=== PATIENT | male | born 1940 | race Caucasian/White ===

== ENCOUNTER 2018-09-22 14:00 | Inpatient (IN) ==
[2018-09-22] MEDS ORDERED: SODIUM CHLORIDE 0.9% 1000ML 1,000 ML IV ONE (14:54)
[2018-09-22] MEDS ORDERED: CEFEPIME 2,000 MG/12.5 ML VIAL IV STA (14:54)
--- NOTE | 2018-09-22 15:11 | XRay Report ---
XR chest 1V portable HISTORY: 78 years-old Male weakness acute weakness COMPARISON: Chest radiograph 09/15/2018 TECHNIQUE: Portable AP view of the chest FINDINGS: Cardiomediastinal and hilar silhouettes are unchanged. Calcification of the thoracic aortic arch. Unc hanged right pleural effusion with progressed right lung base opacities. Left lung is generally clear . No pneumothorax. Regions focus overlies the left heart border, unchanged. Indeterminate radiodense foci of the abdominal right upper quadrant. Degenerative changes of the shoulders and spine. IMPRESSION: Unchanged right pleural effusion with slightly progressed right basilar opacities suggest paige of atelectasis or pneumonitis. The above report was generated using voice recognition software. It may contain grammatical, syntax o r spelling errors. Electronically signed by: Rayo Abdi M.D. 09/22/2018 3:09 PM
[2018-09-22 15:23] LABS: Albumin Level 2.7 gm/dl (3.4-5.0); BUN Creatinine Ratio 24.5 (10-20); Calcium 9.1 mg/dl (8.5-10.1); Creatinine Clr Calc Pharmacy 26.5 ml/min; Est GFR (Non-African American) 48.3; Magnesium 2.4 mg/dl (1.8-2.4); Potassium 3.4 mmol/L (3.5-5.1)
[2018-09-22 15:32] LABS: Albumin Globulin Ratio 0.6 (0.9-2); Bilirubin,Total 1.8 mg/dl (0.2-1); Globulin 4.6 gm/dl (2.5-4.0); Total Protein 7.3 gm/dl (6.4-8.2)
[2018-09-22 15:35] LABS: Hematocrit (blood only) 31.8 % (42-52); Hemoglobin 10.4 g/dL (14.0-18.0); Mean Corpuscular Hgb Conc 32.7 g/dL (32-36); Mean Corpuscular Volume 92.4 fL (80-100); Platelet Count 52 K/uL (130-400); RDW Coefficient of Variation 16.8 % (11.5-14.5); RDW Standard Deviation 55.3 fL (36.4-46.3); Red Blood Count 3.44 M/uL (4.7-6.1)
[2018-09-22 15:36] LABS: INR 1.3 (0.9-1.1); Partial Thromboplastin Ratio 1.1; Partial Thromboplastin Time 29.9 Seconds (21.0-31.0); Prothrombin Time 13.3 Seconds (9.0-12.0)
[2018-09-22 15:44] LABS: Troponin I 0.128 ng/ml (0-0.045)
[2018-09-22 15:52] LABS: Dohle Bodies 1+; Giant Platelets 1+; Platelet Estimate Decreased (Normal); Toxic Granulation 1+
[2018-09-22 15:53] LABS: ALC (manual) 0.23 K/uL (1.2-3.4); Lymphocytes # (manual) 0.23 K/uL (1.2-3.4); Lymphocytes % (manual) 37.9 %; Metamyelocytes % (manual) 0.7 %; Monocytes # (manual) 0.03 K/uL (0.11-0.59); Myelocytes % (manual) 0.7 %; Neutrophils % (manual) 55.7 %
[2018-09-22 16:00] LABS: T4 Free Thyroxine 2.42 ng/dl (0.8-1.6)
[2018-09-22] MEDS ORDERED: MoRPHine SULFATE 2 MG/ML CARP IV PRN (16:07)
--- NOTE | 2018-09-22 16:37 | Emergency Department Note ---
Entered by Nerissa Barajas acting as a scribe for Felix Beltran MD History of Present Illness General Chief complaint: Referred by Doctor Stated complaint: NEEDS A PEG TUBE, CANCER PATIENT Time Seen by Provider: 09/22/18 14:49 Source: patient and old records reviewed Limitations: other (being unable to speak) History of Present Illness Provider complaint: PEG tube placement Onset (ago): hour(s) (today) Location: abdomen Maximum Pain Intensity: 10 Quality: + other (PEG tube placement ) Associated symptoms: + shortness of breath; no fever/chills The patient is a 78 year old male who presents to the Emergency Department with complaints of needing a PEG tube placement today. The patient states that he has throat cancer and states that he was last able to get fluid/food in himself 1 week ago. He states that he is currently getting radiation. He reports that he is unsure when he last had chemotherapy. He reports that he does not think he has a fever but does report that he is unable to catch his breath. Limited HPI secondary to a hoarse/weak voice as well as dyspnea. Review of EMR shows that the patient was discharged from the hospital 1 month ago. 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 Home Medications Home Medications Medication Instructions Recorded Confirmed Type clopidogrel 75 mg PO DAILY 07/08/18 09/22/18 History methotrexate sodium 6 tab PO UD 07/08/18 09/22/18 History gabapentin 100 mg capsule 200 mg PO TID 08/31/18 09/22/18 History nystatin 5 ml PO QID 09/22/18 09/22/18 History oxycodone 5 mg PO Q8 PRN 09/22/18 09/22/18 History scopolamine base [Transderm-Scop] 1 mg TOPICAL UD 09/22/18 09/22/18 History Allergies Allergy/AdvReac Type Severity Reaction Status Date / Time nitroglycerin Allergy Severe "my heart Verified 09/22/18 15:30 stopped" Past Med/Surg History Medical History Deviated nasal septum (Chronic) History of skin cancer (Chronic) EXCISION OF NOSE/FACE REGION, NO CONCERNS/ISSUES SINCE. Hyperlipidemia (Chronic) Primary squamous cell carcinoma of throat (Chronic) Rheumatoid arthritis (Chronic) BPH (benign prostatic hyperplasia) Surgical History H/O aorto-femoral bypass (Chronic) History of appendectomy (Resolved) History of heart surgery (Resolved) PLACEMENT OF AORTIC STENT 20 YEARS AGO. [facility]. History of herniorrhaphy (Resolved) Left inguinal History of laryngoscopy 07/06/18 History of throat surgery Direct laryngoscopy and esophagoscopy with biopsy of larynx 07/17/18: Fiberoptic #4, ETT 7.0 with Grade 2 view Family History Mother , 70yo CHF (congestive heart failure) Throat cancer Father , 53yo Bowel obstruction Brother No problems noted. Brother No problems noted. Brother No problems noted. Brother No problems noted. Brother No problems noted. Sister No problems noted. Sister No problems noted. Sister No problems noted. Sister No problems noted. Son No problems noted. Son No problems noted. Son No problems noted. Daughter No problems noted. Daughter No problems noted. 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 Physical Exam Vital Signs Vital Signs - 24 hr 09/22/18 14:14 09/22/18 14:29 09/22/18 15:10 Temperature 37.6 C H Temperature Source Oral Sepsis Recent Fever Within 48 Hours No Sepsis New/Unexplained Change in Mental Status No Sepsis Action Taken by Nursing No Action Required Pulse Rate [Left] Respiratory Rate 22 Blood Pressure 120/55 L Blood Pressure [Left Arm] Blood Pressure Mean 76 Blood Pressure Mean [Left Arm] Blood Pressure Position Sitting Pulse Oximetry 93 90 Oxygen Delivery Method Room Air Room Air Oxygen Flow Rate 3 09/22/18 15:40 09/22/18 16:15 09/22/18 17:14 Temperature Temperature Source Sepsis Recent Fever Within 48 Hours Sepsis New/Unexplained Change in Mental Status Sepsis Action Taken by Nursing Pulse Rate [Left] 108 H 114 H 126 H Respiratory Rate 22 24 22 Blood Pressure Blood Pressure [Left Arm] 116/99 155/78 H 120/74 Blood Pressure Mean Blood Pressure Mean [Left Arm] 104 103 89 Blood Pressure Position Pulse Oximetry 95 94 94 Oxygen Delivery Method Nasal Cannula Nasal Cannula Nasal Cannula Oxygen Flow Rate 3 3 3 09/22/18 18:17 Temperature Temperature Source Sepsis Recent Fever Within 48 Hours Sepsis New/Unexplained Change in Mental Status Sepsis Action Taken by Nursing Pulse Rate [Left] 125 H Respiratory Rate 20 Blood Pressure Blood Pressure [Left Arm] 129/65 Blood Pressure Mean Blood Pressure Mean [Left Arm] 86 Blood Pressure Position Pulse Oximetry 94 Oxygen Delivery Method Non-rebreather Oxygen Flow Rate GENERAL: Patient is in mild distress. HEENT: No acute trauma, normocephalic atraumatic, mucous membranes dry, no nasal congestion, no scleral icterus. NECK: No stridor, no adenopathy, no meningismus, trachea is midline. LUNGS: Increased respiratory rate. Equal breath sounds. No wheezing. HEART: Tachycardic rate, regular rhythm. No murmurs. ABDOMEN: Soft, nontender, bowel sounds positive, no hernias, no peritonitis. EXTREMITIES: No cyanosis or edema, full range of motion of all the joints without pain or difficulty, no signs for acute trauma. NEUROLOGIC: Oriented x 3, no acute motor or sensory deficits, no focal weakness. SKIN: No rash, no jaundice, no diaphoresis. Warm to the touch. Course 1449: The patient was evaluated in room A11A. A history and physical were performed. 1618: I checked on the patient. He looks a little better. 1626: I discussed the patient's case with Dr. Sheila Ma who will evaluate the patient for further management. Consultations Consultation #1: Dr. Sheila Ma Time: 16:26 Administered Medications Lactated Ringer's (Lr) 1,000 mls @ 100 mls/hr IV .Q10H GARRY Stop: 10/22/18 18:14 Last Admin: 09/22/18 18:32 Dose: 100 mls/hr Documented by: [id number] Morphine Sulfate (Morphine Sulfate) 2 mg IV Q15M PRN PRN Reason: Pain Stop: 10/06/18 16:06 Last Admin: 09/22/18 16:14 Dose: 2 mg Documented by: [id number] Discontinued Medications Sodium Chloride (Nss 1000ml) 1,000 mls @ 999 mls/hr IV .Q1H1M ONE Stop: 09/22/18 15:54 Last Infusion: 09/22/18 16:21 Dose: 0 mls/hr Documented by: [id number] Admin: 09/22/18 15:15 Dose: 999 mls/hr Documented by: [id number] Cefepime HCl (Maxipime) 2,000 mg in 12.5 mls @ 3.125 mls/min IV NOW STA; Protocol Stop: 09/22/18 14:57 Last Admin: 09/22/18 15:41 Dose: 3.125 mls/min Documented by: [id number] Propranolol HCl (Inderal) 0.5 mg IV ONE ONE Stop: 09/22/18 17:26 Last Admin: 09/22/18 18:12 Dose: 0.5 mg Documented by: [id number] Medical Decision Making Differential Diagnosis Differentials include dehydration, pneumonia, sepsis, bacteremia, electrolyte imbalance, UTI, malnutrition, and dysrhythmia. Medical Records Attestation: I reviewed the patient's medical records. Home Medications Current Medication List: was personally reviewed by me Laboratory Data Attestation: I reviewed the patient's lab results. Result diagrams: 09/22/18 14:49 09/22/18 14:49 Lab Results 09/22/18 09/22/18 09/22/18 Range/Units 14:49 14:49 14:49 WBC 0.60 L* (4.8-10.8) K/uL RBC 3.44 L (4.7-6.1) M/uL Hgb 10.4 L (14.0-18.0) g/dL Hct 31.8 L (42-52) % MCV 92.4 (80-100) fL MCH 30.2 (25-34) pg MCHC 32.7 (32-36) g/dL RDW Std Deviation 55.3 H (36.4-46.3) fL RDW Coeff of Daniel 16.8 H (11.5-14.5) % Plt Count 52 L (130-400) K/uL Neutrophils % (Manual) 55.7 % Lymphocytes % (Manual) 37.9 % Monocytes % (Manual) 5.0 % Metamyelocytes % (Man) 0.7 % Myelocytes % (Man) 0.7 % Neutrophils # (Manual) 0.33 L (1.4-6.5) K/uL Total Absolute Neuts 0.33 L* (1.4-6.5) K/uL Lymphocytes # (Manual) 0.23 L (1.2-3.4) K/uL Total Abs Lymphocytes 0.23 L (1.2-3.4) K/uL Monocytes # (Manual) 0.03 L (0.11-0.59) K/uL Metamyelocytes # (Man) 0.00 (0-0) K/uL Myelocytes # (Manual) 0.00 (0-0) K/uL Toxic Granulation 1+ Dohle Bodies 1+ Platelet Estimate Decreased (Normal) Giant Platelets 1+ PT Cancelled INR Cancelled APTT (21.0-31.0) Seconds PTT Ratio Sodium 153 H (136-145) mmol/L Potassium 3.4 L (3.5-5.1) mmol/L Chloride 120 H (98-107) mmol/L Carbon Dioxide 28 (21-32) mmol/L Anion Gap 5.0 (3-11) BUN 34 H (7-18) mg/dl Creatinine 1.38 (0.6-1.4) mg/dl Est Cr Clr Drug Dosing 26.5 ml/min Est GFR ( Amer) 56.0 Est GFR (Non-Af Amer) 48.3 BUN/Creatinine Ratio 24.5 H (10-20) Glucose 120 H (70-99) mg/dl Lactate (0.4-2.0) mmol/L Calcium 9.1 (8.5-10.1) mg/dl Magnesium 2.4 (1.8-2.4) mg/dl Total Bilirubin 1.8 H D (0.2-1) mg/dl AST 22 (15-37) U/L ALT 21 (12-78) U/L Alkaline Phosphatase 62 (45-117) U/L Troponin I 0.128 H* (0-0.045) ng/ml Total Protein 7.3 (6.4-8.2) gm/dl Albumin 2.7 L (3.4-5.0) gm/dl Globulin 4.6 H (2.5-4.0) gm/dl Albumin/Globulin Ratio 0.6 L (0.9-2) TSH 0.008 L (0.300-4.500) uIu/ml Free T4 2.42 H (0.8-1.6) ng/dl 09/22/18 09/22/18 09/22/18 Range/Units 14:49 15:00 15:24 WBC (4.8-10.8) K/uL RBC (4.7-6.1) M/uL Hgb (14.0-18.0) g/dL Hct (42-52) % MCV (80-100) fL MCH (25-34) pg MCHC (32-36) g/dL RDW Std Deviation (36.4-46.3) fL RDW Coeff of Daniel (11.5-14.5) % Plt Count (130-400) K/uL Neutrophils % (Manual) % Lymphocytes % (Manual) % Monocytes % (Manual) % Metamyelocytes % (Man) % Myelocytes % (Man) % Neutrophils # (Manual) (1.4-6.5) K/uL Total Absolute Neuts (1.4-6.5) K/uL Lymphocytes # (Manual) (1.2-3.4) K/uL Total Abs Lymphocytes (1.2-3.4) K/uL Monocytes # (Manual) (0.11-0.59) K/uL Metamyelocytes # (Man) (0-0) K/uL Myelocytes # (Manual) (0-0) K/uL Toxic Granulation Dohle Bodies Platelet Estimate (Normal) Giant Platelets PT 13.3 H INR 1.3 H APTT 29.9 (21.0-31.0) Seconds PTT Ratio 1.1 Sodium (136-145) mmol/L Potassium (3.5-5.1) mmol/L Chloride (98-107) mmol/L Carbon Dioxide (21-32) mmol/L Anion Gap (3-11) BUN (7-18) mg/dl Creatinine (0.6-1.4) mg/dl Est Cr Clr Drug Dosing ml/min Est GFR ( Amer) Est GFR (Non-Af Amer) BUN/Creatinine Ratio (10-20) Glucose (70-99) mg/dl Lactate 2.9 H* (0.4-2.0) mmol/L Calcium (8.5-10.1) mg/dl Magnesium (1.8-2.4) mg/dl Total Bilirubin (0.2-1) mg/dl AST (15-37) U/L ALT (12-78) U/L Alkaline Phosphatase (45-117) U/L Troponin I Cancelled (0-0.045) ng/ml Total Protein (6.4-8.2) gm/dl Albumin (3.4-5.0) gm/dl Globulin (2.5-4.0) gm/dl Albumin/Globulin Ratio (0.9-2) TSH (0.300-4.500) uIu/ml Free T4 (0.8-1.6) ng/dl Imaging Data Radiologist's Impression: Radiology results as stated below per my review and the radiologist's interpretation: XR chest 1V portable HISTORY: 78 years-old Male weakness acute weakness COMPARISON: Chest radiograph 09/15/2018 TECHNIQUE: Portable AP view of the chest FINDINGS: Cardiomediastinal and hilar silhouettes are unchanged. Calcification of the thoracic aortic arch. Unchanged right pleural effusion with progressed right lung base opacities. Left lung is generally clear. No pneumothorax. Regions focus overlies the left heart border, unchanged. Indeterminate radiodense foci of the abdominal right upper quadrant. Degenerative changes of the shoulders and spine. IMPRESSION: Unchanged right pleural effusion with slightly progressed right basilar opacities suggestive of atelectasis or pneumonitis. The above report was generated using voice recognition software. It may contain grammatical, syntax or spelling errors. Electronically signed by: Rayo Abdi M.D. 09/22/2018 3:09 PM ECG Data Attestation: I personally reviewed and interpreted this ECG as follows: Indication: tachycardia Rate (beats per minute): 117 Rhythm: sinus tachycardia Findings: + nonspecific-ST abn and + PVC; no ST elevation Blood Pressure Blood Pressure Findings: Normal blood pressure MDM Narrative The patient is markedly neutropenic. The white blood cell count is 0.60. The patient is anemic with a hemoglobin of 10.4. Platelet count is low at 52. INR slightly elevated at 1.3. Renal panel testing shows dehydration. The patient is somewhat hypernatremic with a sodium of 153. No hepatitis. The TSH is low but the T4 is slightly elevated. EKG shows a sinus tachycardia without any acute ischemic change. PVCs were seen. Cardiac troponin is slightly elevated at 0.12. This elevation could be consistent with mismatch or possibly cardiac strain/injury. Chest film shows worsening of the congestion in the right lower lung, this could be consistent with pneumonia. No CHF. Lactic acid level is elevated at 2.9, this could be consistent with dehydration or possibly infection. Blood cultures are pending. The patient was aggressively managed. He received IV saline, IV morphine and IV cefepime. He was placed on supplemental O2. The patient is quite ill. He is neutropenic, he likely has a right lower lung pneumonia. He is tachycardic, dehydrated, he is hyponatremic. He has an elevated cardiac troponin. His presentation and work-up warrant a hospital stay. I did speak with case management, I talked with the patient. The on-call hospitalist was consulted. The patient is feeling somewhat improved with the treatment outlined above. Impression & Plan Hypernatremia, Dehydration, Neutropenia, Elevated troponin, Tachycardia Critical Care Time I have personally spent 35 minutes of critical care time in the direct management of this patient. This includes bedside care, interpretation of diagnostic studies, and testing, discussion with consultants, patient, and family members, and other required patient management activities. This 35 minutes is in excess of all separately billable procedures. Critical Care Time: Yes Total Critical Care Time: 35 Discharge Plan Visit Data Chief Complaint: Referred by Doctor Stated Complaint: NEEDS A PEG TUBE, CANCER PATIENT ED Provider: Felix Beltran Discharge Problem: Hypernatremia, Dehydration, Neutropenia, Elevated troponin, Tachycardia Patient Disposition: Being Evaluated by Hospitalist Forms Stand Alone Forms: [facility] Prescriptions Prescriptions: No Action gabapentin [Neurontin] 100 mg capsule 200 mg PO TID RF: 0 clopidogrel 75 mg Tablet 75 mg PO DAILY RF: 0 methotrexate sodium 2.5 mg Tablet 6 tab PO UD RF: 0 scopolamine base [Transderm-Scop] 1 mg over 3 days patch 3 day 1 mg topical UD RF: 0 nystatin 100,000 unit/mL suspension 5 ml PO QID RF: 0 oxycodone 5 mg tablet 5 mg PO Q8 PRN (Reason: Pain) RF: 0 Referrals Referrals: Khurram Benson [Primary Care Provider] - Discharge Problem: Neutropenia Qualifiers: Neutropenia type: unspecified Qualified Code(s): D70.9 - Neutropenia, unspecified The scribe's documentation has been prepared under my direction and personally reviewed by me in its entirety. I confirm that the note above accurately reflects all work, treatment, procedures, and medical decision making performed by me.
[2018-09-22] MEDS ORDERED: PROPRANOLOL HCL 1 MG/ML 1 ML VIAL IV ONE (17:25)
[2018-09-22] MEDS ORDERED: SODIUM CHLORIDE 0.9% IV ONE (18:23)
[2018-09-22] MEDS ORDERED: VANCOMYCIN HCL IV ONE (18:23)
[2018-09-22] MEDS ORDERED: VANCOMYCIN CONSULT ACTIVE PRN (18:23)
[2018-09-22] MEDS ORDERED: PIPERACILL/TAZOBAC CONSULT ACTIVE PRN (18:23)
[2018-09-22] MEDS ORDERED: PIPERACILLIN/TAZOBACTAM 3.375 GM in DEXTROSE 5% 100 ML IV SCH (18:30)
[2018-09-22] MEDS: LACTATED RINGER'S 1,000 ML IV SCH (18:32)
--- NOTE | 2018-09-22 18:38 | History & Physical Report ---
Date of Service September 22, 2018 Assessment & Plan (1) Pancytopenia: 78-year-old male was admitted on 22 September 2018 for multiple medical issues. Pancytopenia: Brief review of past medical records, apparently patient has had some mild pancytopenia his entire life. Prior work-up included bone marrow biopsies x2 with no particular diagnosis established. At present, WBC 0.6, Hb 10, & platelets 52. Afebrile here. - Consulted oncology. Right lower lobe pneumonia: Recent reports of shortness of breath but no fever/chills. Afebrile but tachycardic, tachypneic, with an oxygen requirement and lactate of 2.9. pCXR notable for right pleural effusion and question of right basilar opacities. Blood cultures sent. Unclear if this is HAP +/- aspiration. - In ED, was treated with one liter NS bolus, morphine, and started on cefepime. - Will continue IVF (LR at 100 mL/hr). Will start with vancomycin and zosyn (renal-dosed). Will check a stat MRSA nares as well. - Will repeat lactate at 2100 tonight. 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 He was apparently referred for possible placement of a PEG tube due to inability to feed himself for the past week prior to admission. - Will rehydrate and defer GI consult until more medically stable. 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 He is s/p thorascopy and lobectomy on 17Aug[address] Woo (thoracic surgery). Has been on oxycodone and gabapentin for pain control as outpatient. Concern for thyrotoxicosis: Admit TSH 0.008. Free T4 2.42. No known underlying thyroid disease. Some risk factors for thyroid storm. --- Given initial dose of propranolol IV in ED. --- Will check echocardiogram for overall cardiac function. Lab abnormalities: - Hypernatremia: Admit Na 153. Likely volume depleted given lack of recent PO intake. Will recheck s/p IVF administration. - Elevated troponin: Admit TnI 0.128. No notes of CP. EKG sinus tachy rate 117 with occasional PVCs without other ST-T wave elevations/depressions seen. --- Will repeat serial TnI and EKGs at 2100 tonight and 0300 in the early childhood assistant. - Hypokalemia: Admit K 3.4. Will recheck s/p IVF administration. - Elevated Cr: Admit Cr 1.38 (with comparisons around 0.9). BUN 24.5. Will recheck s/p IVF administration. - Elevated total bilirubin: Admit T bili 1.8. No obvious jaundice and other LFTs normal. Will recheck s/p IVF administration. Home medications (Plavix, gabapentin, methotrexate, nystatin, and oxycodone) held due to NPO. Code status: Unable to determine patients wishes at the moment. Will start with full code. Diet: NPO. DVT prophy: Lovenox 40 mg daily (and will watch for any evidence of bleeding given relatively high dose based on weight). PT/OT: Deferred initially. Disbo: Admit to [facility]. (2) Right lower lobe pneumonia: (3) Poor fluid intake: (4) Dehydration: (5) Squamous cell carcinoma of epiglottis: (6) Mass of middle lobe of right lung: (7) Thyrotoxicosis: (8) Hypernatremia: (9) Elevated troponin: (10) Hypokalemia: (11) Elevated serum creatinine: (12) Total bilirubin, elevated: History of Present Illness Primary Care Provider: Khurram Benson 78-year-old male presented to the emergency department apparently after being referred for possible PEG tube placement. The patient is practically non-verbal due to his history of epiglottis squamous cell carcinoma. He occasionally can speak one single word and mostly nods his head to questions. Therefore history is completely per the ED report and available medical records. Apparently the patient has had minimal to no p.o. intake over the past week. At present, he is quite anxious and does not answer most questions asked. He nods his head "no" when asked if he has any chest pain or difficulty breathing. He nods his head "yes" saying that his abdomen feels uncomfortable. Otherwise he does not answer focal questions. He appears quite restless and at times trying to get out of bed. --- Past medical history includes squamous cell carcinoma of the epiglottis, lung mass, AAA, osteoarthritis, deviated nasal septum, GERD, hyperlipidemia, rheumatoid arthritis, skin cancer of the face. --- Past surgical history includes throat surgery, appendectomy, aortofemoral bypass, placement of aortic stent, hernia repair. --- Social history includes frequent cigar smoking. He drank alcohol in his y outh but not for several years. 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 Allergies Allergy/AdvReac Type Severity Reaction Status Date / Time nitroglycerin Allergy Severe "my heart Verified 09/22/18 15:30 stopped" Home Medications Home Medications Medication Instructions Recorded Confirmed Type clopidogrel 75 mg PO DAILY 07/08/18 09/22/18 History methotrexate sodium 6 tab PO UD 07/08/18 09/22/18 History gabapentin 100 mg capsule 200 mg PO TID 08/31/18 09/22/18 History nystatin 5 ml PO QID 09/22/18 09/22/18 History oxycodone 5 mg PO Q8 PRN 09/22/18 09/22/18 History scopolamine base [Transderm-Scop] 1 mg TOPICAL UD 09/22/18 09/22/18 History Past Med/Surg History Medical History Deviated nasal septum (Chronic) History of skin cancer (Chronic) EXCISION OF NOSE/FACE REGION, NO CONCERNS/ISSUES SINCE. Hyperlipidemia (Chronic) Primary squamous cell carcinoma of throat (Chronic) Rheumatoid arthritis (Chronic) BPH (benign prostatic hyperplasia) Surgical History H/O aorto-femoral bypass (Chronic) History of appendectomy (Resolved) History of heart surgery (Resolved) PLACEMENT OF AORTIC STENT 20 YEARS AGO. [facility]. History of herniorrhaphy (Resolved) Left inguinal History of laryngoscopy 07/06/18 History of throat surgery Direct laryngoscopy and esophagoscopy with biopsy of larynx 07/17/18: Fiberoptic #4, ETT 7.0 with Grade 2 view Family History Mother , 70yo CHF (congestive heart failure) Throat cancer Father , 53yo Bowel obstruction Brother No problems noted. Brother No problems noted. Brother No problems noted. Brother No problems noted. Brother No problems noted. Sister No problems noted. Sister No problems noted. Sister No problems noted. Sister No problems noted. Son No problems noted. Son No problems noted. Son No problems noted. Daughter No problems noted. Daughter No problems noted. 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 Physical Exam Physical Exam: GENERAL: Awake, alert, interactive but appears quite anxious. Unable to speak more than a single word with significant struggle to enunciate. HENT: Normocephalic, atraumatic. Very dry oral mucous membranes. EYES: Normal conjunctiva. Sclera non-icteric. NECK: Inspection normal. No nuchal rigidity. CARDIAC: +S1S2 regular tachycardia, no murmurs. RESPIRATORY: Decreased breath sounds in right base. No wheezing. Mild tachypnea without increased respiratory effort. On NRB (as he would not tolerate keeping NC in place). GI: +BS, soft, non-distended. No tenderness to palpation. Cachetic. EXTREMITIES: No pedal edema or calf tenderness. Moving all extremities naturally and easily. Thin habitus. NEURO: No gross neuro deficits. Results & Data Vital Signs (Past 12 Hours) Vital Signs Temp Pulse Resp BP BP Pulse Ox 09/22/18 18:17 125 H 20 129/65 94 09/22/18 17:14 126 H 22 120/74 94 09/22/18 16:15 114 H 24 155/78 H 94 09/22/18 15:40 108 H 22 116/99 95 09/22/18 15:10 90 09/22/18 14:29 93 09/22/18 14:14 37.6 C H 22 120/55 L Laboratory Results 09/22/18 09/22/18 09/22/18 Range/Units 15:24 15:00 14:49 WBC (4.8-10.8) K/uL RBC (4.7-6.1) M/uL Hgb (14.0-18.0) g/dL Hct (42-52) % MCV (80-100) fL MCH (25-34) pg MCHC (32-36) g/dL RDW Std Deviation (36.4-46.3) fL RDW Coeff of Daniel (11.5-14.5) % Plt Count (130-400) K/uL Neutrophils % (Manual) % Lymphocytes % (Manual) % Monocytes % (Manual) % Metamyelocytes % (Man) % Myelocytes % (Man) % Neutrophils # (Manual) (1.4-6.5) K/uL Total Absolute Neuts (1.4-6.5) K/uL Lymphocytes # (Manual) (1.2-3.4) K/uL Total Abs Lymphocytes (1.2-3.4) K/uL Monocytes # (Manual) (0.11-0.59) K/uL Metamyelocytes # (Man) (0-0) K/uL Myelocytes # (Manual) (0-0) K/uL Toxic Granulation Dohle Bodies Platelet Estimate (Normal) Giant Platelets PT 13.3 H INR 1.3 H APTT 29.9 (21.0-31.0) Seconds PTT Ratio 1.1 Sodium (136-145) mmol/L Potassium (3.5-5.1) mmol/L Chloride (98-107) mmol/L Carbon Dioxide (21-32) mmol/L Anion Gap (3-11) BUN (7-18) mg/dl Creatinine (0.6-1.4) mg/dl Est Cr Clr Drug Dosing ml/min Est GFR ( Amer) Est GFR (Non-Af Amer) BUN/Creatinine Ratio (10-20) Glucose (70-99) mg/dl Lactate 2.9 H* (0.4-2.0) mmol/L Calcium (8.5-10.1) mg/dl Magnesium (1.8-2.4) mg/dl Total Bilirubin (0.2-1) mg/dl AST (15-37) U/L ALT (12-78) U/L Alkaline Phosphatase (45-117) U/L Troponin I Cancelled (0-0.045) ng/ml Total Protein (6.4-8.2) gm/dl Albumin (3.4-5.0) gm/dl Globulin (2.5-4.0) gm/dl Albumin/Globulin Ratio (0.9-2) TSH (0.300-4.500) uIu/ml Free T4 (0.8-1.6) ng/dl 09/22/18 09/22/18 09/22/18 Range/Units 14:49 14:49 14:49 WBC 0.60 L* (4.8-10.8) K/uL RBC 3.44 L (4.7-6.1) M/uL Hgb 10.4 L (14.0-18.0) g/dL Hct 31.8 L (42-52) % MCV 92.4 (80-100) fL MCH 30.2 (25-34) pg MCHC 32.7 (32-36) g/dL RDW Std Deviation 55.3 H (36.4-46.3) fL RDW Coeff of Daniel 16.8 H (11.5-14.5) % Plt Count 52 L (130-400) K/uL Neutrophils % (Manual) 55.7 % Lymphocytes % (Manual) 37.9 % Monocytes % (Manual) 5.0 % Metamyelocytes % (Man) 0.7 % Myelocytes % (Man) 0.7 % Neutrophils # (Manual) 0.33 L (1.4-6.5) K/uL Total Absolute Neuts 0.33 L* (1.4-6.5) K/uL Lymphocytes # (Manual) 0.23 L (1.2-3.4) K/uL Total Abs Lymphocytes 0.23 L (1.2-3.4) K/uL Monocytes # (Manual) 0.03 L (0.11-0.59) K/uL Metamyelocytes # (Man) 0.00 (0-0) K/uL Myelocytes # (Manual) 0.00 (0-0) K/uL Toxic Granulation 1+ Dohle Bodies 1+ Platelet Estimate Decreased (Normal) Giant Platelets 1+ PT Cancelled INR Cancelled APTT (21.0-31.0) Seconds PTT Ratio Sodium 153 H (136-145) mmol/L Potassium 3.4 L (3.5-5.1) mmol/L Chloride 120 H (98-107) mmol/L Carbon Dioxide 28 (21-32) mmol/L Anion Gap 5.0 (3-11) BUN 34 H (7-18) mg/dl Creatinine 1.38 (0.6-1.4) mg/dl Est Cr Clr Drug Dosing 26.5 ml/min Est GFR ( Amer) 56.0 Est GFR (Non-Af Amer) 48.3 BUN/Creatinine Ratio 24.5 H (10-20) Glucose 120 H (70-99) mg/dl Lactate (0.4-2.0) mmol/L Calcium 9.1 (8.5-10.1) mg/dl Magnesium 2.4 (1.8-2.4) mg/dl Total Bilirubin 1.8 H D (0.2-1) mg/dl AST 22 (15-37) U/L ALT 21 (12-78) U/L Alkaline Phosphatase 62 (45-117) U/L Troponin I 0.128 H* (0-0.045) ng/ml Total Protein 7.3 (6.4-8.2) gm/dl Albumin 2.7 L (3.4-5.0) gm/dl Globulin 4.6 H (2.5-4.0) gm/dl Albumin/Globulin Ratio 0.6 L (0.9-2) TSH 0.008 L (0.300-4.500) uIu/ml Free T4 2.42 H (0.8-1.6) ng/dl Diagnostic Findings [facility], [place] [phone] XRay Report Patient: CHADD ZENG Date: 09/22/18 MR#: [id number] Acct ID:[id number]: Date: 1940[facility] Zip: [id number] Age: 78Location: ED Sex: M Room/Bed: Att Phy: Diagnosis: NEEDS A PEG TUBE, CANCER PATIENT Marcie Phy: Khurram Benson M.D.Service Date: 09/22/18 [facility] Phy: Interpreting Phy: Francisco Abdi Admit Phy: Ordering Phy: Felix Beltran M.D. cc: ~ XR chest 1V portable HISTORY: 78 years-old Male weakness acute weakness COMPARISON: Chest radiograph 09/15/2018 TECHNIQUE: Portable AP view of the chest FINDINGS: Cardiomediastinal and hilar silhouettes are unchanged. Calcification of the thoracic aortic arch. Unchanged right pleural effusion with progressed right lung base opacities. Left lung is generally clear. No pneumothorax. Regions focus overlies the left heart border, unchanged. Indeterminate radiodense foci of the abdominal right upper quadrant. Degenerative changes of the shoulders and spine. IMPRESSION: Unchanged right pleural effusion with slightly progressed right basilar opacities suggestive of atelectasis or pneumonitis. Medications Administered Current Inpatient Medications Lactated Ringer's (Lr) 1,000 mls @ 100 mls/hr IV .Q10H GARRY Stop: 10/22/18 18:14 Last Admin: 09/22/18 18:32 Dose: 100 mls/hr Documented by: Piperacillin Sod/Tazobactam (Sod 3.375 gm/ Dextrose) 115 mls @ 28.75 mls/hr IV Q6H GARRY; Protocol Stop: 09/29/18 18:29 Vancomycin HCl 860 mg/ Sodium (Chloride) 517.2 mls @ 200 mls/hr IV NOW ONE; Protocol Stop: 09/22/18 20:58 Miscellaneous Information (Consult) 1 ea N/A UD PRN PRN Reason: Consult Stop: 10/22/18 18:22 Miscellaneous Information (Consult) 1 ea N/A UD PRN PRN Reason: Consult Stop: 10/22/18 18:22 Morphine Sulfate (Morphine Sulfate) 2 mg IV Q15M PRN PRN Reason: Pain Stop: 10/06/18 16:06 Last Admin: 09/22/18 16:14 Dose: 2 mg Documented by: Code Status & VTE Plan Code Status Full code VTE Prophylaxis Plan VTE Prophylaxis will be ordered: Yes Supervising Physician Co-Signing Physician Notes I personally examined the patient and verified all kirk points of history and exam, discussed case, and agree with decision making with Dr Zaldivar. Fairly limited HPI and review of systems obtainable. See above. He seems fairly restless. He does note that he feels better since he is been given a liter of fluid, and he notes that he does not feel short of breath. Vitals noted, in general he is cachectic restless in bed but does not appear to be in any respiratory distress. HEENT normocephalic atraumatic mucous membranes are dry. Cardio is distant but tachycardic, lungs are distant and diminished without any adventitious sounds but definitely a very difficult exam no accessory muscle use. Musculoskeletal exam shows bilateral lower thoracic and upper lumbar paraspinal hypertonicity the seems to be tender it seems to be some of the cause of his restlessness, direct myofascial done with the degree of improvement and he does seem to calm some. Skin appears quite dry no pallor neutropenic sepsis - appearing predominantly pneumonia related -vanco and zosyn (HCAP or aspiration both possible) -supportive care possible thyroid storm -IV beta heather for now, follow closely. can't use methimazole/PTU right now due to inability to safely take any PO; continue to follow hypernatremic dehydration -from poor PO intake -given above, need intravascular volume more urgently than rehydrated -- will give isotonic fluids with LR since Na is a little lower than his serum Na; once volume status clearly stable then can move to hypotonic fluids to rehydrate restlessness/agitation/AMS - probably at least delirium if not metabolic encephalopathy from all of above otherwise as above Resident Activity Tracking Resident Involvement: Resident Care Provided Care Provided: Adult Hospital Medicine
[2018-09-22] MEDS ORDERED: VANCOMYCIN HCL 1,000 MG in SODIUM CHLORIDE 0.9% 250 ML IV SCH (18:45)
[2018-09-22] MEDS ORDERED: PIPERACILLIN/TAZOBACTAM 3.375 GM in DEXTROSE 5% 100 ML IV ONE (18:45)
[2018-09-22] MEDS ORDERED: ONDANSETRON INJ 2 MG/ML 2 ML VIAL IV PRN (20:26)
[2018-09-22] MEDS ORDERED: ENOXAPARIN INJ 40 MG/0.4 ML SYR SQ SCH (21:00)
[2018-09-22] MEDS: SCOPOLAMINE 1.5 MG TDSY TD SCH (22:20)
[2018-09-22] MEDS: METOPROLOL TARTRATE 1 MG/ML VIAL IV PRN (22:21)
[2018-09-23] MEDS: PIPERACILLIN/TAZOBACTAM 3.375 GM in DEXTROSE 5% 100 ML IV SCH ×3 (00:34→17:28)
[2018-09-23] MEDS: CHECK SCOPOLAMINE PATCH PLACEMENT SCH ×3 (00:34→17:27)
[2018-09-23] MEDS: MoRPHine SULFATE 2 MG/ML CARP IV PRN ×5 (00:43→17:42)
[2018-09-23 03:01] LABS: Appearance Urine Cloudy (Clear); Bacteria Urine Automated Negative (Negative); Bilirubin Urine Negative (Negative); Blood Urine 1+ (Negative); Color Urine Dark Yellow; Glucose Urine UA Negative (Negative); Ketones Urine 1+ (Negative); Leukocyte Esterase Urine Negative (Negative); Nitrite Urine Negative (Negative); Protein Urine 1+ (Negative); Specific Gravity Urine 1.025 (1.000-1.030); Urobilinogen Urine Negative (Negative)
[2018-09-23 03:17] LABS: Uric Acid Crystals Urine Present (None Prsent)
[2018-09-23 03:52] LABS: Albumin Globulin Ratio 0.5 (0.9-2); Albumin Level 2.1 gm/dl (3.4-5.0); BUN Creatinine Ratio 28.3 (10-20); Bilirubin,Total 1.4 mg/dl (0.2-1); Calcium 8.2 mg/dl (8.5-10.1); Creatinine Clr Calc Pharmacy 36.1 ml/min; Est GFR (African American) 78.8; Globulin 3.9 gm/dl (2.5-4.0); Magnesium 2.1 mg/dl (1.8-2.4); Phosphorus 2.8 mg/dl (2.5-4.9); Potassium 2.8 mmol/L (3.5-5.1); Troponin I 0.164 ng/ml (0-0.045)
[2018-09-23 04:08] LABS: Hematocrit (blood only) 28.1 % (42-52); Hemoglobin 8.9 g/dL (14.0-18.0); Mean Corpuscular Hgb Conc 31.7 g/dL (32-36); Mean Corpuscular Volume 92.4 fL (80-100); Platelet Count 44 K/uL (130-400); RDW Coefficient of Variation 16.7 % (11.5-14.5); RDW Standard Deviation 55.7 fL (36.4-46.3); Red Blood Count 3.04 M/uL (4.7-6.1); White Blood Count 0.53 K/uL (4.8-10.8)
[2018-09-23 04:13] LABS: Basophils # (auto) 0.01 K/uL (0-0.2); Basophils % (auto) 1.9 %; Dohle Bodies 2+; Giant Platelets 3+; Lymphocytes # (auto) 0.19 K/uL (1.2-3.4); Lymphocytes % (auto) 35.8 %; Monocytes # (auto) 0.08 K/uL (0.11-0.59); Monocytes % (auto) 15.1 %; Neutrophils # (auto) 0.25 K/uL (1.4-6.5); Neutrophils % (auto) 47.2 %; Platelet Estimate Decreased (Normal); Toxic Granulation 2+
[2018-09-23] MEDS: POTASSIUM CHLORIDE / WTR 10 MEQ/100 ML PLCT IV SCH ×7 (04:22→23:15)
[2018-09-23] MEDS ORDERED: POTASSIUM CHLORIDE 40 MEQ in SODIUM CHLORIDE 0.45 % 1,000 ML IV SCH (08:00)
[2018-09-23] MEDS ORDERED: ENOXAPARIN INJ 30 MG/0.3 ML SYR SQ SCH (08:00)
[2018-09-23] MEDS ORDERED: LACTATED RINGER'S 1,000 ML IV ONE (08:12)
--- NOTE | 2018-09-23 08:24 | Family Medicine Progress Note ---
Date of Service September 23, 2018 Assessment & Plan (1) Pancytopenia: 78-year-old male was admitted on 22 September 2018 for multiple medical issues. Pancytopenia: Chronic and likely acutely worsened secondary to chemotherapy Brief review of past medical records, apparently patient has had some mild pancytopenia his entire life. Possibly from chronically being on methotrexate. prior work-up included bone marrow biopsies x2 with no particular diagnosis established. At present, WBC 0.5, Hb 8.9, & platelets 44. Febrile - Consulted oncology: Recommend broad coverage given mucositis and pneumonia Right lower lobe pneumonia: Recent reports of shortness of breath but no fever/chills. Now febrile, tachycardic, tachypneic, with an oxygen requirement and initial lactate of 2.9. pCXR notable for right pleural effusion and question of right basilar opacities. Abdominal CT also noted dense bibasilar airspace consolidations with small to moderate right and trace left pleural effusions. blood cultures sent. Return for hospital-acquired pneumonia and aspiration. - In ED, received cefepime - On vancomycin and zosyn (renal-dosed) broad coverage given neutropenia Mucositis -Spectrum antibiotic coverage with vancomycin and Zosyn Also started on dexamethasone for thyrotoxicosis which should also help with mucositis Concern for thyrotoxicosis: Admit TSH 0.008. Free T4 2.42. No known underlying thyroid disease. Likely acute injury from radiation treatment -Treatment limited due to inability to take p.o. and cannot give methimazole or PTU -Given initial dose of propranolol IV in ED. 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 He was apparently referred for possible placement of a PEG tube due to inability to feed himself for the past week prior to admission. - Will rehydrate and defer GI consult until more medically stable. 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 He is s/p thorascopy and lobectomy on [id number] Woo (thoracic surgery). Has been on oxycodone and gabapentin for pain control as outpatient. Receiving chemotherapy and radiation. Lab abnormalities: - Hypernatremia: Admit Na 153. Sodium 152. Likely volume depleted given lack of recent PO intake. On D5W with potassium at 60 mL per hour -Hypomagnesemia: Received 3 g of IV mag sulfate - Hypokalemia: K 3.2. Replete and recheck - Elevated troponin: Admit TnI 0.128->0.197 ->0.164. Down trended. no notes of CP. EKG sinus tachy rate 117 with occasional PVCs without other ST-T wave elevations/depressions seen. - Elevated Cr: Admit Cr 1.38 (with comparisons around 0.9). BUN 24.5. Improved to 1 - Elevated total bilirubin: Admit T bili 1.8. No obvious jaundice and other LFTs normal. Improved to 1.4 secondary to rehydration Home medications (Plavix, gabapentin, methotrexate, nystatin, and oxycodone) held due to being NPO. Code status: Unable to determine patients wishes at the moment. Will start with full code. Diet: NPO. DVT prophy: Lovenox 40 mg daily (and will watch for any evidence of bleeding given relatively high dose based on weight). PT/OT: Deferred Disbo: Admit to [facility]. (2) Right lower lobe pneumonia: (3) Poor fluid intake: (4) Dehydration: (5) Squamous cell carcinoma of epiglottis: (6) Mass of middle lobe of right lung: (7) Thyrotoxicosis: (8) Hypernatremia: (9) Elevated troponin: (10) Hypokalemia: (11) Elevated serum creatinine: (12) Total bilirubin, elevated: Supervising Physician Co-Signing Physician Notes I personally examined the patient and verified all kirk points of history and exam, discussed case, and agree with decision making with Dr Villanueva. HPI and ROS not really obtainable from pt. restless in bed, upper airway mucous sounds. d/w nursing and respiratory. d/w heme/onc. extensive d/w son, updated to the best of my ability and to his satisfaction Vitals noted, in general he is cachectic restless and pulling in his oxygen mask. Breathing is a bit diminished, hard to listen to because of the upper airway mucus noises, but no clearly notable rales rhonchi or wheezes are noted with good effort and may be mild accessory muscle use at worst. Skin is better hydrated than yesterday although he looks quite dry. Neuro shows no focal deficits. neutropenic sepsis - appearing predominantly pneumonia related, but in discussion with hematology/oncology significant mucositis is likely also at play -vanco and zosyn (HCAP or aspiration both possible, and the vancomycin particularly for the mucositis) -supportive care possible thyroid storm -He has a low TSH and a somewhat high free T4 -Symptoms in terms of the tachycardia agitation and fever can also be simultaneously explained by his neutropenic sepsis and his hypernatremic dehydration, so it is somewhat difficult to determine exactly what symptoms relate to the thyroid what symptoms relate to the rest of his acute comorbidities, and which may be both. (Of note his temperature curve seems to fit more that of a neutropenic sepsis picture than a hyperthyroid picture) -Continue beta-heather -Due to high risk and inability to tolerate p.o., we cannot use PTU or methimazole right now -Potassium iodide would also be extremely high risk given his inability to safely tolerate p.o., as well as reports of esophageal mucosal injury, given his mucositis, this would likely have a big risk of causing harm -Because he still seems to be showing symptoms that can be attributable to hyperthyroidism, we will initiate glucocorticoids -IV iodine seems to be ill studied without a clear dosing regimen or outcomes, we will hold off on this for now given that more effective, and more proven measures can be undertaken -Bile acid binding resin and is again not able to be given due to his inability to take p.o. -Inciting etiology not entirely clear, but seems to probably related to his chemo, or radiation. -Once we are able to affect enteral intake, we will likely be able to get him started on methimazole hypernatremic dehydration -from poor PO intake -Intravascular volume status now appears stable, his sodium is not improving much, we will move to more hypotonic fluids and continue to follow him closely Mucositis -Right now this probably was causing most of his upper airway mucus, and it did improve somewhat with nebulizer, we will continue this. He is on vancomycin and Zosyn to cover for nosocomial pathogens, continue. Steroids initiated for the hyperthyroidism may help calm down some of this inflammation as well. restlessness/agitation/AMS - probably at least delirium if not metabolic encephalopathy from all of above, continue supportive care DVT prophylaxisLovenox otherwise as above Subjective Patient resting in bed when examined this morning. Appeared uncomfortable and agitated. Constantly moving. Unable to comprehend patient due to loss of voice. Nodded to having trouble breathing and on abdominal exam was in significant discomfort, tensing abdomen. Review of Systems Review of Systems: Limited due to patient's inability to communicate and mental status Physical Exam Physical Exam: General: In moderate discomfort, somewhat agitated and constantly moving in bed CV: RRR, no m/r/g PULM: Diffuse rales and transmitted upper airway sounds appreciated, equal breath sounds bilaterally ABDOMEN: +BS, non-distended, diffusely tender to palpation in all quadrants LE: no calf TTP, no LE edema Results & Data Vital Signs (Past 12 Hours) Vital Signs Temp Pulse Pulse Resp BP BP Pulse Ox 09/23/18 08:17 36.9 C 109 H 18 134/79 91 09/23/18 03:57 36.6 C 106 H 20 127/80 95 09/23/18 00:00 38.2 C H 100 H 101 H 20 126/71 92 09/22/18 22:21 120 H 143/70 H Laboratory Results Abnormal lab results 09/22/18 09/22/18 09/23/18 Range/Units 21:12 22:45 03:09 WBC (4.8-10.8) K/uL RBC (4.7-6.1) M/uL Hgb (14.0-18.0) g/dL Hct (42-52) % MCHC (32-36) g/dL RDW Std Deviation (36.4-46.3) fL RDW Coeff of Daniel (11.5-14.5) % Plt Count (130-400) K/uL Neut # (Auto) (1.4-6.5) K/uL Lymph # (Auto) (1.2-3.4) K/uL [place] # (Auto) (0.11-0.59) K/uL Sodium 154 H (136-145) mmol/L Potassium 2.8 L D (3.5-5.1) mmol/L Chloride 123 H (98-107) mmol/L BUN 29 H (7-18) mg/dl BUN/Creatinine Ratio 28.3 H (10-20) Glucose 109 H (70-99) mg/dl Calcium 8.2 L (8.5-10.1) mg/dl Total Bilirubin 1.4 H (0.2-1) mg/dl Troponin I 0.197 H* 0.164 H* (0-0.045) ng/ml Total Protein 6.0 L (6.4-8.2) gm/dl Albumin 2.1 L (3.4-5.0) gm/dl Albumin/Globulin Ratio 0.5 L (0.9-2) Urine Appearance Cloudy H (Clear) Urine Protein 1+ H (Negative) Urine Ketones 1+ H (Negative) Urine Blood 1+ H (Negative) Urine RBC (Auto) 5-10 H (0-4) /hpf U Hyaline Cast (Auto) 5-10 H (0-5) /lpf U Epithel Cells (Auto) 10-20 H (0-5) /lpf Uric Acid Crystals Present H (None Prsent) 09/23/18 09/23/18 09/23/18 Range/Units 03:09 07:46 12:08 WBC 0.53 L* (4.8-10.8) K/uL RBC 3.04 L (4.7-6.1) M/uL Hgb 8.9 L (14.0-18.0) g/dL Hct 28.1 L (42-52) % MCHC 31.7 L (32-36) g/dL RDW Std Deviation 55.7 H (36.4-46.3) fL RDW Coeff of Daniel 16.7 H (11.5-14.5) % Plt Count 44 L (130-400) K/uL Neut # (Auto) 0.25 L* (1.4-6.5) K/uL Lymph # (Auto) 0.19 L (1.2-3.4) K/uL [place] # (Auto) 0.08 L (0.11-0.59) K/uL Sodium 156 H* 152 H (136-145) mmol/L Potassium 3.1 L 3.2 L (3.5-5.1) mmol/L Chloride 122 H 120 H (98-107) mmol/L BUN 29 H 26 H (7-18) mg/dl BUN/Creatinine Ratio 29.8 H 29.5 H (10-20) Glucose (70-99) mg/dl Calcium (8.5-10.1) mg/dl Total Bilirubin (0.2-1) mg/dl Troponin I (0-0.045) ng/ml Total Protein (6.4-8.2) gm/dl Albumin (3.4-5.0) gm/dl Albumin/Globulin Ratio (0.9-2) Urine Appearance (Clear) Urine Protein (Negative) Urine Ketones (Negative) Urine Blood (Negative) Urine RBC (Auto) (0-4) /hpf U Hyaline Cast (Auto) (0-5) /lpf U Epithel Cells (Auto) (0-5) /lpf Uric Acid Crystals (None Prsent) 09/23/18 Range/Units 16:07 WBC (4.8-10.8) K/uL RBC (4.7-6.1) M/uL Hgb (14.0-18.0) g/dL Hct (42-52) % MCHC (32-36) g/dL RDW Std Deviation (36.4-46.3) fL RDW Coeff of Daniel (11.5-14.5) % Plt Count (130-400) K/uL Neut # (Auto) (1.4-6.5) K/uL Lymph # (Auto) (1.2-3.4) K/uL [place] # (Auto) (0.11-0.59) K/uL Sodium 152 H (136-145) mmol/L Potassium 3.2 L (3.5-5.1) mmol/L Chloride 119 H (98-107) mmol/L BUN 25 H (7-18) mg/dl BUN/Creatinine Ratio 23.9 H (10-20) Glucose 105 H (70-99) mg/dl Calcium (8.5-10.1) mg/dl Total Bilirubin (0.2-1) mg/dl Troponin I (0-0.045) ng/ml Total Protein (6.4-8.2) gm/dl Albumin (3.4-5.0) gm/dl Albumin/Globulin Ratio (0.9-2) Urine Appearance (Clear) Urine Protein (Negative) Urine Ketones (Negative) Urine Blood (Negative) Urine RBC (Auto) (0-4) /hpf U Hyaline Cast (Auto) (0-5) /lpf U Epithel Cells (Auto) (0-5) /lpf Uric Acid Crystals (None Prsent) Diagnostic Findings CT SCAN OF THE ABDOMEN AND PELVIS WITH IV CONTRAST CLINICAL HISTORY: Generalized abdominal pain. COMPARISON STUDY: PET/CT dated 08/05/2018. TECHNIQUE: Following the IV administration of 94 cc of Optiray 320, CT scan of the abdomen and pelvis is performed from the lung bases to the proximal femora. Images are reviewed in the axial, sagittal, and coronal planes. IV contrast was administered without complication. A dose lowering technique was utilized adhering to the principles of ALARA. Examination is degraded by motion artifact. CT DOSE: 241.56 mGy.cm FINDINGS: Lung bases: The heart is top normal in size and without pericardial effusion. The coronary arteries are densely calcified. There are small to moderate right and trace left pleural effusions with dense bibasilar airspace consolidation. Fluid/secretions are present within the lower lobe airways. Liver: The contrast-enhanced liver is normal in size, contour, and attenuation. There is no intrahepatic biliary ductal dilatation. The hepatic veins and portal veins are patent. Gallbladder: The gallbladder is mildly distended but otherwise normal in appearance. Spleen: Normal in size and attenuation. There is a calcified splenic granuloma. Pancreas: Moderately atrophic and grossly unremarkable. Adrenal glands: Unremarkable. Kidneys: The contrast enhanced kidneys are atrophic and without hydronephrosis. The kidneys enhance symmetrically. There are numerous small bilateral nonobstructing renal calculi. Abdominal vasculature: There is advanced atherosclerotic calcification of the abdominal aorta. There has been aortobiiliac bypass grafting. The graft appears intact. 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 Bowel: There is no bowel obstruction. The appendix is not identified. Peritoneum: There is no intraperitoneal free air or abdominal ascites. Lymphadenopathy: There are numerous calcified upper abdominal lymph nodes. No pathologically enlarged lymph nodes are seen in the abdomen or pelvis.. Pelvic viscera: The bladder is decompressed by Trimble catheter. Foci of intraluminal gas are nonspecific. There is uncovertebral bladder wall thickening. The prostate gland is enlarged and heterogeneous, measuring 5.5 cm in transverse diameter. There is median lobe hypertrophy. Skeletal structures: The skeletal structures are osteopenic. There is a mild chronic superior endplate compression deformity of L2. Moderate lumbosacral spondylosis is observed. No lytic or blastic lesions are seen. There are healed left-sided rib fractures. IMPRESSION: 1. There are small to moderate right and trace left pleural effusions with dense bibasilar airspace consolidation. The appearance is typical for pneumonia/aspiration pneumonitis. Clinical correlation will be required and radiographic follow-up to resolution is recommended. 2. The bladder is partially decompressed around a Trimble catheter. There is circumferential bladder wall thickening. This could be related to prostatomegaly and chronic outlet obstruction or possibly superimposed cystitis. Correlation with clinical findings and urinalysis will be required. 3. Bilateral nephrolithiasis. 4. There has been aortobiiliac bypass graft placement. The bypass is patent. 5. Additional findings as above. Medications Administered Current Inpatient Medications Albuterol (Duoneb) 3 ml NEB Q4R GARRY Stop: 10/23/18 19:59 Heparin Sodium (Porcine) (Heparin Sodium (Porcine)) 5,000 units SQ Q12 GARRY Stop: 10/24/18 20:59 Piperacillin Sod/Tazobactam (Sod 3.375 gm/ Dextrose) 115 mls @ 28.75 mls/hr IV Q8H [facility]; Protocol Stop: 09/30/18 00:00 Last Admin: 09/23/18 17:28 Dose: 28 mls/hr Documented by: Dexamethasone 2 mg/ Syringe 0.5 mls @ 1 mls/min IV Q6 GARRY Stop: 10/23/18 17:59 Vancomycin HCl 750 mg/ Sodium (Chloride) 265 mls @ 125 mls/hr IV Q24H GARRY Stop: 09/30/18 17:59 Potassium Chloride (K Russ / Wtr) 10 meq in 100 mls @ 100 mls/hr IV Q1H GARRY Stop: 09/23/18 21:39 Potassium Chloride 20 meq/ (Dextrose) 510 mls @ 60 mls/hr IV .Q8H30M GARRY Stop: 10/23/18 17:44 Magnesium Sulfate/Dextrose (Magnesium Sulfate / D5w) 1 gm in 100 mls @ 100 mls/hr IV ONE ONE Stop: 09/23/18 18:42 Ioversol (Optiray 320 100ml) 94 ml IV ONCE PRN PRN Reason: Interaction Checking Stop: 09/27/18 09:49 Last Admin: 09/23/18 09:50 Dose: 94 ml Documented by: Metoprolol Tartrate (Lopressor) 2.5 mg IV Q4 PRN PRN Reason: Tachycardia Stop: 10/22/18 20:31 Last Admin: 09/23/18 16:52 Dose: 2.5 mg Documented by: Miscellaneous (Check Scopolamine Patch Placement) 1 ea N/A QS GARRY Stop: 10/23/18 00:00 Last Admin: 09/23/18 17:27 Dose: 1 ea Documented by: Miscellaneous (Remove Transderm-Scop Patch) 1 ea N/A Q72H GARRY Stop: 10/25/18 18:11 Miscellaneous Information (Consult) 1 ea N/A UD PRN PRN Reason: Consult Stop: 10/22/18 18:22 Miscellaneous Information (Consult) 1 ea N/A UD PRN PRN Reason: Consult Stop: 10/23/18 15:46 Morphine Sulfate (Morphine Sulfate) 4 mg IV Q2H PRN PRN Reason: Pain Stop: 10/06/18 20:25 Ondansetron HCl (Zofran) 4 mg IV Q6H PRN PRN Reason: Nausea Stop: 10/22/18 20:25 Scopolamine (Transderm-Scop) 1 mg TD Q72H GARRY Stop: 10/22/18 20:59 Last Admin: 09/22/18 22:20 Dose: 1 mg Documented by:
[2018-09-23] MEDS: MAGNESIUM SULFATE / D5W 1 GM/100 ML BAG IV SCH ×2 (08:33→12:35)
[2018-09-23 08:47] LABS: BUN Creatinine Ratio 29.8 (10-20); Calcium 8.6 mg/dl (8.5-10.1); Creatinine Clr Calc Pharmacy 39.1 ml/min; Est GFR (African American) 86.8; Est GFR (Non-African American) 74.9; Potassium 3.1 mmol/L (3.5-5.1)
[2018-09-23] MEDS ORDERED: IOVERSOL 100ml IV PRN (09:50)
--- NOTE | 2018-09-23 10:12 | CT Scan Report ---
CT SCAN OF THE ABDOMEN AND PELVIS WITH IV CONTRAST CLINICAL HISTORY: Generalized abdominal pain. COMPARISON STUDY: PET/CT dated 08/05/2018. TECHNIQUE: Following the IV administration of 94 cc of Optiray 320, CT scan of the abdomen and pelvi s is performed from the lung bases to the proximal femora. Images are reviewed in the axial, sagittal , and coronal planes. IV contrast was administered without complication. A dose lowering technique wa s utilized adhering to the principles of ALARA. Examination is degraded by motion artifact. CT DOSE: 241.56 mGy.cm FINDINGS: Lung bases: The heart is top normal in size and without pericardial effusion. The coronary arteries a re densely calcified. There are small to moderate right and trace left pleural effusions with dense b ibasilar airspace consolidation. Fluid/secretions are present within the lower lobe airways. Liver: The contrast-enhanced liver is normal in size, contour, and attenuation. There is no intrahepa tic biliary ductal dilatation. The hepatic veins and portal veins are patent. Gallbladder: The gallbladder is mildly distended but otherwise normal in appearance. Spleen: Normal in size and attenuation. There is a calcified splenic granuloma. Pancreas: Moderately atrophic and grossly unremarkable. Adrenal glands: Unremarkable. Kidneys: The contrast enhanced kidneys are atrophic and without hydronephrosis. The kidneys enhance s ymmetrically. There are numerous small bilateral nonobstructing renal calculi. Abdominal vasculature: There is advanced atherosclerotic calcification of the abdominal aorta. There has been aortobiiliac bypass grafting. The graft appears intact. The distal [place] abdominal aorta an d iliac arteries are thrombosed. Bowel: There is no bowel obstruction. The appendix is not identified. Peritoneum: There is no intraperitoneal free air or abdominal ascites. Lymphadenopathy: There are numerous calcified upper abdominal lymph nodes. No pathologically enlarged lymph nodes are seen in the abdomen or pelvis.. Pelvic viscera: The bladder is decompressed by Trimble catheter. Foci of intraluminal gas are nonspecif ic. There is uncovertebral bladder wall thickening. The prostate gland is enlarged and heterogeneous, measuring 5.5 cm in transverse diameter. There is median lobe hypertrophy. Skeletal structures: The skeletal structures are osteopenic. There is a mild chronic superior endplat e compression deformity of L2. Moderate lumbosacral spondylosis is observed. No lytic or blastic lesi ons are seen. There are healed left-sided rib fractures. IMPRESSION: 1. There are small to moderate right and trace left pleural effusions with dense bibasilar airspace c onsolidation. The appearance is typical for pneumonia/aspiration pneumonitis. Clinical correlation wi ll be required and radiographic follow-up to resolution is recommended. 2. The bladder is partially decompressed around a Trimble catheter. There is circumferential bladder wa ll thickening. This could be related to prostatomegaly and chronic outlet obstruction or possibly sup erimposed cystitis. Correlation with clinical findings and urinalysis will be required. 3. Bilateral nephrolithiasis. 4. There has been aortobiiliac bypass graft placement. The bypass is patent. 5. Additional findings as above. Electronically signed by: Felix Chapin M.D. 09/23/2018 10:10 AM
[2018-09-23 13:15] LABS: BUN Creatinine Ratio 29.5 (10-20); Calcium 8.6 mg/dl (8.5-10.1); Creatinine Clr Calc Pharmacy 42.2 ml/min; Est GFR (African American) 94.3; Est GFR (Non-African American) 81.3; Potassium 3.2 mmol/L (3.5-5.1)
[2018-09-23] MEDS ORDERED: VANCOMYCIN CONSULT ACTIVE PRN (15:47)
[2018-09-23] MEDS ORDERED: ALBUT/IPRATROP 3MG/0.5MG NEB 3 ML VIAL NEB STA (16:11)
[2018-09-23 16:33] LABS: BUN Creatinine Ratio 23.9 (10-20); Calcium 8.5 mg/dl (8.5-10.1); Creatinine Clr Calc Pharmacy 36.4 ml/min; Est GFR (African American) 79.7; Est GFR (Non-African American) 68.8; Potassium 3.2 mmol/L (3.5-5.1)
--- NOTE | 2018-09-23 16:49 | Oncology Consultation ---
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 This treatment is with curative intent and so we are often very aggressive about supporting these patients, with a goal of keeping them on therapy if possible. He certainly needs a feeding tube, but I agree that it is probably prudent to rule out an acute infection before placing one. I would also continue with appropriate supportive care. His hyperthyroidism is interesting and may be a sign of acute thyroid injury from his radiation. We often see problems with hypothyroidism following the end of neck radiation for a similar reason. Present on Admission?: Yes (2) Pancytopenia: He had baseline cytopenias prior to starting chemoRT. I do not know their cause, but he has been chronically on methotrexate and that may be part of the issue. His more acute cytopenias are obviously chemotherapy-induced. He is febrile, so I would cover him broadly, including for pseudomonas. I would also continue broad spectrum gram positive coverage given his terrible mucositis. Present on Admission?: Yes History of Present Illness Reason for Consultation: Oropharyngeal cancer Pancytopenia Attending Physician: Brian Mackenzie, History of Present Illness Mr. Perla is a 78 year old gentleman with a locally advanced epiglottic squamous cell carcinoma. He is currently undergoing concurrent chemoradiotherapy with weekly Cisplatin. His last dose of chemotherapy was 09/18/18. In that time, he has struggled. He has been unable to eat due to nausea and severe mucositis. He's lost 17 lb since July. He's also struggled with low counts, though his counts were low prior to beginning treatment as well (possibly due to long-term therapy with methotrexate for his rheumatoid arthritis). Our nurse practitioner was working on getting him set up for a PEG tube to help him get through the end of treatment. There was a plan for a procedure as an outpatient tomorrow. However, he decided to come to the ER instead due to these issues. He was found to have a variety of electrolyte issues, including hypernatremia, hypokalemia, a nd a nearly undetectable TSH. Since admission, he's also been tachycardic and febrile. When I saw him, he had difficulty speaking due to decreased alertness and his severe mucositis. He shook and/or nodded his head appropriately to a few questions. He denied any fevers at home. Allergies Allergy/AdvReac Type Severity Reaction Status Date / Time nitroglycerin Allergy Severe "my heart Verified 09/22/18 15:30 stopped" Home Medications Home Medications Medication Instructions Recorded Confirmed Type clopidogrel 75 mg PO DAILY 07/08/18 09/22/18 History methotrexate sodium 6 tab PO UD 07/08/18 09/22/18 History gabapentin 100 mg capsule 200 mg PO TID 08/31/18 09/22/18 History nystatin 5 ml PO QID 09/22/18 09/22/18 History oxycodone 5 mg PO Q8 PRN 09/22/18 09/22/18 History scopolamine base [Transderm-Scop] 1 mg TOPICAL UD 09/22/18 09/22/18 History Patient History Medical History Deviated nasal septum (Chronic) History of skin cancer (Chronic) EXCISION OF NOSE/FACE REGION, NO CONCERNS/ISSUES SINCE. Hyperlipidemia (Chronic) Primary squamous cell carcinoma of throat (Chronic) Rheumatoid arthritis (Chronic) BPH (benign prostatic hyperplasia) Surgical History H/O aorto-femoral bypass (Chronic) History of appendectomy (Resolved) History of heart surgery (Resolved) PLACEMENT OF AORTIC STENT 20 YEARS AGO. [facility]. History of herniorrhaphy (Resolved) Left inguinal History of laryngoscopy 07/06/18 History of throat surgery Direct laryngoscopy and esophagoscopy with biopsy of larynx 07/17/18: Fiberoptic #4, ETT 7.0 with Grade 2 view Family History Mother , 70yo CHF (congestive heart failure) Throat cancer Father , 53yo Bowel obstruction Brother No problems noted. Brother No problems noted. Brother No problems noted. Brother No problems noted. Brother No problems noted. Sister No problems noted. Sister No problems noted. Sister No problems noted. Sister No problems noted. Son No problems noted. Son No problems noted. Son No problems noted. Daughter No problems noted. Daughter No problems noted. 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 Other Information That Helps Us Care for You: No Feels Safe at Home: Yes Smoking Status: Former smoker Tobacco Type: cigars Cigarettes Per Day: 1-3 cigars/day when he smoked; Do You Dip or Chew Tobacco: No Second Hand Exposure: No Hx Alcohol Use: No Hx Substance Use: No caffeine: Yes (3-4 cups/day) during the past year weight has: other Review of Systems Review of Systems: Unable to obtain, as the patient was essentially non-verbal due to his very severe mucositis Physical Exam Constitutional: + ill appearing and + cachectic; no acute distress Eyes: + anicteric sclerae His right eye was closed throughout our encounter ENMT: Severe mucositis throughout the visible portions of his anterior mouth and oropharynx. Dry mucous membranes. Crusting and dried blood coating his tongue and cheeks. Respiratory: normal respiratory effort, lungs clear to auscultation Cardiovascular: Rate/Rhythm: regular rate and + tachycardic Extremities: no pedal edema Gastrointestinal (Abdomen): normal bowel sounds, soft, nontender, no hepatosplenomegaly Skin: no rashes, warm and dry Results & Data Vital Signs (Past 12 Hours) Vital Signs Temp Pulse Resp BP Pulse Ox 09/23/18 16:34 114 H 22 97 09/23/18 15:37 38.4 C H 112 H 20 163/85 H 92 09/23/18 11:36 36.9 C 107 H 19 153/87 H 88 L 09/23/18 08:17 36.9 C 109 H 18 134/79 91 Laboratory Results Abnormal lab results 09/22/18 09/22/18 09/23/18 Range/Units 21:12 22:45 03:09 WBC (4.8-10.8) K/uL RBC (4.7-6.1) M/uL Hgb (14.0-18.0) g/dL Hct (42-52) % MCHC (32-36) g/dL RDW Std Deviation (36.4-46.3) fL RDW Coeff of Daniel (11.5-14.5) % Plt Count (130-400) K/uL Neut # (Auto) (1.4-6.5) K/uL Lymph # (Auto) (1.2-3.4) K/uL Riley # (Auto) (0.11-0.59) K/uL Sodium 154 H (136-145) mmol/L Potassium 2.8 L D (3.5-5.1) mmol/L Chloride 123 H (98-107) mmol/L BUN 29 H (7-18) mg/dl BUN/Creatinine Ratio 28.3 H (10-20) Glucose 109 H (70-99) mg/dl Calcium 8.2 L (8.5-10.1) mg/dl Total Bilirubin 1.4 H (0.2-1) mg/dl Troponin I 0.197 H* 0.164 H* (0-0.045) ng/ml Total Protein 6.0 L (6.4-8.2) gm/dl Albumin 2.1 L (3.4-5.0) gm/dl Albumin/Globulin Ratio 0.5 L (0.9-2) Urine Appearance Cloudy H (Clear) Urine Protein 1+ H (Negative) Urine Ketones 1+ H (Negative) Urine Blood 1+ H (Negative) Urine RBC (Auto) 5-10 H (0-4) /hpf U Hyaline Cast (Auto) 5-10 H (0-5) /lpf U Epithel Cells (Auto) 10-20 H (0-5) /lpf Uric Acid Crystals Present H (None Prsent) 09/23/18 09/23/18 09/23/18 Range/Units 03:09 07:46 12:08 WBC 0.53 L* (4.8-10.8) K/uL RBC 3.04 L (4.7-6.1) M/uL Hgb 8.9 L (14.0-18.0) g/dL Hct 28.1 L (42-52) % MCHC 31.7 L (32-36) g/dL RDW Std Deviation 55.7 H (36.4-46.3) fL RDW Coeff of Daniel 16.7 H (11.5-14.5) % Plt Count 44 L (130-400) K/uL Neut # (Auto) 0.25 L* (1.4-6.5) K/uL Lymph # (Auto) 0.19 L (1.2-3.4) K/uL Riley # (Auto) 0.08 L (0.11-0.59) K/uL Sodium 156 H* 152 H (136-145) mmol/L Potassium 3.1 L 3.2 L (3.5-5.1) mmol/L Chloride 122 H 120 H (98-107) mmol/L BUN 29 H 26 H (7-18) mg/dl BUN/Creatinine Ratio 29.8 H 29.5 H (10-20) Glucose (70-99) mg/dl Calcium (8.5-10.1) mg/dl Total Bilirubin (0.2-1) mg/dl Troponin I (0-0.045) ng/ml Total Protein (6.4-8.2) gm/dl Albumin (3.4-5.0) gm/dl Albumin/Globulin Ratio (0.9-2) Urine Appearance (Clear) Urine Protein (Negative) Urine Ketones (Negative) Urine Blood (Negative) Urine RBC (Auto) (0-4) /hpf U Hyaline Cast (Auto) (0-5) /lpf U Epithel Cells (Auto) (0-5) /lpf Uric Acid Crystals (None Prsent) 09/23/18 Range/Units 16:07 WBC (4.8-10.8) K/uL RBC (4.7-6.1) M/uL Hgb (14.0-18.0) g/dL Hct (42-52) % MCHC (32-36) g/dL RDW Std Deviation (36.4-46.3) fL RDW Coeff of Daniel (11.5-14.5) % Plt Count (130-400) K/uL Neut # (Auto) (1.4-6.5) K/uL Lymph # (Auto) (1.2-3.4) K/uL Riley # (Auto) (0.11-0.59) K/uL Sodium 152 H (136-145) mmol/L Potassium 3.2 L (3.5-5.1) mmol/L Chloride 119 H (98-107) mmol/L BUN 25 H (7-18) mg/dl BUN/Creatinine Ratio 23.9 H (10-20) Glucose 105 H (70-99) mg/dl Calcium (8.5-10.1) mg/dl Total Bilirubin (0.2-1) mg/dl Troponin I (0-0.045) ng/ml Total Protein (6.4-8.2) gm/dl Albumin (3.4-5.0) gm/dl Albumin/Globulin Ratio (0.9-2) Urine Appearance (Clear) Urine Protein (Negative) Urine Ketones (Negative) Urine Blood (Negative) Urine RBC (Auto) (0-4) /hpf U Hyaline Cast (Auto) (0-5) /lpf U Epithel Cells (Auto) (0-5) /lpf Uric Acid Crystals (None Prsent)
[2018-09-23] MEDS: METOPROLOL TARTRATE 1 MG/ML VIAL IV PRN (16:52)
[2018-09-23] MEDS ORDERED: MAGNESIUM SULFATE / D5W 1 GM/100 ML BAG IV ONE (17:43)
[2018-09-23] MEDS: dexAMETHasone 2 MG in SYRINGE 0 ML IV SCH (18:27)
[2018-09-23] MEDS: POTASSIUM CHLORIDE 20 MEQ in DEXTROSE 5% 500 ML IV SCH (18:33)
[2018-09-23] MEDS: VANCOMYCIN HCL 750 MG in SODIUM CHLORIDE 0.9% 250 ML IV SCH (18:43)
[2018-09-23] MEDS: LACTATED RINGER'S 1,000 ML IV SCH (19:32)
[2018-09-23] MEDS: ALBUT/IPRATROP 3MG/0.5MG NEB 3 ML VIAL NEB SCH ×2 (19:53→23:00)
[2018-09-23] MEDS: MoRPHine SULFATE 4 MG/ML 1 ML CARP\\VIAL IV PRN (20:28)
[2018-09-23] MEDS ORDERED: METOPROLOL TARTRATE 1 MG/ML VIAL IV STA (20:37)
--- NOTE | 2018-09-23 20:44 | Pharmacy Report ---
Pharmacy Abx Dose Short Note - Date of Service September 23, 2018 - Assessment & Plan A/p broadening coverage to include MRSA. Vanco 1000mg IV (23mg/kg) given yesterday. Will start vanco 750mg (17mg/kg) q24. Current pt population p'kinetics: t1/2=20hrs, ke=0.034hr. Trough ordered for 09/25/18 @1730, goal trough 15- 20mcg/mL. Pharmacy will continue to follow and will adjust dose/frequency as necessary. Thank you.
[2018-09-24] MEDS: dexAMETHasone 2 MG in SYRINGE 0 ML IV SCH ×5 (00:31→23:54)
[2018-09-24] MEDS: PIPERACILLIN/TAZOBACTAM 3.375 GM in DEXTROSE 5% 100 ML IV SCH ×4 (00:31→23:54)
[2018-09-24] MEDS: CHECK SCOPOLAMINE PATCH PLACEMENT SCH ×4 (00:31→23:55)
[2018-09-24] MEDS: MoRPHine SULFATE 4 MG/ML 1 ML CARP\\VIAL IV PRN ×5 (01:42→23:43)
[2018-09-24] MEDS: POTASSIUM CHLORIDE 20 MEQ in DEXTROSE 5% 500 ML IV SCH ×3 (02:43→19:39)
[2018-09-24] MEDS: ALBUT/IPRATROP 3MG/0.5MG NEB 3 ML VIAL NEB SCH ×5 (02:56→18:52)
[2018-09-24] MEDS: ACETAMINOPHEN 1,000 MG/100 ML VIAL IV PRN (03:47)
[2018-09-24] MEDS: METOPROLOL TARTRATE 1 MG/ML VIAL IV PRN ×3 (03:47→18:12)
[2018-09-24 07:32] LABS: Hematocrit (blood only) 27.6 % (42-52); Hemoglobin 8.9 g/dL (14.0-18.0); Mean Corpuscular Hgb Conc 32.2 g/dL (32-36); Mean Corpuscular Volume 92.6 fL (80-100); RDW Coefficient of Variation 16.8 % (11.5-14.5); RDW Standard Deviation 56.6 fL (36.4-46.3); Red Blood Count 2.98 M/uL (4.7-6.1); White Blood Count 0.35 K/uL (4.8-10.8)
[2018-09-24 07:39] LABS: Platelet Count 38 K/uL (130-400)
[2018-09-24 07:42] LABS: BUN Creatinine Ratio 21.4 (10-20); Calcium 8.2 mg/dl (8.5-10.1); Creatinine Clr Calc Pharmacy 38.6 ml/min; Est GFR (African American) 84.6; Magnesium 2.6 mg/dl (1.8-2.4); Potassium 3.6 mmol/L (3.5-5.1)
--- NOTE | 2018-09-24 11:38 | Family Medicine Progress Note ---
Date of Service September 24, 2018 Assessment & Plan (1) Pancytopenia: 78-year-old male was admitted on 22 September 2018 for multiple medical issues. Pancytopenia: Chronic and likely acutely worsened secondary to chemotherapy Has had some mild pancytopenia his entire life. Possibly from chronically being on methotrexate. prior work-up included bone marrow biopsies x2 with no particular diagnosis established. At present, WBC 0.35, Hb 8.9, & platelets 38. Afebrile - Consulted oncology: Recommend broad coverage given mucositis and pneumonia -Started on Neupogen 300mg daily Right lower lobe pneumonia: Initially febrile, tachycardic, tachypneic, with an oxygen requirement and initial lactate of 2.9. Now improving hypoxia, tachycardia and afebrile. pCXR notable for right pleural effusion and question of right basilar opacities. Abdominal CT also noted dense bibasilar airspace consolidations with small to moderate right and trace left pleural effusions. blood cultures NGTD. Concern for hospital-acquired pneumonia and aspiration. - In ED, received cefepime - On vancomycin and zosyn (renal-dosed) broad coverage given neutropenia - Albuterol duoneb Q4H delvis Mucositis -Spectrum antibiotic coverage with vancomycin and Zosyn Also started on dexamethasone for thyrotoxicosis which should also help with mucositis Concern for thyrotoxicosis: Admit TSH 0.008. Free T4 2.42. No known underlying thyroid disease. Likely acute injury from radiation treatment. Initial fever, tachycardia and agitation could also be explained by sepsis secondary to pneumonia. -Treatment limited due to inability to take p.o. and cannot give methimazole or PTU, and iodine -Given initial dose of propranolol IV in ED. 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 He was apparently referred for possible placement of a PEG tube due to inability to feed himself for the past week prior to admission. 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 He is s/p thorascopy and lobectomy on 17Aug[address] Woo (thoracic surgery). Has been on oxycodone and gabapentin for pain control as outpatient. Receiving chemotherapy and radiation. -On morphine 4mg Q2H PRN Lab abnormalities: - Hypernatremia: Admit Na 153. Sodium 150. Likely volume depleted given lack of recent PO intake. On D5W with potassium at 100 mL per hour - Hypokalemia: improved - Hypomagnesemia: improved, this AM mag slightly elevated at 2.6 - Elevated troponin: Down trended. Admit TnI 0.128->0.197 ->0.164. no notes of CP. EKG sinus tachy rate 117 with occasional PVCs without other ST-T wave elevations/depressions seen. - Elevated Cr: Improved to 1. Admit Cr 1.38 (with comparisons around 0.9). BUN 24.5. - Elevated total bilirubin: Improved to 1.4 secondary to rehydration. Admit T bili 1.8. No obvious jaundice and other LFTs normal. Home medications (Plavix, gabapentin, methotrexate, nystatin, and oxycodone) held due to being NPO. Code status: Unable to determine patients wishes at the moment. Will start with full code. Diet: NPO. DVT prophy: Heparin PT/OT: Deferred Disbo: Admit to [facility]. (2) Right lower lobe pneumonia: (3) Poor fluid intake: (4) Dehydration: (5) Squamous cell carcinoma of epiglottis: (6) Mass of middle lobe of right lung: (7) Thyrotoxicosis: (8) Hypernatremia: (9) Elevated troponin: (10) Hypokalemia: (11) Elevated serum creatinine: (12) Total bilirubin, elevated: Supervising Physician Co-Signing Physician Notes I personally examined the patient and verified all kirk points of history and exam, discussed case, and agree with decision making with Dr Villanueva. Seems to be doing better. Able to make eye contact and not answers. He is still nonverbal because of his throat. He seems to be able to breathe with less distress, he notes that he is not as short of breath. He denies much of any significant pain right now. Vitals noted, in general he is cachectic but far less restless leg in bed no distress. HEENT normocephalic atraumatic mucous membranes getting close to moist although still technically a little bit dry. Cardio is somewhat distant but no notable rubs murmurs or gallops, tachycardia is improving. Lungs show coarse rhonchi throughout but better air entry. No accessory muscle use good effort. Neuro shows no focal deficits. neutropenic sepsis - appearing predominantly pneumonia related, but also with some significant mucositis at play -vanco and zosyn (HCAP or aspiration both possible, and the vancomycin particularly for the mucositis) -supportive care -Seems to be improving possible thyroid storm -He has a low TSH and a somewhat high free T4 -Symptoms in terms of the tachycardia agitation and fever can also be si multaneously explained by his neutropenic sepsis and his hypernatremic dehydration, so it is somewhat difficult to determine exactly what symptoms relate to the thyroid what symptoms relate to the rest of his acute comorbidities, and which may be both. Overall though he is improving -Continue beta-heather -Due to high risk and inability to tolerate p.o., we cannot use PTU or methimazole right now -Potassium iodide would also be extremely high risk given his inability to safely tolerate p.o., as well as reports of esophageal mucosal injury, given his mucositis, this would likely have a big risk of causing harm -Overall improving, continue dexamethasone -IV iodine seems to be ill studied without a clear dosing regimen or outcomes, we will hold off on this for now given that more effective, and more proven measures can be undertaken -Bile acid binding resin and is again not able to be given due to his inability to take p.o. -Inciting etiology not entirely clear, but seems to probably related to his chemo, or radiation. -Once we are able to affect enteral intake, we will likely be able to get him started on methimazole hypernatremic dehydration -from poor PO intake -Intravascular volume status now has been stable, his isotonic fluids are no longer necessary, continue D5W. Mucositis -Continue antibiotics and supportive care restlessness/agitation/AMS - probably at least delirium if not metabolic encephalopathy from all of above, but actually does seem to be improving Severe protein calorie malnutrition/failure to thrivenutrition certainly is paramount especially with his overall frailty, his multiple comorbidities, and the need to return to active cancer treatment even after we have stabilized all of the above. In discussions, he does not appear to be stable enough for a PEG tube and enteral feeding (which would be his longer-term solution for now), and any type of NG tube given his upper airway inflammation seems like it would be intolerable at best and harmful at worst, so while TPN certainly carries concern of risk in a gentleman with neutropenic sepsis, having him continue to be without calorie/nutrition appears to be more harmful than the risk of TPN for the short-term. This is been discussed with his son, and a PICC line will be placed and TPN will be initiated. DVT prophylaxisLovenox otherwise as above Does appear to be improving Subjective Patient resting in bed when examined this morning. Continues to be restless but less so than yesterday not pulling on mask now. Unable to comprehend patient due to loss of voice. Nodded to having trouble breathing. Denies having any abdominal pain or Trimble bothering by nodding with head. Following directions and cooperating with exam. Review of Systems Review of Systems: As per HPI. limited due to patient's inability to verbalize and mental status. Physical Exam Physical Exam: General: In mild discomfort, somewhat restless, but better than yesterday and following commands CV: RRR, no m/r/g PULM: Diffuse rales and transmitted upper airway sounds appreciated, equal breath sounds bilaterally ABDOMEN: +BS, non-distended, non-tender to palpation in all quadrants LE: no calf TTP, no LE edema Results & Data Vital Signs (Past 12 Hours) Vital Signs Temp Pulse Pulse Resp BP BP Pulse Ox 09/24/18 11:12 94 H 18 100 09/24/18 09:49 130 H 157/88 H 09/24/18 07:47 36.4 C L 115 H 22 154/66 H 96 09/24/18 07:02 101 H 18 99 09/24/18 04:12 96 09/24/18 03:47 161 H 09/24/18 03:45 37.3 C 161 H 20 110/66 97 09/24/18 02:58 115 H 24 88 L Laboratory Results Abnormal lab results 09/23/18 09/23/18 09/24/18 Range/Units 12:08 16:07 06:35 WBC 0.35 L* (4.8-10.8) K/uL RBC 2.98 L (4.7-6.1) M/uL Hgb 8.9 L (14.0-18.0) g/dL Hct 27.6 L (42-52) % RDW Std Deviation 56.6 H (36.4-46.3) fL RDW Coeff of Daniel 16.8 H (11.5-14.5) % Plt Count 38 L (130-400) K/uL Sodium 152 H 152 H (136-145) mmol/L Potassium 3.2 L 3.2 L (3.5-5.1) mmol/L Chloride 120 H 119 H (98-107) mmol/L BUN 26 H 25 H (7-18) mg/dl BUN/Creatinine Ratio 29.5 H 23.9 H (10-20) Glucose 105 H (70-99) mg/dl Calcium (8.5-10.1) mg/dl Magnesium (1.8-2.4) mg/dl 09/24/18 Range/Units 06:35 WBC (4.8-10.8) K/uL RBC (4.7-6.1) M/uL Hgb (14.0-18.0) g/dL Hct (42-52) % RDW Std Deviation (36.4-46.3) fL RDW Coeff of Daniel (11.5-14.5) % Plt Count (130-400) K/uL Sodium 150 H (136-145) mmol/L Potassium (3.5-5.1) mmol/L Chloride 118 H (98-107) mmol/L BUN 21 H (7-18) mg/dl BUN/Creatinine Ratio 21.4 H (10-20) Glucose 237 H (70-99) mg/dl Calcium 8.2 L (8.5-10.1) mg/dl Magnesium 2.6 H (1.8-2.4) mg/dl Medications Administered Current Inpatient Medications Albuterol (Duoneb) 3 ml NEB Q4R DELVIS Stop: 10/23/18 19:59 Last Admin: 09/24/18 11:10 Dose: 3 ml Documented by: Filgrastim (Neupogen) [address] [facility] Stop: 10/24/18 09:59 Heparin Sodium (Porcine) (Heparin Sodium (Porcine)) 5,[address] [facility] Stop: 10/24/18 20:59 Piperacillin Sod/Tazobactam (Sod 3.375 gm/ Dextrose) 115 mls @ 28.75 mls/hr IV Q8H [facility]; Protocol Stop: 09/30/18 00:00 Last Admin: 09/24/18 09:32 Dose: 28 mls/hr Documented by: Dexamethasone 2 mg/ Syringe 0.5 mls @ 1 mls/min IV Q6 [facility] Stop: 10/23/18 17:59 Last Admin: 09/24/18 06:18 Dose: 1 mls/min Documented by: Vancomycin HCl 750 mg/ Sodium (Chloride) 265 mls @ 125 mls/hr IV Q24H [facility] Stop: 09/30/18 17:59 Last Infusion: 09/23/18 21:05 Dose: Infused Documented by: Potassium Chloride 20 meq/ (Dextrose) 510 mls @ 100 mls/hr IV .Q5H6M [facility] Stop: 10/23/18 17:44 Last Admin: 09/24/18 11:34 Dose: 60 mls/hr Documented by: Acetaminophen (Ofirmev) 1,000 mg in 100 mls @ 400 mls/hr IV Q8H PRN PRN Reason: Fever Stop: 10/23/18 22:00 Last Infusion: 09/24/18 04:10 Dose: Infused Documented by: Ioversol (Optiray 320 100ml) 94 ml IV ONCE PRN PRN Reason: Interaction Checking Stop: 09/27/18 09:49 Last Admin: 09/23/18 09:50 Dose: 94 ml Documented by: Metoprolol Tartrate (Lopressor) 2.5 mg IV Q4 PRN PRN Reason: Tachycardia Stop: 10/22/18 20:31 Last Admin: 09/24/18 09:49 Dose: 2.5 mg Documented by: Miscellaneous (Check Scopolamine Patch Placement) 1 ea N/A QS [facility] Stop: 10/23/18 00:00 Last Admin: 09/24/18 09:32 Dose: 1 ea Documented by: Miscellaneous (Remove Transderm-Scop Patch) 1 ea N/A Q72H [facility]VIS Stop: 10/25/18 18:11 Miscellaneous Information (Consult) 1 ea N/A UD PRN PRN Reason: Consult Stop: 10/22/18 18:22 Miscellaneous Information (Consult) 1 ea N/A UD PRN PRN Reason: Consult Stop: 10/23/18 15:46 Morphine Sulfate (Morphine Sulfate) 4 mg IV Q2H PRN PRN Reason: Pain Stop: 10/06/18 20:25 Last Admin: 09/24/18 09:49 Dose: 4 mg Documented by: Ondansetron HCl (Zofran) 4 mg IV Q6H PRN PRN Reason: Nausea Stop: 10/22/18 20:25 Scopolamine (Transderm-Scop) 1 mg TD Q72H DELVIS Stop: 10/22/18 20:59 Last Admin: 09/22/18 22:20 Dose: 1 mg Documented by: Resident Activity Tracking Resident Involvement: Resident Care Provided Care Provided: Adult Hospital Medicine
[2018-09-24] MEDS: FILGRASTIM 300 MCG/ML VIAL SQ SCH (12:42)
[2018-09-24] MEDS ORDERED: TPN/PPN CONSULT PHARMACY PRN (15:57)
[2018-09-24 17:23] LABS: BUN Creatinine Ratio 24.2 (10-20); Calcium 8.9 mg/dl (8.5-10.1); Est GFR (African American) 96.5; Est GFR (Non-African American) 83.3; Potassium 3.8 mmol/L (3.5-5.1)
[2018-09-24] MEDS: VANCOMYCIN HCL 750 MG in SODIUM CHLORIDE 0.9% 250 ML IV SCH (17:26)
[2018-09-24] MEDS: HEPARIN SOD 5,000 UNIT/0.5 ML VIAL SQ SCH (21:07)
[2018-09-25] MEDS: ALBUT/IPRATROP 3MG/0.5MG NEB 3 ML VIAL NEB SCH ×7 (00:11→23:05)
[2018-09-25] MEDS: POTASSIUM CHLORIDE 20 MEQ in DEXTROSE 5% 500 ML IV SCH ×4 (00:50→16:39)
[2018-09-25] MEDS ORDERED: METOPROLOL TARTRATE 1 MG/ML VIAL IV STA ×2 (02:18→07:52)
[2018-09-25] MEDS: MoRPHine SULFATE 4 MG/ML 1 ML CARP\\VIAL IV PRN ×5 (04:30→23:00)
[2018-09-25] MEDS ORDERED: DiphenhydrAMINE HCL 50 MG/ML VIAL IV STA (04:46)
[2018-09-25] MEDS ORDERED: DiphenhydrAMINE HCL 50 MG/ML VIAL ONE (04:58)
[2018-09-25] MEDS: METOPROLOL TARTRATE 1 MG/ML VIAL IV PRN ×2 (05:17)
[2018-09-25] MEDS: dexAMETHasone 2 MG in SYRINGE 0 ML IV SCH ×3 (05:18→17:27)
[2018-09-25 06:27] LABS: Hematocrit (blood only) 27.1 % (42-52); Hemoglobin 8.8 g/dL (14.0-18.0); Mean Corpuscular Hgb Conc 32.5 g/dL (32-36); Mean Corpuscular Volume 90.9 fL (80-100); Platelet Count 40 K/uL (130-400); RDW Coefficient of Variation 16.4 % (11.5-14.5); RDW Standard Deviation 54.2 fL (36.4-46.3); Red Blood Count 2.98 M/uL (4.7-6.1); White Blood Count 1.03 K/uL (4.8-10.8)
[2018-09-25 06:28] LABS: Immature Granulocytes # (auto) 0.01 K/uL (0.00-0.02); Lymphocytes # (auto) 0.08 K/uL (1.2-3.4); Lymphocytes % (auto) 7.8 %; Monocytes # (auto) 0.02 K/uL (0.11-0.59); Monocytes % (auto) 1.9 %; Neutrophils # (auto) 0.92 K/uL (1.4-6.5); Neutrophils % (auto) 89.3 %; Platelet Estimate Decreased (Normal)
[2018-09-25 06:32] LABS: BUN Creatinine Ratio 20.4 (10-20); Calcium 8.3 mg/dl (8.5-10.1); Est GFR (African American) 96.5; Est GFR (Non-African American) 83.3; Potassium 3.8 mmol/L (3.5-5.1)
[2018-09-25 06:40] LABS: Alanine Aminotransferase 15 U/L (12-78); Alkaline Phosphatase 39 U/L (45-117); Aspartate Aminotransferase 18 U/L (15-37); Prealbumin < 3.0 mg/dl (20-40)
[2018-09-25 06:52] LABS: Phosphorus 1.5 mg/dl (2.5-4.9)
[2018-09-25] MEDS ORDERED: POT PHOSPHATE MONOBASIC W/ SOD TAB PO STA (07:01)
[2018-09-25 07:22] LABS: Dohle Bodies 3+; Toxic Granulation 3+
[2018-09-25] MEDS: CHECK SCOPOLAMINE PATCH PLACEMENT SCH ×2 (09:35→16:39)
[2018-09-25] MEDS: PIPERACILLIN/TAZOBACTAM 3.375 GM in DEXTROSE 5% 100 ML IV SCH ×2 (09:56→16:42)
[2018-09-25] MEDS ORDERED: TPN/PPN CONSULT PHARMACY STA (11:27)
[2018-09-25] MEDS ORDERED: POTASSIUM PHOSPHATE 15 MMOL in SODIUM CHLORIDE 0.9% 250 ML IV ONE (11:30)
[2018-09-25] MEDS: FILGRASTIM 300 MCG/ML VIAL SQ SCH (11:53)
[2018-09-25] MEDS: HEPARIN SOD 5,000 UNIT/0.5 ML VIAL SQ SCH ×2 (11:56→20:41)
[2018-09-25] MEDS: METOPROLOL TARTRATE 1 MG/ML VIAL IV SCH ×3 (13:35→20:41)
[2018-09-25] MEDS ORDERED: CUSTOM CENTRAL PN IV SCH (16:00)
[2018-09-25] MEDS ORDERED: DEXTROSE 10% 1,000 ML IV SCH (16:00)
[2018-09-25] MEDS ORDERED: [UNRECOGNIZED DRUG - REMARK] ONE (16:00)
[2018-09-25] MEDS: VANCOMYCIN HCL 750 MG in SODIUM CHLORIDE 0.9% 250 ML IV SCH (17:27)
[2018-09-25] MEDS ORDERED: VANCOMYCIN TROUGH ONE (17:30)
--- NOTE | 2018-09-25 17:47 | Hospitalist Progress Note ---
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 -In discussion with pharmacy methimazole could actually be given rectally, but given risk of side effects with is already suppressed marrow, as well as the fact that it appears that right now her overall getting ahead of his thyroid situation, continue current care other than titrating beta-heather as below. (6) Hypernatremia: Hypernatremic dehydration was due to terrible p.o. intake for at least a week prior to admission. This is now corrected. He does still appear a bit dehydrated, we have ongoing fluids as well as his TPN (7) Dehydration: (8) Severe protein-calorie malnutrition: Related to poor p.o. intake as well as his cancer. We had extensive thoughts about enteral nutrition versus TPN. All of which have significant downsides. In discussion with multiple wheel truing machine tender, his situation did not seem amenable to PEG placement currently, which is quite understandable. Because of his throat cancer and NG tube would be extremely difficult to pass, wrought with increased problem of infection risk, and certainly exceedingly uncomfortable. His neutropenic sepsis does make TPN concerning for infection, but given that he is already being treated with antibiotics as well as the fact that it appears to be our most viable option, TPN has been initiated today. The only other option would be to continue his n.p.o. status, without any other nutrition, but given his frailty this would likely put him in such a deficit nutritionally that even if the rest of his medical issues were treated successfully this would probably be bigger than he could overcome. 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 Continue to follow its unclear at times he is appeared in A. fib but not always. Continue IV beta-heather. Right now full anticoagulation would be questionable given the questionable rhythms, as well as risk of bleeding. Simply continue at prophylaxis dosing heparin for now. Subjective Not much meaningful HPI review of systems obtainable from patient due to his difficulty with speaking as well as appearance of ongoing delirium. Whenever he does give nods he denies pain or shortness of breath. He does constantly reach around with his arms. Nursing notes that he has had a little bit of struggles with mucus in his throat again. Son was present briefly, but gone before I got a chance to talk to him. Review of Systems Review of Systems: Unobtainable due to cognitive status Physical Exam Physical Exam: Seen twice today, in general he is awake and alert appears to be interactive. Fatigued but not necessarily in any overt distress. HEENT normocephalic atraumatic mucous membranes only slightly dry. Cardio is somewhat tachycardic fairly distant no rubs murmurs or gallops. Lungs show bilateral rhonchi but even better air entry in the rhonchi are softer than yesterday. No wheezing no accessory muscle use good effort. Skin shows no rashes no pallor or icterus, turgor is improving. Still poor. Neuro shows cranial nerves II through XII are grossly intact gross motor and sensory are intact. Results & Data Vital Signs (Past 12 Hours) Vital Signs Temp Pulse Pulse Resp BP BP BP 09/25/18 15:49 110 H 18 09/25/18 15:28 36.7 C 108 H 26 H 185/87 H 09/25/18 12:32 37.2 C 100 H 22 146/99 H 09/25/18 11:05 80 18 09/25/18 09:52 116 H 136/105 H 09/25/18 08:00 96 H 09/25/18 07:43 36.4 C L 109 H 22 163/75 H 09/25/18 05:44 101 H Pulse Ox 09/25/18 15:49 91 09/25/18 15:28 90 09/25/18 12:32 96 09/25/18 11:05 95 09/25/18 09:52 09/25/18 08:00 09/25/18 07:43 96 09/25/18 05:44 (1) Neutropenia Neutropenia type: unspecified Qualified Code(s): D70.9 - Neutropenia, unspecified
[2018-09-25] MEDS ORDERED: SCOPOLAMINE 1.5 MG TDSY TD SCH (22:15)
[2018-09-25 22:21] LABS: BUN Creatinine Ratio 22.2 (10-20); Creatinine Clr Calc Pharmacy 49.1 ml/min; Est GFR (Non-African American) 86.3; Magnesium 2.1 mg/dl (1.8-2.4); Potassium 4.7 mmol/L (3.5-5.1)
[2018-09-25] MEDS: SCOPOLAMINE 1.5 MG TDSY TD SCH (22:34)
[2018-09-25 22:42] LABS: Phosphorus 2.7 mg/dl (2.5-4.9)
[2018-09-26] MEDS: dexAMETHasone 2 MG in SYRINGE 0 ML IV SCH ×4 (00:09→18:17)
[2018-09-26] MEDS: METOPROLOL TARTRATE 1 MG/ML VIAL IV SCH ×6 (00:09→20:08)
[2018-09-26] MEDS: PIPERACILLIN/TAZOBACTAM 3.375 GM in DEXTROSE 5% 100 ML IV SCH ×3 (00:09→16:04)
[2018-09-26] MEDS: CHECK SCOPOLAMINE PATCH PLACEMENT SCH ×3 (00:11→16:04)
[2018-09-26] MEDS ORDERED: DiphenhydrAMINE HCL 50 MG/ML VIAL IV STA (01:50)
[2018-09-26] MEDS: ALBUT/IPRATROP 3MG/0.5MG NEB 3 ML VIAL NEB SCH ×6 (03:36→23:16)
[2018-09-26] MEDS: MoRPHine SULFATE 4 MG/ML 1 ML CARP\\VIAL IV PRN ×3 (03:50→10:38)
[2018-09-26 05:57] LABS: Mean Corpuscular Hgb Conc 31.8 g/dL (32-36); Nucleated RBC # (auto) 0.02 K/uL (0-0)
[2018-09-26 06:03] LABS: Hematocrit (blood only) 26.1 % (42-52); Hemoglobin 8.3 g/dL (14.0-18.0); Mean Corpuscular Volume 92.2 fL (80-100); RDW Coefficient of Variation 16.4 % (11.5-14.5); RDW Standard Deviation 55.1 fL (36.4-46.3); Red Blood Count 2.83 M/uL (4.7-6.1); White Blood Count 1.85 K/uL (4.8-10.8)
[2018-09-26 06:30] LABS: ALC (manual) 0.03 K/uL (1.2-3.4); Giant Platelets 3+; Lymphocytes # (manual) 0.03 K/uL (1.2-3.4); Lymphocytes % (manual) 1.7 %; Metamyelocytes # (manual) 0.02 K/uL (0-0); Metamyelocytes % (manual) 0.9 %; Monocytes # (manual) 0.03 K/uL (0.11-0.59); Monocytes % (manual) 1.7 %; Neutrophils % (manual) 95.7 %; Platelet Count 39 K/uL (130-400); Platelet Estimate Decreased (Normal); Toxic Granulation 2+
[2018-09-26 06:32] LABS: Albumin Level 1.6 gm/dl (3.4-5.0); BUN Creatinine Ratio 22.7 (10-20); Calcium 8.4 mg/dl (8.5-10.1); Creatinine Clr Calc Pharmacy 45.5 ml/min; Est GFR (Non-African American) 83.7; Magnesium 2.1 mg/dl (1.8-2.4); Potassium 4.8 mmol/L (3.5-5.1)
[2018-09-26 06:35] LABS: Albumin Globulin Ratio 0.4 (0.9-2); Globulin 3.6 gm/dl (2.5-4.0); Phosphorus 3.1 mg/dl (2.5-4.9); Total Protein 5.2 gm/dl (6.4-8.2)
[2018-09-26] MEDS: FILGRASTIM 300 MCG/ML VIAL SQ SCH (08:27)
[2018-09-26] MEDS: HEPARIN SOD 5,000 UNIT/0.5 ML VIAL SQ SCH (08:27)
[2018-09-26] MEDS ORDERED: MoRPHine SULFATE 2 MG/ML CARP IV PRN (11:32)
[2018-09-26] MEDS ORDERED: dilTIAZem HCl 5 MG/ML 5 ML VIAL IV STA (11:37)
--- NOTE | 2018-09-26 11:47 | Pharmacy Report ---
Pharmacy Abx Dose Short Note - Date of Service September 26, 2018 - Assessment & Plan Assessment * 78 year old M receiving VANCOMYCIN + ZOSYN for treatment of sepsis, pneumonia, possible aspiration * Day # 5 of antimicrobial therapy * No longer neutropenic, neut # 1770 today * Afebrile; O2 sats in 90's * Cultures remain negative; MRSA nasal swab negative (however provider has elected to continue MRSA coverage secondary to extensive mucositis) * Renal fxn stable Plan Vancomycin * Trough level of 18.9 mcg/mL is therapeutic. This level was drawn after 2 maint doses. Prior doses hung on schedule. Level was drawn at the appropriate time. This level may continue to climb w/ repeat dosing. Reduce dose slightly rather than adjusting the dosing interval to greater than 24 hrs. * Change to 650 mg (~14.3mg/kg) IV every 24 hours * Goal trough level for pulm infxn : 15 to 20 mcg/mL * Will repeat trough level in 2-3 days if therapy to continue beyond 7 days total Zosyn * BMI < 35, eCrCl > 20cc/min, continue 3.375gm ext-infusion Q 8 hrs Pharmacy will continue to follow and will adjust dose/frequency as necessary. Thank you.
[2018-09-26 12:17] LABS: Base Excess VBG 9.2 mEq/L; HCO3 VBG 34 mmol/L; PCO2 VBG 50 mmHg (38-50); PO2 VBG 28 mmHg; pH VBG 7.46 (7.36-7.41)
[2018-09-26 12:20] LABS: Oxygen Saturation VBG < 60.0 %
[2018-09-26] MEDS ORDERED: OLANZAPINE ZYDIS 5 MG ORALLY DIS. TAB PO STA (12:22)
[2018-09-26] MEDS: dilTIAZem HCl 125 MG in DEXTROSE 5% 100 ML IV SCH (13:08)
--- NOTE | 2018-09-26 13:28 | Pharmacy Report ---
Pharmacy PN Initial Consult - Date of Service September 26, 2018 - Scope Pharmacy has been consulted to manage parenteral nutrition orders and order appropriate labs. As part of the Nutrition Support Team guidelines, pharmacy will work in conjunction with dietary when determining the patients caloric needs. - Subjective The patient is a 78 year old M admitted on 09/22/18 18:13 for pneumonia, possible aspiration, pancytopenia, dehydration, cancer of epiglottis and possible thyrotoxicosis. Patient is to receive parenteral nutrition for inadequate PO intake, inability to place enteral access due to severe mucositis and thrombocytopenia. Pertinent PMH: * chronic thrombocytopenia * squamous cell CA of epiglottis * rheumatoid arthritis * hyperlipidemia * GERD - Objective Height: 5 ft Weight: 45.5 kg Diet: NPO Vascular Access:: PICC placed 09/25/18, central location confirmed with bulls eye Intake & Output (Last 24Hrs): Intake & Output 09/24/18 09/25/18 09/26/18 09/27/18 06:59 06:59 06:59 06:59 Intake Total 3731.10 / 3731.10 2565 / 2565 2395 / 2395 115 / 115 Output Total 1525 / 1525 975 / 975 3100 / 3100 Balance 2206.10 / 2206.10 1590 / 1590 -705 / -705 115 / 115 Weight 44.6 kg 45.5 kg Additional Fluid Losses/Gains:: abx (vancomycin + zosyn) provide 550mL fluid per day Laboratory Data (Last 24 Hrs):: 09/25/18 09/26/18 21:07 05:26 Sodium 140 143 Potassium 4.7 D 4.8 Chloride 108 H 107 Carbon Dioxide 29 33 H BUN 17 19 H Creatinine 0.77 0.83 Glucose 140 H 154 H Calcium 9.0 8.4 L Phosphorus 2.7 D 3.1 Magnesium 2.1 2.1 Total Bilirubin 1.0 AST 20 ALT 15 Alkaline Phosphatase 47 Albumin 1.6 L Recent Pertinent Medications:: dexamethasone 2mg IV Q 6 hrs Nutrition Assessment:: Please refer to the Notes section of the EMR for the most recent installation and service technician note. - Assessment Patient was admitted 09/22/18 with dehydration, multiple e-lyte abnormalities, pancytopenia, pneumonia, and protein-calorie malnutrition. Patient may have lost 7-8 kg in the last 30 days (>10% usual body weight lost). BMI 19.6. Decision was made yesterday to initiate parenteral nutrition due to malnutrition at baseline and inability to establish enteral access for enteral feeds. He is at high risk for refeeding syndrome given multiple e-lyte abnormalilties, low BMI, >10% weight loss in short time period and greatly decreased caloric intake for > 1 wk prior to presentation. To minimize risk of refeeding, plan was to begin TPN with no more than ~10kcal/kg on day one with the plan to titrate macronutrients to goal over 3+ days depending on how well patient tolerates dextrose and caloric load. Phosphate repleted yesterday and rechecked in PM yesterday to confirm he is not refeeding. E-lytes at this time do not reflect refeeding. Initial bag of TPN did provide ample K, Phos and Mg. Fluid needs discussed with hospitalist yesterday. Plan was to provide pt with 100cc/hr TPN (or 2400mL per day) as pt was euvolemic possibly somewhat hypovolemic still per hospitalist's assessment and he felt pt would not be at risk for fluid overload with this volume. preanalytics team lead was also consistent with pt perhaps being somewhat volume depleted as well. U.O. over last 24 hrs has been adequate and rather brisk. Plan for today: * Titrate macronutrients to ~17kcal/kg/day (66% goal calories) today. * Continue same volume for next 24 hrs. May reduce to 30-40cc/kg/day total volume tomorrow. * Elytes reviewed. HCO3 elevated today, Cl normalized. Will decrease acetate salts today. K did rise quickly in last 24 hrs - will reduce. - Plan For day 2 of PN administration, the following will be ordered: Macronutrients Amino acids 60 grams/day Dextrose 135 grams/day Lipids 25 grams/day Micronutrients Combined electrolytes 0 mL - contains 35 mEq Na, 20 meq K, 4.5 mEq Ca, 5 mEq Mg, 35 mEq Cl, 29.5 mEq acetate per 20 mL Sodium phosphate 18 MMol Sodium chloride 25 mEq Sodium acetate 0 mEq Potassium phosphate 0 mMol Potassium chloride 50 mEq Potassium acetate 0 mEq Magnesium sulfate 12.18 mEq Calcium gluconate 2.32 mEq Multivitamins 10 mL Trace Elements 1 mL Additional additives: Thiamine 200mg, Folic acid 1mg, Regular insulin 7 units Total volume 2400 mL to be infused over 24 hrs will provide 799 kcal/day Labs to be ordered per PN order protocol Pharmacy will follow and adjust parenteral nutrition orders on a daily basis. Thank you.
[2018-09-26] MEDS ORDERED: CUSTOM CENTRAL PN IV SCH (16:00)
--- NOTE | 2018-09-26 17:13 | Family Medicine Progress Note ---
Date of Service September 26, 2018 Assessment & Plan (1) Neutropenia: 78-year-old old male with a history of squamous cell epiglottal cancer presents after having poor p.o. intake for 1 week. Was found to be neutropenic sepsis secondary to pneumonia versus mucositis. In addition, the patient was found to be in thyroid storm likely secondary to radiation of his neck. Neutropenia Appears to be improving following moravian of filgastrim Continuing Vanco/Zosyn Atrial fibrillation was likely secondary to thyroid toxicosis Thyrotoxicosis, history of radiation therapy Continue beta-heather, IV steroids Methimazole can be given rectally, but we have concerns regarding risk of agranulocytosis Consider adding if we do not have continued controlled with above therapy Atrial fibrillation Continue Cardizem drip, IV metoprolol Hyponatremia Corrected, continue to follow Severe protein/calorie malnutrition Continue TPN, only viable option at this timeno PEG at this time Continue to follow electrolytes Elevated troponin Demand ischemia in the setting of tachycardia VT prophylaxis Heparin CODE STATUS Full (2) Right lower lobe pneumonia: (3) Poor fluid intake: (4) Dehydration: (5) Squamous cell carcinoma of epiglottis: (6) Mass of middle lobe of right lung: (7) Thyrotoxicosis: (8) Hypernatremia: (9) Elevated troponin: (10) Hypokalemia: (11) Elevated serum creatinine: (12) Total bilirubin, elevated: Supervising Physician Co-Signing Physician Notes I personally examined the patient and verified all kirk points of history and exam, discussed case, and agree with decision making with Dr Luke. Seems a bit delirious. Extensively discussed with nursing. He does open eyes and follow well. He actually denies any shortness of breath or pain to me, although it is very difficult for him to voice any HPI or review of systems. Vitals noted, in general he is cachectic but far less restless leg in bed no distress. HEENT normocephalic atraumatic mucous membranes reasonably moist. Cardio is somewhat distant but no notable rubs murmurs or gallops, tachycardia is improving. Lungs show coarse rhonchi throughout but better air entry. No accessory muscle use good effort. Neuro shows no focal deficits. neutropenic sepsis - appearing predominantly pneumonia related, but also with some significant mucositis at play -vanco and zosyn (HCAP or aspiration both possible, and the vancomycin particularly for the mucositis) -supportive care -Seems to be improving, continue current care and follow possible thyroid storm -He has a low TSH and a somewhat high free T4 -Symptoms in terms of the tachycardia agitation and fever can also be simultaneously explained by his neutropenic sepsis and his hypernatremic dehydration, so it is somewhat difficult to determine exactly what symptoms relate to the thyroid what symptoms relate to the rest of his acute comorbidities, and which may be both. Overall though he is improving -Continue beta-heather -After discussion with pharmacy, methimazole could be given rectally, but it does carry a bit of a risk for marrow suppression. Given that his symptoms of hyperthyroidism seem to overall be improving, we will hold off on this for now at least until we have more stability in his counts. -Potassium iodide would also be extremely high risk given his inability to safely tolerate p.o., as well as reports of esophageal mucosal injury, given his mucositis, this would likely have a big risk of causing harm -Overall appears to be improving, continue dexamethasone -IV iodine seems to be ill studied without a clear dosing regimen or outcomes, we will hold off on this for now given that more effective, and more proven measures can be undertaken -Bile acid binding resin and is again not able to be given due to his inability to take p.o. -Inciting etiology likely radiation. hypernatremic dehydration -from poor PO intake -Improved Mucositis -Continue antibiotics and supportive care restlessness/agitation/AMS - probably at least delirium if not metabolic encephalopathy from all of above, but actually does seem to be improving. Nursing notes that his agitation is a rather significant barrier to care, as he continually pulls oxygen off. We will continue to try to do supportive care and is comfortable with treatment as possible, but after discussion with nursing and resident, we opted to give careful therapeutic trial to an atypical antipsychotic (following QT closely) given that they do seem to show a degree of improvement in symptoms of agitation, and the main risk to avoid would be any sort of cardiac issues which would be followed closely (he is also having any arrhythmias suppressed by his A. fib management. A. fib/RVRalmost certainly brought on by the thyrotoxicosis. Rate now controlled rate (Lopressor, adding diltiazem drip) once his counts improve we can give consideration to anticoagulation. Severe protein calorie malnutrition/failure to thrivesee prior discussions, TPN for now. DVT prophylaxisLovenox otherwise as above Does appear to be improving, albeit slowly Subjective 78-year-old male history of squamous cell cancer of the epiglottis being treated for neutropenic sepsis, pulmonary source/mucositis. The patient is nonverbal this morning, sleeping. He is arousable and is able to make eye contact, but is unable to effectively communicate. Review of systems Unable to obtain Review of Systems Review of Systems: Unobtainable due to cognitive status Physical Exam Constitutional: + ill appearing, + thin and + altered mental status; no acute distress Eyes: PERRL, conjunctivae normal, anicteric sclerae ENMT: external ear and nose normal, oropharynx normal Neck: trachea midline, no thyromegaly Respiratory: normal respiratory effort; no respiratory distress, no labored breathing, no retractions and does not use accessory muscles Auscultation: + rhonchi Bilateral rhonchi Cardiovascular: RRR, no murmur, no edema Gastrointestinal (Abdomen): normal bowel sounds, soft, nontender, no hepatosplenomegaly Musculoskeletal: no cyanosis or clubbing, extremities motor strength 5/5 Extremities: + muscle atrophy Skin: no rashes, warm and dry Results & Data Vital Signs (Past 12 Hours) Vital Signs Temp Pulse Pulse Pulse Resp BP Pulse Ox 09/26/18 15:30 37.3 C 96 H 19 160/83 H 91 09/26/18 15:01 96 H 22 97 09/26/18 12:35 109 H 18 09/26/18 11:33 36.5 C 113 H 22 143/84 H 94 09/26/18 11:00 106 H 22 93 09/26/18 09:08 110 H 09/26/18 07:06 36.6 C 115 H 25 H 142/80 H 95 09/26/18 07:05 115 H 26 H 96 Pulse Ox 09/26/18 15:30 09/26/18 15:01 09/26/18 12:35 95 09/26/18 11:33 09/26/18 11:00 09/26/18 09:08 09/26/18 07:06 09/26/18 07:05 Laboratory Results Laboratory Last Values WBC 1.85 K/uL (4.8-10.8) L 09/26/18 05:26 RBC 2.83 M/uL (4.7-6.1) L 09/26/18 05:26 Hgb 8.3 g/dL (14.0-18.0) L 09/26/18 05:26 Hct 26.1 % (42-52) L 09/26/18 05:26 MCV 92.2 fL (80-100) 09/26/18 05:26 MCH 29.3 pg (25-34) 09/26/18 05:26 MCHC 31.8 g/dL (32-36) L 09/26/18 05:26 RDW Std Deviation 55.1 fL (36.4-46.3) H 09/26/18 05:26 RDW Coeff of Daniel 16.4 % (11.5-14.5) H 09/26/18 05:26 Plt Count 39 K/uL (130-400) L 09/26/18 05:26 Immature Gran % (Auto) 1.0 % 09/25/18 05:39 Neut % (Auto) 89.3 % 09/25/18 05:39 Lymph % (Auto) 7.8 % 09/25/18 05:39 Mchenry % (Auto) 1.9 % 09/25/18 05:39 Eos % (Auto) 0.0 % 09/25/18 05:39 Baso % (Auto) 0.0 % 09/25/18 05:39 Immature Gran # (Auto) 0.01 K/uL (0.00-0.02) 09/25/18 05:39 Neut # (Auto) 0.92 K/uL (1.4-6.5) L* 09/25/18 05:39 Lymph # (Auto) 0.08 K/uL (1.2-3.4) L 09/25/18 05:39 Mchenry # (Auto) 0.02 K/uL (0.11-0.59) L 09/25/18 05:39 Eos # (Auto) 0.00 K/uL (0-0.5) 09/25/18 05:39 Baso # (Auto) 0.00 K/uL (0-0.2) 09/25/18 05:39 Absolute Nucleated RBC 0.02 K/uL (0-0) H 09/26/18 05:26 Nucleated RBC % (auto) 1.0 % 09/26/18 05:26 Neutrophils % (Manual) 95.7 % 09/26/18 05:26 Band Neutrophils % Cancelled 09/24/18 06:35 Lymphocytes % (Manual) 1.7 % 09/26/18 05:26 Prolymphocyte % Cancelled 09/24/18 06:35 Reactive Lymphs % (Man) Cancelled 09/24/18 06:35 Monocytes % (Manual) 1.7 % 09/26/18 05:26 Eosinophils % (Manual) Cancelled 09/24/18 06:35 Basophils % (Manual) Cancelled 09/24/18 06:35 Metamyelocytes % (Man) 0.9 % 09/26/18 05:26 Myelocytes % (Man) 0.7 % 09/22/18 14:49 Promyelocytes % (Man) Cancelled 09/24/18 06:35 Blast Cells % (Manual) Cancelled 09/24/18 06:35 Plasma Cell % (Manual) Cancelled 09/24/18 06:35 Other Cells % Cancelled 09/24/18 06:35 Nucleated RBC % Cancelled 09/24/18 06:35 Neutrophils # (Manual) 1.77 K/uL (1.4-6.5) 09/26/18 05:26 Band Neutrophils # Cancelled 09/24/18 06:35 Total Absolute Neuts 1.77 K/uL (1.4-6.5) 09/26/18 05:26 Lymphocytes # (Manual) 0.03 K/uL (1.2-3.4) L 09/26/18 05:26 Prolymphocyte # Cancelled 09/24/18 06:35 Reactive Lymphs # Cancelled 09/24/18 06:35 Total Abs Lymphocytes 0.03 K/uL (1.2-3.4) L 09/26/18 05:26 Monocytes # (Manual) 0.03 K/uL (0.11-0.59) L 09/26/18 05:26 Eosinophils # (Manual) Cancelled 09/24/18 06:35 Basophils # (Manual) Cancelled 09/24/18 06:35 Metamyelocytes # (Man) 0.02 K/uL (0-0) H 09/26/18 05:26 Myelocytes # (Manual) 0.00 K/uL (0-0) 09/22/18 14:49 Promyelocytes # (Man) Cancelled 09/24/18 06:35 Blast Cells # (Man) Cancelled 09/24/18 06:35 Plasma Cell # (Manual) Cancelled 09/24/18 06:35 Other Cells # Cancelled 09/24/18 06:35 Nucleated RBCs # (Man) Cancelled 09/24/18 06:35 Hypersegmented Neuts Cancelled 09/24/18 06:35 Hyposegmented Neuts Cancelled 09/24/18 06:35 Hypogranular Neuts Cancelled 09/24/18 06:35 Large Granular Lymphs Cancelled 09/24/18 06:35 # Lrg Granular Lymphs Cancelled 09/24/18 06:35 Hairy Cells Cancelled 09/24/18 06:35 Smudge Cells Cancelled 09/24/18 06:35 Toxic Granulation 2+ 09/26/18 05:26 Toxic Vacuolation Cancelled 09/24/18 06:35 Dohle Bodies 3+ 09/25/18 05:39 Kody Rods Cancelled 09/24/18 06:35 Platelet Estimate Decreased (Normal) L 09/26/18 05:26 Hypogranular Platelets Cancelled 09/24/18 06:35 Clumped Platelets Cancelled 09/24/18 06:35 Giant Platelets 3+ 09/26/18 05:26 Platelet Satelliting Cancelled 09/24/18 06:35 RBC Morphology Cancelled 09/24/18 06:35 Polychromasia Cancelled 09/24/18 06:35 Hypochromasia Cancelled 09/24/18 06:35 Poikilocytosis Cancelled 09/24/18 06:35 Basophilic Stippling Cancelled 09/24/18 06:35 Anisocytosis Cancelled 09/24/18 06:35 Microcytosis Cancelled 09/24/18 06:35 Macrocytosis Cancelled 09/24/18 06:35 Spherocytes Cancelled 09/24/18 06:35 Pappenheimer Bodies Cancelled 09/24/18 06:35 Sickle Cells Cancelled 09/24/18 06:35 Target Cells Cancelled 09/24/18 06:35 Tear Drop Cells Cancelled 09/24/18 06:35 Ovalocytes Cancelled 09/24/18 06:35 Stomatocytes Cancelled 09/24/18 06:35 [place] Bodies Cancelled 09/24/18 06:35 Echinocytes Cancelled 09/24/18 06:35 Acanthocytes (Spur) Cancelled 09/24/18 06:35 Rouleaux Cancelled 09/24/18 06:35 RBC Agglutinates Cancelled 09/24/18 06:35 Schistocytes Cancelled 09/24/18 06:35 RBC Morph Comment Cancelled 09/24/18 06:35 Sezary Cell Cancelled 09/24/18 06:35 PT 13.3 Seconds (9.0-12.0) H 09/22/18 15:00 INR 1.3 (0.9-1.1) H 09/22/18 15:00 APTT 29.9 Seconds (21.0-31.0) 09/22/18 15:00 PTT Ratio 1.1 09/22/18 15:00 VBG pH 7.46 (7.36-7.41) H 09/26/18 11:49 VBG pCO2 50 mmHg (38-50) 09/26/18 11:49 VBG pO2 28 mmHg 09/26/18 11:49 VBG HCO3 34 mmol/L 09/26/18 11:49 VBG O2 Saturation < 60.0 % 09/26/18 11:49 VBG Base Excess 9.2 mEq/L 09/26/18 11:49 Barometric Pressure 728.9 mm/Hg 09/26/18 11:49 Sodium 143 mmol/L (136-145) 09/26/18 05:26 Potassium 4.8 mmol/L (3.5-5.1) 09/26/18 05:26 Chloride 107 mmol/L (98-107) 09/26/18 05:26 Carbon Dioxide 33 mmol/L (21-32) H 09/26/18 05:26 Anion Gap 4.0 (3-11) 09/26/18 05:26 BUN 19 mg/dl (7-18) H 09/26/18 05:26 Creatinine 0.83 mg/dl (0.6-1.4) 09/26/18 05:26 Est Cr Clr Drug Dosing 45.5 ml/min 09/26/18 05:26 Est GFR ( Amer) 97.0 09/26/18 05:26 Est GFR (Non-Af Amer) 83.7 09/26/18 05:26 BUN/Creatinine Ratio 22.7 (10-20) H 09/26/18 05:26 Glucose 154 mg/dl (70-99) H 09/26/18 05:26 POC Glucose 164 (70-99) H 09/26/18 12:12 Lactate 1.8 mmol/L (0.4-2.0) 09/22/18 21:12 Calcium 8.4 mg/dl (8.5-10.1) L 09/26/18 05:26 Phosphorus 3.1 mg/dl (2.5-4.9) 09/26/18 05:26 Magnesium 2.1 mg/dl (1.8-2.4) 09/26/18 05:26 Total Bilirubin 1.0 mg/dl (0.2-1) 09/26/18 05:26 AST 20 U/L (15-37) 09/26/18 05:26 ALT 15 U/L (12-78) 09/26/18 05:26 Alkaline Phosphatase 47 U/L (45-117) 09/26/18 05:26 Troponin I 0.046 ng/ml (0-0.045) H* 09/25/18 08:30 Total Protein 5.2 gm/dl (6.4-8.2) L 09/26/18 05:26 Albumin 1.6 gm/dl (3.4-5.0) L 09/26/18 05:26 Globulin 3.6 gm/dl (2.5-4.0) 09/26/18 05:26 Albumin/Globulin Ratio 0.4 (0.9-2) L 09/26/18 05:26 Prealbumin < 3.0 mg/dl (20-40) L 09/25/18 05:39 Triglycerides 114 mg/dl (0-150) 09/25/18 05:39 TSH 0.008 uIu/ml (0.300-4.500) L 09/22/18 14:49 Free T4 2.42 ng/dl (0.8-1.6) H 09/22/18 14:49 Urine Color Dark Yellow 09/22/18 22:45 Urine Appearance Cloudy (Clear) H 09/22/18 22:45 Urine pH 5.0 (4.5-7.5) 09/22/18 22:45 Ur Specific Kemp 1.025 (1.000-1.030) 09/22/18 22:45 Urine Protein 1+ (Negative) H 09/22/18 22:45 Urine Glucose (UA) Negative (Negative) 09/22/18 22:45 Urine Ketones 1+ (Negative) H 09/22/18 22:45 Urine Blood 1+ (Negative) H 09/22/18 22:45 Urine Nitrite Negative (Negative) 09/22/18 22:45 Urine Bilirubin Negative (Negative) 09/22/18 22:45 Urine Urobilinogen Negative (Negative) 09/22/18 22:45 Ur Leukocyte Esterase Negative (Negative) 09/22/18 22:45 Urine WBC (Auto) 1-5 /hpf (0-5) 09/22/18 22:45 Urine RBC (Auto) 5-10 /hpf (0-4) H 09/22/18 22:45 U Hyaline Cast (Auto) 5-10 /lpf (0-5) H 09/22/18 22:45 U Epithel Cells (Auto) 10-20 /lpf (0-5) H 09/22/18 22:45 Urine Bacteria (Auto) Negative (Negative) 09/22/18 22:45 Uric Acid Crystals Present (None Prsent) H 09/22/18 22:45 Urine Yeast Not Reportable 09/22/18 22:45 Nasal Screen MRSA (PCR) Negative (Negative) 09/22/18 20:40 Vancomycin Trough 18.9 mcg/ml (See Comment) 09/25/18 17:36 Resident Activity Tracking Resident Involvement: Resident Care Provided Care Provided: Adult Hospital Medicine (1) Neutropenia Neutropenia type: unspecified Qualified Code(s): D70.9 - Neutropenia, unspecified
[2018-09-26] MEDS ORDERED: OLANZAPINE ZYDIS 5 MG ORALLY DIS. TAB PO ONE (18:19)
[2018-09-26] MEDS: MoRPHine SULFATE 2 MG/ML CARP IV PRN (19:27)
[2018-09-26] MEDS: VANCOMYCIN HCL IV SCH (20:08)
[2018-09-26] MEDS: SODIUM CHLORIDE 0.9% IV SCH (20:08)
[2018-09-26] MEDS ORDERED: OLANZAPINE ZYDIS 5 MG ORALLY DIS. TAB PO SCH (21:00)
[2018-09-27] MEDS: MoRPHine SULFATE 2 MG/ML CARP IV PRN ×3 (01:38→15:06)
[2018-09-27] MEDS: CHECK SCOPOLAMINE PATCH PLACEMENT SCH ×3 (01:39→15:07)
[2018-09-27] MEDS: ALBUT/IPRATROP 3MG/0.5MG NEB 3 ML VIAL NEB SCH ×6 (03:31→23:14)
[2018-09-27] MEDS: METOPROLOL TARTRATE 1 MG/ML VIAL IV SCH ×6 (04:00→20:30)
[2018-09-27] MEDS: dilTIAZem HCl 125 MG in DEXTROSE 5% 100 ML IV SCH (05:35)
[2018-09-27] MEDS: dexAMETHasone 2 MG in SYRINGE 0 ML IV SCH ×4 (05:36→17:43)
[2018-09-27 07:06] LABS: Mean Corpuscular Hgb Conc 32.3 g/dL (32-36)
[2018-09-27 07:21] LABS: Hematocrit (blood only) 25.7 % (42-52); Hemoglobin 8.3 g/dL (14.0-18.0); Mean Corpuscular Volume 91.8 fL (80-100); RDW Coefficient of Variation 16.7 % (11.5-14.5); RDW Standard Deviation 55.5 fL (36.4-46.3); White Blood Count 2.24 K/uL (4.8-10.8)
[2018-09-27 07:24] LABS: Albumin Level 1.7 gm/dl (3.4-5.0); BUN Creatinine Ratio 29.7 (10-20); Calcium 8.6 mg/dl (8.5-10.1); Creatinine Clr Calc Pharmacy 43.1 ml/min; Est GFR (African American) 96.1; Est GFR (Non-African American) 82.9; Magnesium 2.2 mg/dl (1.8-2.4)
[2018-09-27 07:27] LABS: Albumin Globulin Ratio 0.5 (0.9-2); Bilirubin,Total 1.4 mg/dl (0.2-1); Globulin 3.6 gm/dl (2.5-4.0); Phosphorus 3.8 mg/dl (2.5-4.9); Total Protein 5.3 gm/dl (6.4-8.2)
[2018-09-27 07:43] LABS: Dohle Bodies 2+; Giant Platelets 3+; Immature Granulocytes # (auto) 0.03 K/uL (0.00-0.02); Immature Granulocytes % (auto) 1.3 %; Lymphocytes # (auto) 0.18 K/uL (1.2-3.4); Monocytes # (auto) 0.01 K/uL (0.11-0.59); Monocytes % (auto) 0.4 %; Neutrophils # (auto) 2.02 K/uL (1.4-6.5); Neutrophils % (auto) 90.3 %; Ovalocytes 1+; Platelet Count 39 K/uL (130-400); Platelet Estimate Decreased (Normal); Tear Drop Cells 1+; Toxic Granulation 3+
[2018-09-27] MEDS: PIPERACILLIN/TAZOBACTAM 3.375 GM in DEXTROSE 5% 100 ML IV SCH ×3 (08:50→15:34)
[2018-09-27] MEDS: FILGRASTIM 300 MCG/ML VIAL SQ SCH (09:09)
--- NOTE | 2018-09-27 09:37 | Pharmacy Report ---
PHA: Parenteral Nutrition Con - Date of Service September 27, 2018 - Scope Pharmacy was consulted on 09/25/18 to manage parenteral nutrition orders for this patient. - Subjective The patient is currently on day 3 of central parenteral nutrition for inadequate PO intake, inability to place enteral access due to severe mucositis and thrombocytopenia. - Objective Height: 5 ft Weight: 43.2 kg Diet: NPO Vascular Access:: PICC placed 09/25/18, central location confirmed with bulls eye Intake & Output (24hrs):: Intake & Output 09/25/18 09/26/18 09/27/18 09/28/18 06:59 06:59 06:59 06:59 Intake Total 2565 / 2565 2395 / 2395 690.25 / 690.25 7.833 / 7.833 Output Total 975 / 975 3100 / 3100 4525 / 4525 Balance 1590 / 1590 -705 / -705 -3834.75 / -3834.75 7.833 / 7.833 Weight 45.5 kg 43.2 kg Additional Fluid Losses/Gains:: abx provide ~550mL daily diltiazem gtt infusing for rate control Laboratory Data (Last 24 Hr):: 09/27/18 09/27/18 06:10 06:10 Sodium 142 Cancelled Potassium 4.0 D Cancelled Chloride 103 Cancelled Carbon Dioxide 35 H Cancelled BUN 25 H Cancelled Creatinine 0.85 Cancelled Glucose 139 H Cancelled Calcium 8.6 Cancelled Phosphorus 3.8 Magnesium 2.2 Total Bilirubin 1.4 H Cancelled AST 24 Cancelled ALT 18 Cancelled Alkaline Phosphatase 64 Cancelled Albumin 1.7 L Cancelled Recent Pertinent Medications:: dexamethasone 2mg IV Q 6 hrs Nutrition Assessment:: Please refer to the Notes section of the EMR for the 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 - Assessment Patient continues to tolerate TPN well. Eljan reviewed this AM. Bicarb continues to climb. This may be unrelated to TPN and possibly metabolic compensation for underlying resp acidosis? (we have no blood gas for review) All acetate salts removed from TPN yesterday. There is acetate in the amino acid formulation however. K+ did drop in the last 24 hrs, will increase content somewhat due to ongoing high urine output. Ca2+ will be removed today as correct Ca2+ elevated, however this calculation is not reliable. BSGs at goal, will continue to add insulin to each TPN bag while receiving dexamethasone. He has produced a great deal of urine in the last 24 hrs. Uncertain etiology as pt is not receiving diuresis. Per provider's assessment: + rhonchi, no resp distress, non-labored breathing, no edema. Currently sat well on 7L Oxymask. Overall I/O's down 3+ L in last 24 hrs. Will continue as volume TPN today. Will titrate to goal calories today, please refer to sheet metal worker's recommendations. - Plan For day 3 of PN administration, the following will be ordered: Macronutrients Amino acids 70 grams/day Dextrose 150 grams/day Lipids 40 grams/day Micronutrients Combined electrolytes 0 mL - contains 35 mEq Na, 20 meq K, 4.5 mEq Ca, 5 mEq Mg, 35 mEq Cl, 29.5 mEq acetate per 20 mL Sodium phosphate 18 MMol Sodium chloride 25 mEq Sodium acetate 0 mEq Potassium phosphate 0 mMol Potassium chloride 66 mEq Potassium acetate 0 mEq Magnesium sulfate 12.18 mEq Calcium gluconate 0 mEq Multivitamins 10 mL Trace Elements 1 mL Additional additives: Thiamine 200mg, Folic Acid 1mg, Regular insulin 10 units Total volume 2400 mL to be infused over 24 hrs will provide 1190 kcal/day Labs, as indicated, will be ordered per protocol Pharmacy will continue to follow and adjust parenteral nutrition orders on a daily basis. Thank you for allowing us to participate in the care of this patient.
[2018-09-27] MEDS ORDERED: Nursing to Pharmacy Communication ONE (11:53)
[2018-09-27] MEDS: SCOPOLAMINE 1.5 MG TDSY TD SCH (12:28)
--- NOTE | 2018-09-27 12:58 | Family Medicine Progress Note ---
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 Was found to have neutropenic sepsis secondary to pneumonia versus mucositis. 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 #Neutropenic fever, pancytopenia in setting of mucositis and bibasilar pneumonia Appears to be improving following [facility] of filgastrim, and abstinence from active chemotherapy -MRSA is negative but given nature of mucositis/concern for aspiration and neutropenia will continue broad spectrum abx. Continuing Vanco/Zosyn. Pt is still not able to take PO meds due to mucositis. -neutropenic precautions. -scopolamine patch for secretions -hold plavix, anticoagulation in setting of thrombocytopenia #Tachycardia/delirium/agitation in setting of iatrogenic(?) thyrotoxicosis, history of radiation therapy to the neck -repeat TSH/T4 shows moderate improvement. Likely above therapy, supportive care and holding radiation/chemo has resulted in some improvement, especially clinically. Methimazole can be given rectally, but we have concerns regarding risk of agranulocytosis. -Could consider consulting Endocrinology with regards to prognosis and length of management before allowed to resume chemo/rad. -continue to trend TSH/T4 q3days to follow Continue beta-heather, IV steroids #Severe protein/calorie malnutrition Continue TPN, only viable option at this timeno PEG at this time in light of sepsis -no s/s refeeding syndrome, continue to monitor Mag/phos #Atrial fibrillation - resolved. 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 due to pain/mucositis Dispo: lives with his son and caregiver Lev while undergoing treatment for cancer. . May require SNF on discharge. (2) Right lower lobe pneumonia: (3) Poor fluid intake: (4) Dehydration: (5) Squamous cell carcinoma of epiglottis: (6) Mass of middle lobe of right lung: (7) Thyrotoxicosis: (8) Hypernatremia: (9) Elevated troponin: (10) Hypokalemia: (11) Elevated serum creatinine: (12) Total bilirubin, elevated: Supervising Physician Co-Signing Physician Notes I personally examined the patient and verified all kirk points of history and exam, discussed case, and agree with decision making with Dr Luke. Still delirious. No new issues noted by nursing. Dr. Luke updated the patient's son. Vitals noted, in general he is cachectic but far less restless leg in bed no distress. HEENT normocephalic atraumatic mucous membranes reasonably moist. Cardio is now rate controlled. Lungs unlabored no accessory muscle use good effort. Neuro shows no focal deficits. neutropenic sepsis - appearing predominantly pneumonia related, but also with some significant mucositis at play -vanco and zosyn (HCAP or aspiration both possible, and the vancomycin particularly for the mucositis) -supportive care -His vitals are overall stabilizing, his counts are improving. This seems to be improving. possible thyroid storm -He has a low TSH and a somewhat high free T4 -Symptoms in terms of the tachycardia agitation and fever can also be simultaneously explained by his neutropenic sepsis and his hypernatremic dehydration, so it is somewhat difficult to determine exactly what symptoms relate to the thyroid what symptoms relate to the rest of his acute comorbidities, and which may be both. Overall though he is improvingconsideration was given to how much of his delirium could be thyrotoxicosis rather than a regular medical delirium. Given pharmacy input that methimazole could be given rectally, consideration was given to try to do this in order to affect a more euthyroid state and possibly lessen his delirium. That said, pharmacy did offer concerns about marrow suppression with this given the context, which is certainly quite reasonable. Given a very delicate risk- benefit balance, as well as the nebulous nature of whether or not his delirium even relates to his thyroid storm at this point, prior to initiating potentially risky med, repeat TSH and free T4 were checked, these actually are showing some improvement. In review of the literature is somewhat difficult to tell how long radiation induced thyrotoxicosis last, but at least right now he appears to be abating. Would hold off on methimazole for now, follow TSH and free T4 somewhere between daily to every 72 hours depending on the clinical situation, and continue current treatment. -Continue beta-heather -Continue dexamethasone -Potassium iodide would also be extremely high risk given his inability to safely tolerate p.o., as well as reports of esophageal mucosal injury, given his mucositis, this would likely have a big risk of causing harm -IV iodine seems to be ill studied without a clear dosing regimen or outcomes, we will hold off on this for now given that more effective, and more proven measures can be undertaken -Bile acid binding resin and is again not able to be given due to his inability to take p.o. -Inciting etiology likely radiation. hypernatremic dehydration -from poor PO intake -Improved, now on TPN Mucositis -Continue antibiotics and supportive care, see above otherwise. restlessness/agitation/AMS - probably at least delirium if not metabolic encephalopathy from all of above, his issues with keeping his oxygen on related to his delirium seem to have improved with a one-to-one sitter. For now continue mostly supportive care, morphine as needed pain, but will try to hold off on other sedating type medicines. Given concern on how much of his delirium may have related to his thyrotoxicosis, see above discussion and concern about methimazole, and we briefly gave trial to Zyprexa yesterday, following his rhythm closely, but it seems to give no improvement. A. fib/RVRalmost certainly brought on by the thyrotoxicosis. Now improved. Continue Lopressor, continue to titrate Cardizem as needed, will likely need anticoagulation once stable enough to do so with his blood counts. Severe protein calorie malnutrition/failure to thrivesee prior discussions, TPN for now. Seems to be tolerating well DVT prophylaxishad been on pharmacologic prophylaxis, until his counts started to drop further, as his platelets rebound, pharmacologic DVT prophylaxis likely can be resumed in the near future. Mechanical prophylaxis would be of dubious benefit and actually preventing venous thrombi embolic events, and likely would cause harm with him in terms of skin breakdown and worsening his delirium/agitation. otherwise as above Does appear to be improving, albeit slowly Subjective Interviewed at the bedside. 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 Cognitively slowly improving. Converted to NSR overnight. Agitated overnight per nursing, but improved this AM and afternoon. Son at bedside confirms that his cognitive status is better today since admission. Review of Systems 2 Review of Systems: Other (limited ROS given inability to speak due to epiglottic cancer, but pt does endorse pain in his throat/neck area, denies chest pain or abdominal pain. ) Physical Exam Physical Exam: Vitals noted as above and within normal limits . TPN running. Trimble draining clear urine. GENERAL: Awake, nods/shakes head appropriately to questions, nontoxic-appearing, in no distress HENT: Normocephalic, atraumatic. Oxymask in place. Mucus membranes appear moist. EYES: Normal conjunctiva. Sclera non-icteric. EOMI. NECK: Supple. Full range of motion. RESPIRATORY: Clear to auscultation. Normal work of breathing. CARDIAC: Regular rate, normal rhythm. Extremities warm and well perfused, 2+ radial pulses bilaterally; 2+ posterior tibialis pulses bilaterally. ABDOMEN: Soft, non-distended. No tenderness to palpation in all four quadrants. No rebound or guarding. No masses. Bowel sounds are normal. LOWER EXTREMITIES: Inspection of calves reveal equal size bilaterally. They are non-tender. No edema. No discoloration. NEURO: No focal gross motor deficits noted. CN II-XII grossly in tact. SKIN: Senile purpura present. No jaundice noted. Significant lesions not present. PSYCH: Appropriate mood and affect. Cooperative. Exam as done by Colette Luke MD, Music Supervisor. Results & Data Vital Signs (Past 12 Hours) Vital Signs Temp Pulse Pulse Resp BP BP Pulse Ox 09/27/18 11:23 69 20 118/57 L 09/27/18 08:50 83 146/74 H 09/27/18 06:55 36.5 C 84 24 163/89 H 98 09/27/18 03:23 36.5 C 87 26 H 156/77 H 99 Laboratory Results 09/27/18 09/27/18 09/27/18 Range/Units 13:06 11:35 06:16 WBC 2.24 L (4.8-10.8) K/uL RBC 2.80 L (4.7-6.1) M/uL Hgb 8.3 L (14.0-18.0) g/dL Hct 25.7 L (42-52) % MCV 91.8 (80-100) fL MCH 29.6 (25-34) pg MCHC 32.3 (32-36) g/dL RDW Std Deviation 55.5 H (36.4-46.3) fL RDW Coeff of Daniel 16.7 H (11.5-14.5) % Plt Count 39 L (130-400) K/uL Immature Gran % (Auto) 1.3 % Neut % (Auto) 90.3 % Lymph % (Auto) 8.0 % [place] % (Auto) 0.4 % Eos % (Auto) 0.0 % Baso % (Auto) 0.0 % Immature Gran # (Auto) 0.03 H (0.00-0.02) K/uL Neut # (Auto) 2.02 (1.4-6.5) K/uL Lymph # (Auto) 0.18 L (1.2-3.4) K/uL [place] # (Auto) 0.01 L (0.11-0.59) K/uL Eos # (Auto) 0.00 (0-0.5) K/uL Baso # (Auto) 0.00 (0-0.2) K/uL Toxic Granulation 3+ Dohle Bodies 2+ Platelet Estimate Decreased L (Normal) Giant Platelets 3+ Tear Drop Cells 1+ Ovalocytes 1+ Sodium (136-145) mmol/L Potassium (3.5-5.1) mmol/L Chloride (98-107) mmol/L Carbon Dioxide (21-32) mmol/L Anion Gap (3-11) BUN (7-18) mg/dl Creatinine (0.6-1.4) mg/dl Est Cr Clr Drug Dosing ml/min Est GFR ( Amer) Est GFR (Non-Af Amer) BUN/Creatinine Ratio (10-20) Glucose (70-99) mg/dl POC Glucose 146 H (70-99) Calcium (8.5-10.1) mg/dl Phosphorus (2.5-4.9) mg/dl Magnesium (1.8-2.4) mg/dl Total Bilirubin (0.2-1) mg/dl AST (15-37) U/L ALT (12-78) U/L Alkaline Phosphatase (45-117) U/L Total Protein (6.4-8.2) gm/dl Albumin (3.4-5.0) gm/dl Globulin (2.5-4.0) gm/dl Albumin/Globulin Ratio (0.9-2) TSH 0.012 L (0.300-4.500) uIu/ml Free T4 1.79 H (0.8-1.6) ng/dl 09/27/18 09/27/18 09/27/18 Range/Units 06:10 06:10 05:51 WBC (4.8-10.8) K/uL RBC (4.7-6.1) M/uL Hgb (14.0-18.0) g/dL Hct (42-52) % MCV (80-100) fL MCH (25-34) pg MCHC (32-36) g/dL RDW Std Deviation (36.4-46.3) fL RDW Coeff of Daniel (11.5-14.5) % Plt Count (130-400) K/uL Immature Gran % (Auto) % Neut % (Auto) % Lymph % (Auto) % [place] % (Auto) % Eos % (Auto) % Baso % (Auto) % Immature Gran # (Auto) (0.00-0.02) K/uL Neut # (Auto) (1.4-6.5) K/uL Lymph # (Auto) (1.2-3.4) K/uL [place] # (Auto) (0.11-0.59) K/uL Eos # (Auto) (0-0.5) K/uL Baso # (Auto) (0-0.2) K/uL Toxic Granulation Dohle Bodies Platelet Estimate (Normal) Giant Platelets Tear Drop Cells Ovalocytes Sodium Cancelled 142 (136-145) mmol/L Potassium Cancelled 4.0 D (3.5-5.1) mmol/L Chloride Cancelled 103 (98-107) mmol/L Carbon Dioxide Cancelled 35 H (21-32) mmol/L Anion Gap Cancelled 4.0 (3-11) BUN Cancelled 25 H (7-18) mg/dl Creatinine Cancelled 0.85 (0.6-1.4) mg/dl Est Cr Clr Drug Dosing Cancelled 43.1 ml/min Est GFR ( Amer) Cancelled 96.1 Est GFR (Non-Af Amer) Cancelled 82.9 BUN/Creatinine Ratio Cancelled 29.7 H (10-20) Glucose Cancelled 139 H (70-99) mg/dl POC Glucose 158 H (70-99) Calcium Cancelled 8.6 (8.5-10.1) mg/dl Phosphorus 3.8 (2.5-4.9) mg/dl Magnesium 2.2 (1.8-2.4) mg/dl Total Bilirubin Cancelled 1.4 H (0.2-1) mg/dl AST Cancelled 24 (15-37) U/L ALT Cancelled 18 (12-78) U/L Alkaline Phosphatase Cancelled 64 (45-117) U/L Total Protein Cancelled 5.3 L (6.4-8.2) gm/dl Albumin Cancelled 1.7 L (3.4-5.0) gm/dl Globulin Cancelled 3.6 (2.5-4.0) gm/dl Albumin/Globulin Ratio Cancelled 0.5 L (0.9-2) TSH (0.300-4.500) uIu/ml Free T4 (0.8-1.6) ng/dl 09/26/18 Range/Units 23:46 WBC (4.8-10.8) K/uL RBC (4.7-6.1) M/uL Hgb (14.0-18.0) g/dL Hct (42-52) % MCV (80-100) fL MCH (25-34) pg MCHC (32-36) g/dL RDW Std Deviation (36.4-46.3) fL RDW Coeff of Daniel (11.5-14.5) % Plt Count (130-400) K/uL Immature Gran % (Auto) % Neut % (Auto) % Lymph % (Auto) % [place] % (Auto) % Eos % (Auto) % Baso % (Auto) % Immature Gran # (Auto) (0.00-0.02) K/uL Neut # (Auto) (1.4-6.5) K/uL Lymph # (Auto) (1.2-3.4) K/uL [place] # (Auto) (0.11-0.59) K/uL Eos # (Auto) (0-0.5) K/uL Baso # (Auto) (0-0.2) K/uL Toxic Granulation Dohle Bodies Platelet Estimate (Normal) Giant Platelets Tear Drop Cells Ovalocytes Sodium (136-145) mmol/L Potassium (3.5-5.1) mmol/L Chloride (98-107) mmol/L Carbon Dioxide (21-32) mmol/L Anion Gap (3-11) BUN (7-18) mg/dl Creatinine (0.6-1.4) mg/dl Est Cr Clr Drug Dosing ml/min Est GFR ( Amer) Est GFR (Non-Af Amer) BUN/Creatinine Ratio (10-20) Glucose (70-99) mg/dl POC Glucose 168 H (70-99) Calcium (8.5-10.1) mg/dl Phosphorus (2.5-4.9) mg/dl Magnesium (1.8-2.4) mg/dl Total Bilirubin (0.2-1) mg/dl AST (15-37) U/L ALT (12-78) U/L Alkaline Phosphatase (45-117) U/L Total Protein (6.4-8.2) gm/dl Albumin (3.4-5.0) gm/dl Globulin (2.5-4.0) gm/dl Albumin/Globulin Ratio (0.9-2) TSH (0.300-4.500) uIu/ml Free T4 (0.8-1.6) ng/dl Medications Administered Current Inpatient Medications Albuterol (Duoneb) 3 ml NEB Q4R GARRY Stop: 10/23/18 19:59 Last Admin: 09/27/18 10:58 Dose: Not Given Documented by: Filgrastim (Neupogen) 300 mcg SQ DAILY GARRY Stop: 10/24/18 09:59 Last Admin: 09/27/18 09:09 Dose: 300 mcg Documented by: Heparin Sodium (Beef Lung) (Heparin Sod 10 Unit/Ml Flush) 5 ml FLUSH PRN PRN PRN Reason: Flush Stop: 10/26/18 00:59 Heparin Sodium (Porcine) (Heparin Sodium (Porcine)) 5,000 units SQ Q12 GARRY Stop: 10/24/18 20:59 Last Admin: 09/26/18 08:27 Dose: 5,000 units Documented by: Piperacillin Sod/Tazobactam (Sod 3.375 gm/ Dextrose) 115 mls @ 28.75 mls/hr IV Q8H GARRY; Protocol Stop: 09/30/18 00:00 Last Infusion: 09/27/18 12:44 Dose: Infused Documented by: Dexamethasone 2 mg/ Syringe 0.5 mls @ 1 mls/min IV Q6 [facility] Stop: 10/23/18 17:59 Last Admin: 09/27/18 11:22 Dose: 1 mls/min Documented by: Acetaminophen (Ofirmev) 1,000 mg in 100 mls @ 400 mls/hr IV Q8H PRN PRN Reason: Fever Stop: 10/23/18 22:00 Last Infusion: 09/24/18 04:10 Dose: Infused Documented by: Dextrose (D10w) 1,000 mls @ 0 mls/hr IV .Q0M [facility] Stop: 10/25/18 15:59 Diltiazem HCl 125 mg/ Dextrose 125 mls @ 2.5 mls/hr IV .Q24H [facility]; Protocol Stop: 10/26/18 11:59 Last Titration: 09/27/18 11:54 Dose: 2.5 mg/hr, 2.5 mls/hr Documented by: Vancomycin HCl 650 mg/ Sodium (Chloride) 263 mls @ 125 mls/hr IV Q24H [facility] Stop: 09/30/18 19:59 Last Infusion: 09/26/18 22:15 Dose: Infused Documented by: Metoprolol Tartrate (Lopressor) 5 mg IV Q4 [facility] Stop: 10/25/18 19:59 Last Admin: 09/27/18 11:23 Dose: 5 mg Documented by: Miscellaneous (Check Scopolamine Patch Placement) 1 ea N/A QS [facility] Stop: 10/23/18 00:00 Last Admin: 09/27/18 08:52 Dose: 1 ea Documented by: Miscellaneous (Remove Transderm-Scop Patch) 1 ea N/A Q3D@0859 [facility] Stop: 10/27/18 12:58 Last Admin: 09/27/18 12:29 Dose: 1 ea Documented by: Miscellaneous Information (Consult) 1 ea N/A UD PRN PRN Reason: Consult Stop: 10/22/18 18:22 Miscellaneous Information (Consult) 1 ea N/A UD PRN PRN Reason: Consult Stop: 10/23/18 15:46 Miscellaneous Information (Pharmacy Tpn/Ppn Consult Active) 1 ea N/A UD PRN PRN Reason: Consult Stop: 10/24/18 15:56 Morphine Sulfate (Morphine Sulfate) 2 mg IV Q2H PRN PRN Reason: Pain Stop: 10/10/18 11:31 Last Admin: 09/27/18 08:49 Dose: 2 mg Documented by: Nutrition (Parenteral) (Custom Central Pn) 1 bag IV TODAY@1600 GARRY; Protocol Stop: 09/27/18 15:59 Last Admin: 09/26/18 16:04 Dose: 1 bag Documented by: Nutrition (Parenteral) (Custom Central Pn) 1 bag IV TODAY@1600 GARRY; Protocol Stop: 09/28/18 15:59 Ondansetron HCl (Zofran) 4 mg IV Q6H PRN PRN Reason: Nausea Stop: 10/22/18 20:25 Scopolamine (Transderm-Scop) 1.5 mg TD Q3D@0900 [facility] Stop: 10/27/18 12:59 Last Admin: 09/27/18 12:28 Dose: 1.5 mg Documented by: Resident Activity Tracking Resident Involvement: Resident Care Provided Care Provided: Adult Hospital Medicine (1) Neutropenia Neutropenia type: unspecified Qualified Code(s): D70.9 - Neutropenia, unspecified
[2018-09-27 14:08] LABS: T4 Free Thyroxine 1.79 ng/dl (0.8-1.6)
[2018-09-27] MEDS ORDERED: CUSTOM CENTRAL PN IV SCH (16:00)
[2018-09-27] MEDS: ACETAMINOPHEN 1,000 MG/100 ML VIAL IV PRN (17:39)
[2018-09-27] MEDS: SODIUM CHLORIDE 0.9% IV SCH (20:04)
[2018-09-27] MEDS: VANCOMYCIN HCL IV SCH (20:04)
[2018-09-28] MEDS: METOPROLOL TARTRATE 1 MG/ML VIAL IV SCH ×7 (00:04→23:18)
[2018-09-28] MEDS: PIPERACILLIN/TAZOBACTAM 3.375 GM in DEXTROSE 5% 100 ML IV SCH ×2 (00:04→09:05)
[2018-09-28] MEDS: CHECK SCOPOLAMINE PATCH PLACEMENT SCH ×4 (00:05→23:18)
[2018-09-28] MEDS: dexAMETHasone 2 MG in SYRINGE 0 ML IV SCH ×5 (00:05→23:18)
[2018-09-28] MEDS: ALBUT/IPRATROP 3MG/0.5MG NEB 3 ML VIAL NEB SCH ×7 (03:05→23:05)
[2018-09-28] MEDS: ACETAMINOPHEN 1,000 MG/100 ML VIAL IV PRN ×2 (03:17→23:30)
[2018-09-28 06:32] LABS: BUN Creatinine Ratio 37.8 (10-20); Calcium 8.1 mg/dl (8.5-10.1); Creatinine Clr Calc Pharmacy 47.4 ml/min; Est GFR (African American) 99.5; Est GFR (Non-African American) 85.9; Magnesium 2.3 mg/dl (1.8-2.4); Potassium 3.8 mmol/L (3.5-5.1)
[2018-09-28 06:36] LABS: Phosphorus 3.8 mg/dl (2.5-4.9)
[2018-09-28 07:27] LABS: Mean Corpuscular Hgb Conc 33.2 g/dL (32-36); Nucleated RBC # (auto) 0.02 K/uL (0-0); Nucleated RBC % (auto) 0.9 %
[2018-09-28 07:44] LABS: Hematocrit (blood only) 24.7 % (42-52); Hemoglobin 8.2 g/dL (14.0-18.0); Mean Corpuscular Volume 90.1 fL (80-100); RDW Coefficient of Variation 16.4 % (11.5-14.5); RDW Standard Deviation 53.7 fL (36.4-46.3); Red Blood Count 2.74 M/uL (4.7-6.1); White Blood Count 2.23 K/uL (4.8-10.8)
[2018-09-28 08:29] LABS: Platelet Count 31 K/uL (130-400)
[2018-09-28] MEDS: FILGRASTIM 300 MCG/ML VIAL SQ SCH (09:05)
[2018-09-28 09:08] LABS: Basophils # (auto) 0.01 K/uL (0-0.2); Basophils % (auto) 0.4 %; Dohle Bodies 3+; Eosinophils # (auto) 0.01 K/uL (0-0.5); Eosinophils % (auto) 0.4 %; Immature Granulocytes # (auto) 0.22 K/uL (0.00-0.02); Immature Granulocytes % (auto) 9.9 %; Lymphocytes # (auto) 0.21 K/uL (1.2-3.4); Lymphocytes % (auto) 9.4 %; Monocytes # (auto) 0.11 K/uL (0.11-0.59); Monocytes % (auto) 4.9 %; Neutrophils # (auto) 1.67 K/uL (1.4-6.5); Platelet Estimate SIGNIFIC DECREASED (Normal); Toxic Granulation 3+
--- NOTE | 2018-09-28 09:24 | Progress Note ---
DATE: 09/28/2018 MEDICAL ONCOLOGY PROGRESS NOTE DIAGNOSES: 1. Neutropenic fever. 2. Tachycardia/delirium/agitation. 3. Severe protein malnutrition. 4. Epiglottal squamous cell carcinoma. 5. Hyponatremia. 6. Atrial fibrillation. SUBJECTIVE: Nilesh is a pleasant 78-year-old gentleman under my care with epiglottal squamous cell carcinoma, in the midst of receiving chemoradiation utilizing modified cisplatin for radiosensitization. The patient was admitted close to a week ago in rapid decline with severe dysphagia brought on by mucositis and perhaps thrush. His p.o. intake has been marginal, was started on TPN. Seems to be making slow but steady progress. He is able to verbalize a bit better. Nursing reports no difficulties otherwise. OBJECTIVE: GENERAL: Nilesh is a pleasant 78-year-old gentleman in no acute distress. VITAL SIGNS: Temperature 36, pulse 77, respiratory rate 16, blood pressure 159/83. HEENT: Oral mucosa with some mild erythema and streaking consistent with ongoing mucositis. NECK: Supple. Trachea midline. No palpable cervical lymphadenopathy. CARDIAC: Regular rate and rhythm. LUNGS: Clear to auscultation bilaterally. ABDOMEN: Soft, nontender, nondistended. EXTREMITIES: No clubbing, cyanosis or edema. NEUROLOGIC: He is grossly intact. LABORATORY DATA: WBC count 2230, hemoglobin 8.2, platelet count 31,000. Sodium 141, potassium 3.8, chloride 105, carbon dioxide 33, creatinine 0.78, BUN 29. IMPRESSION: 1. Treatment-induced neutropenia. 2. Severe mucositis/oral candidiasis. 3. Protein malnutrition. 4. Cytopenias attributable to treatment. 5. Hyponatremia. 6. Atrial fibrillation. PLAN: Nilesh is a pleasant, somewhat unfortunate 78-year-old gentleman who currently suffers from squamous cell carcinoma of the epiglottis, status post chemoradiation. It is not uncommon with older people undergoing aggressive treatment. Nilesh for the most part has stopped eating and began to lose weight along with lindsay protein. I had suggested to Dr. Fuentes a couple of days ago to go ahead and start him on TPN and rightfully was reluctant because the infectious risk associated with TPN. Nonetheless, his WBCs are improving. His platelet count remains around 30,000 with no evidence of hemorrhage. I agree with current medical management and ultimately Nilesh requires tincture of time before considering resumption, which may be perhaps radiation alone to complete his course without further chemotherapy as combined modality has proven to be detrimental. We will continue to follow Nilesh periodically throughout his course and appreciate the hospitalist's effort in bringing Mr. Perla back to health. LEXI
--- NOTE | 2018-09-28 10:49 | Family Medicine Progress Note ---
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 intake for 1-2 weeks [employer]. Was found to have neutropenic sepsis secondary to pneumonia versus mucositis. 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 #Neutropenic fever in setting of mucositis and ?bibasilar pneumonia/radiation treatment/thyroid storm -MRSA is negative but given nature of mucositis/concern for aspiration and neutropenia, broad spectrum abx was administered. Considering no fever except on admission and cultures negative - Will discontinue Vanco/Zosyn. CXR findings could be from Atelectasis. -suspect fever likely from non-infectious origin -Incentive spirometer #Dysphagia secondary to Mucositis -Able to speak and swallow his saliva. Will consult speech for swallowing eval. -Continue to hold PO meds until clear for oral intake. -scopolamine patch for secretions -Magic swizell -Continue Dexamethasone. #Pancytopenia Appears to be improving following mu-ism of filgastrim, and abstinence from active chemotherapy -hold plavix, anticoagulation in setting of thrombocytopenia -ANC normalized. Isolation d/maritza #Tachycardia/delirium/agitation in setting of iatrogenic(?) thyrotoxicosis,- history of radiation therapy to the neck -repeat TSH/T4 shows moderate improvement. Likely above therapy, supportive care and holding radiation/chemo has resulted in some improvement, especially clinically. -continue to trend TSH/T4 q3days to follow Continue beta-heather, IV steroids #Severe protein/calorie malnutrition Continue TPN, since unable to take PO -no s/s refeeding syndrome, continue to monitor Mag/phos -Anticipate he will be able to take PO. If not - will purse with PEG considering no concern of sepsis at this time. #Atrial fibrillation - resolved. - continue scheduled IV metoprolol - with aim to switch to PO once tolerating. #Hyponatremia Corrected, continue to follow #Elevated troponin -peaked likely 2/2 Demand ischemia in the setting of tachycardia VT prophylaxis Heparin q12h CODE STATUS Full FEN/GI: on TPN, n.p.o. due to pain/mucositis -- pending swallow eval tomorrow. Dispo: lives with his son and caregiver Lev while undergoing treatment for cancer. . May require SNF on discharge. (2) Right lower lobe pneumonia: (3) Poor fluid intake: (4) Dehydration: (5) Squamous cell carcinoma of epiglottis: (6) Mass of middle lobe of right lung: (7) Thyrotoxicosis: (8) Hypernatremia: (9) Elevated troponin: (10) Hypokalemia: (11) Elevated serum creatinine: (12) Total bilirubin, elevated: Supervising Physician Co-Signing Physician Notes Resident Physician Supervision Note: I independently interviewed and examined the patient and verified the kirk history and physical, reviewed labs and image studies, discussed the case with the resident Dr. Luke and agree with the findings and care plan. Subjective Seen and examined at the bedside this AM. Delirium seems to be completely resolved, answering questions appropriately. Speaking more, although still very hoarse. Does c/o apthous ulcers in the mouth. Review of Systems Review of Systems: All systems reviewed & are unremarkable except as noted in HPI & below Physical Exam Physical Exam: Vitals noted as above and within normal limits . TPN running. Trimble draining clear urine. GENERAL: Awake, voice is hoarse and nods/shakes head appropriately to questions, nontoxic-appearing, in no distress HENT: Normocephalic, atraumatic. Mucus membranes appear moist. Small ulcerations on tongue present. EYES: Normal conjunctiva. Sclera non-icteric. EOMI. NECK: Supple. Full range of motion. RESPIRATORY: Clear to auscultation. Normal work of breathing. CARDIAC: Regular rate, normal rhythm. Extremities warm and well perfused. ABDOMEN: Soft, non-distended. No tenderness to palpation in all four quadrants. Bowel sounds are normal. LOWER EXTREMITIES: Inspection of calves reveal equal size bilaterally. They are non-tender. No edema. No discoloration. NEURO: No focal gross motor deficits noted. CN II-XII grossly in tact. SKIN: Senile purpura present. No jaundice noted. Significant lesions not present. PSYCH: Appropriate mood and affect. Cooperative. Exam as done by Colette Luke MD, Assistant Project Engineer. Results & Data Vital Signs (Past 12 Hours) Vital Signs Temp Pulse Pulse Pulse Resp BP Pulse Ox 09/28/18 07:42 36 C L 77 16 159/83 H 94 05/06/19 04:11 69 18 96 09/28/18 03:17 76 09/28/18 03:13 36.4 C L 79 22 149/87 H 93 09/28/18 00:04 72 09/28/18 00:00 65 09/27/18 23:58 36.2 C L 70 15 146/85 H 92 09/27/18 23:16 70 16 93 Laboratory Results 09/28/18 09/28/18 09/28/18 Range/Units 12:05 06:14 05:57 WBC 2.23 L (4.8-10.8) K/uL RBC 2.74 L (4.7-6.1) M/uL Hgb 8.2 L (14.0-18.0) g/dL Hct 24.7 L (42-52) % MCV 90.1 (80-100) fL MCH 29.9 (25-34) pg MCHC 33.2 (32-36) g/dL RDW Std Deviation 53.7 H (36.4-46.3) fL RDW Coeff of Daniel 16.4 H (11.5-14.5) % Plt Count 31 L (130-400) K/uL Immature Gran % (Auto) 9.9 % Neut % (Auto) 75.0 % Lymph % (Auto) 9.4 % Hendricks % (Auto) 4.9 % Eos % (Auto) 0.4 % Baso % (Auto) 0.4 % Immature Gran # (Auto) 0.22 H (0.00-0.02) K/uL Neut # (Auto) 1.67 (1.4-6.5) K/uL Lymph # (Auto) 0.21 L (1.2-3.4) K/uL Hendricks # (Auto) 0.11 (0.11-0.59) K/uL Eos # (Auto) 0.01 (0-0.5) K/uL Baso # (Auto) 0.01 (0-0.2) K/uL Absolute Nucleated RBC 0.02 H (0-0) K/uL Nucleated RBC % (auto) 0.9 % Toxic Granulation 3+ Dohle Bodies 3+ Platelet Estimate SIGNIFIC DECREASED (Normal) Sodium (136-145) mmol/L Potassium (3.5-5.1) mmol/L Chloride (98-107) mmol/L Carbon Dioxide (21-32) mmol/L Anion Gap (3-11) BUN (7-18) mg/dl Creatinine (0.6-1.4) mg/dl Est Cr Clr Drug Dosing ml/min Est GFR ( Amer) Est GFR (Non-Af Amer) BUN/Creatinine Ratio (10-20) Glucose (70-99) mg/dl POC Glucose 178 H 168 H (70-99) Calcium (8.5-10.1) mg/dl Phosphorus (2.5-4.9) mg/dl Magnesium (1.8-2.4) mg/dl Triglycerides (0-150) mg/dl 09/28/18 09/28/18 Range/Units 05:57 00:06 WBC (4.8-10.8) K/uL RBC (4.7-6.1) M/uL Hgb (14.0-18.0) g/dL Hct (42-52) % MCV (80-100) fL MCH (25-34) pg MCHC (32-36) g/dL RDW Std Deviation (36.4-46.3) fL RDW Coeff of Daniel (11.5-14.5) % Plt Count (130-400) K/uL Immature Gran % (Auto) % Neut % (Auto) % Lymph % (Auto) % Hendricks % (Auto) % Eos % (Auto) % Baso % (Auto) % Immature Gran # (Auto) (0.00-0.02) K/uL Neut # (Auto) (1.4-6.5) K/uL Lymph # (Auto) (1.2-3.4) K/uL Hendricks # (Auto) (0.11-0.59) K/uL Eos # (Auto) (0-0.5) K/uL Baso # (Auto) (0-0.2) K/uL Absolute Nucleated RBC (0-0) K/uL Nucleated RBC % (auto) % Toxic Granulation Dohle Bodies Platelet Estimate (Normal) Sodium 141 (136-145) mmol/L Potassium 3.8 (3.5-5.1) mmol/L Chloride 105 (98-107) mmol/L Carbon Dioxide 33 H (21-32) mmol/L Anion Gap 3.0 (3-11) BUN 29 H (7-18) mg/dl Creatinine 0.78 (0.6-1.4) mg/dl Est Cr Clr Drug Dosing 47.4 ml/min Est GFR ( Amer) 99.5 Est GFR (Non-Af Amer) 85.9 BUN/Creatinine Ratio 37.8 H (10-20) Glucose 165 H (70-99) mg/dl POC Glucose 177 H (70-99) Calcium 8.1 L (8.5-10.1) mg/dl Phosphorus 3.8 (2.5-4.9) mg/dl Magnesium 2.3 (1.8-2.4) mg/dl Triglycerides 188 H (0-150) mg/dl Medications Administered Current Inpatient Medications Albuterol (Duoneb) 3 ml NEB Q4R [facility] Stop: 10/23/18 19:59 Last Admin: 09/28/18 15:05 Dose: 3 ml Documented by: Al Hydrox/Mg Hydrox/Simethicone 50 ml/Diphenhydramine HCl 125 mg/Lidocaine HCl 40 ml/Sucralfate 10,000 mg/ BARCODE IDENTIFIER 1 ea 0 ml PO TID [facility] Stop: 10/28/18 11:14 Last Admin: 09/28/18 14:19 Dose: 5 ml Documented by: Filgrastim (Neupogen) 300 mcg SQ DAILY [facility] Stop: 10/24/18 09:59 Last Admin: 09/28/18 09:05 Dose: 300 mcg Documented by: Heparin Sodium (Beef Lung) (Heparin Sod 10 Unit/Ml Flush) 5 ml FLUSH PRN PRN PRN Reason: Flush Stop: 10/26/18 00:59 Heparin Sodium (Porcine) (Heparin Sodium (Porcine)) 5,000 units SQ Q12 [facility] Stop: 10/24/18 20:59 Last Admin: 09/26/18 08:27 Dose: 5,000 units Documented by: Dexamethasone 2 mg/ Syringe 0.5 mls @ 1 mls/min IV Q6 [facility] Stop: 10/23/18 17:59 Last Admin: 09/28/18 12:45 Dose: 1 mls/min Documented by: Acetaminophen (Ofirmev) 1,000 mg in 100 mls @ 400 mls/hr IV Q8H PRN PRN Reason: Fever Stop: 10/23/18 22:00 Last Infusion: 09/28/18 03:32 Dose: Infused Documented by: Dextrose (D10w) 1,000 mls @ 0 mls/hr IV .Q0M [facility] Stop: 10/25/18 15:59 Diltiazem HCl 125 mg/ Dextrose 125 mls @ 0 mls/hr IV .Q0M [facility]; Protocol Stop: 10/26/18 11:59 Last Admin: 09/28/18 12:45 Dose: Not Given Documented by: Metoprolol Tartrate (Lopressor) 5 mg IV Q4 [facility] Stop: 10/25/18 19:59 Last Admin: 09/28/18 16:42 Dose: 5 mg Documented by: Miscellaneous (Check Scopolamine Patch Placement) 1 ea N/A QS [facility] Stop: 10/23/18 00:00 Last Admin: 09/28/18 16:42 Dose: 1 ea Documented by: Miscellaneous (Remove Transderm-Scop Patch) 1 ea N/A Q3D@0859 [facility] Stop: 10/27/18 12:58 Last Admin: 09/27/18 12:29 Dose: 1 ea Documented by: Miscellaneous Information (Pharmacy Tpn/Ppn Consult Active) 1 ea N/A UD PRN PRN Reason: Consult Stop: 10/24/18 15:56 Morphine Sulfate (Morphine Sulfate) 2 mg IV Q2H PRN PRN Reason: Pain Stop: 10/10/18 11:31 Last Admin: 09/27/18 15:06 Dose: 2 mg Documented by: Nutrition (Parenteral) (Custom Central Pn) 1 bag IV TODAY@1600 [facility]; Protocol Stop: 09/29/18 15:59 Last Admin: 09/28/18 16:40 Dose: 1 bag Documented by: Ondansetron HCl (Zofran) 4 mg IV Q6H PRN PRN Reason: Nausea Stop: 10/22/18 20:25 Scopolamine (Transderm-Scop) 1.5 mg TD Q3D@0900 [facility] Stop: 10/27/18 12:59 Last Admin: 09/27/18 12:28 Dose: 1.5 mg Documented by: Resident Activity Tracking Resident Involvement: Resident Care Provided Care Provided: Adult Hospital Medicine (1) Neutropenia Neutropenia type: unspecified Qualified Code(s): D70.9 - Neutropenia, u nspecified
[2018-09-28] MEDS: ALUMINUM/MAGNESIUM SUSP 50 ML, DiphenhydrAMINE Syrup 125 MG, LIDOCAINE HCL 2% VISCOUS 4... PO SCH ×3 (12:44→20:16)
[2018-09-28] MEDS: dilTIAZem HCl 125 MG in DEXTROSE 5% 100 ML IV SCH (12:45)
[2018-09-28] MEDS ORDERED: CUSTOM CENTRAL PN IV SCH (16:00)
[2018-09-29] MEDS: MoRPHine SULFATE 2 MG/ML CARP IV PRN (01:21)
[2018-09-29] MEDS: METOPROLOL TARTRATE 1 MG/ML VIAL IV SCH ×6 (03:26→23:42)
[2018-09-29] MEDS: ALBUT/IPRATROP 3MG/0.5MG NEB 3 ML VIAL NEB SCH ×6 (04:00→23:05)
[2018-09-29] MEDS: dexAMETHasone 2 MG in SYRINGE 0 ML IV SCH ×4 (05:46→23:40)
[2018-09-29 06:06] LABS: Mean Corpuscular Hgb Conc 33.6 g/dL (32-36); Nucleated RBC # (auto) 0.04 K/uL (0-0); Nucleated RBC % (auto) 1.5 %
[2018-09-29 06:19] LABS: Hematocrit (blood only) 24.4 % (42-52); Hemoglobin 8.2 g/dL (14.0-18.0); Mean Corpuscular Volume 87.8 fL (80-100); RDW Coefficient of Variation 16.5 % (11.5-14.5); RDW Standard Deviation 53.2 fL (36.4-46.3); Red Blood Count 2.78 M/uL (4.7-6.1); White Blood Count 2.54 K/uL (4.8-10.8)
[2018-09-29 06:29] LABS: Creatinine Clr Calc Pharmacy 50.9 ml/min; Est GFR (African American) 102.2; Est GFR (Non-African American) 88.2; Magnesium 2.1 mg/dl (1.8-2.4); Potassium 3.8 mmol/L (3.5-5.1)
[2018-09-29 06:40] LABS: Phosphorus 3.4 mg/dl (2.5-4.9)
[2018-09-29 06:45] LABS: Platelet Count 30 K/uL (130-400)
[2018-09-29 06:46] LABS: Dohle Bodies 1+; Giant Platelets 3+; Immature Granulocytes # (auto) 0.09 K/uL (0.00-0.02); Immature Granulocytes % (auto) 3.5 %; Lymphocytes % (auto) 11.8 %; Monocytes # (auto) 0.02 K/uL (0.11-0.59); Monocytes % (auto) 0.8 %; Neutrophils # (auto) 2.13 K/uL (1.4-6.5); Neutrophils % (auto) 83.9 %; Ovalocytes 1+; Platelet Estimate SIGNIFIC DECREASED (Normal); Toxic Granulation 3+
[2018-09-29 06:52] LABS: T4 Free Thyroxine 1.62 ng/dl (0.8-1.6)
--- NOTE | 2018-09-29 08:19 | Family Medicine Progress Note ---
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 intake for 1-2 weeks [employer]. Was found to have neutropenic sepsis secondary to pneumonia versus mucositis. 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 #Neutropenic fever in setting of mucositis and ?bibasilar pneumonia/radiation treatment/thyroid storm -MRSA is negative but given nature of mucositis/concern for aspiration and neutropenia, broad spectrum abx was administered. Considering no fever except on admission and cultures negative - discontinued Vanco/Zosyn. CXR findings could be from Atelectasis. -suspect fever likely from non-infectious origin, thyrotoxicosis/radiation/chemo? -Incentive spirometer #Dysphagia secondary to Mucositis, thrush -Today slightly worsened -- unable to speak and swallow his saliva. - Speech consult pending. -Continue to hold PO meds until clear for oral intake. -scopolamine patch for secretions -Magic swizzle, nystatin swish -Continue Dexamethasone. -DC IV morphine to support good mentation -- IV tylenol airport operations coordinator. #Pancytopenia secondary to chemo -hold plavix, anticoagulation in setting of thrombocytopenia -ANC normalized. Isolation d/maritza. ANC >800 therefore Neupogen DCd 07May. #Tachycardia/delirium/agitation in setting of iatrogenic(?) thyrotoxicosis,- history of radiation therapy to the neck -resolving symptomatically -repeat TSH/T4 shows moderate improvement. Likely above therapy, supportive care and holding radiation/chemo has resulted in some improvement, especially clinically. -continue to trend TSH/T4 q3days to follow Continue beta-heather, IV steroids #Severe protein/calorie malnutrition Continue TPN, since unable to take PO -no s/s refeeding syndrome, continue to monitor Mag/phos -Anticipate he will be able to take PO. If not - will purse with PEG considering no concern of sepsis at this time. #Atrial fibrillation - now in sinus rhythm. - continue scheduled IV metoprolol - with aim to switch to PO once tolerating. #Hyponatremia Corrected, continue to follow #Elevated troponin -peaked likely 2/2 Demand ischemia in the setting of tachycardia -home medication includes plavix, being HELD here VT prophylaxis Heparin q12h CODE STATUSFull FEN/GI: on TPN, dextrose, n.p.o. due to pain/mucositis -- pending swallow eval. Dispo: lives with his son and caregiver Lev while undergoing treatment for cancer. . May require SNF on discharge. (2) Right lower lobe pneumonia: (3) Poor fluid intake: (4) Dehydration: (5) Squamous cell carcinoma of epiglottis: (6) Mass of middle lobe of right lung: (7) Thyrotoxicosis: (8) Hypernatremia: (9) Elevated troponin: (10) Hypokalemia: (11) Elevated serum creatinine: (12) Total bilirubin, elevated: Supervising Physician Co-Signing Physician Notes Resident Physician Supervision Note: I independently interviewed and examined the patient and verified the kirk history and physical, reviewed labs and image studies, discussed the case with the resident Dr. Tapia and agree with the findings and care plan. Subjective Seen and examined at the bedside -- pt cannot or will not vocalize today because his throat pain is worse today. Delirium remains resolved, no other acute events overnight. To be evaluated by speech today. Review of Systems Review of Systems: Other (difficult to obtain given that pt has pain with speaking and swallowing, but does endorse just that.) Physical Exam Physical Exam: Vitals noted and within normal limits . TPN running. Trimble draining clear urine. GENERAL: Awake, does not speak due to throat pain, nods/shakes head appropriately to questions, nontoxic-appearing, in no distress HENT: Normocephalic, atraumatic. Mucus membranes appear moist. Small ulcerations on tongue present. + TTP on right neck and in midline above thyroid. EYES: Normal conjunctiva. Sclera non-icteric. EOMI. Glasses. NECK: Supple. Full range of motion. RESPIRATORY: Clear to auscultation. Normal work of breathing. CARDIAC: Regular rate, normal rhythm. Extremities warm and well perfused. ABDOMEN: Soft, non-distended. No tenderness to palpation in all four quadrants. Bowel sounds are normal. LOWER EXTREMITIES: Inspection of calves reveal equal size bilaterally. They are non-tender. No edema. No discoloration. NEURO: No focal gross motor deficits noted. CN II-XII grossly in tact. SKIN: Senile purpura present. No jaundice noted. Significant lesions not present. PSYCH: Appropriate mood and affect. Cooperative. Exam as done by Colette Luke MD, Aircraft Engine Cylinder Mechanic. Results & Data Vital Signs (Past 12 Hours) Vital Signs Temp Pulse Pulse Pulse Pulse Resp BP 09/29/18 07:04 78 16 09/29/18 06:48 36.7 C 84 18 09/29/18 04:00 88 18 09/29/18 03:26 80 170/92 H 09/29/18 03:23 36.4 C L 77 19 09/29/18 02:15 84 09/28/18 23:18 98 H 155/77 H 09/28/18 23:12 37.0 C 98 H 20 09/28/18 23:05 91 H 20 BP Pulse Ox 09/29/18 07:04 92 09/29/18 06:48 166/86 H 91 09/29/18 04:00 92 09/29/18 03:26 09/29/18 03:23 170/92 H 93 09/29/18 02:15 09/28/18 23:18 09/28/18 23:12 155/77 H 90 09/28/18 23:05 91 Laboratory Results 09/29/18 09/29/18 09/29/18 Range/Units 11:05 06:10 05:40 WBC (4.8-10.8) K/uL RBC (4.7-6.1) M/uL Hgb (14.0-18.0) g/dL Hct (42-52) % MCV (80-100) fL MCH (25-34) pg MCHC (32-36) g/dL RDW Std Deviation (36.4-46.3) fL RDW Coeff of Daniel (11.5-14.5) % Plt Count (130-400) K/uL Immature Gran % (Auto) % Neut % (Auto) % Lymph % (Auto) % Barnwell % (Auto) % Eos % (Auto) % Baso % (Auto) % Immature Gran # (Auto) (0.00-0.02) K/uL Neut # (Auto) (1.4-6.5) K/uL Lymph # (Auto) (1.2-3.4) K/uL Barnwell # (Auto) (0.11-0.59) K/uL Eos # (Auto) (0-0.5) K/uL Baso # (Auto) (0-0.2) K/uL Absolute Nucleated RBC (0-0) K/uL Nucleated RBC % (auto) % Toxic Granulation Dohle Bodies Platelet Estimate (Normal) Giant Platelets Ovalocytes Sodium 140 (136-145) mmol/L Potassium 3.8 (3.5-5.1) mmol/L Chloride 107 (98-107) mmol/L Carbon Dioxide 31 (21-32) mmol/L Anion Gap 2.0 L (3-11) BUN 27 H (7-18) mg/dl Creatinine 0.73 (0.6-1.4) mg/dl Est Cr Clr Drug Dosing 50.9 ml/min Est GFR ( Amer) 102.2 Est GFR (Non-Af Amer) 88.2 BUN/Creatinine Ratio 37.0 H (10-20) Glucose 152 H (70-99) mg/dl POC Glucose 148 H 155 H (70-99) Calcium 8.0 L (8.5-10.1) mg/dl Phosphorus 3.4 (2.5-4.9) mg/dl Magnesium 2.1 (1.8-2.4) mg/dl TSH 0.016 L (0.300-4.500) uIu/ml Free T4 1.62 H (0.8-1.6) ng/dl 09/29/18 09/28/18 09/28/18 Range/Units 05:40 23:28 18:11 WBC 2.54 L (4.8-10.8) K/uL RBC 2.78 L (4.7-6.1) M/uL Hgb 8.2 L (14.0-18.0) g/dL Hct 24.4 L (42-52) % MCV 87.8 (80-100) fL MCH 29.5 (25-34) pg MCHC 33.6 (32-36) g/dL RDW Std Deviation 53.2 H (36.4-46.3) fL RDW Coeff of Daniel 16.5 H (11.5-14.5) % Plt Count 30 L (130-400) K/uL Immature Gran % (Auto) 3.5 % Neut % (Auto) 83.9 % Lymph % (Auto) 11.8 % Barnwell % (Auto) 0.8 % Eos % (Auto) 0.0 % Baso % (Auto) 0.0 % Immature Gran # (Auto) 0.09 H (0.00-0.02) K/uL Neut # (Auto) 2.13 (1.4-6.5) K/uL Lymph # (Auto) 0.30 L (1.2-3.4) K/uL Barnwell # (Auto) 0.02 L (0.11-0.59) K/uL Eos # (Auto) 0.00 (0-0.5) K/uL Baso # (Auto) 0.00 (0-0.2) K/uL Absolute Nucleated RBC 0.04 H (0-0) K/uL Nucleated RBC % (auto) 1.5 % Toxic Granulation 3+ Dohle Bodies 1+ Platelet Estimate SIGNIFIC DECREASED (Normal) Giant Platelets 3+ Ovalocytes 1+ Sodium (136-145) mmol/L Potassium (3.5-5.1) mmol/L Chloride (98-107) mmol/L Carbon Dioxide (21-32) mmol/L Anion Gap (3-11) BUN (7-18) mg/dl Creatinine (0.6-1.4) mg/dl Est Cr Clr Drug Dosing ml/min Est GFR ( Amer) Est GFR (Non-Af Amer) BUN/Creatinine Ratio (10-20) Glucose (70-99) mg/dl POC Glucose 143 H 190 H (70-99) Calcium (8.5-10.1) mg/dl Phosphorus (2.5-4.9) mg/dl Magnesium (1.8-2.4) mg/dl TSH (0.300-4.500) uIu/ml Free T4 (0.8-1.6) ng/dl Medications Administered Current Inpatient Medications Albuterol (Duoneb) 3 ml NEB Q4R [facility] Stop: 10/23/18 19:59 Last Admin: 09/29/18 11:16 Dose: 3 ml Documented by: Al Hydrox/Mg Hydrox/Simethicone 50 ml/Diphenhydramine HCl 125 mg/Lidocaine HCl 40 ml/Sucralfate 10,000 mg/ BARCODE IDENTIFIER 1 ea 0 ml PO TID [facility] Stop: 10/28/18 11:14 Last Admin: 09/29/18 08:42 Dose: 5 ml Documented by: Heparin Sodium (Beef Lung) (Heparin Sod 10 Unit/Ml Flush) 5 ml FLUSH PRN PRN PRN Reason: Flush Stop: 10/26/18 00:59 Heparin Sodium (Porcine) (Heparin Sodium (Porcine)) 5,000 units SQ Q12 [facility] Stop: 10/24/18 20:59 Last Admin: 09/26/18 08:27 Dose: 5,000 units Documented by: Dexamethasone 2 mg/ Syringe 0.5 mls @ 1 mls/min IV Q6 [facility] Stop: 10/23/18 17:59 Last Admin: 09/29/18 12:09 Dose: 1 mls/min Documented by: Acetaminophen (Ofirmev) 1,000 mg in 100 mls @ 400 mls/hr IV Q8H PRN PRN Reason: Fever Stop: 10/23/18 22:00 Last Infusion: 09/28/18 23:45 Dose: Infused Documented by: Dextrose (D10w) 1,000 mls @ 0 mls/hr IV .Q0M [facility] Stop: 10/25/18 15:59 Diltiazem HCl 125 mg/ Dextrose 125 mls @ 0 mls/hr IV .Q0M [facility]; Protocol Stop: 10/26/18 11:59 Last Admin: 09/28/18 12:45 Dose: Not Given Documented by: Ranitidine HCl 50 mg/ Dextrose 102 mls @ 200 mls/hr IV Q8H [facility] Stop: 10/29/18 10:44 Last Infusion: 09/29/18 13:02 Dose: Infused Documented by: Metoprolol Tartrate (Lopressor) 5 mg IV Q4 [facility] Stop: 10/25/18 19:59 Last Admin: 09/29/18 12:09 Dose: 5 mg Documented by: Miscellaneous (Check Scopolamine Patch Placement) 1 ea N/A QS [facility] Stop: 10/23/18 00:00 Last Admin: 09/29/18 08:43 Dose: 1 ea Documented by: Miscellaneous (Remove Transderm-Scop Patch) 1 ea N/A Q3D@0859 [facility] Stop: 10/27/18 12:58 Last Admin: 09/27/18 12:29 Dose: 1 ea Documented by: Miscellaneous Information (Pharmacy Tpn/Ppn Consult Active) 1 ea N/A UD PRN PRN Reason: Consult Stop: 10/24/18 15:56 Morphine Sulfate (Morphine Sulfate) 2 mg IV Q2H PRN PRN Reason: Pain Stop: 10/10/18 11:31 Last Admin: 09/29/18 01:21 Dose: 2 mg Documented by: Nutrition (Parenteral) (Custom Central Pn) 1 bag IV TODAY@1600 [facility]; Protocol Stop: 09/29/18 15:59 Last Admin: 09/28/18 16:40 Dose: 1 bag Documented by: Nutrition (Parenteral) (Custom Central Pn) 1 bag IV TODAY@1600 [facility]; Protocol Stop: 09/30/18 15:59 Nystatin (Mycostatin) 5 ml PO QID [facility] Stop: 10/09/18 12:59 Last Admin: 09/29/18 12:10 Dose: 5 ml Documented by: Ondansetron HCl (Zofran) 4 mg IV Q6H PRN PRN Reason: Nausea Stop: 10/22/18 20:25 Scopolamine (Transderm-Scop) 1.5 mg TD Q3D@0900 [facility] Stop: 10/27/18 12:59 Last Admin: 09/27/18 12:28 Dose: 1.5 mg Documented by: Resident Activity Tracking Resident Involvement: Resident Care Provided Care Provided: Adult Hospital Medicine (1) Neutropenia Neutropenia type: unspecified Qualified Code(s): D70.9 - Neutropenia, unspecified
[2018-09-29] MEDS: ALUMINUM/MAGNESIUM SUSP 50 ML, DiphenhydrAMINE Syrup 125 MG, LIDOCAINE HCL 2% VISCOUS 4... PO SCH ×3 (08:42→21:13)
[2018-09-29] MEDS: CHECK SCOPOLAMINE PATCH PLACEMENT SCH ×3 (08:43→23:39)
[2018-09-29] MEDS: NYSTATIN SUSP 500,000 U/5 ML UDC PO SCH ×3 (12:10→21:13)
[2018-09-29] MEDS ORDERED: CUSTOM CENTRAL PN IV SCH (16:00)
--- NOTE | 2018-09-30 02:25 | Progress Note ---
Date of Service September 30, 2018 Received page from bedside nurse that the patient's Trimble was removed around 1700, that he had urinary frequency with minimal output, and his bladder scan was 350 mL at that time. He was straight-cathed for this. I then received a repeat page around 2 AM that the patient is once again getting up to void every 15 minutes and his bladder scan is at least 300 mL. Patient has become more combative with attempted placement as well. Patient has a history of pneumonia, pancytopenia, and squamous cell carcinoma. Ideally, we would try to avoid an indwelling catheter given its related infection risks. However, the nighttime trial of just straight cath seems to have failed. Will replace his Trimble cath for now. Rayo Zaldivar, PGY2 Overnight call Results & Data Vital Signs (Past 12 Hours) Vital Signs Temp Pulse Pulse Pulse Resp BP BP 09/29/18 23:42 101 H 166/87 H 09/29/18 23:05 78 18 09/29/18 23:02 37.1 C 77 20 166/87 H 09/29/18 19:59 90 169/85 H 09/29/18 19:07 36.4 C L 80 18 169/85 H 09/29/18 19:00 83 20 09/29/18 15:46 36.7 C 107 H 20 09/29/18 15:11 82 16 BP Pulse Ox 09/29/18 23:42 09/29/18 23:05 93 09/29/18 23:02 93 09/29/18 19:59 09/29/18 19:07 90 09/29/18 19:00 09/29/18 15:46 159/84 H 90 09/29/18 15:11 94
[2018-09-30] MEDS: ALBUT/IPRATROP 3MG/0.5MG NEB 3 ML VIAL NEB SCH ×2 (03:42→06:57)
[2018-09-30] MEDS: METOPROLOL TARTRATE 1 MG/ML VIAL IV SCH ×5 (04:18→20:52)
[2018-09-30] MEDS: dexAMETHasone 2 MG in SYRINGE 0 ML IV SCH ×3 (05:41→17:13)
[2018-09-30 08:18] LABS: Mean Corpuscular Hgb Conc 33.2 g/dL (32-36)
[2018-09-30 08:36] LABS: Hematocrit (blood only) 27.4 % (42-52); Hemoglobin 9.1 g/dL (14.0-18.0); Mean Corpuscular Volume 88.4 fL (80-100); RDW Coefficient of Variation 16.9 % (11.5-14.5); RDW Standard Deviation 53.4 fL (36.4-46.3); White Blood Count 1.77 K/uL (4.8-10.8)
[2018-09-30 08:48] LABS: BUN Creatinine Ratio 38.2 (10-20); Calcium 8.4 mg/dl (8.5-10.1); Creatinine Clr Calc Pharmacy 55.3 ml/min; Est GFR (African American) 105.9; Est GFR (Non-African American) 91.4; Potassium 4.1 mmol/L (3.5-5.1)
[2018-09-30 08:51] LABS: Phosphorus 3.4 mg/dl (2.5-4.9)
[2018-09-30 08:58] LABS: Immature Granulocytes # (auto) 0.01 K/uL (0.00-0.02); Immature Granulocytes % (auto) 0.6 %; Lymphocytes # (auto) 0.28 K/uL (1.2-3.4); Lymphocytes % (auto) 15.8 %; Monocytes # (auto) 0.04 K/uL (0.11-0.59); Monocytes % (auto) 2.3 %; Neutrophils # (auto) 1.44 K/uL (1.4-6.5); Neutrophils % (auto) 81.3 %; Ovalocytes 1+; Platelet Count 26 K/uL (130-400); Platelet Estimate SIGNIFIC DECREASED (Normal); Tear Drop Cells 1+; Toxic Granulation 3+
[2018-09-30] MEDS: CHECK SCOPOLAMINE PATCH PLACEMENT SCH ×2 (08:59→16:04)
[2018-09-30] MEDS: ALUMINUM/MAGNESIUM SUSP 50 ML, DiphenhydrAMINE Syrup 125 MG, LIDOCAINE HCL 2% VISCOUS 4... PO SCH ×4 (09:00→21:02)
[2018-09-30] MEDS: SCOPOLAMINE 1.5 MG TDSY TD SCH (09:00)
[2018-09-30] MEDS: NYSTATIN SUSP 500,000 U/5 ML UDC PO SCH ×4 (09:01→20:53)
[2018-09-30] MEDS ORDERED: ALBUT/IPRATROP 3MG/0.5MG NEB 3 ML VIAL NEB PRN (10:12)
--- NOTE | 2018-09-30 13:28 | Consultation Report ---
DATE OF CONSULTATION: 09/30/2018 REASON FOR EVALUATION: Inability to eat and possible gastrostomy tube consideration. 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 He also had a lesion in the lung that was removed on 08/17/[address] Woo, which turned out to be an organizing pneumonia and not a metastatic lesion. The patient was admitted on 09/22/2018 by his family because of an inability to eat. The patient was started on TPN through a right arm PICC line and he has been on it now for 8 days. Prior to coming in the hospital, the patient has been receiving radiation and chemotherapy, which has probably caused some irritation in the mouth aggravating his ability to try to swallow. Since hospitalization, the patient has continued to be thrombocytopenic with a platelet count dropping to about 25,000 from a baseline of about 50,000. His white count was also very low on admission, is now 1.7, which is still low. He is also anemic. I am being requested to evaluate the patient for possible gastrostomy tube. 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 MEDICATIONS: At home are Plavix, methotrexate, gabapentin, nystatin, oxycodone, scopolamine. ALLERGIES: NITROGLYCERIN. FAMILY HISTORY: Father of a bowel obstruction. Mother of congestive heart failure and throat cancer. The patient has 3 sons, 2 daughters, all healthy. 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 Former smoker. No alcohol. REVIEW OF SYSTEMS: Decreased ability to swallow, decreased ability to speak, weakness. PHYSICAL EXAMINATION: GENERAL: The patient appears cachectic, but in no acute distress. NECK: Shows radiation escobedo on the neck. MOUTH: Shows a full upper plate. There is a lot of mucositis in the posterior pharynx, but I was able to see his uvula. He is able to open his mouth about half way. NECK: There is no cervical adenopathy that I was able to detect. No supraclavicular adenopathy. ABDOMEN: Shows a midline incision from xiphoid to the pubis and right inguinal and left inguinal scars from his bypass surgery and hernia repairs. There are no scars in the left upper quadrant. No mass or rebound. IMPRESSION AND PLAN: The patient has a throat cancer with poor ability to eat. The question is whether he would be able to be a candidate for gastrostomy tube. I do have some concerns. One is that his platelet count is extremely low and I would feel uncomfortable doing invasive procedure with a platelet count less than 50,000. In addition, his airway is somewhat limited due to the tumor and his ability to open his mouth widely and extend his neck because of his airway problems. If we do put a gastrostomy tube, then it would probably have to be done in the Operating Room under general anesthesia with him intubated which means he would have to have an endotracheal tube in and have enough room in the posterior pharynx to pass a gastrostomy tube. We would probably need to have Anesthesia assess him to see if this was even possible. If these conditions are met, then I think we can consider doing it, but I need to see if these parameters are likely to make it possible. LEXI
--- NOTE | 2018-09-30 14:50 | Family Medicine Progress Note ---
Date of Service September 30, 2018 Assessment & Plan (1) Neutropenia: 78-year-old old male with a history of squamous cell epiglottal cancer recently diagnosed in Jun of this year, who presents after having poor p.o. intake for 1-2 weeks [employer]. Was found to have neutropenic sepsis secondary to pneumonia versus mucositis. 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 #Confusion/delirium -Overnight. Likely from ing. Provider supportive care. #Neutropenic fever in setting of mucositis and ?bibasilar pneumonia/radiation treatment/thyroid storm -MRSA is negative but given nature of mucositis/concern for aspiration and neutropenia, broad spectrum abx was administered. -Considering no fever except on admission and cultures negative - Discontinued Vanco/Zosyn. CXR findings could be from Atelectasis. -suspect fever likely from non-infectious origin, thyrotoxicosis/radiation/chemo? -Incentive spirometer #Dysphagia secondary to Mucositis, thrush - unable to speak and swallow his saliva. -Speech consult appreciated, recommend PEG tube -Continue to hold PO meds until clear for oral intake. -scopolamine patch for secretions -Magic swizzle, nystatin swish -Continue Dexamethasone. -Consider doxepin rinse for mucositis as outpatient -DC IV morphine to support good mentation -- IV tylenol prn. #Pancytopenia Appears to be improving following taoism of filgastrim, and abstinence from active chemotherapy -hold plavix, anticoagulation in setting of thrombocytopenia -ANC normalized. Isolation d/maritza. ANC >800 therefore Neupogen DCd 07May. #Tachycardia/delirium/agitation in setting of iatrogenic(?) thyrotoxicosis,- history of radiation therapy to the neck -resolving symptomatically -repeat TSH/T4 shows moderate improvement. Likely above therapy, supportive care and holding radiation/chemo has resulted in some improvement, especially clinically. -continue to trend TSH/T4 q3days to follow Continue beta-heather, IV steroids #Severe protein/calorie malnutrition Continue TPN, since unable to take PO -no s/s refeeding syndrome, continue to monitor Mag/phos -PEG is likely best option at this time per speech therapy. -Appreciate GI input for pt as candidate; there are concerns luciana considering thrombocytopenia, neck restrictions for GA; per GI would recommend anesthesia consult. #Atrial fibrillation - resolved. - continue scheduled IV metoprolol #Hyponatremia Corrected, continue to follow #Elevated troponin -peaked likely 2/2 Demand ischemia in the setting of tachycardia -home medication includes plavix, being HELD here VT prophylaxis Heparin q12h CODE STATUS Full FEN/GI: on TPN, dextrose, n.p.o. due to pain/mucositis Dispo: lives with his son and caregiver Lev while undergoing treatment for cancer. . May require SNF on discharge. PT OT ordered. Will transfer off PCU 09/30/18. (2) Right lower lobe pneumonia: (3) Poor fluid intake: (4) Dehydration: (5) Squamous cell carcinoma of epiglottis: (6) Mass of middle lobe of right lung: (7) Thyrotoxicosis: (8) Hypernatremia: (9) Elevated troponin: (10) Hypokalemia: (11) Elevated serum creatinine: (12) Total bilirubin, elevated: Supervising Physician Co-Signing Physician Notes Resident Physician Supervision Note: I independently interviewed and examined the patient and verified the kirk history and physical, reviewed labs and image studies, discussed the case with the resident Dr. Valverde and agree with the findings and care plan. Subjective 78-year-old male history of squamous cell cancer of the epiglottis being treated for neutropenic sepsis, pulmonary source/mucositis. The patient is confused this morning, sleeping. He is awake and is able to communicate with yes/no ques tions, but does appear confused. Review of Systems Constitutional: + malaise, + weakness and + weight loss; no fever and no body aches Respiratory: + cough, + dyspnea and + sputum production Cardiovascular: no chest pain Gastrointestinal: no abdominal pain Musculoskeletal: + muscle atrophy Physical Exam Constitutional: + ill appearing and + thin; no acute distress Eyes: PERRL, conjunctivae normal, anicteric sclerae ENMT: external ear and nose normal, oropharynx normal Neck: trachea midline, no thyromegaly Respiratory: normal respiratory effort; no respiratory distress, no labored breathing, no retractions and does not use accessory muscles Cardiovascular: RRR, no murmur, no edema Gastrointestinal (Abdomen): normal bowel sounds, soft, nontender, no hepatosplenomegaly Musculoskeletal: no cyanosis or clubbing, extremities motor strength 5/5 Extremities: + muscle atrophy Skin: no rashes, warm and dry Results & Data Vital Signs (Past 12 Hours) Vital Signs Temp Pulse Pulse Pulse Resp BP BP 09/30/18 11:32 81 154/92 H 09/30/18 10:48 36.5 C 64 20 154/92 H 09/30/18 09:00 83 155/92 H 09/30/18 06:57 72 16 09/30/18 04:18 88 155/92 H 09/30/18 04:14 36.7 C 92 H 19 155/92 H 09/30/18 03:43 79 16 Pulse Ox 09/30/18 11:32 09/30/18 10:48 96 09/30/18 09:00 09/30/18 06:57 94 09/30/18 04:18 09/30/18 04:14 95 09/30/18 03:43 90 Laboratory Results 09/30/18 09/30/18 09/30/18 Range/Units 10:58 07:58 07:58 WBC 1.77 L (4.8-10.8) K/uL RBC 3.10 L (4.7-6.1) M/uL Hgb 9.1 L (14.0-18.0) g/dL Hct 27.4 L (42-52) % MCV 88.4 (80-100) fL MCH 29.4 (25-34) pg MCHC 33.2 (32-36) g/dL RDW Std Deviation 53.4 H (36.4-46.3) fL RDW Coeff of Daniel 16.9 H (11.5-14.5) % Plt Count 26 L* (130-400) K/uL Immature Gran % (Auto) 0.6 % Neut % (Auto) 81.3 % Lymph % (Auto) 15.8 % Cobb % (Auto) 2.3 % Eos % (Auto) 0.0 % Baso % (Auto) 0.0 % Immature Gran # (Auto) 0.01 (0.00-0.02) K/uL Neut # (Auto) 1.44 (1.4-6.5) K/uL Lymph # (Auto) 0.28 L (1.2-3.4) K/uL Cobb # (Auto) 0.04 L (0.11-0.59) K/uL Eos # (Auto) 0.00 (0-0.5) K/uL Baso # (Auto) 0.00 (0-0.2) K/uL Toxic Granulation 3+ Platelet Estimate SIGNIFIC DECREASED (Normal) Tear Drop Cells 1+ Ovalocytes 1+ Sodium 137 (136-145) mmol/L Potassium 4.1 (3.5-5.1) mmol/L Chloride 105 (98-107) mmol/L Carbon Dioxide 25 (21-32) mmol/L Anion Gap 7.0 (3-11) BUN 26 H (7-18) mg/dl Creatinine 0.67 (0.6-1.4) mg/dl Est Cr Clr Drug Dosing 55.3 ml/min Est GFR ( Amer) 105.9 Est GFR (Non-Af Amer) 91.4 BUN/Creatinine Ratio 38.2 H (10-20) Glucose 114 H (70-99) mg/dl POC Glucose 109 H (70-99) Calcium 8.4 L (8.5-10.1) mg/dl Phosphorus 3.4 (2.5-4.9) mg/dl Magnesium 2.0 (1.8-2.4) mg/dl Triglycerides 173 H (0-150) mg/dl 09/30/18 Range/Units 06:00 WBC (4.8-10.8) K/uL RBC (4.7-6.1) M/uL Hgb (14.0-18.0) g/dL Hct (42-52) % MCV (80-100) fL MCH (25-34) pg MCHC (32-36) g/dL RDW Std Deviation (36.4-46.3) fL RDW Coeff of Daniel (11.5-14.5) % Plt Count (130-400) K/uL Immature Gran % (Auto) % Neut % (Auto) % Lymph % (Auto) % Cobb % (Auto) % Eos % (Auto) % Baso % (Auto) % Immature Gran # (Auto) (0.00-0.02) K/uL Neut # (Auto) (1.4-6.5) K/uL Lymph # (Auto) (1.2-3.4) K/uL Cobb # (Auto) (0.11-0.59) K/uL Eos # (Auto) (0-0.5) K/uL Baso # (Auto) (0-0.2) K/uL Toxic Granulation Platelet Estimate (Normal) Tear Drop Cells Ovalocytes Sodium (136-145) mmol/L Potassium (3.5-5.1) mmol/L Chloride (98-107) mmol/L Carbon Dioxide (21-32) mmol/L Anion Gap (3-11) BUN (7-18) mg/dl Creatinine (0.6-1.4) mg/dl Est Cr Clr Drug Dosing ml/min Est GFR ( Amer) Est GFR (Non-Af Amer) BUN/Creatinine Ratio (10-20) Glucose (70-99) mg/dl POC Glucose 111 H (70-99) Calcium (8.5-10.1) mg/dl Phosphorus (2.5-4.9) mg/dl Magnesium (1.8-2.4) mg/dl Triglycerides (0-150) mg/dl Medications Administered Current Inpatient Medications Albuterol (Duoneb) 3 ml NEB Q4R PRN PRN Reason: Dyspnea Stop: 10/23/18 19:59 Al Hydrox/Mg Hydrox/Simethicone 50 ml/Diphenhydramine HCl 125 mg/Lidocaine HCl 40 ml/Sucralfate 10,000 mg/ BARCODE IDENTIFIER 1 ea 0 ml PO TID GARRY Stop: 10/28/18 11:14 Last Admin: 09/30/18 13:09 Dose: 5 ml Documented by: Heparin Sodium (Beef Lung) (Heparin Sod 10 Unit/Ml Flush) 5 ml FLUSH PRN PRN PRN Reason: Flush Stop: 10/26/18 00:59 Heparin Sodium (Porcine) (Heparin Sodium (Porcine)) 5,000 units SQ Q12 GARRY Stop: 10/24/18 20:59 Last Admin: 09/26/18 08:27 Dose: 5,000 units Documented by: Dexamethasone 2 mg/ Syringe 0.5 mls @ 1 mls/min IV Q6 GARRY Stop: 10/23/18 17:59 Last Admin: 09/30/18 11:32 Dose: 1 mls/min Documented by: Acetaminophen (Ofirmev) 1,000 mg in 100 mls @ 400 mls/hr IV Q8H PRN PRN Reason: Fever Stop: 10/23/18 22:00 Last Infusion: 09/28/18 23:45 Dose: Infused Documented by: Dextrose (D10w) 1,000 mls @ 0 mls/hr IV .Q0M [facility] Stop: 10/25/18 15:59 Diltiazem HCl 125 mg/ Dextrose 125 mls @ 0 mls/hr IV .Q0M [facility]; Protocol Stop: 10/26/18 11:59 Last Admin: 09/28/18 12:45 Dose: Not Given Documented by: Metoprolol Tartrate (Lopressor) 5 mg IV Q4 [facility] Stop: 10/25/18 19:59 Last Admin: 09/30/18 11:32 Dose: 5 mg Documented by: Miscellaneous (Check Scopolamine Patch Placement) 1 ea N/A QS [facility] Stop: 10/23/18 00:00 Last Admin: 09/30/18 08:59 Dose: 1 ea Documented by: Miscellaneous (Remove Transderm-Scop Patch) 1 ea N/A Q3D@0859 [facility] Stop: 10/27/18 12:58 Last Admin: 09/30/18 09:00 Dose: 1 ea Documented by: Miscellaneous Information (Pharmacy Tpn/Ppn Consult Active) 1 ea N/A UD PRN PRN Reason: Consult Stop: 10/24/18 15:56 Morphine Sulfate (Morphine Sulfate) 2 mg IV Q2H PRN PRN Reason: Pain Stop: 10/10/18 11:31 Last Admin: 09/29/18 01:21 Dose: 2 mg Documented by: Nutrition (Parenteral) (Custom Central Pn) 1 bag IV TODAY@1600 GARRY; Protocol Stop: 09/30/18 15:59 Last Admin: 09/29/18 17:28 Dose: 1 bag Documented by: Nutrition (Parenteral) (Custom Central Pn) 1 bag IV TODAY@1600 GARRY; Protocol Stop: 10/01/18 15:59 Nystatin (Mycostatin) 5 ml PO QID [facility] Stop: 10/09/18 12:59 Last Admin: 09/30/18 11:32 Dose: 5 ml Documented by: Ondansetron HCl (Zofran) 4 mg IV Q6H PRN PRN Reason: Nausea Stop: 10/22/18 20:25 Scopolamine (Transderm-Scop) 1.5 mg TD Q3D@0900 [facility] Stop: 10/27/18 12:59 Last Admin: 09/30/18 09:00 Dose: 1.5 mg Documented by: Resident Activity Tracking Resident Involvement: Resident Care Provided Care Provided: Adult Hospital Medicine (1) Neutropenia Neutropenia type: unspecified Qualified Code(s): D70.9 - Neutropenia, unspecified
[2018-09-30] MEDS ORDERED: CUSTOM CENTRAL PN IV SCH (16:00)
[2018-10-01] MEDS: dexAMETHasone 2 MG in SYRINGE 0 ML IV SCH ×5 (00:25→23:43)
[2018-10-01] MEDS: METOPROLOL TARTRATE 1 MG/ML VIAL IV SCH ×7 (00:26→23:43)
[2018-10-01] MEDS: CHECK SCOPOLAMINE PATCH PLACEMENT SCH ×4 (00:27→23:44)
[2018-10-01] MEDS: ACETAMINOPHEN 1,000 MG/100 ML VIAL IV PRN (00:43)
--- NOTE | 2018-10-01 07:32 | Family Medicine Progress Note ---
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 intake for 1-2 weeks [employer]AY UP [employer]. Was found to have neutropenic sepsis secondary to pneumonia versus mucositis. 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 #Confusion/delirium -waxing/waning here - reorient, supportive care. #Dysphagia/painful to speak, 2/2 to Mucositis, thrush - painful to speak and swallow his saliva. Scopolamine patch for secretions, Magic swizzle, nystatin swish, Dexamethasone. Consider doxepin rinse for mucositis as outpatient - is available from [facility]. DC IV morphine to support good mentation -- IV tylenol prn. -Speech consult appreciated, STRICT NPO, recommend PEG tube. -Discussed with GI, agree with need for PEG but concerned about airway compromise in setting of radiation the neck and mucositis - requested anesthesia consult (completed 09May, see related notes) and also ENT consult to evaluate airway. -Pending ENT evaluation. #Severe protein/calorie malnutrition -secondary to above. No s/s refeeding syndrome, continue to monitor Mag/phos Continue TPN, await PEG. #Neutropenia, Pancytopenia -Initially neutropenia did improve on Neupogen (300 mcg daily SQ), ANC >800 therefore Neupogen DCd 07May. Unfortunately, trending back down, discussed with Onc, restart Neupogen 09May. -thrombocytopenia -- will require platelet transfusion PRIOR TO PEG placement (goal >50). PEG next week, so will hold off on transfusing. No s/s bleeding. Cont to hold plavix, chemical ppx. #Neutropenic fever in setting of mucositis and ?bibasilar pneumonia/radiation treatment/thyroid storm -has been afebrile for almost a week now, ANC improved initially with Neupogen, see above. -MRSA is negative but given nature of mucositis/concern for aspiration and neutropenia, broad spectrum abx was administered. Considering no fever except on admission and cultures negative - Discontinued Vanco/Zosyn 06May. CXR findings could be from Atelectasis. Suspect fever likely from non-infectious origin, thyrotoxicosis/radiation/chemo? -Incentive spirometer -remains afebrile for several days. #Tachycardia/delirium/agitation in setting of iatrogenic(?) thyrotoxicosis,- history of radiation therapy to the neck -tachycardia resolved -- Lopressor PRN for tachycardia >100 -repeat TSH/T4 shows moderate improvement. Likely above therapy, supportive care and holding radiation/chemo has resulted in some improvement, especially clinically. Continue to trend TSH/T4 q3days to follow As long as remains thyrotoxic, continue IV steroids #Atrial fibrillation - resolved. #Hyponatremia Corrected, continue to follow #Elevated troponin -peaked likely 2/2 Demand ischemia in the setting of tachycardia -home medication includes plavix, being HELD here VT prophylaxis Heparin being HELD as above. SCDs likely of little benefit and possibly dangerous in light of waxing waning confusion. CODE STATUS Full FEN/GI: on TPN, dextrose, n.p.o. due to pain/mucositis Dispo: lives with his son and caregiver Lev (phone #: [phone]) while und ergoing treatment for cancer. . May require SNF on discharge. PT OT ordered. (2) Right lower lobe pneumonia: (3) Poor fluid intake: (4) Dehydration: (5) Squamous cell carcinoma of epiglottis: (6) Mass of middle lobe of right lung: (7) Thyrotoxicosis: (8) Hypernatremia: (9) Elevated troponin: (10) Hypokalemia: (11) Elevated serum creatinine: (12) Total bilirubin, elevated: Supervising Physician Co-Signing Physician Notes Resident Physician Supervision Note: I independently interviewed and examined the patient and verified the kirk history and physical, reviewed labs and image studies, discussed the case with the resident Dr. Luke and agree with the findings and care plan. Subjective Seen at bedside this am, sleeping but arousable. Does not endorse any complaints. No acute events overnight. Per nursing does not endorse pain, does not ask for pain medication. Did attempt to call pt's son Lev at his phone number to update, no answer. Seen by anesthesia today. Review of Systems Review of Systems: Other (limited due to trouble speaking, does not endorse pain as above.) Physical Exam Physical Exam: Vitals noted and within normal limits . TPN running. Trimble draining clear urine. GENERAL: Somnolent but arousable, does not speak due to throat pain, nods/shakes head appropriately to questions, nontoxic-appearing, in no distress HENT: Normocephalic, atraumatic. Slight erythema and peeling skin noted on anterior neck. EYES: Normal conjunctiva. Sclera non-icteric. EOMI. NECK: Supple. Full range of motion. RESPIRATORY: Normal work of breathing. CARDIAC: Extremities warm and well perfused. NEURO: No focal gross motor deficits noted. SKIN: Senile purpura present. No jaundice noted. Slight erythema and peeling skin noted on anterior neck. PSYCH: Appropriate mood and affect. Exam as done by Colette Luke MD, Contact Person. Results & Data Vital Signs (Past 12 Hours) Vital Signs Temp Pulse Pulse Resp BP BP Pulse Ox 10/01/18 07:19 37.0 C 68 20 149/81 H 94 10/01/18 04:31 72 158/83 H 10/01/18 00:26 83 174/80 H 09/30/18 23:00 36.7 C 81 20 148/83 H 91 09/30/18 20:52 85 147/82 H Laboratory Results 10/01/18 10/01/18 10/01/18 Range/Units 07:41 07:41 06:23 WBC 1.62 L (4.8-10.8) K/uL RBC 3.33 L (4.7-6.1) M/uL Hgb 9.9 L (14.0-18.0) g/dL Hct 29.1 L (42-52) % MCV 87.4 (80-100) fL MCH 29.7 (25-34) pg MCHC 34.0 (32-36) g/dL RDW Std Deviation 52.1 H (36.4-46.3) fL RDW Coeff of Daniel 16.7 H (11.5-14.5) % Plt Count 30 L (130-400) K/uL Immature Gran % (Auto) 0.6 % Neut % (Auto) 79.0 % Lymph % (Auto) 17.9 % Wallace % (Auto) 1.9 % Eos % (Auto) 0.0 % Baso % (Auto) 0.6 % Immature Gran # (Auto) 0.01 (0.00-0.02) K/uL Neut # (Auto) 1.28 L (1.4-6.5) K/uL Lymph # (Auto) 0.29 L (1.2-3.4) K/uL Wallace # (Auto) 0.03 L (0.11-0.59) K/uL Eos # (Auto) 0.00 (0-0.5) K/uL Baso # (Auto) 0.01 (0-0.2) K/uL Toxic Granulation 3+ Dohle Bodies 2+ Platelet Estimate SIGNIFIC DECREASED (Normal) Poikilocytosis Present Sodium 130 L D (136-145) mmol/L Potassium 4.3 (3.5-5.1) mmol/L Chloride 100 (98-107) mmol/L Carbon Dioxide 25 (21-32) mmol/L Anion Gap 5.0 (3-11) BUN 31 H (7-18) mg/dl Creatinine 0.70 (0.6-1.4) mg/dl Est Cr Clr Drug Dosing 48.3 ml/min Est GFR ( Amer) 104.0 Est GFR (Non-Af Amer) 89.8 BUN/Creatinine Ratio 44.6 H (10-20) Glucose 136 H (70-99) mg/dl POC Glucose 136 H (70-99) Calcium 8.4 L (8.5-10.1) mg/dl Phosphorus 4.0 (2.5-4.9) mg/dl Magnesium 2.2 (1.8-2.4) mg/dl 10/01/18 Range/Units 00:27 WBC (4.8-10.8) K/uL RBC (4.7-6.1) M/uL Hgb (14.0-18.0) g/dL Hct (42-52) % MCV (80-100) fL MCH (25-34) pg MCHC (32-36) g/dL RDW Std Deviation (36.4-46.3) fL RDW Coeff of Daniel (11.5-14.5) % Plt Count (130-400) K/uL Immature Gran % (Auto) % Neut % (Auto) % Lymph % (Auto) % Wallace % (Auto) % Eos % (Auto) % Baso % (Auto) % Immature Gran # (Auto) (0.00-0.02) K/uL Neut # (Auto) (1.4-6.5) K/uL Lymph # (Auto) (1.2-3.4) K/uL Wallace # (Auto) (0.11-0.59) K/uL Eos # (Auto) (0-0.5) K/uL Baso # (Auto) (0-0.2) K/uL Toxic Granulation Dohle Bodies Platelet Estimate (Normal) Poikilocytosis Sodium (136-145) mmol/L Potassium (3.5-5.1) mmol/L Chloride (98-107) mmol/L Carbon Dioxide (21-32) mmol/L Anion Gap (3-11) BUN (7-18) mg/dl Creatinine (0.6-1.4) mg/dl Est Cr Clr Drug Dosing ml/min Est GFR ( Amer) Est GFR (Non-Af Amer) BUN/Creatinine Ratio (10-20) Glucose (70-99) mg/dl POC Glucose 95 (70-99) Calcium (8.5-10.1) mg/dl Phosphorus (2.5-4.9) mg/dl Magnesium (1.8-2.4) mg/dl Medications Administered Current Inpatient Medications Albuterol (Duoneb) 3 ml NEB Q4R PRN PRN Reason: Dyspnea Stop: 10/23/18 19:59 Al Hydrox/Mg Hydrox/Simethicone 50 ml/Diphenhydramine HCl 125 mg/Lidocaine HCl 40 ml/Sucralfate 10,000 mg/ BARCODE IDENTIFIER 1 ea 0 ml PO TID GARRY Stop: 10/28/18 11:14 Last Admin: 10/01/18 12:57 Dose: 5 ml Documented by: Filgrastim (Neupogen) 300 mcg SQ DAILY GARRY Stop: 10/31/18 16:59 Heparin Sodium (Beef Lung) (Heparin Sod 10 Unit/Ml Flush) 5 ml FLUSH PRN PRN PRN Reason: Flush Stop: 10/26/18 00:59 Heparin Sodium (Porcine) (Heparin Sodium (Porcine)) 5,000 units SQ Q12 GARRY Stop: 10/24/18 20:59 Last Admin: 09/26/18 08:27 Dose: 5,000 units Documented by: Dexamethasone 2 mg/ Syringe 0.5 mls @ 1 mls/min IV Q6 [facility] Stop: 10/23/18 17:59 Last Admin: 10/01/18 12:57 Dose: 1 mls/min Documented by: Acetaminophen (Ofirm) 1,000 mg in 100 mls @ 400 mls/hr IV Q8H PRN PRN Reason: Fever Stop: 10/23/18 22:00 Last Infusion: 10/01/18 01:06 Dose: Infused Documented by: Dextrose (D10w) 1,000 mls @ 0 mls/hr IV .Q0M [facility] Stop: 10/25/18 15:59 Diltiazem HCl 125 mg/ Dextrose 125 mls @ 0 mls/hr IV .Q0M [facility]; Protocol Stop: 10/26/18 11:59 Last Admin: 09/28/18 12:45 Dose: Not Given Documented by: Metoprolol Tartrate (Lopressor) 5 mg IV Q4 [facility] Stop: 10/25/18 19:59 Last Admin: 10/01/18 15:51 Dose: 5 mg Documented by: Miscellaneous (Check Scopolamine Patch Placement) 1 ea N/A QS [facility] Stop: 10/23/18 00:00 Last Admin: 10/01/18 15:50 Dose: 1 ea Documented by: Miscellaneous (Remove Transderm-Scop Patch) 1 ea N/A Q3D@0859 [facility] Stop: 10/27/18 12:58 Last Admin: 09/30/18 09:00 Dose: 1 ea Documented by: Miscellaneous Information (Pharmacy Tpn/Ppn Consult Active) 1 ea N/A UD PRN PRN Reason: Consult Stop: 10/24/18 15:56 Morphine Sulfate (Morphine Sulfate) 2 mg IV Q2H PRN PRN Reason: Pain Stop: 10/10/18 11:31 Last Admin: 09/29/18 01:21 Dose: 2 mg Documented by: Nutrition (Parenteral) (Custom Central Pn) 1 bag IV TODAY@1600 [facility]; Protocol Stop: 10/02/18 15:59 Last Admin: 10/01/18 16:20 Dose: 1 bag Documented by: Nystatin (Mycostatin) 5 ml PO QID [facility] Stop: 10/09/18 12:59 Last Admin: 10/01/18 15:52 Dose: Not Given Documented by: Ondansetron HCl (Zofran) 4 mg IV Q6H PRN PRN Reason: Nausea Stop: 10/22/18 20:25 Scopolamine (Transderm-Scop) 1.5 mg TD Q3D@0900 [facility] Stop: 10/27/18 12:59 Last Admin: 09/30/18 09:00 Dose: 1.5 mg Documented by: Resident Activity Tracking Resident Involvement: Resident Care Provided Care Provided: Adult Hospital Medicine (1) Neutropenia Neutropenia type: unspecified Qualified Code(s): D70.9 - Neutropenia, unspecified
[2018-10-01] MEDS: NYSTATIN SUSP 500,000 U/5 ML UDC PO SCH ×4 (08:07→20:15)
[2018-10-01] MEDS: ALUMINUM/MAGNESIUM SUSP 50 ML, DiphenhydrAMINE Syrup 125 MG, LIDOCAINE HCL 2% VISCOUS 4... PO SCH ×3 (08:08→20:15)
[2018-10-01 08:34] LABS: Basophils # (auto) 0.01 K/uL (0-0.2); Basophils % (auto) 0.6 %; Dohle Bodies 2+; Hematocrit (blood only) 29.1 % (42-52); Hemoglobin 9.9 g/dL (14.0-18.0); Immature Granulocytes # (auto) 0.01 K/uL (0.00-0.02); Immature Granulocytes % (auto) 0.6 %; Lymphocytes # (auto) 0.29 K/uL (1.2-3.4); Lymphocytes % (auto) 17.9 %; Mean Corpuscular Volume 87.4 fL (80-100); Monocytes # (auto) 0.03 K/uL (0.11-0.59); Monocytes % (auto) 1.9 %; Neutrophils # (auto) 1.28 K/uL (1.4-6.5); Platelet Count 30 K/uL (130-400); Platelet Estimate SIGNIFIC DECREASED (Normal); Poikilocytosis Present; RDW Coefficient of Variation 16.7 % (11.5-14.5); RDW Standard Deviation 52.1 fL (36.4-46.3); Red Blood Count 3.33 M/uL (4.7-6.1); Toxic Granulation 3+; White Blood Count 1.62 K/uL (4.8-10.8)
--- NOTE | 2018-10-01 08:40 | Progress Note ---
DATE: 10/01/2018 MEDICAL ONCOLOGY PROGRESS NOTE DIAGNOSES: 1. Neutropenic fever. 2. Tachycardia/delirium agitation. 3. Severe protein malnutrition. 4. Epiglottis squamous cell carcinoma. 5. Hyponatremia. 6. Atrial fibrillation. SUBJECTIVE: Nilesh is a pleasant 78-year-old gentleman with epiglottis squamous cell carcinoma on hospital day #9 for dysphagia and protein malnutrition brought on by the effects of combined modality therapy. The mucositis and dysphagia is slowly improving. He continues TPA. His peripheral blood counts remain quite suppressed. Nursing reports no overnight difficulties; however, the family support coordinator mentioned Nilesh was a bit confused yesterday. He seemed to be mentally clear today despite being woken from sound sleep by myself. OBJECTIVE: GENERAL: Pleasant 78-year-old gentleman, in no acute distress. VITAL SIGNS: Temperature 37, pulse 68, respiratory rate 20, blood pressure 149/81. HEENT: Oral mucosa shows some signs of improvements, still some erythema. Mucous membranes are dry. SKIN: Without rash or lesion. HEART: Regular rate and rhythm. LUNGS: Clear to auscultation bilaterally. ABDOMEN: Soft, nontender, nondistended. EXTREMITIES: No clubbing, cyanosis or edema. NEUROLOGICAL: He is grossly intact. LABORATORY DATA: Pending at time of dictation. IMPRESSION: 1. Treatment-induced pancytopenia. 2. Severe mucositis/radiation-induced pharyngitis. 3. Protein malnutrition. 4. Hyponatremia. 5. Atrial fibrillation. PLAN: Nilesh is a pleasant, somewhat unfortunate 78-year-old gentleman currently suffering from squamous cell carcinoma of the epiglottis, status post chemoradiation. Unfortunately, dysphagia has been slow to resolve. He continues to be supported with TPN, hopefully, at some point, PEG tube can be placed to allow enteral feeding. Obviously, he is in no condition to continue any form of treatment moving forward. Would continue granulocyte colony stimulating growth factor. His platelets while low are certainly noncritical range requiring transfusional support. I anticipate peripheral counts to recover over time. Agree with medical management otherwise and will continue to periodically visit Nilesh during his stay. I appreciate the assistance of the hospitalist in caring for this pleasant gentleman.
[2018-10-01 09:15] LABS: BUN Creatinine Ratio 44.6 (10-20); Calcium 8.4 mg/dl (8.5-10.1); Creatinine Clr Calc Pharmacy 48.3 ml/min; Est GFR (Non-African American) 89.8; Magnesium 2.2 mg/dl (1.8-2.4); Potassium 4.3 mmol/L (3.5-5.1)
--- NOTE | 2018-10-01 09:44 | Anesthesiology Consultation ---
Date of Service October 01, 2018 Assessment & Plan (1) Encounter for pre-operative examination: Asked to see this patient by GI service prior to possible upcoming PEG tube placement. GI concerned at his low platelet count so unsure if this case will proceed. If it does, I would highly recommend that this be done in the operating room and would likely be done under general anesthesia with airway control given the location of his cancer. This was explained to the patient and he appeared to understand. Consent not formally obtained as it is unsure if this is going to happen and if so, when. Patient appears that he can consent for himself but per report patient had periods of confusion previously. If felt necessary, his son, Lev Perla, would be a good candidate to assist with the signing of consent. His phone number is [phone]. Chart Review Chart Review: Acceptable Risk for Surgery and Patient NOT seen in Pre Admission Testing Consults Requested none History Height/Weight Height: 5 ft Weight: 39.9 kg Allergies Allergy/AdvReac Type Severity Reaction Status Date / Time nitroglycerin Allergy Severe "my heart Verified 09/22/18 15:30 stopped" Medications Home Medications Medication Instructions Recorded Confirmed Last Taken clopidogrel 75 mg PO DAILY 07/08/18 09/22/18 08/07/18 08:00 methotrexate sodium 6 tab PO UD 07/08/18 09/22/18 08/10/18 08:00 gabapentin 100 mg capsule 200 mg PO TID 08/31/18 09/22/18 Unknown nystatin 5 ml PO QID 09/22/18 09/22/18 Unknown oxycodone 5 mg PO Q8 PRN 09/22/18 09/22/18 Unknown scopolamine base [Transderm-Scop] 1 mg TOPICAL UD 09/22/18 09/22/18 09/22/18 Active Medications Generic Name Dose Route Start Last Admin Trade Name Freq PRN Reason Stop Dose Admin Al Hydrox/Mg Hydrox/ 0 ml 09/28/18 11:15 10/01/18 08:08 Simethicone 50 ml/ PO 10/28/18 11:14 5 ml Diphenhydramine HCl 125 mg/ TID GARRY Administration Lidocaine HCl 40 ml/ Sucralfate 10,000 mg/ BARCODE IDENTIFIER 1 ea Heparin Sodium (Porcine) 5,000 units 09/24/18 21:00 09/26/18 08:27 Heparin Sodium (Porcine) SQ 10/24/18 20:59 5,000 units Q12 GARRY Administration Dexamethasone 2 mg/ Syringe 0.5 mls @ 1 mls/min 09/23/18 18:00 10/01/18 04:32 IV 10/23/18 17:59 1 mls/min Q6 GARRY Administration Acetaminophen 1,000 mg in 100 mls @ 400 mls/hr 09/23/18 22:01 10/01/18 01:06 Ofirmev IV 10/23/18 22:00 Infused Q8H PRN Infusion Fever Diltiazem HCl 125 mg/ Dextrose 125 mls @ 0 mls/hr 09/26/18 12:00 09/28/18 12:45 IV 10/26/18 11:59 Not Given .Q0M GARRY Protocol 0 MG/HR Metoprolol Tartrate 5 mg 09/25/18 20:00 10/01/18 08:07 Lopressor IV 10/25/18 19:59 5 mg Q4 GARRY Administration Miscellaneous 1 ea 09/23/18 00:00 10/01/18 08:06 Check Scopolamine Patch Placement N/A 10/23/18 00:00 1 ea QS GARRY Administration Miscellaneous 1 ea 09/27/18 12:59 09/30/18 09:00 Remove Transderm-Scop Patch N/A 10/27/18 12:58 1 ea Q3D@0859 GARRY Administration Morphine Sulfate 2 mg 09/26/18 18:20 09/29/18 01:21 Morphine Sulfate IV 10/10/18 11:31 2 mg Q2H PRN Administration Pain Nutrition (Parenteral) 1 bag 09/30/18 16:00 09/30/18 17:09 Custom Central Pn IV 10/01/18 15:59 1 bag TODAY@1600 GARRY Administration Protocol Nystatin 5 ml 09/29/18 13:00 10/01/18 08:07 Mycostatin PO 10/09/18 12:59 5 ml QID GARRY Administration Scopolamine 1.5 mg 09/27/18 13:00 09/30/18 09:00 Transderm-Scop TD 10/27/18 12:59 1.5 mg Q3D@0900 GARRY Administration Past Medical History Medical History Neutropenia (Acute) Elevated troponin (Acute) Acute kidney injury Anemia Hyponatremia On total parenteral nutrition (TPN) Through right arm PICC. Patient receiving radiation and chemotherapy. Irriation of the mouth aggravating his ability to try to swallow. Pancytopenia Patient has had mild pancytopenia his entire life. Prior work-up included bone marrow biopsies x2 with no particular diagnosis established. Pneumonia Right lower lobe pneumonia. Elevated lactate upon admission of 2.9. Thrombocytopenia Thyrotoxicosis TSH on admission 0.008, Ft4 2.42. Deviated nasal septum (Chronic) History of skin cancer (Chronic) EXCISION OF NOSE/FACE REGION, NO CONCERNS/ISSUES SINCE. 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 Woo. Rheumatoid arthritis (Chronic) BPH (benign prostatic hyperplasia) Exercise / Class Metabolic Activity III < 4 Walking/Shop/Light housework Past Family History Family History Mother , 70yo CHF (congestive heart failure) Throat cancer Father , 53yo Bowel obstruction Brother No problems noted. Brother No problems noted. Brother No problems noted. Brother No problems noted. Brother No problems noted. Sister No problems noted. Sister No problems noted. Sister No problems noted. Sister No problems noted. Son No problems noted. Son No problems noted. Son No problems noted. Daughter No problems noted. Daughter No problems noted. Past Surgical History Surgical History History of lung surgery right VATS, middle lobectomy, wedge resection. MAC 3. Grade 2 view. 8.5 ETT. H/O aorto-femoral bypass (Chronic) History of appendectomy (Resolved) History of heart surgery (Resolved) PLACEMENT OF AORTIC STENT 20 YEARS AGO. [facility]. History of herniorrhaphy (Resolved) Left inguinal History of laryngoscopy 07/06/18 History of throat surgery Direct laryngoscopy and esophagoscopy with biopsy of larynx 07/17/18: Fiberoptic #4, ETT 7.0 with Grade 2 view (listed as fiberoptic #4..believe this means Glidescope #4). History of PONV No Hx of PONV and No Hx of Motion Sickness Social History Smoking Status: Former smoker tobacco type: cigars Smoking cigarettes per day: 1-3 cigars/day when he smoked; Do You Dip or Chew Tobacco: No Hx Alcohol Use: No alcohol intake frequency: holidays/special occasions only Hx Substance Use: No substance use type: does not use Physical Exam Vital Signs Last Vital Signs Temp 37.0 C 10/01/18 07:19 Pulse 72 10/01/18 08:07 Resp 20 10/01/18 07:19 BP 158/83 H 10/01/18 08:07 Pulse Ox 94 10/01/18 07:19 Constitutional + cachectic and + lethargic ENMT Mouth: + edentulous; no TMJ abnormality Thyromental Distance: < 3.5 Finger Breadths Mallampati Class: II Patient able to open wide and ulcerations of tongue noted. Heavy, thick secretions in posterior part of throat, unable to get a very clear view of his posterior pharynx. Neck + limited neck extension and + facial hair Respiratory normal respiratory effort Cardiovascular Rate/Rhythm: regular rate and regular rhythm Psychiatric Orientation: alert and oriented x 3 (to person, place and situation. ) Patient conversant but does not vocalize much 2/2 throat pain. Per nurse, patient has had periods of confusion but he appeared to understand my questions and the situation. Testing Electrocardiogram Date: 09/25/18 Findings: + ST @ (115) Sinus tachycardia Otherwise normal ECG When compared with ECG of 23-SEP-2018 20:17, Sinus rhythm has replaced Atrial flutter ST elevation now present in Inferior leads ST no longer depressed in Anterior leads Nonspecific T wave abn ormality no longer evident in Inferior leads T wave inversion no longer evident in Lateral leads Confirmed by Brian Bailon ([id number]) on 09/25/2018 3:27:36 PM Chest X-Ray Date: 09/22/18 FINDINGS: Cardiomediastinal and hilar silhouettes are unchanged. Calcification of the thoracic aortic arch. Unchanged right pleural effusion with progressed right lung base opacities. Left lung is generally clear. No pneumothorax. Regions focus overlies the left heart border, unchanged. Indeterminate radiodense foci of the abdominal right upper quadrant. Degenerative changes of the shoulders and spine. IMPRESSION: Unchanged right pleural effusion with slightly progressed right basilar opacities suggestive of atelectasis or pneumonitis. Echocardiogram Date: 09/23/18 LV normal seize. Mild LVH. EF 60-65%. Mild TR. No RWMA. Other Testing Other Testing PET FINDINGS 08/05/18: Head and neck: There is expected physiologic activity within the visualized brain parenchyma and the salivary glands. There is a markedly FDG avid lesion in the left pharynx centered around the left laryngeal vestibule/false vocal cords. This is best seen on image #34 of the neck series and measures approximately 3 cm in length. This demonstrates a maximum SUV of 22.7. There is an 8 mm FDG avid nodule identified within the soft tissues of the left ear seen on image #47. This demonstrates a maximum SUV of 3.1. A 9 mm right cervical lymph node on image #61 demonstrates a maximum SUV of 3.7. Thorax: Evaluation of the thorax demonstrates expected physiologic myocardial activity. There is an FDG avid left upper lobe pulmonary lesion adjacent to the thoracic aorta seen on image #57. This demonstrates a maximum SUV of 3.4. A 2.0 cm FDG avid lesion appear mediastinal right middle lobe on image #83 demonstrates a maximum SUV of 5.6. Abdomen and pelvis: There is expected activity within the liver, spleen, kidneys, renal collecting system, and bladder. Low-level bowel activity is likely within physical limits. Unenhanced CT images: Brain parenchyma is normal as visualized noting age- related involutional change. The bony orbits are intact. Orbital contents are normal in appearance. There is opacification of left sphenoid sinus. The paranasal sinuses are otherwise clear. The mastoid air cells are well pneumatized. The salivary and thyroid glands are normal as imaged. There is atherosclerotic calcification of the thoracic aorta which is normal in caliber. Emphysematous change is noted. No airspace consolidation or pleural effusion is identified. There is bibasilar scarring/atelectasis. Subpleural scarring is noted in the anterior right upper lobe. See above under PET findings for discussion of pulmonary lesions. There is no mediastinal, hilar, or axillary lymphadenopathy. Calcified mediastinal nodes are noted. The heart is normal in size and there is trace pericardial effusion. The coronary arteries are densely calcified. The unenhanced liver, gallbladder, pancreas, and adrenal glands are grossly unremarkable. There are calcified splenic granulomas. The kidneys demonstrate cortical atrophy and are without hydronephrosis. There are small bilateral nonobstructing renal calculi. There is advanced atherosclerotic calcification of the abdominal aorta with evidence of previous aortobiiliac bypass grafting. Numerous calcified lymph nodes are seen in the upper abdomen. No pathological adenopathy is seen in the abdomen or pelvis. The prostate gland is markedly enlarged and heterogeneous. The bladder wall is thickened and trabeculated indicating chronic outlet obstruction. No intraperitoneal free air is seen. There is trace free fluid in the pelvis. The skeletal structures are osteopenic. Degenerative change is noted throughout the spine. No lytic or blastic bony lesion is identified. IMPRESSION: 1. There is a markedly FDG avid laryngeal lesion as above. This is consistent with the reported history of head and neck cancer. 2. There is a subcentimeter FDG avid right cervical chain lymph node. This is highly concerning for metastatic disease. 3. There are 2 FDG avid pulmonary lesions which are also highly concerning for metastatic disease. 4. There is a subcentimeter nodule within the soft tissues of the left ear. This is pathologically indeterminant, and metastatic disease is not excluded. 5. Emphysema. 6. Bilateral nephrolithiasis. 7. Trace nonspecific free fluid is seen in the pelvis. 8. Advanced atherosclerotic vascular disease. CT soft tissue neck w con 07/27/18 HISTORY: 78 years-old Male hx of cancer-epiglottis, developed hoarseness patient presents with acute hoarseness. Reported history of carcinoma of the epiglottis. COMPARISON: Soft tissue neck radiographs of same day TECHNIQUE: Multiple axial CT images of the soft tissues of the neck were obtained following the intravenous administration of 94 mL Optiray 320 IV contrast. A dose lowering technique was used consistent with the principals of ALARA. FINDINGS: Motion degraded exam. There is mild soft tissue prominence and thickening of the epiglottis and aryepiglottic folds without discrete mass seen within these di stributions. Secretions noted within the bilateral vallecula and piriform sinuses. There is asymmetric soft tissue thickening and prominence about the left false vocal fold extending into the vestibule (image 120 series 3). Additionally, there is obscuration of the preglottic fat with a focal soft t issue nodule measuring 11 x 11 mm (image 132 series 3) about the anterior glottis. Cricoid cartilage appears preserved. Subglottic airway is patent and unremarkable. No drainable fluid collection. No prevertebral soft tissue swelling. The parotid, submandibular and thyroid glands appear unremarkable. There is no adenopathy by CT size criteria. Mixed plaque formation about the bilateral carotid vasculature causes less than 50% luminal narrowing on the right. There is approximately 70% luminal narrowing about the proximal left ICA secondary to atherosclerotic plaque. Lung apices appear generally clear with emphysematous changes noted. Degenerative changes of the spine. No suspicious lytic or blastic bony lesions. Mucosal thickening about the left maxillary and sphenoid sinuses. IMPRESSION: 1. Motion degraded exam. 2. Asymmetric soft tissue prominence and thickening of the left false vocal fold and left laryngeal vestibule. Additionally, there is obscuration of the preglottic fat with a focal soft tissue nodule measuring 11 mm about the anterior glottis. Correlate with direct visualization to exclude underlying laryngeal carcinoma. 3. No adenopathy identified. 4. Nonspecific mild soft tissue prominence and thickening of the epiglottis and aryepiglottic folds. 5. Mild paranasal sinus disease. Cervical Spine Date: 07/14/18 FINDINGS: The bones are osteopenic. The anterior arch of C1 is poorly visualized. There is an old T1 compression deformity. There is 4 mm of anterolisthesis of C7 on T1 in flexion which reduces to 3 mm in extension. There is no definite atlantoaxial instability although the dens is very poorly delineated. IMPRESSION: 1. Poor visualization of the anterior arch of C1 2. No significant instability identified on flexion or extension Laboratory Results 10/01/18 07:41 10/01/18 07:41 PT 13.3 Seconds (9.0-12.0) H 09/22/18 15:00 INR 1.3 (0.9-1.1) H 09/22/18 15:00 APTT 29.9 Seconds (21.0-31.0) 09/22/18 15:00 Urine Color Dark Yellow 09/22/18 22:45 Urine Appearance Cloudy (Clear) H 09/22/18 22:45 Urine pH 5.0 (4.5-7.5) 09/22/18 22:45 Ur Specific [place] 1.025 (1.000-1.030) 09/22/18 22:45 Urine Protein 1+ (Negative) H 09/22/18 22:45 Urine Glucose (UA) Negative (Negative) 09/22/18 22:45 Urine Ketones 1+ (Negative) H 09/22/18 22:45 Urine Nitrite Negative (Negative) 09/22/18 22:45 Ur Leukocyte Esterase Negative (Negative) 09/22/18 22:45 Urine WBC (Auto) 1-5 /hpf (0-5) 09/22/18 22:45 Urine RBC (Auto) 5-10 /hpf (0-4) H 09/22/18 22:45 U Hyaline Cast (Auto) 5-10 /lpf (0-5) H 09/22/18 22:45 U Epithel Cells (Auto) 10-20 /lpf (0-5) H 09/22/18 22:45 Urine Bacteria (Auto) Negative (Negative) 09/22/18 22:45 09/22/18 15:36 Blood Culture - Final Blood No growth 09/22/18 15:36 Blood Culture - Final Blood No growth 09/22/18 22:45 Urine Culture - Final Urine,Straight Cath No growth - less than 1,000 colonies/mL. 10/01/18 10/01/18 06:23 00:27 POC Glucose 136 H 95
[2018-10-01] MEDS ORDERED: CUSTOM CENTRAL PN IV SCH (16:00)
--- NOTE | 2018-10-01 16:24 | Progress Note ---
DATE: 10/01/2018 The patient is on day 9 of TPN and arrangements are in the works to try to see if we can get a PEG tube placed The patient was seen by hematology and it seems that he will be able to receive a platelet transfusion if needed prior to getting a PEG tube. His airway continues to be an issue and anesthesia saw him today and he will obviously need to be done in the operating room for sedation and his airway will need to be controlled. The problem is it is hard to know what the status of his airway is now that he has been treated with radiation and chemo. He is still having trouble swallowing some of his saliva and secretions and liquids and has difficulty speaking indicating ongoing irritation or tumor in the larynx. I did talk to the anesthesiologists and they recommended before we schedule a gastrostomy tube placement to have an ear, nose and throat doctor see the patient to assess his larynx to see if there is enough space to get an endotracheal tube in and a gastroscope down to do the PEG tube placement, if not, then he may need a tracheostomy. I will put a consult in for an ENT evaluation and then see where we go from there. I discussed this with the patient and he is agreeable.
[2018-10-01] MEDS ORDERED: METOPROLOL TARTRATE 1 MG/ML VIAL IV PRN (17:13)
[2018-10-01] MEDS: FILGRASTIM 300 MCG/ML VIAL SQ SCH (17:32)
[2018-10-02] MEDS: METOPROLOL TARTRATE 1 MG/ML VIAL IV SCH ×5 (03:39→20:30)
[2018-10-02] MEDS: ACETAMINOPHEN 1,000 MG/100 ML VIAL IV PRN ×2 (03:44→15:32)
[2018-10-02 06:00] LABS: Mean Corpuscular Hgb Conc 33.8 g/dL (32-36)
[2018-10-02] MEDS: dexAMETHasone 2 MG in SYRINGE 0 ML IV SCH ×3 (06:01→18:04)
[2018-10-02 06:11] LABS: Hematocrit (blood only) 28.1 % (42-52); Hemoglobin 9.5 g/dL (14.0-18.0); RDW Coefficient of Variation 16.9 % (11.5-14.5); RDW Standard Deviation 52.2 fL (36.4-46.3); Red Blood Count 3.23 M/uL (4.7-6.1); White Blood Count 2.88 K/uL (4.8-10.8)
[2018-10-02 06:37] LABS: Platelet Count 36 K/uL (130-400)
[2018-10-02 06:38] LABS: Phosphorus 4.4 mg/dl (2.5-4.9)
[2018-10-02 06:40] LABS: Dohle Bodies 2+; Giant Platelets 3+; Immature Granulocytes # (auto) 0.03 K/uL (0.00-0.02); Lymphocytes # (auto) 0.26 K/uL (1.2-3.4); Monocytes # (auto) 0.08 K/uL (0.11-0.59); Monocytes % (auto) 2.8 %; Neutrophils # (auto) 2.51 K/uL (1.4-6.5); Neutrophils % (auto) 87.2 %; Platelet Estimate Decreased (Normal); Polychromasia 1+; Toxic Granulation 3+; Toxic Vacuolation 1+
[2018-10-02 06:50] LABS: T4 Free Thyroxine 1.5 ng/dl (0.8-1.6)
[2018-10-02] MEDS: NYSTATIN SUSP 500,000 U/5 ML UDC PO SCH ×4 (07:49→21:16)
[2018-10-02] MEDS: ALUMINUM/MAGNESIUM SUSP 50 ML, DiphenhydrAMINE Syrup 125 MG, LIDOCAINE HCL 2% VISCOUS 4... PO SCH ×3 (07:49→21:16)
[2018-10-02] MEDS: FILGRASTIM 300 MCG/ML VIAL SQ SCH (08:01)
[2018-10-02] MEDS: CHECK SCOPOLAMINE PATCH PLACEMENT SCH ×2 (08:03→15:27)
[2018-10-02 08:50] LABS: BUN Creatinine Ratio 43.6 (10-20); Calcium 8.6 mg/dl (8.5-10.1); Creatinine Clr Calc Pharmacy 40.3 ml/min; Est GFR (Non-African American) 83.7; Potassium 4.2 mmol/L (3.5-5.1)
[2018-10-02 10:40] LABS: Giant Platelets 2+
--- NOTE | 2018-10-02 11:38 | Consultation Report ---
DATE OF CONSULTATION: 10/02/2018 I have been asked by Dr. Stevo Fleming to evaluate this patient to "assess airway for intubation and PEG tube placement." HISTORY OF PRESENT ILLNESS: The patient is a 78-year-old male, previous patient of Dr. Garcia'massimo with a history of clinical T2, N0, M0, squamous cell carcinoma of the epiglottis, who is currently undergoing chemoradiation, but has been not consistently receiving therapy due to having side effects including severe mucositis, anemia, neutropenia, and thrombocytopenia. He was admitted to [facility] on 09/22/2018 with malnutrition and dysphagia. He is currently on total parenteral nutrition and was assessed by Gastroenterology for possible PEG tube placement. I have been asked to assess his airway given his diagnosis of epiglottic squamous cell carcinoma and his inability to complete treatment to assess his airway prior to having intubation and PEG tube placement. The patient states that he has no shortness of breath. He does have some dysphagia and was unable to tolerate liquids or solids at home due to odynophagia. He denies any referred otalgia or voice change. He admits to a 15-pound weight loss. The patient is a smoker of cigars and smokes approximately 5 cigars per day and has done so for 50 plus years. He denies any history of alcohol abuse. ALLERGIES: NITROGLYCERIN. CURRENT MEDICATIONS: Diltiazem, subcutaneous heparin, scopolamine patch, nystatin, metoprolol, Neupogen, Zofran p.r.n., Tylenol p.r.n., morphine p.r.n., albuterol p.r.n. PAST MEDICAL HISTORY: As above. 1. Hypertension. 2. History of skin cancer. 3. BPH. 4. Rheumatoid arthritis. PAST SURGICAL HISTORY: 1. Status post direct laryngoscopy with biopsies by Dr. Garcia on 07/17/2018. 2. Status post right thoracoscopy with wedge resection and right middle lobectomy by Dr. Woo on 08/17/2018, which showed pneumonitis, but no evidence of metastatic disease. 3. Status post appendectomy. 4. Status post aortofemoral bypass. 5. Status post aortic valve surgery. 6. Status post left inguinal hernia repair. FAMILY HISTORY: Noncontributory. No bleeding disorders or malignant hyperthermia. SOCIAL HISTORY: As above. He has a cigar smoking history of approximately 5 cigars per day for 50 years. He denies alcohol abuse or illicit drug use. 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 He lives with a friend. REVIEW OF SYSTEMS: The patient denies any otalgia. He does have odynophagia and dysphagia with associated weight loss. He denies hoarseness. He has some lightheadedness. He denies any shortness of breath or chest pain. PHYSICAL EXAMINATION: GENERAL: This is a cachectic white male in no acute distress with no stertor or stridor. He has a somewhat normal voice. HEENT: Bilateral external auditory canals and tympanic membranes are clear. He has a severe right septal deviation with dry mucous membranes. He has left greater than right inferior turbinate hypertrophy. Oral cavity and oropharyngeal examination reveals severe mucositis involving the mucosa of the oral cavity and oropharynx without any mass or lesion. There is some ulceration of several areas due to this mucositis. He also has a coated tongue and it is difficult to determine whether or not this represents oral thrush versus mucositis. NECK: Reveals a thin, cachectic neck with no visible or palpable lymphadenopathy. His trachea is midline. There are no masses or lesions. NEUROLOGIC: Cranial nerves II-XII are grossly intact. The patient is awake, alert and oriented x3. After administration of topical lidocaine and Afrin to the left nasal cavity, flexible nasopharyngolaryngoscopy was performed, which revealed some excess secretions within the hypopharynx and larynx and with a very mild amount of mucositis in this region. There is no mass or lesion involving his epiglottis, false vocal folds, or true vocal folds. He does have what appears to be normal bilateral true vocal fold mobility to midline. There is no pooling of secretions within the piriform sinuses. Essentially his glottic airway is widely patent. IMPRESSION/RECOMMENDATION: A 78-year-old male with clinical T2, N0, M0 squamous cell carcinoma of the epiglottis, currently undergoing chemotherapy and radiation, but his treatment has been hampered by pancytopenia and dysphagia. There is no contraindication to intubating this patient or performing PEG tube placement as his hypopharynx and larynx are widely patent. I will sign off on this consultation, but if you need any further assistance, please do not hesitate to contact me. The patient needs close clinical follow up with his primary ground support equipment mechanic who is Dr. Garcia.
--- NOTE | 2018-10-02 13:50 | Family Medicine Progress Note ---
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 Was found to have neutropenic sepsis secondary to pne umonia versus mucositis. 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 #Confusion/delirium -waxing/waning here - reorient, supportive care. #Dysphagia/painful to speak, 2/2 to Mucositis, thrush - Pain relief: DC IV morphine to support good mentation -- IV tylenol and IV dexamethasone - Sx relief: scopolamine patch for secretions, Magic swizzle gargle TID, nystatin swish and spit TID, will add doxepin rinse 25mg (2.5ml) diluted with 2.5 mL water and gargle for ~60sec and spit TID, once son brings in -Speech consult appreciated, STRICT NPO, recommend PEG tube. #Severe protein/calorie malnutrition Secondary to above. No s/s refeeding syndrome, continue to monitor Mag/phos -Discussed with GI, agree with need for PEG but concerned about airway compromise in setting of radiation the neck and mucositis - requested anesthesia consult (completed 09May, see related notes) and also ENT consulted to evaluate airway (completed 10May, see related notes) Continue TPN, await PEG placement on Friday #Neutropenia, Pancytopenia -Initially neutropenia did improve on Neupogen (300 mcg daily SQ), ANC >800 therefore Neupogen DCd 07May. Unfortunately, trending back down, discussed with Onc, restart Neupogen 09May. Trend CBC. -Thrombocytopenia -- will require platelet transfusion PRIOR TO PEG placement (goal >50). - PEG next week, so will hold off on transfusing. No s/s bleeding. - Cont to hold plavix, chemical ppx. #Neutropenic fever in setting of mucositis and ?bibasilar pneumonia/radiation treatment/thyroid storm -Febrile on admission, afebrile since, ANC improved initially with Neupogen, see above. -MRSA is negative but given nature of mucositis/concern for aspiration and neutropenia, broad spectrum abx was administered. Considering no fever except on admission and cultures negative - Discontinued Vanco/Zosyn 06May. CXR findings could be from Atelectasis. Suspect fever likely from non-infectious origin, thyrotoxicosis/radiation/chemo? -Incentive spirometer -remains afebrile for several days. #Tachycardia/delirium/agitation in setting of iatrogenic(?) thyrotoxicosis,- history of radiation therapy to the neck -tachycardia resolved -- Lopressor PRN for tachycardia >100 -repeat TSH/T4 shows moderate improvement. Likely above therapy, supportive care and holding radiation/chemo has resulted in some improvement, especially clinically. Continue to trend TSH/T4 q3days to follow As long as remains thyrotoxic, continue IV metoprolol #Atrial fibrillation - resolved. #Hyponatremia Corrected, continue to follow #Elevated troponin -peaked likely 2/2 Demand ischemia in the setting of tachycardia -home medication includes plavix, being HELD here VT prophylaxis Heparin being HELD as above. SCDs likely of little benefit and possibly dangerous in light of waxing waning confusion. CODE STATUS Full FEN/GI: on TPN, dextrose, n.p.o. due to pain/mucositis Dispo: lives with his son and caregiver Lev (phone #: [phone]) while undergoing treatment for cancer. . May require SNF on discharge. PT OT ordered. (2) Right lower lobe pneumonia: (3) Poor fluid intake: (4) Dehydration: (5) Squamous cell carcinoma of epiglottis: (6) Mass of middle lobe of right lung: (7) Thyrotoxicosis: (8) Hypernatremia: (9) Elevated troponin: (10) Hypokalemia: (11) Elevated serum creatinine: (12) Total bilirubin, elevated: Supervising Physician Co-Signing Physician Notes Resident Physician Supervision Note: I independently interviewed and examined the patient and verified the kirk history and physical, reviewed labs and image studies, discussed the case with the resident Dr. Candelario and agree with the findings and care plan. Subjective 78-year-old male history of squamous cell cancer of the epiglottis being treated for neutropenic sepsis, pulmonary source/mucositis. The patient' main issue is internal throat pain. He states he receieves upon an hour pf relief with the magic swizzle, and is interested in increasing the frequency of the rinse for more relief. Discussion with patient and son reveal interest in trying doxepin rinse, son is amenable to pear picker from external pharmacy. patient otherwise denies CP, SOB, abdo pain. Trimble in situ, BM this AM. Neither patien or son have questions at present. Review of Systems Review of Systems: All systems reviewed & are unremarkable except as noted in HPI & below Physical Exam Physical Exam: Vitals noted and within normal limits . TPN running. Trimble draining clear urine. GENERAL: Awake, speaks some when pain is better controlled, nods/shakes head appropriately to questions, nontoxic-appearing, in no distress HENT: Normocephalic, atraumatic. Mucus membranes appear moist. Small ulcerations on tongue present. + TTP on right neck and in midline above thyroid. EYES: Normal conjunctiva. Sclera non-icteric. EOMI. Glasses. NECK: Supple. Full range of motion. RESPIRATORY: Clear to auscultation. Normal work of breathing. CARDIAC: Regular rate, normal rhythm. Extremities warm and well perfused. ABDOMEN: Soft, non-distended. No tenderness to palpation in all four quadrants. Bowel sounds are normal. LOWER EXTREMITIES: Inspection of calves reveal equal size bilaterally. They are extremely thin. Non-tender. No edema. No discoloration. NEURO: No focal gross motor deficits noted. CN II-XII grossly in tact. SKIN: Senile purpura present. No jaundice noted. Significant lesions not present. Darkened skin in the neck region PSYCH: Appropriate mood and affect. Cooperative. Results & Data Vital Signs (Past 12 Hours) Vital Signs Temp Pulse Pulse Resp BP BP BP 10/02/18 12:08 83 10/02/18 12:03 36.4 C L 78 18 133/72 10/02/18 08:01 83 156/88 H 10/02/18 07:52 36.8 C 67 20 147/79 H 10/02/18 04:02 37.2 C 79 20 156/88 H 10/02/18 03:39 83 156/88 H Pulse Ox 10/02/18 12:08 10/02/18 12:03 10/02/18 08:01 10/02/18 07:52 94 10/02/18 04:02 93 10/02/18 03:39 Resident Activity Tracking Resident Involvement: Resident Care Provided Care Provided: Adult Hospital Medicine (1) Neutropenia Neutropenia type: unspecified Qualified Code(s): D70.9 - Neutropenia, unspecified
--- NOTE | 2018-10-02 14:35 | Progress Note ---
DATE: 10/02/2018 The patient underwent a laryngoscopy exam by ENT and was found to have an open airway without any restriction for sedation or intubation. I talked to the patient today and told him that we will be able to sedate him and intubate him in the OR on Friday afternoon and pass a scope down and put in a feeding gastrostomy tube. Prior to this, he will be n.p.o., we will give him some IV cefazolin preop to reduce the risk for skin infection. I am asking the hospitalist to hold his heparin on Friday evening and also arrange for him to get a platelet transfusion prior to the procedure, which we anticipate doing around 3:00 p.m. on Friday. Once the tubes in place, it should be able to be used the same day and TPN discontinued. Dr. Beau Londono will be covering for me over the weekend.
[2018-10-02] MEDS ORDERED: CUSTOM CENTRAL PN IV SCH (16:00)
[2018-10-03] MEDS: METOPROLOL TARTRATE 1 MG/ML VIAL IV SCH ×6 (00:11→20:11)
[2018-10-03] MEDS: CHECK SCOPOLAMINE PATCH PLACEMENT SCH ×3 (00:11→15:47)
[2018-10-03] MEDS: dexAMETHasone 2 MG in SYRINGE 0 ML IV SCH ×4 (00:12→17:32)
[2018-10-03 06:36] LABS: Mean Corpuscular Hgb Conc 33.3 g/dL (32-36)
[2018-10-03 06:48] LABS: Hematocrit (blood only) 28.5 % (42-52); Hemoglobin 9.5 g/dL (14.0-18.0); Mean Corpuscular Volume 87.4 fL (80-100); RDW Coefficient of Variation 17.1 % (11.5-14.5); RDW Standard Deviation 52.9 fL (36.4-46.3); Red Blood Count 3.26 M/uL (4.7-6.1); White Blood Count 2.45 K/uL (4.8-10.8)
[2018-10-03 07:01] LABS: Platelet Count 46 K/uL (130-400)
[2018-10-03 07:02] LABS: ALC (manual) 0.17 K/uL (1.2-3.4); Echinocytes 1+; Giant Platelets 1+; Lymphocytes # (manual) 0.17 K/uL (1.2-3.4); Lymphocytes % (manual) 6.9 %; Monocytes # (manual) 0.04 K/uL (0.11-0.59); Monocytes % (manual) 1.7 %; Myelocytes # (manual) 0.02 K/uL (0-0); Myelocytes % (manual) 0.9 %; Neutrophils % (manual) 90.5 %; Ovalocytes 1+; Platelet Estimate Decreased (Normal); Toxic Granulation 2+
[2018-10-03 07:05] LABS: Magnesium 2.3 mg/dl (1.8-2.4); Phosphorus 3.2 mg/dl (2.5-4.9)
[2018-10-03 07:24] LABS: BUN Creatinine Ratio 42.3 (10-20); Calcium 8.1 mg/dl (8.5-10.1); Creatinine Clr Calc Pharmacy 42.2 ml/min; Est GFR (African American) 97.5; Est GFR (Non-African American) 84.1; Potassium 4.3 mmol/L (3.5-5.1)
[2018-10-03] MEDS: SCOPOLAMINE 1.5 MG TDSY TD SCH (07:57)
[2018-10-03] MEDS: NYSTATIN SUSP 500,000 U/5 ML UDC PO SCH ×4 (07:57→20:10)
[2018-10-03] MEDS: ALUMINUM/MAGNESIUM SUSP 50 ML, DiphenhydrAMINE Syrup 125 MG, LIDOCAINE HCL 2% VISCOUS 4... PO SCH ×3 (07:58→20:13)
[2018-10-03] MEDS: FILGRASTIM 300 MCG/ML VIAL SQ SCH (08:01)
[2018-10-03] MEDS: ACETAMINOPHEN 1,000 MG/100 ML VIAL IV PRN (12:43)
--- NOTE | 2018-10-03 14:33 | Family Medicine Progress Note ---
Date of Service October 03, 2018 Assessment & Plan (1) Neutropenia: Mr. 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 Was found to have neutropenic sepsis secondary to pneumonia versus mucositis. 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 Confusion/delirium -waxing/waning here - reorient, supportive care. Dysphagia/painful to speak, 2/2 to Mucositis, thrush - Pain relief: IV tylenol and IV dexamethasone - Sx relief: scopolamine patch for secretions, Magic swizzle gargle TID, nystatin swish and spit TID - son brought in doxepin rinse today -> will add to regimen (doxepin 25mg (2.5ml) diluted with 2.5 mL water and gargle for ~60sec and spit TID) -Speech consult appreciated, STRICT NPO, recommend PEG tube. Severe protein/calorie malnutrition Secondary to above. No s/s refeeding syndrome, continue to monitor Mag/phos -Discussed with GI, will place PEG on 10/05 Continue TPN Neutropenia, Pancytopenia -Initially neutropenia did improve on Neupogen (300 mcg daily SQ), ANC >800 therefore Neupogen DCd 07May. Unfortunately, trending back down, discussed with Onc, restart Neupogen 09May. Trend CBC. -Thrombocytopenia -- platelets improved to 46. Will require platelet level of >50 PRIOR TO PEG placement -> recheck tomorrow, will hopefully not require transfusion -> No s/s bleeding. -> Cont to hold plavix, chemical ppx. Neutropenic fever in setting of mucositis and ?bibasilar pneumonia/radiation treatment/thyroid storm -Febrile on admission, afebrile since -MRSA is negative but given nature of mucositis/concern for aspiration and neutropenia, broad spectrum abx were administered initially Considering no fever except on admission and cultures negative - Discontinued Vanco/Zosyn 06May. CXR findings could be from Atelectasis. Suspect fever likely from non-infectious origin, thyrotoxicosis/radiation/chemo? -Incentive spirometer -temp on the higher side at 37.9, with recheck of 37.7 today, but no true fever Tachycardia/delirium/agitation in setting of iatrogenic(?) thyrotoxicosis,- history of radiation therapy to the neck -tachycardia resolved -- Lopressor PRN for tachycardia >100 -Continue to trend TSH/T4 q3days to follow -TSH was 0.124 and T4 was 1.5 yesterday -> improved from admission -can hopefully d/c IV metoprolol tomorrow and reassess. Will continue dexamethasone given it can help w/mucositis Atrial fibrillation - In NSR - IV diltiazem, IV metoprolol. Not on anticoagulation due to low platelet. VT prophylaxis Heparin being HELD as above. SCDs likely of little benefit and possibly dangerous in light of waxing/waning confusion. CODE STATUS Full FEN/GI: on TPN, dextrose, n.p.o. due to pain/mucositis Dispo: lives with his son and caregiver Lev (phone #: [phone]) while undergoing treatment for cancer. . May require SNF on discharge. PT OT ordered. (2) Right lower lobe pneumonia: (3) Poor fluid intake: (4) Dehydration: (5) Squamous cell carcinoma of epiglottis: (6) Mass of middle lobe of right lung: (7) Thyrotoxicosis: (8) Hypernatremia: (9) Elevated troponin: (10) Hypokalemia: (11) Elevated serum creatinine: (12) Total bilirubin, elevated: Supervising Physician Co-Signing Physician Notes Resident Physician Supervision Note: I independently interviewed and examined the patient and verified the kirk history and physical, reviewed labs and image studies, discussed the case with the resident Dr. Wong and agree with the findings and care plan. Subjective Mr. Perla reports he remains with a painful mouth, and expresses frustration at why this is happening. He denies pain elsewhere. He reports some relief with the mouthwash, but states that he is still having a lot of pain and is uncomfortable. Review of Systems Constitutional: + fatigue; no fever and no chills Respiratory: no cough and no dyspnea Cardiovascular: no chest pain Gastrointestinal: no abdominal pain Physical Exam Constitutional: + ill appearing, + thin, + cachectic and + lethargic; no acute distress Eyes: PERRL, conjunctivae normal, anicteric sclerae ENMT: mucositis w/ulceration Respiratory: normal respiratory effort, lungs clear to auscultation Cardiovascular: RRR, no murmur, no edema Gastrointestinal (Abdomen): normal bowel sounds, soft, nontender, no hepatosplenomegaly Musculoskeletal: Extremities: + muscle atrophy Results & Data Vital Signs (Past 12 Hours) Vital Signs Temp Pulse Pulse Resp BP BP BP 10/03/18 12:39 37.7 C H 10/03/18 12:35 96 H 164/78 H 10/03/18 11:33 37.9 C H 96 H 18 164/78 H 10/03/18 07:51 79 134/80 10/03/18 07:39 36.8 C 74 20 134/80 10/03/18 04:00 37.3 C 79 20 162/69 H 10/03/18 03:58 79 162/69 H Pulse Ox 10/03/18 12:39 10/03/18 12:35 10/03/18 11:33 90 10/03/18 07:51 10/03/18 07:39 90 10/03/18 04:00 97 10/03/18 03:58 Resident Activity Tracking Resident Involvement: Resident Care Provided Care Provided: Adult Hospital Medicine (1) Neutropenia Neutropenia type: unspecified Qualified Code(s): D70.9 - Neutropenia, unspecified
[2018-10-03] MEDS ORDERED: CUSTOM CENTRAL PN IV SCH (16:00)
[2018-10-03] MEDS: DOXEPIN 10 MG/ML PO SCH (20:10)
[2018-10-04] MEDS: CHECK SCOPOLAMINE PATCH PLACEMENT SCH ×4 (00:43→23:36)
[2018-10-04] MEDS: dexAMETHasone 2 MG in SYRINGE 0 ML IV SCH ×3 (00:43→17:33)
[2018-10-04] MEDS: METOPROLOL TARTRATE 1 MG/ML VIAL IV SCH ×5 (00:43→20:21)
[2018-10-04] MEDS: ACETAMINOPHEN 1,000 MG/100 ML VIAL IV PRN ×3 (03:05→22:30)
[2018-10-04 06:09] LABS: Hematocrit (blood only) 25.3 % (42-52); Hemoglobin 8.5 g/dL (14.0-18.0); Mean Corpuscular Hgb Conc 33.6 g/dL (32-36); Mean Corpuscular Volume 88.5 fL (80-100); RDW Coefficient of Variation 17.5 % (11.5-14.5); RDW Standard Deviation 54.3 fL (36.4-46.3); Red Blood Count 2.86 M/uL (4.7-6.1); White Blood Count 0.43 K/uL (4.8-10.8)
[2018-10-04 06:11] LABS: BUN Creatinine Ratio 42.3 (10-20); Calcium 8.2 mg/dl (8.5-10.1); Creatinine Clr Calc Pharmacy 40.2 ml/min; Est GFR (African American) 95.6; Est GFR (Non-African American) 82.5; Potassium 4.4 mmol/L (3.5-5.1)
[2018-10-04 06:21] LABS: Platelet Count 49 K/uL (130-400)
[2018-10-04 06:23] LABS: Platelet Estimate Decreased (Normal)
[2018-10-04] MEDS: NYSTATIN SUSP 500,000 U/5 ML UDC PO SCH ×4 (07:43→20:22)
[2018-10-04] MEDS: FILGRASTIM 300 MCG/ML VIAL SQ SCH (07:43)
[2018-10-04] MEDS: DOXEPIN 10 MG/ML PO SCH ×3 (07:46→20:20)
[2018-10-04] MEDS: ALUMINUM/MAGNESIUM SUSP 50 ML, DiphenhydrAMINE Syrup 125 MG, LIDOCAINE HCL 2% VISCOUS 4... PO SCH ×3 (07:46→20:22)
--- NOTE | 2018-10-04 11:07 | Family Medicine Progress Note ---
Date of Service October 04, 2018 Assessment & Plan (1) Neutropenia: Mr. 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 Was found to have neutropenic sepsis secondary to pneumonia versus mucositis. 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 Confusion/delirium -waxing/waning here - reorient, supportive care. Dysphagia/painful to speak, 2/2 to Mucositis, thrush - Pain relief: IV tylenol and IV dexamethasone. Pt would become disoriented on morphine. - Sx relief: scopolamine patch for secretions, Magic swizzle gargle TID, nystatin swish and spit TID, doxepin swish and spit TID -Speech consult appreciated, STRICT NPO. Severe protein/calorie malnutrition Secondary to above. No s/s refeeding syndrome -GI will place PEG on 10/05 Continue TPN Neutropenia, Pancytopenia -On Neupogen since 10/01 (WBCs had trended downwards when this was d/maritza) -WBC count down from 2.45 yesterday to 0.43 today. Continue to monitor -Thrombocytopenia -- platelets improved to 49. Will require platelet level of >50 PRIOR TO PEG placement -> recheck tomorrow, will hopefully not require transfusion -> No s/s bleeding. -> Cont to hold plavix, chemical ppx. Neutropenic fever in setting of mucositis and ?bibasilar pneumonia/radiation treatment/thyroid storm -Febrile on admission, afebrile since -Broad spectrum abx were administered initially but given afebrile except on admission and cultures negative - Discontinued Vanco/Zosyn 06May. CXR findings could be from Atelectasis. Suspect fever likely from non-infectious origin, thyrotoxicosis/radiation/chemo? -Incentive spirometer -temp was on the higher side at 37.9, with recheck of 37.7 on 10/04, but has remained normal today. Continue to monitor, especially with decreased WBC count Thyrotoxicosis - history of radiation therapy to the neck -tachycardia resolved -suspect acute thyroid injury secondary to radiation treatment -Continue to trend TSH/T4 q3days to follow -> ordered for 10/05 -TSH was 0.124 and T4 was 1.5 on 10/02 -> improved from admission -d/c IV metoprolol today and monitor. Weaning dexamethasone from 2mg qid to 2mg BID Atrial fibrillation - resolved VT prophylaxis Heparin being HELD as above. SCDs likely of little benefit and possibly dangerous in light of waxing/waning confusion. CODE STATUS Full FEN/GI: on TPN, dextrose, n.p.o. due to pain/mucositis Dispo: lives with his son and caregiver Lev (phone #: [phone]) while undergoing treatment for cancer. . Referral placed to [facility] when pt ready for discharge. (2) Right lower lobe pneumonia: (3) Poor fluid intake: (4) Dehydration: (5) Squamous cell carcinoma of epiglottis: (6) Mass of middle lobe of right lung: (7) Thyrotoxicosis: (8) Hypernatremia: (9) Elevated troponin: (10) Hypokalemia: (11) Elevated serum creatinine: (12) Total bilirubin, elevated: Supervising Physician Co-Signing Physician Notes Resident Physician Supervision Note: I independently interviewed and examined the patient and verified the kirk history and physical, reviewed labs and image studies, discussed the case with the resident Dr. Wong and agree with the findings and care plan. Subjective Mr. Perla reports the pain in his mouth is down to a 2/10. His son brought in the doxepin mouthwash yesterday, but he states that he did not experience much relief with this. He has no other complaints today. No acute overnight events. Review of Systems Constitutional: + fatigue and + weakness; no fever and no chills Cardiovascular: no chest pain Gastrointestinal: no abdominal pain Physical Exam Constitutional: + ill appearing and + cachectic; no acute distress Respiratory: normal respiratory effort, lungs clear to auscultation Cardiovascular: RRR, no murmur, no edema Gastrointestinal (Abdomen): Percussion/Palpation: abdomen soft; abdomen nontender Musculoskeletal: Extremities: + muscle atrophy Results & Data Vital Signs (Past 12 Hours) Vital Signs Temp Pulse Pulse Resp BP BP Pulse Ox 10/04/18 06:54 36.6 C 76 18 153/75 H 92 10/04/18 04:34 77 144/71 H 10/04/18 04:00 37.2 C 77 20 144/71 H 94 10/04/18 02:55 36.9 C 94 H 151/78 H 91 10/04/18 00:43 98 H 187/86 H Resident Activity Tracking Resident Involvement: Resident Care Provided Care Provided: Adult Hospital Medicine (1) Neutropenia Neutropenia type: unspecified Qualified Code(s): D70.9 - Neutropenia, unspecified
--- NOTE | 2018-10-04 12:07 | Progress Note ---
DATE: 10/04/2018 DIAGNOSES: 1. Neutropenic fever. 2. Tachycardia/delirium/agitation. 3. Severe protein malnutrition. 4. Epiglottal squamous cell carcinoma. 5. Hyponatremia. 6. Atrial fibrillation. SUBJECTIVE: Nilesh is a pleasant 78-year-old gentleman now on hospital day #11. He still has difficulty phonating. He did communicate that he would like coffee, but I do not believe he is capable of swallowing just yet. I believe a PEG tube placement is in the workings for early next week. He continues progress very slowly otherwise. Nursing reports no overnight difficulties. OBJECTIVE: GENERAL: A 78-year-old cachectic-appearing gentleman in no acute distress. VITAL SIGNS: Temperature 36.6, pulse 76, respiratory rate 18, blood pressure 153/75. SKIN: Several nonpalpable purpura involving his upper extremities from previous laboratory draws. HEENT: Oral mucosa is improving; however, mucosa remains dry. NECK: Supple, no palpable lymphadenopathy. HEART: Regular rate and rhythm. LUNGS: Clear to auscultation bilaterally. ABDOMEN: Soft, nontender, nondistended. EXTREMITIES: No clubbing, cyanosis or edema. NEUROLOGIC: Grossly intact. LABORATORY DATA: WBC count 430, hemoglobin 8.5, platelet count 49,000. Sodium 133, potassium 4.4, chloride 103, carbon dioxide 23, BUN 36, creatinine 0.86. IMPRESSION: 1. Treatment-induced pancytopenia. 2. Severe mucositis/radiation-induced pharyngitis. 3. Protein malnutrition. 4. Hyponatremia. 5. Atrial fibrillation. PLAN: Nilesh was seen and examined this morning. He verbalized request for a cup of coffee. Obviously, did not honor his request as he is still unable to swallow readily. Hopefully, a PEG tube will be placed in a short while as to start enteral feedings and improve this gentleman's protein bounds. Continue granulocyte colony stimulating growth factor for now. His platelets are slowly starting to recover. We will continue to follow Nilesh periodically throughout his stay. I have nothing further to add and agree with the current medical management. Continue to suspend treatment until medically stable. MTDD
[2018-10-04] MEDS: CUSTOM CENTRAL PN IV SCH (15:40)
[2018-10-04 15:53] LABS: Appearance Urine Clear (Clear); Bacteria Urine Automated Negative (Negative); Bilirubin Urine Negative (Negative); Blood Urine 2+ (Negative); Epithelial Cell Urine Auto >30 /lpf (0-5); Glucose Urine UA Negative (Negative); Ketones Urine Negative (Negative); Leukocyte Esterase Urine Trace (Negative); Nitrite Urine Negative (Negative); RBC Urine Automated >30 /hpf (0-4); Specific Gravity Urine 1.019 (1.000-1.030); Urobilinogen Urine Positive (Negative); pH Urine 8.5 (4.5-7.5)
[2018-10-04 16:05] LABS: Color Urine Red; Protein Urine 2+ (Negative)
[2018-10-04 16:39] LABS: Renal Epithelial Cells Urine 0-5 /lpf (0-5)
[2018-10-05] MEDS: METOPROLOL TARTRATE 1 MG/ML VIAL IV SCH ×7 (00:22→20:27)
[2018-10-05] MEDS: ACETAMINOPHEN 1,000 MG/100 ML VIAL IV PRN ×3 (05:03→20:46)
--- NOTE | 2018-10-05 05:32 | Progress Note ---
Date of Service October 05, 2018 Received page from patient's nurse that the patient now has a temperature of 38.3 and is shaking. Respiratory was called and suctioned out thick sputum. Saturations now 98%. Given his neutropenia, ordered chest x-ray, blood cultures, and urine culture. Rayo Zaldivar, PGY2 Overnight call Results & Data Vital Signs (Past 12 Hours) Vital Signs Temp Pulse Pulse Resp BP BP Pulse Ox 10/05/18 03:23 107 H 157/75 H 10/05/18 02:58 36.7 C 100 H 20 157/75 H 90 10/05/18 00:22 80 130/75 10/04/18 23:00 38.2 C H 101 H 20 141/85 H 90 10/04/18 20:21 84 136/77 10/04/18 19:00 37.3 C 83 20 117/66 92
[2018-10-05] MEDS: dexAMETHasone 2 MG in SYRINGE 0 ML IV SCH ×2 (05:39→17:51)
[2018-10-05] MEDS ORDERED: VANCOMYCIN HCL 750 MG in SODIUM CHLORIDE 0.9% 500 ML IV ONE (05:56)
[2018-10-05] MEDS ORDERED: VANCOMYCIN CONSULT ACTIVE PRN (05:56)
[2018-10-05] MEDS ORDERED: CEFEPIME 2,000 MG in SYRINGE 7.5 ML IV SCH (06:00)
[2018-10-05] MEDS ORDERED: CEFAZOLIN 1000MG 1,000 MG/7.5 ML SYR IV SCH (06:00)
[2018-10-05] MEDS ORDERED: LORazepam 0.5 MG/1 ML VIAL IV SCH (06:00)
[2018-10-05] MEDS ORDERED: CEFEPIME CONSULT ACTIVE PRN (06:10)
[2018-10-05] MEDS ORDERED: VANCOMYCIN HCL 750 MG in SODIUM CHLORIDE 0.9% 250 ML IV ONE (06:15)
--- NOTE | 2018-10-05 06:36 | XRay Report ---
XR chest 1V portable CLINICAL HISTORY: fever, neutropenia, coarse breath sounds dyspnea COMPARISON STUDY: 09/22/2018 FINDINGS: PICC catheter in superior vena cava. Interval development of a right basilar parenchymal in filtrate combined with a right effusion. Left lung is considered clear. IMPRESSION: 1. PICC catheter in superior vena cava. 2. No evidence pneumothorax. 3. Slightly progressive right basilar parenchymal infiltrate and effusion compared to the prior study . The above report was generated using voice recognition software. It may contain grammatical, syntax or spelling errors. Electronically signed by: Garry Flores M.D. 10/05/2018 6:35 AM
[2018-10-05 06:55] LABS: T4 Free Thyroxine 1.63 ng/dl (0.8-1.6)
[2018-10-05] MEDS: ALUMINUM/MAGNESIUM SUSP 50 ML, DiphenhydrAMINE Syrup 125 MG, LIDOCAINE HCL 2% VISCOUS 4... PO SCH ×3 (07:14→20:28)
[2018-10-05] MEDS: NYSTATIN SUSP 500,000 U/5 ML UDC PO SCH ×4 (07:14→20:27)
[2018-10-05] MEDS: DOXEPIN 10 MG/ML PO SCH ×3 (07:14→20:27)
[2018-10-05] MEDS: CHECK SCOPOLAMINE PATCH PLACEMENT SCH ×2 (07:14→16:05)
[2018-10-05] MEDS: FILGRASTIM 300 MCG/ML VIAL SQ SCH (07:30)
[2018-10-05 09:12] LABS: BUN Creatinine Ratio 43.7 (10-20); Creatinine Clr Calc Pharmacy 33.8 ml/min; Est GFR (African American) 78.8; Magnesium 1.7 mg/dl (1.8-2.4); Potassium 3.9 mmol/L (3.5-5.1)
[2018-10-05 09:16] LABS: Phosphorus 4.2 mg/dl (2.5-4.9)
[2018-10-05 09:35] LABS: Hematocrit (blood only) 27.4 % (42-52); Hemoglobin 9.1 g/dL (14.0-18.0); Mean Corpuscular Hgb Conc 33.2 g/dL (32-36); Platelet Count 65 K/uL (130-400); RDW Coefficient of Variation 17.9 % (11.5-14.5); Red Blood Count 3.08 M/uL (4.7-6.1); White Blood Count 0.68 K/uL (4.8-10.8)
[2018-10-05 09:48] LABS: Dohle Bodies 1+; Giant Platelets 3+; Lymphocytes % (auto) 58.8 %; Monocytes # (auto) 0.09 K/uL (0.11-0.59); Monocytes % (auto) 13.2 %; Neutrophils # (auto) 0.19 K/uL (1.4-6.5); Schistocytes 1+; Toxic Granulation 2+
--- NOTE | 2018-10-05 10:15 | Pharmacy Report ---
Pharmacy Abx Initial Consult - Date of Service October 05, 2018 - Pharmacy Dosing Scope Date of Consult: 10/05 Consultation requested by: Dr. Zaldivar Pharmacy is consulted to initiate vancomycin and cefepime IV dosing therapy, order appropriate labs and adjust drug dose/frequency. - Subjective The patient is a 78 year old M admitted on 09/22/18 18:13. - Objective Height: 5 ft Weight: 41.5 kg Vital Signs (Past 12hrs): Vital Signs Temp Pulse Pulse Resp BP BP BP 10/05/18 07:30 10/05/18 07:26 37.2 C 92 H 20 148/67 H 10/05/18 07:19 82 148/67 H 10/05/18 03:23 107 H 157/75 H 10/05/18 02:58 36.7 C 100 H 20 157/75 H 10/05/18 00:22 80 130/75 10/04/18 23:00 38.2 C H 101 H 20 141/85 H Pulse Ox 10/05/18 07:30 96 10/05/18 07:26 90 10/05/18 07:19 10/05/18 03:23 10/05/18 02:58 90 10/05/18 00:22 10/04/18 23:00 90 Lab Results (24hrs): Laboratory Tests (24 Hours) 10/05/18 10/05/18 08:40 05:51 WBC 0.68 L* Neut # (Auto) 0.19 L* Creatinine 1.04 Est Cr Clr Drug Dosing 33.8 Micro Results: 10/05/18 05:51 Aerobic Blood Culture - Pending Blood Anaerobic Blood Culture - Pending 10/05/18 05:45 Aerobic Blood Culture - Pending Blood Anaerobic Blood Culture - Pending 10/05/18 07:41 Urine Culture - Pending Urine,Indwelling Cath 10/04/18 15:10 Urine Culture - Pending Urine,Straight Cath 09/22/18 15:36 Blood Culture - Final Blood No growth 09/22/18 15:36 Blood Culture - Final Blood No growth 09/22/18 22:45 Urine Culture - Final Urine,Straight Cath No growth - less than 1,000 colonies/mL. - Risk Factors for Resistance * Current hospitalization > 5 days * Immunocompromised (chemotherapy) * Antimicrobial use within the last 90 days : Vancomycin from 09/22 - 09/27, Zosyn from 09/22 - 09/25 - Assessment & Plan Assessment 78 year old M admitted on 09/22 with pancytopenia, possible aspiration pneumonia and mucositis. He was previously on vancomycin and Zosyn as noted above. He has been on PN since 09/25 with plans for PEG tube placement today. Broad spectrum antibiotics (vancomycin and cefepime) were restarted overnight for spiking fevers. Blood and urine cultures have been obtained. Antibiotics are currently only ordered for 48 hours until cultures are resulted. Plan Vancomycin IV * Patient was previously on vancomycin 750 mg q24h with a therapeutic trough and similar renal function. Will initiate the same regimen and can adjust if continued > 48 hours. * Loading dose: 750 mg (~18 mg/kg) was given overnight. Will start maintenance dose earlier since this was not a full load. * Maintenance dose: 750 mg IV (18 mg/kg) every 24 hours - starting @ 1600 today (~10 hours after 1st dose) * Goal trough level until cultures resulted : 15 to 20 mcg/mL * Will need to order a trough level prior to the 4th dose if continued > 48 hours. Cefepime * 2 gm q12h for CrCl 30-60 mL/min (reduced from target dose of 2 gm q8h) Pharmacy will continue to follow and will adjust dose/frequency as necessary. Thank you.
[2018-10-05] MEDS ORDERED: PROPOFOL IV EMULSION 10 MG/ML 20 ML VIAL IV ONE (13:51)
[2018-10-05] MEDS ORDERED: MIDAZOLAM HCL 1 MG/ML 2ML VIAL ONE (13:51)
[2018-10-05] MEDS ORDERED: LIDOCAINE HCL 2% 2 ML VIAL/AMP(20MG/ML) INFIL ONE (13:51)
[2018-10-05] MEDS ORDERED: fentaNYL citrate 100 MCG/2 ML VIAL ONE (13:51)
[2018-10-05] MEDS ORDERED: SODIUM CHLORIDE 0.9% 1000ML 1,000 ML IV ONE ×2 (15:00→18:11)
[2018-10-05] MEDS ORDERED: MoRPHine SULFATE 2 MG/ML CARP IV STA (15:03)
--- NOTE | 2018-10-05 15:26 | Progress Note ---
DATE: 10/05/2018 The patient was scheduled for a gastrostomy tube today, but overnight developed a fever. He had blood and urine cultures obtained as well as a chest x-ray and his antibiotics were changed. The patient currently is poorly responsive and rigoring and has a temperature of 39.5. His skin is warm to touch. Chest x-ray showed enlarged infiltrate in the right lower lobe suggesting aspiration. IMPRESSION: The patient appears to be infected, probably either bacteremia from infected line or aspiration. We will cancel his gastrostomy tube placement today as he is very unstable and tachycardic. I ordered repeat blood cultures from peripheral vein as well as through his PICC line. We will continue his antibiotics and reassess tomorrow. We still may consider PEG tube depending on his condition. The patient is currently full resuscitation and I would recommend that this get reassessed given his poor condition.
[2018-10-05] MEDS: CUSTOM CENTRAL PN IV SCH (15:51)
[2018-10-05] MEDS ORDERED: CUSTOM CENTRAL PN IV SCH (16:00)
[2018-10-05] MEDS: LEVOFLOXACIN/D5W 750 MG/150 ML BAG IV SCH (16:10)
[2018-10-05 16:25] LABS: BUN Creatinine Ratio 44.4 (10-20); Calcium 7.6 mg/dl (8.5-10.1); Creatinine Clr Calc Pharmacy 34.8 ml/min; Est GFR (African American) 81.6; Est GFR (Non-African American) 70.4; Potassium 4.2 mmol/L (3.5-5.1)
[2018-10-05 16:33] LABS: Troponin I 0.067 ng/ml (0-0.045)
--- NOTE | 2018-10-05 17:45 | ENT Consultation ---
Date of Consultation October 05, 2018 Assessment & Plan (1) Squamous cell carcinoma of epiglottis: discussed with Dr. 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, left TVC paralysis Allergies Allergy/AdvReac Type Severity Reaction Status Date / Time nitroglycerin Allergy Severe "my heart Verified 09/22/18 15:30 stopped" Home Medications Home Medications Medication Instructions Recorded Confirmed Type clopidogrel 75 mg PO DAILY 07/08/18 09/22/18 History methotrexate sodium 6 tab PO UD 07/08/18 09/22/18 History gabapentin 100 mg capsule 200 mg PO TID 08/31/18 09/22/18 History nystatin 5 ml PO QID 09/22/18 09/22/18 History oxycodone 5 mg PO Q8 PRN 09/22/18 09/22/18 History scopolamine base [Transderm-Scop] 1 mg TOPICAL UD 09/22/18 09/22/18 History doxepin 10 mg PO TID PRN #85 ml 10/02/18 Rx Patient History Medical History Neutropenia (Acute) Elevated troponin (Acute) Acute kidney injury Anemia Hyponatremia On total parenteral nutrition (TPN) Through right arm PICC. Patient receiving radiation and chemotherapy. Irriation of the mouth aggravating his ability to try to swallow. Pancytopenia Patient has had mild pancytopenia his entire life. Prior work-up included bone marrow biopsies x2 with no particular diagnosis established. Pneumonia Right lower lobe pneumonia. Elevated lactate upon admission of 2.9. Thrombocytopenia Thyrotoxicosis TSH on admission 0.008, Ft4 2.42. Deviated nasal septum (Chronic) History of skin cancer (Chronic) EXCISION OF NOSE/FACE REGION, NO CONCERNS/ISSUES SINCE. 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 Woo. Rheumatoid arthritis (Chronic) BPH (benign prostatic hyperplasia) Surgical History History of lung surgery right VATS, middle lobectomy, wedge resection. MAC 3. Grade 2 view. 8.5 ETT. H/O aorto-femoral bypass (Chronic) History of appendectomy (Resolved) History of heart surgery (Resolved) PLACEMENT OF AORTIC STENT [address] [facility]. History of herniorrhaphy (Resolved) Left inguinal History of laryngoscopy 07/06/18 History of throat surgery Direct laryngoscopy and esophagoscopy with biopsy of larynx 07/17/18: Fiberoptic #4, ETT 7.0 with Grade 2 view (listed as fiberoptic #4..believe this means Glidescope #4). Family History Mother , 70yo CHF (congestive heart failure) Throat cancer Father , 53yo Bowel obstruction Brother No problems noted. Brother No problems noted. Brother No problems noted. Brother No problems noted. Brother No problems noted. Sister No problems noted. Sister No problems noted. Sister No problems noted. Sister No problems noted. Son No problems noted. Son No problems noted. Son No problems noted. Daughter No problems noted. Daughter No problems noted. 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 Other Information That Helps Us Care for You: No Feels Safe at Home: Yes Smoking Status: Former smoker Tobacco Type: cigars Cigarettes Per Day: 1-3 cigars/day when he smoked; Do You Dip or Chew Tobacco: No Second Hand Exposure: No Hx Alcohol Use: No Hx Substance Use: No caffeine: Yes (3-4 cups/day) during the past year weight has: other Physical Exam Constitutional: + acute distress, + ill appearing and + altered mental status Eyes: PERRL, conjunctivae normal, anicteric sclerae ENMT: external ear and nose normal, oropharynx normal epiglottic Ca, left vocal cord paralysis Neck: trachea midline, no thyromegaly Results & Data Vital Signs (Past 12 Hours) Vital Signs Temp Pulse Pulse Resp BP BP Pulse Ox 10/05/18 16:13 97 H 92/48 L 10/05/18 15:33 108 H 20 99 10/05/18 12:48 119 H 128/67 10/05/18 12:24 38.4 C H 10/05/18 07:30 96 10/05/18 07:26 37.2 C 92 H 20 148/67 H 90 10/05/18 07:19 82 148/67 H
[2018-10-05 17:48] LABS: Hematocrit (blood only) 21.4 % (42-52); Hemoglobin 7.1 g/dL (14.0-18.0); Mean Corpuscular Hgb Conc 33.2 g/dL (32-36); Mean Corpuscular Volume 89.9 fL (80-100); Platelet Count 41 K/uL (130-400); RDW Coefficient of Variation 17.9 % (11.5-14.5); RDW Standard Deviation 57.3 fL (36.4-46.3); Red Blood Count 2.38 M/uL (4.7-6.1); White Blood Count 0.31 K/uL (4.8-10.8)
[2018-10-05] MEDS: VANCOMYCIN HCL 750 MG in SODIUM CHLORIDE 0.9% 250 ML IV SCH (17:50)
[2018-10-05] MEDS: CEFEPIME 2,000 MG in SYRINGE 7.5 ML IV SCH (17:51)
[2018-10-05] MEDS ORDERED: MoRPHine SULFATE 2 MG/ML CARP ONE (18:21)
--- NOTE | 2018-10-05 18:25 | Family Medicine Progress Note ---
Date of Service October 05, 2018 Assessment & Plan (1) Neutropenia: Mr. 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 intake for 1-2 weeks [facility] [employer]. Was found to have neutropenic sepsis secondary to pneumonia versus mucositis. 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 Neutropenic Sepsis -Pt with increased oxygen demands, tachycardia, leukopenia, fever, hypotension -Cultures obtained from port and periphery, pending..Cultures on admission negative. -Given 2L IVF -Resumed broad abx (cefipime, vanc, levaquin) -1mg IV morphine q2h prn for respiratory distress, hold parameters for BP. -CXR shows increased collection in R lung; suggestive of aspiration. Abx as above -Incentive spirometry as tolerated Confusion/delirium -waxing/waning here - reorient, supportive care. Dysphagia/painful to speak, 2/2 to Mucositis, thrush - Pain relief: IV tylenol and IV dexamethasone. Pt became disoriented on morphine. - Sx relief: scopolamine patch for secretions, Magic swizzle gargle TID, nystatin swish and spit TID, doxepin swish and spit TID -Speech consult appreciated, STRICT NPO. Severe protein/calorie malnutrition Secondary to above. No s/s refeeding syndrome -GI will place PEG, currently on hold considering sepsis Continue TPN Neutropenia, Pancytopenia -On Neupogen since 10/01 (WBCs had trended downwards when this was d/maritza) -WBC count down from 2.45 yesterday to 0.33 today. Continue to monitor -Thrombocytopenia -- platelets improved to 64. Requires platelet level of >50 PRIOR TO PEG placement -> continue to monitor. -> No s/s bleeding. -> Cont to hold plavix, chemical ppx. Thyrotoxicosis - history of radiation therapy to the neck -tachycardic off and on throughout the day -suspect acute thyroid injury secondary to radiation treatment -Check TSH/T4 in outpatient setting -TSH was 0.205, and T4 was 1.63 on 10/05 -> improved from admission -Weaned dexamethasone from 2mg qid to 2mg BID Atrial fibrillation - resolved VT prophylaxis Heparin being HELD as above. SCDs likely of little benefit and possibly dangerous in light of waxing/waning confusion. CODE STATUS Full; need to discuss goals of care FEN/GI: on TPN, dextrose, n.p.o. due to pain/mucositis Dispo: lives with his son and caregiver Lev (phone #: [phone]) while undergoing treatment for cancer. . Referral placed to [facility] when pt ready for discharge. (2) Right lower lobe pneumonia: (3) Poor fluid intake: (4) Dehydration: (5) Squamous cell carcinoma of epiglottis: (6) Mass of middle lobe of right lung: (7) Thyrotoxicosis: (8) Hypernatremia: (9) Elevated troponin: (10) Hypokalemia: (11) Elevated serum creatinine: (12) Total bilirubin, elevated: Supervising Physician Co-Signing Physician Notes I personally examined the patient and verified all kirk points of history and exam, discussed case, and agree with decision making with Dr Bell. seen multiple times today. Doing worse. Had a fever overnight. Recurrent fever later today. No meaningful HPI or review of systems obtainable. Dr. Candelario (3rd year resident assisting in care) updated son who said he was on his way in. Revisited patient later but still no son. Later patient does appear more calm his vital signs are more stable, his breathing is less labored. Vitals noted, at different visits through the day he was more agitated and restless, followed later by being calm but without a whole lot of meaningful interaction. HEENT normocephalic atraumatic mucous membranes reasonably moist. Breathing shows his lungs to be coarse rhonchi far worse than the last I examined him, and discussing with the resident team for worsening was when they last listened as well, right worse than left. No rales no wheezes, moderate degree of accessory muscles that actually calms as he improves. Labs and chest x-ray noted Neutropenic sepsisrecurrent sepsis appears to be quite worrisome for healthcare associated versus recurrent aspiration pneumonia. Given that either are possible and he is quite ill, agree with double coverage for gram negatives as well as vancomycin. Supportive care, aggressive fluid resuscitation. Oxygen support. Also on the differential would be bacteremia (blood cultures are pending) or urinary tract infection (urine culture pending) he is not showing any signs of cellulitis or C. difficile. Son updated, prognosis certainly concerning given he is recurrently septic in his frail state. Radiation-induced thyroiditisfortunately this appears to be improving, his TSH is coming up and his free T4 is coming down. Continue to follow periodically. DVT prophylaxishe was initially on pharmacologic prophylaxis but with his platelets dropping this had to be held, currently certainly appears to need to be held as well. His worsening seems to fit much more with a septic picture given the fevers, but if he does not show improvement fairly quickly, would need to consider CT chest to rule out PE, however again as above noted a septic picture appears much more likely. Subjective Mr. Perla is unable to answer questions today due to cognitive status Review of Systems Review of Systems: Unobtainable due to cognitive status Physical Exam Constitutional: + acute distress, + ill appearing, + thin, + cachectic and + altered mental status Eyes: PERRL, conjunctivae normal, anicteric sclerae ENMT: external ear and nose normal, oropharynx normal Mouth: + muffled voice Neck: trachea midline, no thyromegaly Respiratory: + respiratory distress, + labored breathing and + uses accessory muscles; no retractions Auscultation: + diminished lung sounds and + rhonchi Cardiovascular: Rate/Rhythm: regular rhythm; + abnormal rate Extremities: no edema Gastrointestinal (Abdomen): normal bowel sounds, soft, nontender, no hepatosplenomegaly Musculoskeletal: no cyanosis or clubbing, extremities motor strength 5/5 Extremities: + abnormal strength and + muscle atrophy; no cyanosis Skin: no rashes, warm and dry Psychiatric: Orientation: + not alert and + not oriented x 3 Affect: + anxious affect Results & Data Vital Signs (Past 12 Hours) Vital Signs Temp Pulse Pulse Resp BP BP BP 10/05/18 18:01 36.2 C L 99 H 24 134/73 134/73 10/05/18 16:13 97 H 92/48 L 10/05/18 15:33 108 H 20 10/05/18 12:48 119 H 128/67 10/05/18 12:24 38.4 C H 10/05/18 07:30 10/05/18 07:26 37.2 C 92 H 20 148/67 H 10/05/18 07:19 82 148/67 H Pulse Ox 10/05/18 18:01 99 10/05/18 16:13 10/05/18 15:33 99 10/05/18 12:48 10/05/18 12:24 10/05/18 07:30 96 10/05/18 07:26 90 10/05/18 07:19 Laboratory Results 10/05/18 10/05/18 10/05/18 Range/Units 16:49 15:38 15:37 WBC 0.31 L* Cancelled (4.8-10.8) K/uL RBC 2.38 L Cancelled (4.7-6.1) M/uL Hgb 7.1 L Cancelled (14.0-18.0) g/dL Hct 21.4 L Cancelled (42-52) % MCV 89.9 Cancelled (80-100) fL MCH 29.8 Cancelled (25-34) pg MCHC 33.2 Cancelled (32-36) g/dL RDW Std Deviation 57.3 H Cancelled (36.4-46.3) fL RDW Coeff of Daniel 17.9 H Cancelled (11.5-14.5) % Plt Count 41 L Cancelled (130-400) K/uL MPV Cancelled Immature Gran % (Auto) Cancelled Cancelled % Neut % (Auto) Cancelled Cancelled % Lymph % (Auto) Cancelled Cancelled % [place] % (Auto) Cancelled Cancelled % Eos % (Auto) Cancelled Cancelled % Baso % (Auto) Cancelled Cancelled % Immature Gran # (Auto) Cancelled Cancelled (0.00-0.02) K/uL Neut # (Auto) Cancelled Cancelled (1.4-6.5) K/uL Lymph # (Auto) Cancelled Cancelled (1.2-3.4) K/uL [place] # (Auto) Cancelled Cancelled (0.11-0.59) K/uL Eos # (Auto) Cancelled Cancelled (0-0.5) K/uL Baso # (Auto) Cancelled Cancelled (0-0.2) K/uL Absolute Nucleated RBC Cancelled Nucleated RBC % (auto) Cancelled Neutrophils % (Manual) Cancelled Cancelled Band Neutrophils % Cancelled Cancelled Lymphocytes % (Manual) Cancelled Cancelled Prolymphocyte % Cancelled Cancelled Reactive Lymphs % (Man) Cancelled Cancelled Monocytes % (Manual) Cancelled Cancelled Eosinophils % (Manual) Cancelled Cancelled Basophils % (Manual) Cancelled Cancelled Metamyelocytes % (Man) Cancelled Cancelled Myelocytes % (Man) Cancelled Cancelled Promyelocytes % (Man) Cancelled Cancelled Blast Cells % (Manual) Cancelled Cancelled Plasma Cell % (Manual) Cancelled Cancelled Other Cells % Cancelled Cancelled Nucleated RBC % Cancelled Cancelled Neutrophils # (Manual) Cancelled Cancelled Band Neutrophils # Cancelled Cancelled Total Absolute Neuts Cancelled Cancelled Lymphocytes # (Manual) Cancelled Cancelled Prolymphocyte # Cancelled Cancelled Reactive Lymphs # Cancelled Cancelled Total Abs Lymphocytes Cancelled Cancelled Monocytes # (Manual) Cancelled Cancelled Eosinophils # (Manual) Cancelled Cancelled Basophils # (Manual) Cancelled Cancelled Metamyelocytes # (Man) Cancelled Cancelled Myelocytes # (Manual) Cancelled Cancelled Promyelocytes # (Man) Cancelled Cancelled Blast Cells # (Man) Cancelled Cancelled Plasma Cell # (Manual) Cancelled Cancelled Other Cells # Cancelled Cancelled Nucleated RBCs # (Man) Cancelled Cancelled Hypersegmented Neuts Cancelled Cancelled Hyposegmented Neuts Cancelled Cancelled Hypogranular Neuts Cancelled Cancelled Large Granular Lymphs Cancelled Cancelled # Lrg Granular Lymphs Cancelled Cancelled Hairy Cells Cancelled Cancelled Smudge Cells Cancelled Cancelled Toxic Granulation Cancelled Cancelled Toxic Vacuolation Cancelled Cancelled Dohle Bodies Cancelled Cancelled Kody Rods Cancelled Cancelled Platelet Estimate Cancelled Hypogranular Platelets Cancelled Cancelled Clumped Platelets Cancelled Cancelled Giant Platelets Cancelled Cancelled Platelet Satelliting Cancelled Cancelled RBC Morphology Cancelled Cancelled Polychromasia Cancelled Cancelled Hypochromasia Cancelled Cancelled Poikilocytosis Cancelled Cancelled Basophilic Stippling Cancelled Cancelled Anisocytosis Cancelled Cancelled Microcytosis Cancelled Cancelled Macrocytosis Cancelled Cancelled Spherocytes Cancelled Cancelled Pappenheimer Bodies Cancelled Cancelled Sickle Cells Cancelled Cancelled Target Cells Cancelled Cancelled Tear Drop Cells Cancelled Cancelled Ovalocytes Cancelled Cancelled Stomatocytes Cancelled Cancelled [place] Bodies Cancelled Cancelled Echinocytes Cancelled Cancelled Acanthocytes (Spur) Cancelled Cancelled Rouleaux Cancelled Cancelled RBC Agglutinates Cancelled Cancelled Schistocytes Cancelled Cancelled RBC Morph Comment Cancelled Cancelled Sezary Cell Cancelled Cancelled Sodium 140 (136-145) mmol/L Potassium 4.2 (3.5-5.1) mmol/L Chloride 108 H (98-107) mmol/L Carbon Dioxide 23 (21-32) mmol/L Anion Gap 8.0 (3-11) BUN 45 H (7-18) mg/dl Creatinine 1.01 (0.6-1.4) mg/dl Est Cr Clr Drug Dosing 34.8 ml/min Est GFR ( Amer) 81.6 Est GFR (Non-Af Amer) 70.4 BUN/Creatinine Ratio 44.4 H (10-20) Glucose 94 (70-99) mg/dl POC Glucose (70-99) Calcium 7.6 L (8.5-10.1) mg/dl Phosphorus (2.5-4.9) mg/dl Magnesium (1.8-2.4) mg/dl Troponin I 0.067 H* (0-0.045) ng/ml TSH (0.300-4.500) uIu/ml Free T4 (0.8-1.6) ng/dl Blood Type Antibody Screen 10/05/18 10/05/18 10/05/18 Range/Units 13:52 13:24 08:40 WBC (4.8-10.8) K/uL RBC (4.7-6.1) M/uL Hgb (14.0-18.0) g/dL Hct (42-52) % MCV (80-100) fL MCH (25-34) pg MCHC (32-36) g/dL RDW Std Deviation (36.4-46.3) fL RDW Coeff of Daniel (11.5-14.5) % Plt Count (130-400) K/uL MPV Immature Gran % (Auto) % Neut % (Auto) % Lymph % (Auto) % [place] % (Auto) % Eos % (Auto) % Baso % (Auto) % Immature Gran # (Auto) (0.00-0.02) K/uL Neut # (Auto) (1.4-6.5) K/uL Lymph # (Auto) (1.2-3.4) K/uL [place] # (Auto) (0.11-0.59) K/uL Eos # (Auto) (0-0.5) K/uL Baso # (Auto) (0-0.2) K/uL Absolute Nucleated RBC Nucleated RBC % (auto) Neutrophils % (Manual) Band Neutrophils % Lymphocytes % (Manual) Prolymphocyte % Reactive Lymphs % (Man) Monocytes % (Manual) Eosinophils % (Manual) Basophils % (Manual) Metamyelocytes % (Man) Myelocytes % (Man) Promyelocytes % (Man) Blast Cells % (Manual) Plasma Cell % (Manual) Other Cells % Nucleated RBC % Neutrophils # (Manual) Band Neutrophils # Total Absolute Neuts Lymphocytes # (Manual) Prolymphocyte # Reactive Lymphs # Total Abs Lymphocytes Monocytes # (Manual) Eosinophils # (Manual) Basophils # (Manual) Metamyelocytes # (Man) Myelocytes # (Manual) Promyelocytes # (Man) Blast Cells # (Man) Plasma Cell # (Manual) Other Cells # Nucleated RBCs # (Man) Hypersegmented Neuts Hyposegmented Neuts Hypogranular Neuts Large Granular Lymphs # Lrg Granular Lymphs Hairy Cells Smudge Cells Toxic Granulation Toxic Vacuolation Dohle Bodies Kody Rods Platelet Estimate Hypogranular Platelets Clumped Platelets Giant Platelets Platelet Satelliting RBC Morphology Polychromasia Hypochromasia Poikilocytosis Basophilic Stippling Anisocytosis Microcytosis Macrocytosis Spherocytes Pappenheimer Bodies Sickle Cells Target Cells Tear Drop Cells Ovalocytes Stomatocytes [place] Bodies Echinocytes Acanthocytes (Spur) Rouleaux RBC Agglutinates Schistocytes RBC Morph Comment Sezary Cell Sodium 137 (136-145) mmol/L Potassium 3.9 (3.5-5.1) mmol/L Chloride 104 (98-107) mmol/L Carbon Dioxide 26 (21-32) mmol/L Anion Gap 6.0 (3-11) BUN 45 H (7-18) mg/dl Creatinine 1.04 (0.6-1.4) mg/dl Est Cr Clr Drug Dosing 33.8 ml/min Est GFR ( Amer) 78.8 Est GFR (Non-Af Amer) 68.0 BUN/Creatinine Ratio 43.7 H (10-20) Glucose 97 (70-99) mg/dl POC Glucose 102 H (70-99) Calcium 8.0 L (8.5-10.1) mg/dl Phosphorus 4.2 (2.5-4.9) mg/dl Magnesium 1.7 L (1.8-2.4) mg/dl Troponin I (0-0.045) ng/ml TSH (0.300-4.500) uIu/ml Free T4 (0.8-1.6) ng/dl Blood Type O Positive Antibody Screen NEGATIVE 10/05/18 10/05/18 10/05/18 Range/Units 06:00 05:51 05:45 WBC 0.68 L* (4.8-10.8) K/uL RBC 3.08 L (4.7-6.1) M/uL Hgb 9.1 L (14.0-18.0) g/dL Hct 27.4 L (42-52) % MCV 89.0 (80-100) fL MCH 29.5 (25-34) pg MCHC 33.2 (32-36) g/dL RDW Std Deviation 57.0 H (36.4-46.3) fL RDW Coeff of Daniel 17.9 H (11.5-14.5) % Plt Count 65 L (130-400) K/uL MPV Immature Gran % (Auto) 0.0 % Neut % (Auto) 28.0 % Lymph % (Auto) 58.8 % [place] % (Auto) 13.2 % Eos % (Auto) 0.0 % Baso % (Auto) 0.0 % Immature Gran # (Auto) 0.00 (0.00-0.02) K/uL Neut # (Auto) 0.19 L* (1.4-6.5) K/uL Lymph # (Auto) 0.40 L (1.2-3.4) K/uL [place] # (Auto) 0.09 L (0.11-0.59) K/uL Eos # (Auto) 0.00 (0-0.5) K/uL Baso # (Auto) 0.00 (0-0.2) K/uL Absolute Nucleated RBC Nucleated RBC % (auto) Neutrophils % (Manual) Band Neutrophils % Lymphocytes % (Manual) Prolymphocyte % Reactive Lymphs % (Man) Monocytes % (Manual) Eosinophils % (Manual) Basophils % (Manual) Metamyelocytes % (Man) Myelocytes % (Man) Promyelocytes % (Man) Blast Cells % (Manual) Plasma Cell % (Manual) Other Cells % Nucleated RBC % Neutrophils # (Manual) Band Neutrophils # Total Absolute Neuts Lymphocytes # (Manual) Prolymphocyte # Reactive Lymphs # Total Abs Lymphocytes Monocytes # (Manual) Eosinophils # (Manual) Basophils # (Manual) Metamyelocytes # (Man) Myelocytes # (Manual) Promyelocytes # (Man) Blast Cells # (Man) Plasma Cell # (Manual) Other Cells # Nucleated RBCs # (Man) Hypersegmented Neuts Hyposegmented Neuts Hypogranular Neuts Large Granular Lymphs # Lrg Granular Lymphs Hairy Cells Smudge Cells Toxic Granulation 2+ Toxic Vacuolation Dohle Bodies 1+ Kody Rods Platelet Estimate Hypogranular Platelets Clumped Platelets Giant Platelets 3+ Platelet Satelliting RBC Morphology Polychromasia Hypochromasia Poikilocytosis Basophilic Stippling Anisocytosis Microcytosis Macrocytosis Spherocytes Pappenheimer Bodies Sickle Cells Target Cells Tear Drop Cells Ovalocytes Stomatocytes [place] Bodies Echinocytes Acanthocytes (Spur) Rouleaux RBC Agglutinates Schistocytes 1+ RBC Morph Comment Sezary Cell Sodium (136-145) mmol/L Potassium (3.5-5.1) mmol/L Chloride (98-107) mmol/L Carbon Dioxide (21-32) mmol/L Anion Gap (3-11) BUN (7-18) mg/dl Creatinine (0.6-1.4) mg/dl Est Cr Clr Drug Dosing ml/min Est GFR ( Amer) Est GFR (Non-Af Amer) BUN/Creatinine Ratio (10-20) Glucose (70-99) mg/dl POC Glucose 122 H (70-99) Calcium (8.5-10.1) mg/dl Phosphorus (2.5-4.9) mg/dl Magnesium (1.8-2.4) mg/dl Troponin I (0-0.045) ng/ml TSH 0.205 L (0.300-4.500) uIu/ml Free T4 1.63 H (0.8-1.6) ng/dl Blood Type Antibody Screen 10/04/18 10/04/18 Range/Units 23:53 18:52 WBC (4.8-10.8) K/uL RBC (4.7-6.1) M/uL Hgb (14.0-18.0) g/dL Hct (42-52) % MCV (80-100) fL MCH (25-34) pg MCHC (32-36) g/dL RDW Std Deviation (36.4-46.3) fL RDW Coeff of Daniel (11.5-14.5) % Plt Count (130-400) K/uL MPV Immature Gran % (Auto) % Neut % (Auto) % Lymph % (Auto) % [place] % (Auto) % Eos % (Auto) % Baso % (Auto) % Immature Gran # (Auto) (0.00-0.02) K/uL Neut # (Auto) (1.4-6.5) K/uL Lymph # (Auto) (1.2-3.4) K/uL [place] # (Auto) (0.11-0.59) K/uL Eos # (Auto) (0-0.5) K/uL Baso # (Auto) (0-0.2) K/uL Absolute Nucleated RBC Nucleated RBC % (auto) Neutrophils % (Manual) Band Neutrophils % Lymphocytes % (Manual) Prolymphocyte % Reactive Lymphs % (Man) Monocytes % (Manual) Eosinophils % (Manual) Basophils % (Manual) Metamyelocytes % (Man) Myelocytes % (Man) Promyelocytes % (Man) Blast Cells % (Manual) Plasma Cell % (Manual) Other Cells % Nucleated RBC % Neutrophils # (Manual) Band Neutrophils # Total Absolute Neuts Lymphocytes # (Manual) Prolymphocyte # Reactive Lymphs # Total Abs Lymphocytes Monocytes # (Manual) Eosinophils # (Manual) Basophils # (Manual) Metamyelocytes # (Man) Myelocytes # (Manual) Promyelocytes # (Man) Blast Cells # (Man) Plasma Cell # (Manual) Other Cells # Nucleated RBCs # (Man) Hypersegmented Neuts Hyposegmented Neuts Hypogranular Neuts Large Granular Lymphs # Lrg Granular Lymphs Hairy Cells Smudge Cells Toxic Granulation Toxic Vacuolation Dohle Bodies Kody Rods Platelet Estimate Hypogranular Platelets Clumped Platelets Giant Platelets Platelet Satelliting RBC Morphology Polychromasia Hypochromasia Poikilocytosis Basophilic Stippling Anisocytosis Microcytosis Macrocytosis Spherocytes Pappenheimer Bodies Sickle Cells Target Cells Tear Drop Cells Ovalocytes Stomatocytes [place] Bodies Echinocytes Acanthocytes (Spur) Rouleaux RBC Agglutinates Schistocytes RBC Morph Comment Sezary Cell Sodium (136-145) mmol/L Potassium (3.5-5.1) mmol/L Chloride (98-107) mmol/L Carbon Dioxide (21-32) mmol/L Anion Gap (3-11) BUN (7-18) mg/dl Creatinine (0.6-1.4) mg/dl Est Cr Clr Drug Dosing ml/min Est GFR ( Amer) Est GFR (Non-Af Amer) BUN/Creatinine Ratio (10-20) Glucose (70-99) mg/dl POC Glucose 135 H 101 H (70-99) Calcium (8.5-10.1) mg/dl Phosphorus (2.5-4.9) mg/dl Magnesium (1.8-2.4) mg/dl Troponin I (0-0.045) ng/ml TSH (0.300-4.500) uIu/ml Free T4 (0.8-1.6) ng/dl Blood Type Antibody Screen Medications Administered Current Inpatient Medications Albuterol (Duoneb) 3 ml NEB Q4R PRN PRN Reason: Dyspnea Stop: 10/23/18 19:59 Last Admin: 10/05/18 15:29 Dose: 3 ml Documented by: Al Hydrox/Mg Hydrox/Simethicone 50 ml/Diphenhydramine HCl 125 mg/Lidocaine HCl 40 ml/Sucralfate 10,000 mg/ BARCODE IDENTIFIER 1 ea 0 ml PO TID GARRY Stop: 10/28/18 11:14 Last Admin: 10/05/18 12:50 Dose: Not Given Documented by: Filgrastim (Neupogen) 300 mcg SQ DAILY GARRY Stop: 10/31/18 16:59 Last Admin: 10/05/18 07:30 Dose: 300 mcg Documented by: Heparin Sodium (Beef Lung) (Heparin Sod 10 Unit/Ml Flush) 5 ml FLUSH PRN PRN PRN Reason: Flush Stop: 10/26/18 00:59 Heparin Sodium (Porcine) (Heparin Sodium (Porcine)) 5,000 units SQ Q12 [facility] Stop: 10/24/18 20:59 Last Admin: 09/26/18 08:27 Dose: 5,000 units Documented by: Acetaminophen (Ofirmev) 1,000 mg in 100 mls @ 400 mls/hr IV Q8H PRN PRN Reason: Fever Stop: 10/23/18 22:00 Last Infusion: 10/05/18 15:10 Dose: Infused Documented by: Dextrose (D10w) 1,000 mls @ 0 mls/hr IV .Q0M [facility] Stop: 10/25/18 15:59 Dexamethasone 2 mg/ Syringe 0.5 mls @ 1 mls/min IV Q12H [facility] Stop: 11/03/18 17:59 Last Admin: 10/05/18 17:51 Dose: 1 mls/min Documented by: Cefepime HCl 2,000 mg/ Syringe 20 mls @ 5 mls/min IV Q12H [facility]; Protocol Stop: 10/07/18 17:59 Last Admin: 10/05/18 17:51 Dose: 5 mls/min Documented by: Vancomycin HCl 750 mg/ Sodium (Chloride) 265 mls @ 125 mls/hr IV Q24H [facility]; Protocol Stop: 10/07/18 06:59 Last Admin: 10/05/18 17:50 Dose: 125 mls/hr Documented by: Levofloxacin/Dextrose (Levaquin/D5w) 750 mg in 150 mls @ 100 mls/hr IV Q48H [facility]; Protocol Stop: 10/12/18 15:59 Last Infusion: 10/05/18 17:40 Dose: Infused Documented by: Sodium Chloride (Nss 1000ml) 1,000 mls @ 999 mls/hr IV .Q1H1M [facility] Stop: 10/05/18 19:11 Metoprolol Tartrate (Lopressor) 5 mg IV Q4 [facility] Stop: 11/03/18 15:59 Last Admin: 10/05/18 16:13 Dose: Not Given Documented by: Miscellaneous (Check Scopolamine Patch Placement) 1 ea N/A QS GARRY Stop: 10/23/18 00:00 Last Admin: 10/05/18 16:05 Dose: 1 ea Documented by: Miscellaneous (Remove Transderm-Scop Patch) 1 ea N/A Q3D@0859 [facility] Stop: 10/27/18 12:58 Last Admin: 10/03/18 07:57 Dose: 1 ea Documented by: Miscellaneous Information (Pharmacy Tpn/Ppn Consult Active) 1 ea N/A UD PRN PRN Reason: Consult Stop: 10/24/18 15:56 Miscellaneous Information (Consult) 1 ea N/A UD PRN PRN Reason: Consult Stop: 11/04/18 05:55 Miscellaneous Information (Cefepime Consult Active) 1 ea N/A UD PRN PRN Reason: Consult Stop: 11/04/18 06:09 Morphine Sulfate (Morphine Sulfate) 2 mg IV Q2H PRN PRN Reason: Pain Stop: 10/10/18 11:31 Last Admin: 09/29/18 01:21 Dose: 2 mg Documented by: Morphine Sulfate (Morphine Sulfate) 1 mg IV Q2H PRN PRN Reason: Shortness Of Breath Stop: 10/19/18 18:12 Doxepin 10mg/Ml Oral Soln - Patient's Own Med 1 ea PO TID [facility] Stop: 11/02/18 20:59 Last Admin: 10/05/18 12:50 Dose: Not Given Documented by: Nutrition (Parenteral) (Custom Central Pn) 1 bag IV TODAY@1600 GARRY; Protocol Stop: 10/06/18 15:59 Last Admin: 10/05/18 16:05 Dose: 1 bag Documented by: Nystatin (Mycostatin) 5 ml PO QID [facility] Stop: 10/09/18 12:59 Last Admin: 10/05/18 16:06 Dose: Not Given Documented by: Ondansetron HCl (Zofran) 4 mg IV Q6H PRN PRN Reason: Nausea Stop: 10/22/18 20:25 Last Admin: 10/04/18 03:18 Dose: 4 mg Documented by: Scopolamine (Transderm-Scop) 1.5 mg TD Q3D@0900 [facility] Stop: 10/27/18 12:59 Last Admin: 10/03/18 07:57 Dose: 1.5 mg Documented by: Resident Activity Tracking Resident Involvement: Resident Care Provided Care Provided: Adult Hospital Medicine (1) Neutropenia Neutropenia type: unspecified Qualified Code(s): D70.9 - Neutropenia, unspecified
[2018-10-05] MEDS: MoRPHine SULFATE 2 MG/ML CARP IV PRN (21:25)
[2018-10-05] MEDS ORDERED: LORazepam 0.5 MG/1 ML VIAL IV STA (21:45)
[2018-10-05 21:46] LABS: INR 1.4 (0.9-1.1); Partial Thromboplastin Ratio 1.4; Partial Thromboplastin Time 37.1 Seconds (21.0-31.0); Prothrombin Time 13.7 Seconds (9.0-12.0)
[2018-10-05] MEDS ORDERED: SODIUM CHLORIDE 0.9% 250 ML IV PRN (22:02)
--- NOTE | 2018-10-05 22:17 | Progress Note ---
Date of Service October 05, 2018 Called by patient's bedside nurse for patient's increased anxiety. Saw patient at bedside. Respiratory also at bedside and suctioned out his upper airway. Patient patient is awake, questionably alert, appears agitated. Regular tachycardia. Coarse breath sounds throughout. He remains afebrile since this afternoon. Hemoglobin at 7.0. Coags noted elevated fibrinogen and fibrin split products. Plan: - He remains on supplemental oxygen with current SPO2 in low 90s. - We will check a VBG. - We will transfuse 2 units PRBCs. Patient is presently unable to provide verbal or written consent. Will sign consent for him as medical necessity. - Provide small amount of Ativan for his anxiety. - Continue to watch his airway. - From turnover discussion with this day primary team, they have been unable to get a hold of his son for discussions on goals of care. Patient remains full code at this time. Discussed all the above in real-time with Dr. Costa. Rayo Zaldivar, PGY2 Overnight call Results & Data Vital Signs (Past 12 Hours) Vital Signs Temp Pulse Pulse Resp BP BP BP 10/05/18 18:01 36.2 C L 99 H 24 134/73 134/73 10/05/18 16:13 97 H 92/48 L 10/05/18 15:33 108 H 20 10/05/18 12:48 119 H 128/67 10/05/18 12:24 38.4 C H Pulse Ox 10/05/18 18:01 99 10/05/18 16:13 10/05/18 15:33 99 10/05/18 12:48 10/05/18 12:24
[2018-10-05 22:23] LABS: HCO3 VBG 25 mmol/L; Oxygen Saturation VBG < 60.0 %; PCO2 VBG 63 mmHg (38-50); PO2 VBG 35 mmHg; pH VBG 7.22 (7.36-7.41)
[2018-10-06] MEDS: CHECK SCOPOLAMINE PATCH PLACEMENT SCH ×4 (00:07→23:59)
[2018-10-06] MEDS: METOPROLOL TARTRATE 1 MG/ML VIAL IV SCH ×7 (00:10→23:54)
[2018-10-06] MEDS ORDERED: LORazepam 0.5 MG/1 ML VIAL IV STA ×2 (04:03→21:23)
[2018-10-06] MEDS: MoRPHine SULFATE 2 MG/ML CARP IV PRN ×6 (04:03→23:50)
[2018-10-06] MEDS: CEFEPIME 2,000 MG in SYRINGE 7.5 ML IV SCH ×2 (05:11→17:14)
[2018-10-06] MEDS: dexAMETHasone 2 MG in SYRINGE 0 ML IV SCH (05:12)
--- NOTE | 2018-10-06 06:30 | XRay Report ---
XR chest 1V portable CLINICAL HISTORY: continued coarse BS, s/p txf, eval for overload COMPARISON STUDY: 10/05/2018 FINDINGS: The cardiac and mediastinal contours remain stable. There is a right-sided PICC catheter ti p which projects over the superior vena cava. There is continued radiographic evidence of congestive failure/fluid overload with right lung asymmetric edema. There are small bilateral pleural effusions right greater than left. There are basilar airspace opacities, likely atelectatic.[ IMPRESSION: 1. Slight worsening in the congestive failure pattern with bilateral pleural effusions right greater than left 2. Worsening left basilar airspace opacities, likely atelectatic although a superimposed inflammatory process could appear similar Electronically signed by: Ross Sr M.D. 10/06/2018 6:28 AM
--- NOTE | 2018-10-06 07:20 | Family Medicine Progress Note ---
Date of Service October 06, 2018 Assessment & Plan (1) Neutropenia: Mr. 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 Was found to have neutropenic sepsis secondary to pneumonia versus mucositis. 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 Neutropenic Sepsis -Pt with increased oxygen demands, tachycardia, leukopenia, fever on 10/05. -Cultures obtained from port and periphery, pending..Cultures on admission negative. -1/2 blood cx + for yeast; will start on caspofungin and consult ID, Hold tube feeds -Given 2L IVF -Resumed broad abx (cefipime, vanc, levaquin) -1mg IV morphine q2h prn for respiratory distress, hold parameters for BP. -CXR shows increased collection in R lung; suggestive of aspiration. Abx as above -Incentive spirometry as tolerated -Pt received 2x 0.5 ativan overnight -VBG showed acidosis, hypercapnea. Restlessness/agitation -family willing to try bipap to help with breathing, understanding he may not tolerate well -May allow for more meds to assist with agitation (morphine, ativan) -Monitor A/VBGs Hypercapnic respiratory drive -Discussed wishes with family. Patient would NOT want intubation, artificial airway, etc. -nebs vs bipap/follow abgs Anemia -Noted jump on 10/05, Hgb 9-->7. Repeat Hgb 7.0, Pt received 2U IrrPRBC 10/05/18 overnight -Fibrinogen level 701, FDP 10-40 -Repeat H/H shows 12.38 -Routine monitoring Confusion/delirium -waxing/waning here - reorient, supportive care. Dysphagia/painful to speak, 2/2 to Mucositis, thrush, radiation - Pain relief: IV tylenol and IV dexamethasone. - Sx relief: scopolamine patch for secretions, Magic swizzle gargle TID, nystatin swish and spit TID, doxepin swish and spit TID -Speech consult appreciated, STRICT NPO. Severe protein/calorie malnutrition Secondary to above. No s/s refeeding syndrome -GI will place PEG, currently on hold considering sepsis, overall condition Hold TPN in light of fungemia Neutropenia, Pancytopenia -On Neupogen since 10/01 (WBCs had trended downwards when this was d/maritza) -WBC recently consistently <1000. Continue to monitor. -Thrombocytopenia--Requires platelet level of >50 PRIOR TO PEG placement -> continue to monitor. -> No s/s bleeding. -> Cont to hold plavix, chemical ppx. -> Plt today of 52 Thyrotoxicosis - history of radiation therapy to the neck -tachycardic off and on throughout the day -suspect acute thyroid injury secondary to radiation treatment -Monitor TSH/T4 in outpatient setting -TSH was 0.205, and T4 was 1.63 on 10/05 -> improved from admission -Weaned dexamethasone from 2mg qid to 2mg BID to 2mg OD on 10/06 Atrial fibrillation - resolved VT prophylaxis Heparin being HELD as above. SCDs likely of little benefit and possibly dangerous in light of waxing/waning confusion. CODE STATUS FULL NO MECH VENT FEN/GI: on TPN (HELD ON 10/06 FOR FUNGEMIA), dextrose, n.p.o. due to pain/mucositis Dispo: lives with his son and caregiver Lev (phone #: [phone]) while undergoing treatment for cancer. . Referral placed to [facility] when pt ready for discharge. (2) Right lower lobe pneumonia: (3) Poor fluid intake: (4) Dehydration: (5) Squamous cell carcinoma of epiglottis: (6) Mass of middle lobe of right lung: (7) Thyrotoxicosis: (8) Hypernatremia: (9) Elevated troponin: (10) Hypokalemia: (11) Elevated serum creatinine: (12) Total bilirubin, elevated: Supervising Physician Co-Signing Physician Notes I personally examined the patient and verified all kirk points of history and exam, discussed case, and agree with decision making with Dr Bell. No new HPI or review of systems. Family updated extensively by Dr. Bell, and then again by myself. All questions answered to the best of our abilities Vitals noted, much more calm than yesterday, laying in bed in no distress. Does appear a bit somnolent. Breathing unlabored, no accessory muscle use today. Skin shows no rashes no pallor or icterus, mucous membranes actually appear reasonably moist. No focal neuro deficits. Labs and chest x-ray noted later in the day CT chest noted as well. Neutropenic sepsis -appearing to be multifactorial with a new/worsening pneumonia, as well as fungemia. -Antibiotics escalated for the new/worsening pneumonia to include vancomycin and double coverage for gram negatives given how ill he is -Caspofungin initiated for fungal anemia, TPN stopped and central line removed. -Continue supportive care Hypercapnic respiratory failureseems to be fatiguing more than anything. Supportive care, pulmonary toilet, treat the pneumonia, BiPAP as he tolerates, follow PCO2 on VBG. 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 Continue beta-blockers and wean steroids Severe protein calorie malnutritionas outlined previously, risks and benefits were extremely dangerous in any aspect given the severity of his malnutrition as well as his upper airway inflammation. At that point the most rational decision was to proceed with TPN, given that he was too ill for a PEG placement, and had too much pain from his upper airway mucositis for an NG tube. Unfortunately his fungal anemia complicates this, as now the TPN and central line must be removed as well. It is possible, given the treatment of his mucositis as well as the steroids coming down his upper airway inflammation, that an NG tube might be possible now, and if not we will simply need to keep him n.p.o. and off of TPN with hopes of having enough stability to have a PEG placed in the next 48 to 72 hours (assuming improving clinical stability). Today we will treat for the worsening sepsis to affect more stability, and we will hold off on attempt of NG placement given the need for respiratory therapy with BiPAP, then hopefully tomorrow be able to try an NG tube. In discussion with GI, if the NG tube is not able to be placed or is a failure, then we will work towards proceeding with PEG as quickly as possible. DVT prophylaxishe was initially on pharmacologic prophylaxis but with his platelets dropping this had to be held, currently certainly appears to need to be held as well. CT chest obtained to differentiate pneumonia, pulmonary edema, or other fortunately did not show evidence of venous thrombolic disease. Subjective Mr. Perla is unable to answer questions today due to cognitive status Review of Systems Review of Systems: Unobtainable due to reduced consciousness Physical Exam Constitutional: + acute distress, + thin, + cachectic and + altered mental status Eyes: PERRL, conjunctivae normal, anicteric sclerae ENMT: Mouth: + oropharynx abnormality, + oral mucosal abnormality and + tongue abnormality Mucositis, inflammed, bloody, irritated Neck: normal visual inspection and trachea midline Respiratory: + labored breathing Auscultation: + diminished lung sounds and + rhonchi Cardiovascular: Rate/Rhythm: regular rhythm; + abnormal rate (tachycardic) Extremities: normal capillary refill; no pedal edema Gastrointestinal (Abdomen): normal bowel sounds, soft, nontender, no hepatosplenomegaly Musculoskeletal: Head/Neck/Chest: + limited ROM of neck Extremities: + muscle atrophy Skin: no rashes, warm and dry normal turgor Neurologic: moves all extremities Speech / Cognition: + abnormal speech Responds to sternal rub Psychiatric: Orientation: + not alert and + not oriented x 3 Results & Data Vital Signs (Past 12 Hours) Vital Signs Temp Pulse Pulse Resp BP BP Pulse Ox 10/06/18 05:30 36.5 C 88 25 H 156/84 H 98 10/06/18 04:30 36.3 C L 88 24 171/85 H 98 10/06/18 04:07 36.3 C L 86 20 153/100 H 92 10/06/18 03:30 35.5 C L 88 24 184/90 H 100 10/06/18 03:29 108 H 145/86 H 10/06/18 03:19 36.4 C L 106 H 24 145/87 H 100 10/06/18 03:04 36.4 C L 108 H 23 155/95 H 100 10/06/18 02:50 36.7 C 98 H 24 146/84 H 100 10/06/18 02:10 35.8 C L 97 H 22 163/80 H 100 10/06/18 01:10 36.4 C L 103 H 24 124/81 100 10/06/18 00:40 35.9 C L 108 H 20 132/79 99 10/06/18 00:10 35.7 C L 109 H 20 96/64 L 100 10/05/18 23:55 35.7 C L 112 H 18 116/73 100 10/05/18 23:41 36.4 C L 112 H 24 115/69 100 10/05/18 22:56 35.7 C L 115 H 19 118/70 100 Laboratory Results 10/06/18 10/06/18 10/06/18 Range/Units 08:29 08:23 08:23 WBC 0.83 L* RBC 4.15 L Hgb 12.6 L D Hct 37.8 L MCV 91.1 MCH 30.4 MCHC 33.3 RDW Std Deviation 51.4 H RDW Coeff of Daniel 15.9 H Plt Count 52 L MPV Immature Gran % (Auto) % Neut % (Auto) % Lymph % (Auto) % Wilkinson % (Auto) % Eos % (Auto) % Baso % (Auto) % Immature Gran # (Auto) (0.00-0.02) K/uL Neut # (Auto) (1.4-6.5) K/uL Lymph # (Auto) (1.2-3.4) K/uL Wilkinson # (Auto) (0.11-0.59) K/uL Eos # (Auto) (0-0.5) K/uL Baso # (Auto) (0-0.2) K/uL Absolute Nucleated RBC 0.02 H Nucleated RBC % (auto) 2.1 Neutrophils % (Manual) 72.8 Band Neutrophils % Lymphocytes % (Manual) 10.2 Prolymphocyte % Reactive Lymphs % (Man) Monocytes % (Manual) 5.3 Eosinophils % (Manual) Basophils % (Manual) 3.4 Metamyelocytes % (Man) 4.4 Myelocytes % (Man) 3.9 Promyelocytes % (Man) Blast Cells % (Manual) Plasma Cell % (Manual) Other Cells % Nucleated RBC % Neutrophils # (Manual) 0.60 L Band Neutrophils # Total Absolute Neuts 0.60 L* Lymphocytes # (Manual) 0.08 L Prolymphocyte # Reactive Lymphs # Total Abs Lymphocytes 0.08 L Monocytes # (Manual) 0.04 L Eosinophils # (Manual) Basophils # (Manual) 0.03 Metamyelocytes # (Man) 0.04 H Myelocytes # (Manual) 0.03 H Promyelocytes # (Man) Blast Cells # (Man) Plasma Cell # (Manual) Other Cells # Nucleated RBCs # (Man) Hypersegmented Neuts Hyposegmented Neuts Hypogranular Neuts Large Granular Lymphs # Lrg Granular Lymphs Hairy Cells Smudge Cells Toxic Granulation 3+ Toxic Vacuolation Dohle Bodies Kody Rods Platelet Estimate Hypogranular Platelets Clumped Platelets Giant Platelets Platelet Satelliting RBC Morphology Polychromasia Hypochromasia Poikilocytosis Basophilic Stippling Anisocytosis Microcytosis Macrocytosis Spherocytes Pappenheimer Bodies Sickle Cells Target Cells Tear Drop Cells Ovalocytes Stomatocytes [place] Bodies Echinocytes 1+ Acanthocytes (Spur) Rouleaux RBC Agglutinates Schistocytes RBC Morph Comment Sezary Cell PT (9.0-12.0) Seconds INR (0.9-1.1) APTT (21.0-31.0) Seconds PTT Ratio Fibrinogen (184-400) mg/dl Fibrin Degrad Products (<10) mcg/ml VBG pH 7.27 L (7.36-7.41) VBG pCO2 68 H (38-50) mmHg VBG pO2 16 mmHg VBG HCO3 31 mmol/L VBG O2 Saturation < 60.0 % VBG Base Excess 1.7 mEq/L Barometric Pressure 727.9 mm/Hg Sodium 143 (136-145) mmol/L Potassium 5.4 H D (3.5-5.1) mmol/L Chloride 110 H (98-107) mmol/L Carbon Dioxide 31 (21-32) mmol/L Anion Gap 3.0 (3-11) BUN 33 H (7-18) mg/dl Creatinine 0.80 (0.6-1.4) mg/dl Est Cr Clr Drug Dosing 44.3 ml/min Est GFR ( Amer) 98.5 Est GFR (Non-Af Amer) 85.0 BUN/Creatinine Ratio 40.7 H (10-20) Glucose 124 H (70-99) mg/dl POC Glucose (70-99) Calcium 8.7 (8.5-10.1) mg/dl Phosphorus 3.6 (2.5-4.9) mg/dl Magnesium 1.8 (1.8-2.4) mg/dl Troponin I (0-0.045) ng/ml Blood Type Antibody Screen Crossmatch 10/06/18 10/05/18 10/05/18 Range/Units 05:52 22:05 20:52 WBC RBC Hgb Hct MCV MCH MCHC RDW Std Deviation RDW Coeff of Daniel Plt Count MPV Immature Gran % (Auto) % Neut % (Auto) % Lymph % (Auto) % Wilkinson % (Auto) % Eos % (Auto) % Baso % (Auto) % Immature Gran # (Auto) (0.00-0.02) K/uL Neut # (Auto) (1.4-6.5) K/uL Lymph # (Auto) (1.2-3.4) K/uL Wilkinson # (Auto) (0.11-0.59) K/uL Eos # (Auto) (0-0.5) K/uL Baso # (Auto) (0-0.2) K/uL Absolute Nucleated RBC Nucleated RBC % (auto) Neutrophils % (Manual) Band Neutrophils % Lymphocytes % (Manual) Prolymphocyte % Reactive Lymphs % (Man) Monocytes % (Manual) Eosinophils % (Manual) Basophils % (Manual) Metamyelocytes % (Man) Myelocytes % (Man) Promyelocytes % (Man) Blast Cells % (Manual) Plasma Cell % (Manual) Other Cells % Nucleated RBC % Neutrophils # (Manual) Band Neutrophils # Total Absolute Neuts Lymphocytes # (Manual) Prolymphocyte # Reactive Lymphs # Total Abs Lymphocytes Monocytes # (Manual) Eosinophils # (Manual) Basophils # (Manual) Metamyelocytes # (Man) Myelocytes # (Manual) Promyelocytes # (Man) Blast Cells # (Man) Plasma Cell # (Manual) Other Cells # Nucleated RBCs # (Man) Hypersegmented Neuts Hyposegmented Neuts Hypogranular Neuts Large Granular Lymphs # Lrg Granular Lymphs Hairy Cells Smudge Cells Toxic Granulation Toxic Vacuolation Dohle Bodies Kody Rods Platelet Estimate Hypogranular Platelets Clumped Platelets Giant Platelets Platelet Satelliting RBC Morphology Polychromasia Hypochromasia Poikilocytosis Basophilic Stippling Anisocytosis Microcytosis Macrocytosis Spherocytes Pappenheimer Bodies Sickle Cells Target Cells Tear Drop Cells Ovalocytes Stomatocytes [place] Bodies Echinocytes Acanthocytes (Spur) Rouleaux RBC Agglutinates Schistocytes RBC Morph Comment Sezary Cell PT (9.0-12.0) Seconds INR (0.9-1.1) APTT (21.0-31.0) Seconds PTT Ratio Fibrinogen (184-400) mg/dl Fibrin Degrad Products 10-40 H (<10) mcg/ml VBG pH 7.22 L (7.36-7.41) VBG pCO2 63 H (38-50) mmHg VBG pO2 35 mmHg VBG HCO3 25 mmol/L VBG O2 Saturation < 60.0 % VBG Base Excess -3.0 mEq/L Barometric Pressure 727.1 mm/Hg Sodium (136-145) mmol/L Potassium (3.5-5.1) mmol/L Chloride (98-107) mmol/L Carbon Dioxide (21-32) mmol/L Anion Gap (3-11) BUN (7-18) mg/dl Creatinine (0.6-1.4) mg/dl Est Cr Clr Drug Dosing ml/min Est GFR ( Amer) Est GFR (Non-Af Amer) BUN/Creatinine Ratio (10-20) Glucose (70-99) mg/dl POC Glucose 119 H (70-99) Calcium (8.5-10.1) mg/dl Phosphorus (2.5-4.9) mg/dl Magnesium (1.8-2.4) mg/dl Troponin I (0-0.045) ng/ml Blood Type Antibody Screen Crossmatch 10/05/18 10/05/18 10/05/18 Range/Units 20:51 20:15 16:49 WBC 0.31 L* RBC 2.38 L Hgb 7.0 L 7.1 L Hct 21.4 L MCV 89.9 MCH 29.8 MCHC 33.2 RDW Std Deviation 57.3 H RDW Coeff of Daniel 17.9 H Plt Count 41 L MPV Immature Gran % (Auto) Cancelled % Neut % (Auto) Cancelled % Lymph % (Auto) Cancelled % Wilkinson % (Auto) Cancelled % Eos % (Auto) Cancelled % Baso % (Auto) Cancelled % Immature Gran # (Auto) Cancelled (0.00-0.02) K/uL Neut # (Auto) Cancelled (1.4-6.5) K/uL Lymph # (Auto) Cancelled (1.2-3.4) K/uL Wilkinson # (Auto) Cancelled (0.11-0.59) K/uL Eos # (Auto) Cancelled (0-0.5) K/uL Baso # (Auto) Cancelled (0-0.2) K/uL Absolute Nucleated RBC Nucleated RBC % (auto) Neutrophils % (Manual) Cancelled Band Neutrophils % Cancelled Lymphocytes % (Manual) Cancelled Prolymphocyte % Cancelled Reactive Lymphs % (Man) Cancelled Monocytes % (Manual) Cancelled Eosinophils % (Manual) Cancelled Basophils % (Manual) Cancelled Metamyelocytes % (Man) Cancelled Myelocytes % (Man) Cancelled Promyelocytes % (Man) Cancelled Blast Cells % (Manual) Cancelled Plasma Cell % (Manual) Cancelled Other Cells % Cancelled Nucleated RBC % Cancelled Neutrophils # (Manual) Cancelled Band Neutrophils # Cancelled Total Absolute Neuts Cancelled Lymphocytes # (Manual) Cancelled Prolymphocyte # Cancelled Reactive Lymphs # Cancelled Total Abs Lymphocytes Cancelled Monocytes # (Manual) Cancelled Eosinophils # (Manual) Cancelled Basophils # (Manual) Cancelled Metamyelocytes # (Man) Cancelled Myelocytes # (Manual) Cancelled Promyelocytes # (Man) Cancelled Blast Cells # (Man) Cancelled Plasma Cell # (Manual) Cancelled Other Cells # Cancelled Nucleated RBCs # (Man) Cancelled Hypersegmented Neuts Cancelled Hyposegmented Neuts Cancelled Hypogranular Neuts Cancelled Large Granular Lymphs Cancelled # Lrg Granular Lymphs Cancelled Hairy Cells Cancelled Smudge Cells Cancelled Toxic Granulation Cancelled Toxic Vacuolation Cancelled Dohle Bodies Cancelled Kody Rods Cancelled Platelet Estimate Hypogranular Platelets Cancelled Clumped Platelets Cancelled Giant Platelets Cancelled Platelet Satelliting Cancelled RBC Morphology Cancelled Polychromasia Cancelled Hypochromasia Cancelled Poikilocytosis Cancelled Basophilic Stippling Cancelled Anisocytosis Cancelled Microcytosis Cancelled Macrocytosis Cancelled Spherocytes Cancelled Pappenheimer Bodies Cancelled Sickle Cells Cancelled Target Cells Cancelled Tear Drop Cells Cancelled Ovalocytes Cancelled Stomatocytes Cancelled [place] Bodies Cancelled Echinocytes Cancelled Acanthocytes (Spur) Cancelled Rouleaux Cancelled RBC Agglutinates Cancelled Schistocytes Cancelled RBC Morph Comment Cancelled Sezary Cell Cancelled PT 13.7 H (9.0-12.0) Seconds INR 1.4 H (0.9-1.1) APTT 37.1 H (21.0-31.0) Seconds PTT Ratio 1.4 Fibrinogen 701 H (184-400) mg/dl Fibrin Degrad Products (<10) mcg/ml VBG pH (7.36-7.41) VBG pCO2 (38-50) mmHg VBG pO2 mmHg VBG HCO3 mmol/L VBG O2 Saturation % VBG Base Excess mEq/L Barometric Pressure mm/Hg Sodium (136-145) mmol/L Potassium (3.5-5.1) mmol/L Chloride (98-107) mmol/L Carbon Dioxide (21-32) mmol/L Anion Gap (3-11) BUN (7-18) mg/dl Creatinine (0.6-1.4) mg/dl Est Cr Clr Drug Dosing ml/min Est GFR ( Amer) Est GFR (Non-Af Amer) BUN/Creatinine Ratio (10-20) Glucose (70-99) mg/dl POC Glucose (70-99) Calcium (8.5-10.1) mg/dl Phosphorus (2.5-4.9) mg/dl Magnesium (1.8-2.4) mg/dl Troponin I (0-0.045) ng/ml Blood Type Antibody Screen Crossmatch 10/05/18 10/05/18 10/05/18 Range/Units 15:38 15:37 13:52 WBC Cancelled RBC Cancelled Hgb Cancelled Hct Cancelled MCV Cancelled MCH Cancelled MCHC Cancelled RDW Std Deviation Cancelled RDW Coeff of Daniel Cancelled Plt Count Cancelled MPV Cancelled Immature Gran % (Auto) Cancelled % Neut % (Auto) Cancelled % Lymph % (Auto) Cancelled % Wilkinson % (Auto) Cancelled % Eos % (Auto) Cancelled % Baso % (Auto) Cancelled % Immature Gran # (Auto) Cancelled (0.00-0.02) K/uL Neut # (Auto) Cancelled (1.4-6.5) K/uL Lymph # (Auto) Cancelled (1.2-3.4) K/uL Wilkinson # (Auto) Cancelled (0.11-0.59) K/uL Eos # (Auto) Cancelled (0-0.5) K/uL Baso # (Auto) Cancelled (0-0.2) K/uL Absolute Nucleated RBC Cancelled Nucleated RBC % (auto) Cancelled Neutrophils % (Manual) Cancelled Band Neutrophils % Cancelled Lymphocytes % (Manual) Cancelled Prolymphocyte % Cancelled Reactive Lymphs % (Man) Cancelled Monocytes % (Manual) Cancelled Eosinophils % (Manual) Cancelled Basophils % (Manual) Cancelled Metamyelocytes % (Man) Cancelled Myelocytes % (Man) Cancelled Promyelocytes % (Man) Cancelled Blast Cells % (Manual) Cancelled Plasma Cell % (Manual) Cancelled Other Cells % Cancelled Nucleated RBC % Cancelled Neutrophils # (Manual) Cancelled Band Neutrophils # Cancelled Total Absolute Neuts Cancelled Lymphocytes # (Manual) Cancelled Prolymphocyte # Cancelled Reactive Lymphs # Cancelled Total Abs Lymphocytes Cancelled Monocytes # (Manual) Cancelled Eosinophils # (Manual) Cancelled Basophils # (Manual) Cancelled Metamyelocytes # (Man) Cancelled Myelocytes # (Manual) Cancelled Promyelocytes # (Man) Cancelled Blast Cells # (Man) Cancelled Plasma Cell # (Manual) Cancelled Other Cells # Cancelled Nucleated RBCs # (Man) Cancelled Hypersegmented Neuts Cancelled Hyposegmented Neuts Cancelled Hypogranular Neuts Cancelled Large Granular Lymphs Cancelled # Lrg Granular Lymphs Cancelled Hairy Cells Cancelled Smudge Cells Cancelled Toxic Granulation Cancelled Toxic Vacuolation Cancelled Dohle Bodies Cancelled Kody Rods Cancelled Platelet Estimate Cancelled Hypogranular Platelets Cancelled Clumped Platelets Cancelled Giant Platelets Cancelled Platelet Satelliting Cancelled RBC Morphology Cancelled Polychromasia Cancelled Hypochromasia Cancelled Poikilocytosis Cancelled Basophilic Stippling Cancelled Anisocytosis Cancelled Microcytosis Cancelled Macrocytosis Cancelled Spherocytes Cancelled Pappenheimer Bodies Cancelled Sickle Cells Cancelled Target Cells Cancelled Tear Drop Cells Cancelled Ovalocytes Cancelled Stomatocytes Cancelled [place] Bodies Cancelled Echinocytes Cancelled Acanthocytes (Spur) Cancelled Rouleaux Cancelled RBC Agglutinates Cancelled Schistocytes Cancelled RBC Morph Comment Cancelled Sezary Cell Cancelled PT (9.0-12.0) Seconds INR (0.9-1.1) APTT (21.0-31.0) Seconds PTT Ratio Fibrinogen (184-400) mg/dl Fibrin Degrad Products (<10) mcg/ml VBG pH (7.36-7.41) VBG pCO2 (38-50) mmHg VBG pO2 mmHg VBG HCO3 mmol/L VBG O2 Saturation % VBG Base Excess mEq/L Barometric Pressure mm/Hg Sodium 140 (136-145) mmol/L Potassium 4.2 (3.5-5.1) mmol/L Chloride 108 H (98-107) mmol/L Carbon Dioxide 23 (21-32) mmol/L Anion Gap 8.0 (3-11) BUN 45 H (7-18) mg/dl Creatinine 1.01 (0.6-1.4) mg/dl Est Cr Clr Drug Dosing 34.8 ml/min Est GFR ( Amer) 81.6 Est GFR (Non-Af Amer) 70.4 BUN/Creatinine Ratio 44.4 H (10-20) Glucose 94 (70-99) mg/dl POC Glucose (70-99) Calcium 7.6 L (8.5-10.1) mg/dl Phosphorus (2.5-4.9) mg/dl Magnesium (1.8-2.4) mg/dl Troponin I 0.067 H* (0-0.045) ng/ml Blood Type O Positive Antibody Screen NEGATIVE Crossmatch See Detail 10/05/18 10/05/18 Range/Units 13:24 05:51 WBC RBC Hgb Hct MCV MCH MCHC RDW Std Deviation RDW Coeff of Daniel Plt Count MPV Immature Gran % (Auto) 0.0 % Neut % (Auto) 28.0 % Lymph % (Auto) 58.8 % Wilkinson % (Auto) 13.2 % Eos % (Auto) 0.0 % Baso % (Auto) 0.0 % Immature Gran # (Auto) 0.00 (0.00-0.02) K/uL Neut # (Auto) 0.19 L* (1.4-6.5) K/uL Lymph # (Auto) 0.40 L (1.2-3.4) K/uL Wilkinson # (Auto) 0.09 L (0.11-0.59) K/uL Eos # (Auto) 0.00 (0-0.5) K/uL Baso # (Auto) 0.00 (0-0.2) K/uL Absolute Nucleated RBC Nucleated RBC % (auto) Neutrophils % (Manual) Band Neutrophils % Lymphocytes % (Manual) Prolymphocyte % Reactive Lymphs % (Man) Monocytes % (Manual) Eosinophils % (Manual) Basophils % (Manual) Metamyelocytes % (Man) Myelocytes % (Man) Promyelocytes % (Man) Blast Cells % (Manual) Plasma Cell % (Manual) Other Cells % Nucleated RBC % Neutrophils # (Manual) Band Neutrophils # Total Absolute Neuts Lymphocytes # (Manual) Prolymphocyte # Reactive Lymphs # Total Abs Lymphocytes Monocytes # (Manual) Eosinophils # (Manual) Basophils # (Manual) Metamyelocytes # (Man) Myelocytes # (Manual) Promyelocytes # (Man) Blast Cells # (Man) Plasma Cell # (Manual) Other Cells # Nucleated RBCs # (Man) Hypersegmented Neuts Hyposegmented Neuts Hypogranular Neuts Large Granular Lymphs # Lrg Granular Lymphs Hairy Cells Smudge Cells Toxic Granulation 2+ Toxic Vacuolation Dohle Bodies 1+ Kody Rods Platelet Estimate Hypogranular Platelets Clumped Platelets Giant Platelets 3+ Platelet Satelliting RBC Morphology Polychromasia Hypochromasia Poikilocytosis Basophilic Stippling Anisocytosis Microcytosis Macrocytosis Spherocytes Pappenheimer Bodies Sickle Cells Target Cells Tear Drop Cells Ovalocytes Stomatocytes [place] Bodies Echinocytes Acanthocytes (Spur) Rouleaux RBC Agglutinates Schistocytes 1+ RBC Morph Comment Sezary Cell PT (9.0-12.0) Seconds INR (0.9-1.1) APTT (21.0-31.0) Seconds PTT Ratio Fibrinogen (184-400) mg/dl Fibrin Degrad Products (<10) mcg/ml VBG pH (7.36-7.41) VBG pCO2 (38-50) mmHg VBG pO2 mmHg VBG HCO3 mmol/L VBG O2 Saturation % VBG Base Excess mEq/L Barometric Pressure mm/Hg Sodium (136-145) mmol/L Potassium (3.5-5.1) mmol/L Chloride (98-107) mmol/L Carbon Dioxide (21-32) mmol/L Anion Gap (3-11) BUN (7-18) mg/dl Creatinine (0.6-1.4) mg/dl Est Cr Clr Drug Dosing ml/min Est GFR ( Amer) Est GFR (Non-Af Amer) BUN/Creatinine Ratio (10-20) Glucose (70-99) mg/dl POC Glucose 102 H (70-99) Calcium (8.5-10.1) mg/dl Phosphorus (2.5-4.9) mg/dl Magnesium (1.8-2.4) mg/dl Troponin I (0-0.045) ng/ml Blood Type Antibody Screen Crossmatch Medications Administered Current Inpatient Medications Albuterol (Duoneb) 3 ml NEB Q4R PRN PRN Reason: Dyspnea Stop: 10/23/18 19:59 Last Admin: 10/05/18 15:29 Dose: 3 ml Documented by: Al Hydrox/Mg Hydrox/Simethicone 50 ml/Diphenhydramine HCl 125 mg/Lidocaine HCl 40 ml/Sucralfate 10,000 mg/ BARCODE IDENTIFIER 1 ea 0 ml PO TID GARRY Stop: 10/28/18 11:14 Last Admin: 10/06/18 07:44 Dose: Not Given Documented by: Filgrastim (Neupogen) 300 mcg SQ DAILY GARRY Stop: 10/31/18 16:59 Last Admin: 10/06/18 07:56 Dose: 300 mcg Documented by: Heparin Sodium (Beef Lung) (Heparin Sod 10 Unit/Ml Flush) 5 ml FLUSH PRN PRN PRN Reason: Flush Stop: 10/26/18 00:59 Heparin Sodium (Porcine) (Heparin Sodium (Porcine)) 5,000 units SQ Q12 GARRY Stop: 10/24/18 20:59 Last Admin: 09/26/18 08:27 Dose: 5,000 units Documented by: Acetaminophen (Ofirmev) 1,000 mg in 100 mls @ 400 mls/hr IV Q8H PRN PRN Reason: Fever Stop: 10/23/18 22:00 Last Infusion: 10/05/18 21:21 Dose: Infused Documented by: Dextrose (D10w) 1,000 mls @ 0 mls/hr IV .Q0M GARRY Stop: 10/25/18 15:59 Dexamethasone 2 mg/ Syringe 0.5 mls @ 1 mls/min IV Q12H GARRY Stop: 11/03/18 17:59 Last Admin: 10/06/18 05:12 Dose: 1 mls/min Documented by: Cefepime HCl 2,000 mg/ Syringe 20 mls @ 5 mls/min IV Q12H [facility]; Protocol Stop: 10/07/18 17:59 Last Admin: 10/06/18 05:11 Dose: 5 mls/min Documented by: Vancomycin HCl 750 mg/ Sodium (Chloride) 265 mls @ 125 mls/hr IV Q24H GARRY; Protocol Stop: 10/07/18 06:59 Last Infusion: 10/05/18 21:22 Dose: Infused Documented by: Levofloxacin/Dextrose (Levaquin/D5w) 750 mg in 150 mls @ 100 mls/hr IV Q48H GARRY; Protocol Stop: 10/12/18 15:59 Last Infusion: 10/05/18 17:40 Dose: Infused Documented by: Sodium Chloride (Nss) 250 mls @ 15 mls/hr IV .[id number] PRN PRN Reason: For Transfusion Stop: 11/04/18 22:01 Metoprolol Tartrate (Lopressor) 5 mg IV Q4 [facility] Stop: 11/03/18 15:59 Last Admin: 10/06/18 07:43 Dose: 5 mg Documented by: Miscellaneous (Check Scopolamine Patch Placement) 1 ea N/A QS [facility] Stop: 10/23/18 00:00 Last Admin: 10/06/18 07:43 Dose: 1 ea Documented by: Miscellaneous (Remove Transderm-Scop Patch) 1 ea N/A Q3D@0859 [facility] Stop: 10/27/18 12:58 Last Admin: 10/06/18 07:43 Dose: 1 ea Documented by: Miscellaneous Information (Pharmacy Tpn/Ppn Consult Active) 1 ea N/A UD PRN PRN Reason: Consult Stop: 10/24/18 15:56 Miscellaneous Information (Consult) 1 ea N/A UD PRN PRN Reason: Consult Stop: 11/04/18 05:55 Miscellaneous Information (Cefepime Consult Active) 1 ea N/A UD PRN PRN Reason: Consult Stop: 11/04/18 06:09 Morphine Sulfate (Morphine Sulfate) 2 mg IV Q2H PRN PRN Reason: Pain Stop: 10/10/18 11:31 Last Admin: 09/29/18 01:21 Dose: 2 mg Documented by: Morphine Sulfate (Morphine Sulfate) 1 mg IV Q2H PRN PRN Reason: Shortness Of Breath Stop: 10/19/18 18:12 Last Admin: 10/06/18 04:03 Dose: 1 mg Documented by: Doxepin 10mg/Ml Oral Soln - Patient's Own Med 1 ea PO TID [facility] Stop: 11/02/18 20:59 Last Admin: 10/06/18 07:44 Dose: Not Given Documented by: Nutrition (Parenteral) (Custom Central Pn) 1 bag IV TODAY@1600 [facility]; Protocol Stop: 10/06/18 15:59 Last Admin: 10/05/18 16:05 Dose: 1 bag Documented by: Nystatin (Mycostatin) 5 ml PO QID [facility] Stop: 10/09/18 12:59 Last Admin: 10/06/18 07:43 Dose: 5 ml Documented by: Ondansetron HCl (Zofran) 4 mg IV Q6H PRN PRN Reason: Nausea Stop: 10/22/18 20:25 Last Admin: 10/04/18 03:18 Dose: 4 mg Documented by: Scopolamine (Transderm-Scop) 1.5 mg TD Q3D@0900 [facility] Stop: 10/27/18 12:59 Last Admin: 10/06/18 08:40 Dose: 1.5 mg Documented by: Resident Activity Tracking Resident Involvement: Resident Care Provided Care Provided: Adult Hospital Medicine (1) Neutropenia Neutropenia type: unspecified Qualified Code(s): D70.9 - Neutropenia, unspecified
[2018-10-06] MEDS: NYSTATIN SUSP 500,000 U/5 ML UDC PO SCH ×6 (07:43→23:35)
[2018-10-06] MEDS: ALUMINUM/MAGNESIUM SUSP 50 ML, DiphenhydrAMINE Syrup 125 MG, LIDOCAINE HCL 2% VISCOUS 4... PO SCH ×3 (07:44→23:35)
[2018-10-06] MEDS: DOXEPIN 10 MG/ML PO SCH ×3 (07:44→20:52)
[2018-10-06] MEDS: FILGRASTIM 300 MCG/ML VIAL SQ SCH (07:56)
[2018-10-06 08:40] LABS: Base Excess VBG 1.7 mEq/L; HCO3 VBG 31 mmol/L; PCO2 VBG 68 mmHg (38-50); PO2 VBG 16 mmHg; pH VBG 7.27 (7.36-7.41)
[2018-10-06] MEDS: SCOPOLAMINE 1.5 MG TDSY TD SCH (08:40)
[2018-10-06 08:41] LABS: Oxygen Saturation VBG < 60.0 %
[2018-10-06 09:07] LABS: Hematocrit (blood only) 37.8 % (42-52); Hemoglobin 12.6 g/dL (14.0-18.0); Mean Corpuscular Hgb Conc 33.3 g/dL (32-36); Mean Corpuscular Volume 91.1 fL (80-100); Nucleated RBC # (auto) 0.02 K/uL (0-0); Nucleated RBC % (auto) 2.1 %; Platelet Count 52 K/uL (130-400); RDW Coefficient of Variation 15.9 % (11.5-14.5); RDW Standard Deviation 51.4 fL (36.4-46.3); Red Blood Count 4.15 M/uL (4.7-6.1); White Blood Count 0.83 K/uL (4.8-10.8)
[2018-10-06 09:11] LABS: BUN Creatinine Ratio 40.7 (10-20); Calcium 8.7 mg/dl (8.5-10.1); Creatinine Clr Calc Pharmacy 44.3 ml/min; Est GFR (African American) 98.5; Magnesium 1.8 mg/dl (1.8-2.4); Phosphorus 3.6 mg/dl (2.5-4.9); Potassium 5.4 mmol/L (3.5-5.1)
[2018-10-06 09:13] LABS: Echinocytes 1+; Toxic Granulation 3+
[2018-10-06 09:14] LABS: ALC (manual) 0.08 K/uL (1.2-3.4); Basophils # (manual) 0.03 K/uL (0-0.2); Basophils % (manual) 3.4 %; Lymphocytes # (manual) 0.08 K/uL (1.2-3.4); Lymphocytes % (manual) 10.2 %; Metamyelocytes # (manual) 0.04 K/uL (0-0); Metamyelocytes % (manual) 4.4 %; Monocytes # (manual) 0.04 K/uL (0.11-0.59); Monocytes % (manual) 5.3 %; Myelocytes # (manual) 0.03 K/uL (0-0); Myelocytes % (manual) 3.9 %; Neutrophils % (manual) 72.8 %
--- NOTE | 2018-10-06 10:29 | Infectious Disease Consult ---
Date of Consultation October 06, 2018 Assessment & Plan (1) Fungemia: 78-year-old male with profound neutropenia, now with positive blood cultures for yeast, likely infected central catheter, as well as probable right lower lobe pneumonia. As discussed, patient to be started on IV caspofungin, and would continue current antibiotics to cover pneumonia pending further culture results. If possible, will need removal of central line. Will follow. (2) Right lower lobe pneumonia: History of Present Illness Reason for Consultation: Fungemia, neutropenia Attending Physician: Brian Mackenzie DO History of Present Illness History provided by medical staff and records as patient unable to provide adequate history. 78-year-old male with history of squamous cell head and neck cancer,, treated with radiation and chemotherapy, admitted initially September 22 with inability to eat with progressive weight loss. He was found to have severe mucositis and oral thrush, was treated and eventually started on TPN via a central line. Patient has now developed fever, and blood cultures are now growing yeast. Chest x-ray also shows evidence of possible developing pneumonia. Patient has been pancytopenic with significant neutropenia. He has been started empirically on Zosyn, levofloxacin, and now caspofungin. Allergies Allergy/AdvReac Type Severity Reaction Status Date / Time nitroglycerin Allergy Severe "my heart Verified 09/22/18 15:30 stopped" Home Medications Home Medications Medication Instructions Recorded Confirmed Type clopidogrel 75 mg PO DAILY 07/08/18 09/22/18 History methotrexate sodium 6 tab PO UD 07/08/18 09/22/18 History gabapentin 100 mg capsule 200 mg PO TID 08/31/18 09/22/18 History nystatin 5 ml PO QID 09/22/18 09/22/18 History oxycodone 5 mg PO Q8 PRN 09/22/18 09/22/18 History scopolamine base [Transderm-Scop] 1 mg TOPICAL UD 09/22/18 09/22/18 History doxepin 10 mg PO TID PRN #85 ml 10/02/18 Rx Patient History Medical History Neutropenia (Acute) Elevated troponin (Acute) Acute kidney injury Anemia Hyponatremia On total parenteral nutrition (TPN) Through right arm PICC. Patient receiving radiation and chemotherapy. Irriation of the mouth aggravating his ability to try to swallow. Pancytopenia Patient has had mild pancytopenia his entire life. Prior work-up included bone marrow biopsies x2 with no particular diagnosis established. Pneumonia Right lower lobe pneumonia. Elevated lactate upon admission of 2.9. Thrombocytopenia Thyrotoxicosis TSH on admission 0.008, Ft4 2.42. Deviated nasal septum (Chronic) History of skin cancer (Chronic) EXCISION OF NOSE/FACE REGION, NO CONCERNS/ISSUES SINCE. 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 Woo. Rheumatoid arthritis (Chronic) BPH (benign prostatic hyperplasia) Surgical History History of lung surgery right VATS, middle lobectomy, wedge resection. MAC 3. Grade 2 view. 8.5 ETT. H/O aorto-femoral bypass (Chronic) History of appendectomy (Resolved) History of heart surgery (Resolved) PLACEMENT OF AORTIC STENT 20 YEARS AGO. [facility]. History of herniorrhaphy (Resolved) Left inguinal History of laryngoscopy 07/06/18 History of throat surgery Direct laryngoscopy and esophagoscopy with biopsy of larynx 07/17/18: Fiberoptic #4, ETT 7.0 with Grade 2 view (listed as fiberoptic #4..believe this means Glidescope #4). Family History Mother , 70yo CHF (congestive heart failure) Throat cancer Father , 53yo Bowel obstruction Brother No problems noted. Brother No problems noted. Brother No problems noted. Brother No problems noted. Brother No problems noted. Sister No problems noted. Sister No problems noted. Sister No problems noted. Sister No problems noted. Son No problems noted. Son No problems noted. Son No problems noted. Daughter No problems noted. Daughter No problems noted. 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 Other Information That Helps Us Care for You: No Feels Safe at Home: Yes Smoking Status: Former smoker Tobacco Type: cigars Cigarettes Per Day: 1-3 cigars/day when he smoked; Do You Dip or Chew Tobacco: No Second Hand Exposure: No Hx Alcohol Use: No Hx Substance Use: No caffeine: Yes (3-4 cups/day) during the past year weight has: other Review of Systems Review of Systems: Unobtainable due to cognitive status Physical Exam Constitutional: + thin, + cachectic, comfortable and + lethargic; no acute distress Eyes: PERRL, conjunctivae normal, anicteric sclerae ENMT: Ears: no external ear abnormality Nose: no external nose abnormality Mouth: + oral mucosal abnormality (Mucositis and thrush) and + muffled voice Neck: trachea midline, no thyromegaly neck nontender Respiratory: normal respiratory effort, lungs clear to auscultation normal percussion; does not use accessory muscles Cardiovascular: Rate/Rhythm: regular rate and regular rhythm Heart Sounds: normal S1 and normal S2; no gallop, no murmur and no cardiac rub Vessels: normal peripheral pulses; no JVD Gastrointestinal (Abdomen): normal bowel sounds, soft, nontender, no hepatosplenomegaly Musculoskeletal: no cyanosis or clubbing, extremities motor strength 5/5 Spine: thoracic spine normal to inspection and lumbar spine normal to inspection; no cervical spinal tenderness Skin: no rashes, warm and dry normal turgor; no lesions Neurologic: moves all extremities; no focal motor deficits Lymphatic: no cervical or axillary lymphadenopathy no inguinal lympha denopathy Results & Data Vital Signs (Past 12 Hours) Vital Signs Temp Pulse Pulse Resp BP BP Pulse Ox 10/06/18 07:43 102 H 184/79 H 10/06/18 07:29 36.8 C 98 H 23 184/79 H 5 L 10/06/18 05:30 36.5 C 88 25 H 156/84 H 98 10/06/18 04:30 36.3 C L 88 24 171/85 H 98 10/06/18 04:07 36.3 C L 86 20 153/100 H 92 10/06/18 03:30 35.5 C L 88 24 184/90 H 100 10/06/18 03:29 108 H 145/86 H 10/06/18 03:19 36.4 C L 106 H 24 145/87 H 100 10/06/18 03:04 36.4 C L 108 H 23 155/95 H 100 10/06/18 02:50 36.7 C 98 H 24 146/84 H 100 10/06/18 02:10 35.8 C L 97 H 22 163/80 H 100 10/06/18 01:10 36.4 C L 103 H 24 124/81 100 10/06/18 00:40 35.9 C L 108 H 20 132/79 99 10/06/18 00:10 35.7 C L 109 H 20 96/64 L 100 10/05/18 23:55 35.7 C L 112 H 18 116/73 100 10/05/18 23:41 36.4 C L 112 H 24 115/69 100 10/05/18 22:56 35.7 C L 115 H 19 118/70 100 Laboratory Results Short CBC 10/05/18 10/05/18 10/05/18 Range/Units 15:38 16:49 20:15 WBC Cancelled 0.31 L* Hgb Cancelled 7.1 L 7.0 L Hct Cancelled 21.4 L Plt Count Cancelled 41 L 10/06/18 Range/Units 08:29 WBC 0.83 L* Hgb 12.6 L D Hct 37.8 L Plt Count 52 L BMP 10/05/18 10/06/18 15:37 08:23 Sodium 140 143 Potassium 4.2 5.4 H D Chloride 108 H 110 H Carbon Dioxide 23 31 BUN 45 H 33 H Creatinine 1.01 0.80 Glucose 94 124 H Calcium 7.6 L 8.7 Cardiac Enzymes 10/05/18 Range/Units 15:37 Troponin I 0.067 H* (0-0.045) ng/ml Diagnostic Findings Microbiology 10/05/18 15:46 Blood Aerobic Blood Culture - Preliminary Yeast 10/05/18 05:51 Blood Aerobic Blood Culture - Preliminary No growth in Aerobic bottle after 24 hours. 10/05/18 05:51 Blood Anaerobic Blood Culture - Preliminary No growth in Anaerobic bottle after 24 hours. 10/05/18 05:45 Blood Aerobic Blood Culture - Preliminary No growth in Aerobic bottle after 24 hours. 10/05/18 05:45 Blood Anaerobic Blood Culture - Preliminary No growth in Anaerobic bottle after 24 hours. 10/04/18 15:10 Urine,Straight Cath Urine Culture - Preliminary No growth - Less than 1,000 colonies/mL, Final report to follow. 09/22/18 15:36 Blood Blood Culture - Final No growth 09/22/18 15:36 Blood Blood Culture - Final No growth 09/22/18 22:45 Urine,Straight Cath Urine Culture - Final No growth - less than 1,000 colonies/mL. XR chest 1V portable CLINICAL HISTORY: continued coarse BS, s/p txf, eval for overload COMPARISON STUDY: 10/05/2018 FINDINGS: The cardiac and mediastinal contours remain stable. There is a right- sided PICC catheter tip which projects over the superior vena cava. There is continued radiographic evidence of congestive failure/fluid overload with right lung asymmetric edema. There are small bilateral pleural effusions right greater than left. There are basilar airspace opacities, likely atelectatic.[ IMPRESSION: 1. Slight worsening in the congestive failure pattern with bilateral pleural effusions right greater than left 2. Worsening left basilar airspace opacities, likely atelectatic although a superimposed inflammatory process could appear similar Electronically signed by: Ross Sr M.D. 10/06/2018 6:28 AM Dictated: 10/06/18 0627 Transcribed: 10/06/18 0627
[2018-10-06] MEDS: CASPOFUNGIN 70 MG in SODIUM CHLORIDE 0.9% 250 ML IV SCH (10:46)
[2018-10-06] MEDS ORDERED: OPTIRAY 320 125ml IV PRN (12:15)
--- NOTE | 2018-10-06 13:01 | CT Scan Report ---
CHEST CTA for PULMONARY ARTERIES CT DOSE: 405.50 mGycm HISTORY: Short of breath. PE, ?infiltrate vs edema R lung TECHNIQUE: Multiaxial CT images of the chest were performed following the intravenous administration of contrast to evaluate the pulmonary arteries. Maximal intensity projection images were also obtaine d. A dose lowering technique was utilized adhering to the principles of ALARA. COMPARISON STUDY: Chest 10/06/2018. PET CT 08/05/2018. FINDINGS: Calcified plaque within the normal caliber thoracic aorta. No evidence for dissection. The heart is mildly enlarged. Moderate right and small left pleural effusions. There is respiratory motio n artifact. This results in suboptimal evaluation the right anterior upper lobe and lingular pulmonar y arteries. However, no definite filling defects within the pulmonary arteries to suggest pulmonary e mbolus. No fractures within the visualized osseous structures. Bilateral nephrolithiasis. No mediasti nal or hilar lymphadenopathy. No pneumothorax. Small amount of mucoid material within the mainstem br onchi. Partial opacification of the bilateral lower lobe bronchi with bronchial wall thickening. Dens e consolidation within the left lower lobe. Additional scattered patchy airspace opacities seen throu ghout the lungs. Mild emphysema. The right middle lobe is surgically absent. Soft tissue thickening a nd suture material at the right major fissure medially may represent postoperative change from the pr ior right middle lobe resection. IMPRESSION: 1. No definite evidence for pulmonary embolus. 2. Increase in size in the moderate right pleural effusion. There is also a small left pleural effusi on. 3. Dense consolidation within the left lower lobe. There are additional scattered multifocal airspace opacities. This may represent a focal pneumonia. 4. Postoperative changes consistent with interval right middle lobectomy. 5. Additional findings as described above. Electronically signed by: Hany Rehman M.D. 10/06/2018 1:00 PM
[2018-10-06] MEDS: VANCOMYCIN HCL 750 MG in SODIUM CHLORIDE 0.9% 250 ML IV SCH (15:25)
--- NOTE | 2018-10-06 16:02 | Gastroenterology Progress Note ---
Date of Service October 06, 2018 Assessment & Plan (1) Dysphagia: secondary to head and neck cancer s/p XRT and chemo. Discussed with Dr Mackenzie the followin) with worsening sepsis noted yesterday he is not good candidate for EGD/PEG. 2) TPN not available secondary to fungemia. 3) if they are now able to place NG for feedings to get him over the hump of infections and neurtopenia, that would be optimal 4) If not able to do NG feedings then improve as much as possible prior to PEG placement. 5) will sign off at present but call us if/when stable for EGD/PEG Subjective cc f/u dysphagia HPI History from chart and nursing. Pt is moving around and non communicative. Per nursing faint BS heard this am. BMs last night. Review of Systems Review of Systems: Unobtainable due to reduced consciousness Physical Exam Respiratory: normal respiratory effort Cardiovascular: Heart Sounds: normal, physiologic split S2 Gastrointestinal (Abdomen): cannot detect bowels, pt tenses and moves aruond on exam to difficult to ascertain if in pain or not, not tympanitic Psychiatric: non communicative Results & Data Vital Signs (Past 12 Hours) Vital Signs Temp Pulse Pulse Pulse Pulse Resp BP 10/06/18 15:36 82 10/06/18 15:00 93 H 10/06/18 14:57 37.0 C 99 H 20 10/06/18 13:39 91 H 21 10/06/18 12:04 88 10/06/18 11:46 104 H 25 H 10/06/18 11:10 37.9 C H 91 H 30 H 10/06/18 08:00 69 10/06/18 07:43 102 H 184/79 H 10/06/18 07:29 36.8 C 98 H 23 10/06/18 05:30 36.5 C 88 25 H 156/84 H 10/06/18 04:30 36.3 C L 88 24 171/85 H 10/06/18 04:07 36.3 C L 86 20 153/100 H BP Pulse Ox 10/06/18 15:36 10/06/18 15:00 10/06/18 14:57 149/87 H 98 10/06/18 13:39 96 10/06/18 12:04 10/06/18 11:46 98 10/06/18 11:10 173/88 H 100 10/06/18 08:00 10/06/18 07:43 10/06/18 07:29 184/79 H 5 L 10/06/18 05:30 98 10/06/18 04:30 98 10/06/18 04:07 92
[2018-10-06 17:03] LABS: HCO3 ABG 27 mmol/L (19-24); Oxygen Saturation ABG 96.3 % (90-95); PCO2 ABG 40 mmHg (35-46); PO2 ABG 82 mm/Hg (80-95); pH ABG 7.45 (7.35-7.45)
[2018-10-06 17:10] LABS: Allen Test Pos (Pos)
[2018-10-06] MEDS ORDERED: DEXTROSE 50% 50 ML SYRINGE IV ONE (18:17)
[2018-10-06] MEDS ORDERED: GLUCAGON FOR INJ 1 MG VIAL SQ PRN (18:27)
[2018-10-06] MEDS ORDERED: DEXTROSE 50% 50 ML SYRINGE IV PRN (18:27)
[2018-10-06 21:18] LABS: BUN Creatinine Ratio 37.8 (10-20); Calcium 8.6 mg/dl (8.5-10.1); Creatinine Clr Calc Pharmacy 44.3 ml/min; Est GFR (African American) 98.5
[2018-10-06 21:19] LABS: Potassium 4.3 mmol/L (3.5-5.1)
[2018-10-06] MEDS: ACETAMINOPHEN 1,000 MG/100 ML VIAL IV PRN (23:59)
[2018-10-07] MEDS: D5W AND LACTATED RINGERS 1,000 ML IV SCH ×2 (00:21→21:09)
[2018-10-07] MEDS: MoRPHine SULFATE 2 MG/ML CARP IV PRN ×4 (01:50→21:08)
[2018-10-07] MEDS: METOPROLOL TARTRATE 1 MG/ML VIAL IV SCH ×6 (04:00→23:57)
[2018-10-07] MEDS: CEFEPIME 2,000 MG in SYRINGE 7.5 ML IV SCH ×2 (05:09→17:55)
[2018-10-07 06:18] LABS: Mean Corpuscular Hgb Conc 34.6 g/dL (32-36)
[2018-10-07 06:27] LABS: Hematocrit (blood only) 30.9 % (42-52); Hemoglobin 10.7 g/dL (14.0-18.0); Mean Corpuscular Volume 88.8 fL (80-100); RDW Coefficient of Variation 16.7 % (11.5-14.5); RDW Standard Deviation 51.3 fL (36.4-46.3); Red Blood Count 3.48 M/uL (4.7-6.1); White Blood Count 2.06 K/uL (4.8-10.8)
[2018-10-07 06:45] LABS: BUN Creatinine Ratio 39.3 (10-20); Calcium 8.8 mg/dl (8.5-10.1); Creatinine Clr Calc Pharmacy 45.3 ml/min; Est GFR (Non-African American) 85.4
[2018-10-07 07:01] LABS: HCO3 ABG 29 mmol/L (19-24); Oxygen Saturation ABG 97.1 % (90-95); PCO2 ABG 44 mmHg (35-46); PO2 ABG 89 mm/Hg (80-95); pH ABG 7.45 (7.35-7.45)
[2018-10-07 07:02] LABS: Allen Test Pos (Pos)
[2018-10-07 07:24] LABS: Platelet Count 43 K/uL (130-400)
[2018-10-07 07:25] LABS: Giant Platelets 1+; Platelet Estimate Decreased (Normal); Toxic Granulation 2+
[2018-10-07 07:45] LABS: ALC (manual) 0.06 K/uL (1.2-3.4); Lymphocytes # (manual) 0.06 K/uL (1.2-3.4); Myelocytes # (manual) 0.08 K/uL (0-0)
--- NOTE | 2018-10-07 08:09 | Surgery Progress Note ---
Date of Service October 07, 2018 Assessment & Plan (1) Squamous cell carcinoma of epiglottis: Family does not desire trach Subjective continues to deteriorate Physical Exam Physical Exam: on bipap, not communicative Results & Data Vital Signs (Past 12 Hours) Vital Signs Temp Pulse Pulse Resp BP Pulse Ox 10/07/18 07:41 98 H 16 100 10/07/18 06:58 36.5 C 99 H 16 127/78 100 10/07/18 04:25 36.5 C 110 H 16 136/84 100 10/06/18 23:54 106 H 10/06/18 23:26 114 H 22 98 10/06/18 23:19 37.0 C 114 H 16 150/78 H 98
--- NOTE | 2018-10-07 08:43 | Family Medicine Progress Note ---
Date of Service October 07, 2018 Assessment & Plan (1) Neutropenia: Mr. 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 intake for 1-2 weeks [employer]. Was found to have neutropenic sepsis secondary to pneumonia versus mucositis. 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 Neutropenic Sepsis -Pt with increased oxygen demands, tachycardia, leukopenia, fever on 10/05. -Blood Cultures on admission negative. -1/ blood cx + for yeast; will start on caspofungin and consult ID, Hold tube feeds. -Culture of PICC tip NGTD -Resumed broad abx (cefipime, vanc, levaquin) 10/05 -1mg IV morphine q2h prn for respiratory distress, hold parameters for BP. -CXR shows increased collection in R lung; suggestive of aspiration. Abx as above. CT confirms pneumonia on L as well. -VBG showing acidosis, hypercapnea. Bipap was started, tolerates well. See "hypercapnic respiratory drive for details" Restlessness/agitation -Appears to be related to hypercapnia. Calms down with Bipap. -Continue with bipap -Morphine 1 mg q2h prn Hypercapnic respiratory drive -Discussed wishes with family. Patient would NOT want intubation, artificial airway, etc. -Tolerates bipap well and within 30 min of converting to oxymask will become agitated, restless. Possibly a/w hypercapnea -Will draw ABG when off bipap once he starts to get agitated to confirm Severe protein/calorie malnutrition -Secondary to above. No s/s refeeding syndrome -GI wth plan to place PEG, currently on hold considering sepsis, overall condition Hold TPN in light of fungemia -Discussed NGT placement. Will attempt today, will need to coordinate NGT/bipap, see if NGT even tolerated or if PEG is still best bet. -Started on D5LR at 50/hr in light of hypoglycemia off of TPN. Indicative of poor reserve Anemia -Noted jump on 10/05, Hgb 9-->7. Repeat Hgb 7.0, Pt received 2U IrrPRBC 10/05/18, responded well. -Fibrinogen level 701, FDP 10-40 -Routine monitoring Confusion/delirium -waxing/waning here - reorient, supportive care. Dysphagia/painful to speak, 2/2 to Mucositis, thrush, radiation - Pain relief: IV tylenol and IV dexamethasone. - Sx relief: scopolamine patch for secretions, Magic swizzle gargle TID, nystatin swish and spit TID, doxepin swish and spit TID as tolerated -Speech consult appreciated, STRICT NPO. Neutropenia, Pancytopenia -On Neupogen since 10/01 (WBCs had trended downwards when this was DCd) -WBC recently consistently <1000. Continue to monitor. -Thrombocytopenia--Requires platelet level of >50 PRIOR TO PEG placement -> continue to monitor. -> No s/s bleeding. -> Cont to hold plavix, chemical ppx. -> Plt today of 43 Thyrotoxicosis - history of radiation therapy to the neck -tachycardic off and on throughout the day -suspect acute thyroid injury secondary to radiation treatment -Monitor TSH/T4 in outpatient setting -TSH was 0.205, and T4 was 1.63 on 10/05 -> improved from admission -Weaned dexamethasone from 2mg qid to 2mg BID to 2mg OD on 10/06 Atrial fibrillation, paroxysmal - Usually flips into this when agitated. Continue to monitor. VT prophylaxis Heparin being HELD as above. SCDs likely of little benefit and possibly eden erous in light of waxing/waning confusion. CODE STATUS [facility]: on TPN (HELD ON 10/06 FOR FUNGEMIA), dextrose, n.p.o. due to pain/muc ositis Dispo: lives with his son and caregiver Lev (phone #: [phone]) while undergoing treatment for cancer. . Referral placed to [facility] when pt ready for discharge. (2) Right lower lobe pneumonia: (3) Poor fluid intake: (4) Dehydration: (5) Squamous cell carcinoma of epiglottis: (6) Mass of middle lobe of right lung: (7) Thyrotoxicosis: (8) Hypernatremia: (9) Elevated troponin: (10) Hypokalemia: (11) Elevated serum creatinine: (12) Total bilirubin, elevated: Supervising Physician Co-Signing Physician Notes I personally examined the patient and verified all kirk points of history and exam, discussed case, and agree with decision making with Dr Bell. No new HPI or review of systems. Patient resting more comfortably on BiPAP. Case discussed extensively with nursing. Tried to call son to update, no answer. Vitals noted, much more calm than yesterday, laying in bed in no distress. Making eye contact, but difficult communicate with, does not necessarily seem to be communicating clearly. HEENT normocephalic atraumatic mucous membranes moist. Breathing unlabored diffuse rhonchi but actually clearing, right worse than left but better than before, no accessory muscle use good spontaneous effort. Skin shows no rashes no pallor or icterus. Neutropenic sepsis -appearing to be multifactorial with a new/worsening pneumonia, as well as fungemia. -Antibiotics escalated for the new/worsening pneumonia to include vancomycin and double coverage for gram negatives given how ill he is -Caspofungin initiated for fungemia, TPN stopped and central line removed. -Continue supportive care -This appears to be improving. Hypercapnic respiratory failureseems to be fatiguing more than anything. The complicating factor on this is that he is now much more comfortable on BiPAP, but that is making a situation more difficult (see below) as far as enteral feeding. For now, airway/breathing obviously takes precedent, but we will be following closely, low threshold for blood gases, low threshold to try to wean the BiPAP as possible. 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 Continue beta-blockers and weaning steroids, follow TSH again tomorrow Severe protein calorie malnutritionas outlined previously, risks and benefits were extremely dangerous in any aspect given the severity of his malnutrition as well as his upper airway inflammation. At that point the most rational decision was to proceed with TPN, given that he was too ill for a PEG placement, and had too much pain from his upper airway mucositis for an NG tube. Unfortunately his fungemia complicates this, as now the TPN and central line have been removed as well. It is possible, given the treatment of his mucositis as well as the steroids coming down his upper airway inflammation, that an NG tube might be possible now, but this is complicated by the breathing issues as above, and if not able to place an NG we will simply need to keep him n.p.o. and off of TPN with hopes of having enough stability to have a PEG placed in the next 24-48 hours (assuming ongoing improving clinical stability). Discussed with nursing about working with respiratory and oxygen masks/BiPAP, with the hope to try to place NG tube if at all possible. DVT prophylaxishe was initially on pharmacologic prophylaxis but with his platelets dropping this had to be held, currently certainly appears to need to be held as well. CT chest obtained to differentiate pneumonia, pulmonary edema, or other fortunately did not show evidence of venous thrombolic disease. Again tried to update son but was unable to get in touch with him Subjective Patient non-verbal, resting with bipap in place Review of Systems Review of Systems: Unobtainable due to cognitive status Physical Exam Constitutional: + ill appearing, + thin, + cachectic and + altered mental status Eyes: PERRL, conjunctivae normal, anicteric sclerae ENMT: external ear and nose normal, oropharynx normal Mouth: + oropharynx abnormality, + oral mucosal abnormality and + tongue abnormality Neck: trachea midline, no thyromegaly normal visual inspection and trachea midline Respiratory: + respiratory distress, + labored breathing and + uses accessory muscles; no retractions Auscultation: + diminished lung sounds, + crackles (LLL) and + rhonchi Cardiovascular: RRR, no murmur, no edema Rate/Rhythm: regular rhythm; + abnormal rate (tachycardic) Extremities: normal capillary refill; no pedal edema and no edema Gastrointestinal (Abdomen): normal bowel sounds, soft, nontender, no hepatosplenomegaly Musculoskeletal: no cyanosis or clubbing, extremities motor strength 5/5 Head/Neck/Chest: + limited ROM of neck Extremities: + abnormal strength and + muscle atrophy; no cyanosis Skin: no rashes, warm and dry normal turgor Neurologic: moves all extremities Psychiatric: Orientation: + not alert and + not oriented x 3 Affect: + anxious affect Results & Data Vital Signs (Past 12 Hours) Vital Signs Temp Pulse Pulse Resp BP Pulse Ox 10/07/18 07:41 98 H 16 100 10/07/18 06:58 36.5 C 99 H 16 127/78 100 10/07/18 04:25 36.5 C 110 H 16 136/84 100 10/06/18 23:54 106 H 10/06/18 23:26 114 H 22 98 10/06/18 23:19 37.0 C 114 H 16 150/78 H 98 Laboratory Results 10/07/18 10/07/18 10/07/18 Range/Units 06:53 05:55 05:55 WBC 2.06 L (4.8-10.8) K/uL RBC 3.48 L (4.7-6.1) M/uL Hgb 10.7 L (14.0-18.0) g/dL Hct 30.9 L (42-52) % MCV 88.8 (80-100) fL MCH 30.7 (25-34) pg MCHC 34.6 (32-36) g/dL RDW Std Deviation 51.3 H (36.4-46.3) fL RDW Coeff of Daniel 16.7 H (11.5-14.5) % Plt Count 43 L (130-400) K/uL Absolute Nucleated RBC (0-0) K/uL Nucleated RBC % (auto) % Neutrophils % (Manual) 93.0 % Lymphocytes % (Manual) 3.0 % Monocytes % (Manual) % Basophils % (Manual) % Metamyelocytes % (Man) % Myelocytes % (Man) 4.0 % Neutrophils # (Manual) 1.92 (1.4-6.5) K/uL Total Absolute Neuts 1.92 (1.4-6.5) K/uL Lymphocytes # (Manual) 0.06 L (1.2-3.4) K/uL Total Abs Lymphocytes 0.06 L (1.2-3.4) K/uL Monocytes # (Manual) (0.11-0.59) K/uL Basophils # (Manual) (0-0.2) K/uL Metamyelocytes # (Man) (0-0) K/uL Myelocytes # (Manual) 0.08 H (0-0) K/uL Toxic Granulation 2+ Platelet Estimate Decreased L (Normal) Giant Platelets 1+ Echinocytes ABG pH 7.45 (7.35-7.45) ABG pCO2 44 (35-46) mmHg ABG pO2 89 (80-95) mm/Hg ABG HCO3 29 H (19-24) mmol/L ABG O2 Saturation 97.1 H (90-95) % ABG Base Excess 4.8 H (-9-1.8) mEq/L Garland Test Pos (Pos) VBG pH (7.36-7.41) VBG pCO2 (38-50) mmHg VBG pO2 mmHg VBG HCO3 mmol/L VBG O2 Saturation % VBG Base Excess mEq/L Barometric Pressure 730.4 mm/Hg Oxygen Given 40% FIO2 Sodium 145 (136-145) mmol/L Potassium 4.0 (3.5-5.1) mmol/L Chloride 111 H (98-107) mmol/L Carbon Dioxide 30 (21-32) mmol/L Anion Gap 4.0 (3-11) BUN 31 H (7-18) mg/dl Creatinine 0.79 (0.6-1.4) mg/dl Est Cr Clr Drug Dosing 45.3 ml/min Est GFR ( Amer) 99.0 Est GFR (Non-Af Amer) 85.4 BUN/Creatinine Ratio 39.3 H (10-20) Glucose 93 (70-99) mg/dl POC Glucose (70-99) Calcium 8.8 (8.5-10.1) mg/dl Phosphorus (2.5-4.9) mg/dl Magnesium (1.8-2.4) mg/dl Specimen Hemolysis 10/07/18 10/06/18 10/06/18 Range/Units 05:52 23:50 20:35 WBC (4.8-10.8) K/uL RBC (4.7-6.1) M/uL Hgb (14.0-18.0) g/dL Hct (42-52) % MCV (80-100) fL MCH (25-34) pg MCHC (32-36) g/dL RDW Std Deviation (36.4-46.3) fL RDW Coeff of Daniel (11.5-14.5) % Plt Count (130-400) K/uL Absolute Nucleated RBC (0-0) K/uL Nucleated RBC % (auto) % Neutrophils % (Manual) % Lymphocytes % (Manual) % Monocytes % (Manual) % Basophils % (Manual) % Metamyelocytes % (Man) % Myelocytes % (Man) % Neutrophils # (Manual) (1.4-6.5) K/uL Total Absolute Neuts (1.4-6.5) K/uL Lymphocytes # (Manual) (1.2-3.4) K/uL Total Abs Lymphocytes (1.2-3.4) K/uL Monocytes # (Manual) (0.11-0.59) K/uL Basophils # (Manual) (0-0.2) K/uL Metamyelocytes # (Man) (0-0) K/uL Myelocytes # (Manual) (0-0) K/uL Toxic Granulation Platelet Estimate (Normal) Giant Platelets Echinocytes ABG pH (7.35-7.45) ABG pCO2 (35-46) mmHg ABG pO2 (80-95) mm/Hg ABG HCO3 (19-24) mmol/L ABG O2 Saturation (90-95) % ABG Base Excess (-9-1.8) mEq/L Garland Test (Pos) VBG pH (7.36-7.41) VBG pCO2 (38-50) mmHg VBG pO2 mmHg VBG HCO3 mmol/L VBG O2 Saturation % VBG Base Excess mEq/L Barometric Pressure mm/Hg Oxygen Given Sodium 141 (136-145) mmol/L Potassium 4.3 D (3.5-5.1) mmol/L Chloride 109 H (98-107) mmol/L Carbon Dioxide 28 (21-32) mmol/L Anion Gap 4.0 (3-11) BUN 30 H (7-18) mg/dl Creatinine 0.80 (0.6-1.4) mg/dl Est Cr Clr Drug Dosing 44.3 ml/min Est GFR ( Amer) 98.5 Est GFR (Non-Af Amer) 85.0 BUN/Creatinine Ratio 37.8 H (10-20) Glucose 109 H (70-99) mg/dl POC Glucose 101 H 76 (70-99) Calcium 8.6 (8.5-10.1) mg/dl Phosphorus (2.5-4.9) mg/dl Magnesium (1.8-2.4) mg/dl Specimen Hemolysis 10/06/18 10/06/18 10/06/18 Range/Units 18:34 18:15 18:13 WBC (4.8-10.8) K/uL RBC (4.7-6.1) M/uL Hgb (14.0-18.0) g/dL Hct (42-52) % MCV (80-100) fL MCH (25-34) pg MCHC (32-36) g/dL RDW Std Deviation (36.4-46.3) fL RDW Coeff of Daniel (11.5-14.5) % Plt Count (130-400) K/uL Absolute Nucleated RBC (0-0) K/uL Nucleated RBC % (auto) % Neutrophils % (Manual) % Lymphocytes % (Manual) % Monocytes % (Manual) % Basophils % (Manual) % Metamyelocytes % (Man) % Myelocytes % (Man) % Neutrophils # (Manual) (1.4-6.5) K/uL Total Absolute Neuts (1.4-6.5) K/uL Lymphocytes # (Manual) (1.2-3.4) K/uL Total Abs Lymphocytes (1.2-3.4) K/uL Monocytes # (Manual) (0.11-0.59) K/uL Basophils # (Manual) (0-0.2) K/uL Metamyelocytes # (Man) (0-0) K/uL Myelocytes # (Manual) (0-0) K/uL Toxic Granulation Platelet Estimate (Normal) Giant Platelets Echinocytes ABG pH (7.35-7.45) ABG pCO2 (35-46) mmHg ABG pO2 (80-95) mm/Hg ABG HCO3 (19-24) mmol/L ABG O2 Saturation (90-95) % ABG Base Excess (-9-1.8) mEq/L Garland Test (Pos) VBG pH (7.36-7.41) VBG pCO2 (38-50) mmHg VBG pO2 mmHg VBG HCO3 mmol/L VBG O2 Saturation % VBG Base Excess mEq/L Barometric Pressure mm/Hg Oxygen Given Sodium (136-145) mmol/L Potassium (3.5-5.1) mmol/L Chloride (98-107) mmol/L Carbon Dioxide (21-32) mmol/L Anion Gap (3-11) BUN (7-18) mg/dl Creatinine (0.6-1.4) mg/dl Est Cr Clr Drug Dosing ml/min Est GFR ( Amer) Est GFR (Non-Af Amer) BUN/Creatinine Ratio (10-20) Glucose (70-99) mg/dl POC Glucose 165 H 67 L* 69 L* (70-99) Calcium (8.5-10.1) mg/dl Phosphorus (2.5-4.9) mg/dl Magnesium (1.8-2.4) mg/dl Specimen Hemolysis 10/06/18 10/06/18 10/06/18 Range/Units 16:41 12:00 08:29 WBC 0.83 L* (4.8-10.8) K/uL RBC 4.15 L (4.7-6.1) M/uL Hgb 12.6 L D (14.0-18.0) g/dL Hct 37.8 L (42-52) % MCV 91.1 (80-100) fL MCH 30.4 (25-34) pg MCHC 33.3 (32-36) g/dL RDW Std Deviation 51.4 H (36.4-46.3) fL RDW Coeff of Daniel 15.9 H (11.5-14.5) % Plt Count 52 L (130-400) K/uL Absolute Nucleated RBC 0.02 H (0-0) K/uL Nucleated RBC % (auto) 2.1 % Neutrophils % (Manual) 72.8 % Lymphocytes % (Manual) 10.2 % Monocytes % (Manual) 5.3 % Basophils % (Manual) 3.4 % Metamyelocytes % (Man) 4.4 % Myelocytes % (Man) 3.9 % Neutrophils # (Manual) 0.60 L (1.4-6.5) K/uL Total Absolute Neuts 0.60 L* (1.4-6.5) K/uL Lymphocytes # (Manual) 0.08 L (1.2-3.4) K/uL Total Abs Lymphocytes 0.08 L (1.2-3.4) K/uL Monocytes # (Manual) 0.04 L (0.11-0.59) K/uL Basophils # (Manual) 0.03 (0-0.2) K/uL Metamyelocytes # (Man) 0.04 H (0-0) K/uL Myelocytes # (Manual) 0.03 H (0-0) K/uL Toxic Granulation 3+ Platelet Estimate (Normal) Giant Platelets Echinocytes 1+ ABG pH 7.45 (7.35-7.45) ABG pCO2 40 (35-46) mmHg ABG pO2 82 (80-95) mm/Hg ABG HCO3 27 H (19-24) mmol/L ABG O2 Saturation 96.3 H (90-95) % ABG Base Excess 2.5 H (-9-1.8) mEq/L Garland Test Pos (Pos) VBG pH (7.36-7.41) VBG pCO2 (38-50) mmHg VBG pO2 mmHg VBG HCO3 mmol/L VBG O2 Saturation % VBG Base Excess mEq/L Barometric Pressure 728.6 mm/Hg Oxygen Given BIPAP Sodium (136-145) mmol/L Potassium (3.5-5.1) mmol/L Chloride (98-107) mmol/L Carbon Dioxide (21-32) mmol/L Anion Gap (3-11) BUN (7-18) mg/dl Creatinine (0.6-1.4) mg/dl Est Cr Clr Drug Dosing ml/min Est GFR ( Amer) Est GFR (Non-Af Amer) BUN/Creatinine Ratio (10-20) Glucose (70-99) mg/dl POC Glucose 91 (70-99) Calcium (8.5-10.1) mg/dl Phosphorus (2.5-4.9) mg/dl Magnesium (1.8-2.4) mg/dl Specimen Hemolysis 10/06/18 10/06/18 Range/Units 08:23 08:23 WBC (4.8-10.8) K/uL RBC (4.7-6.1) M/uL Hgb (14.0-18.0) g/dL Hct (42-52) % MCV (80-100) fL MCH (25-34) pg MCHC (32-36) g/dL RDW Std Deviation (36.4-46.3) fL RDW Coeff of Daniel (11.5-14.5) % Plt Count (130-400) K/uL Absolute Nucleated RBC (0-0) K/uL Nucleated RBC % (auto) % Neutrophils % (Manual) % Lymphocytes % (Manual) % Monocytes % (Manual) % Basophils % (Manual) % Metamyelocytes % (Man) % Myelocytes % (Man) % Neutrophils # (Manual) (1.4-6.5) K/uL Total Absolute Neuts (1.4-6.5) K/uL Lymphocytes # (Manual) (1.2-3.4) K/uL Total Abs Lymphocytes (1.2-3.4) K/uL Monocytes # (Manual) (0.11-0.59) K/uL Basophils # (Manual) (0-0.2) K/uL Metamyelocytes # (Man) (0-0) K/uL Myelocytes # (Manual) (0-0) K/uL Toxic Granulation Platelet Estimate (Normal) Giant Platelets Echinocytes ABG pH (7.35-7.45) ABG pCO2 (35-46) mmHg ABG pO2 (80-95) mm/Hg ABG HCO3 (19-24) mmol/L ABG O2 Saturation (90-95) % ABG Base Excess (-9-1.8) mEq/L Garland Test (Pos) VBG pH 7.27 L (7.36-7.41) VBG pCO2 68 H (38-50) mmHg VBG pO2 16 mmHg VBG HCO3 31 mmol/L VBG O2 Saturation < 60.0 % VBG Base Excess 1.7 mEq/L Barometric Pressure 727.9 mm/Hg Oxygen Given Sodium 143 (136-145) mmol/L Potassium 5.4 H D (3.5-5.1) mmol/L Chloride 110 H (98-107) mmol/L Carbon Dioxide 31 (21-32) mmol/L Anion Gap 3.0 (3-11) BUN 33 H (7-18) mg/dl Creatinine 0.80 (0.6-1.4) mg/dl Est Cr Clr Drug Dosing 44.3 ml/min Est GFR ( Amer) 98.5 Est GFR (Non-Af Amer) 85.0 BUN/Creatinine Ratio 40.7 H (10-20) Glucose 124 H (70-99) mg/dl POC Glucose (70-99) Calcium 8.7 (8.5-10.1) mg/dl Phosphorus 3.6 (2.5-4.9) mg/dl Magnesium 1.8 (1.8-2.4) mg/dl Specimen Hemolysis Medications Administered Current Inpatient Medications Albuterol (Duoneb) 3 ml NEB Q4R PRN PRN Reason: Dyspnea Stop: 10/23/18 19:59 Last Admin: 10/05/18 15:29 Dose: 3 ml Documented by: Al Hydrox/Mg Hydrox/Simethicone 50 ml/Diphenhydramine HCl 125 mg/Lidocaine HCl 40 ml/Sucralfate 10,000 mg/ BARCODE IDENTIFIER 1 ea 0 ml PO TID GARRY Stop: 10/28/18 11:14 Last Admin: 10/06/18 23:35 Dose: Not Given Documented by: Dextrose (Dextrose 50%) 25 - 50 ml IV UD PRN; Protocol PRN Reason: Hypoglycemia Protocol Stop: 11/05/18 18:26 Filgrastim (Neupogen) 300 mcg SQ DAILY GARRY Stop: 10/31/18 16:59 Last Admin: 10/06/18 07:56 Dose: 300 mcg Documented by: Glucagon (Glucagen) 1 mg SQ UD PRN; Protocol PRN Reason: Hypoglycemia Protocol Stop: 11/05/18 18:26 Heparin Sodium (Beef Lung) (Heparin Sod 10 Unit/Ml Flush) 5 ml FLUSH PRN PRN PRN Reason: Flush Stop: 10/26/18 00:59 Heparin Sodium (Porcine) (Heparin Sodium (Porcine)) 5,000 units SQ Q12 GARRY Stop: 10/24/18 20:59 Last Admin: 09/26/18 08:27 Dose: 5,000 units Documented by: Acetaminophen (Ofirmev) 1,000 mg in 100 mls @ 400 mls/hr IV Q8H PRN PRN Reason: Fever Stop: 10/23/18 22:00 Last Infusion: 10/07/18 00:17 Dose: Infused Documented by: Dextrose (D10w) 1,000 mls @ 0 mls/hr IV .Q0M GARRY Stop: 10/25/18 15:59 Cefepime HCl 2,000 mg/ Syringe 20 mls @ 5 mls/min IV Q12H GARRY; Protocol Stop: 10/07/18 17:59 Last Admin: 10/07/18 05:09 Dose: 5 mls/min Documented by: Levofloxacin/Dextrose (Levaquin/D5w) 750 mg in 150 mls @ 100 mls/hr IV Q48H GARRY; Protocol Stop: 10/12/18 15:59 Last Infusion: 10/05/18 17:40 Dose: Infused Documented by: Sodium Chloride (Nss) 250 mls @ 15 mls/hr IV .[id number] PRN PRN Reason: For Transfusion Stop: 11/04/18 22:01 Caspofungin 70 mg/ Sodium (Chloride) 260 mls @ 250 mls/hr IV Q24H [facility] Stop: 10/20/18 10:29 Last Infusion: 10/06/18 12:06 Dose: Infused Documented by: Dexamethasone 2 mg/ Syringe 0.5 mls @ 1 mls/min IV DAILY [facility] Stop: 11/06/18 08:59 Dextrose/Lactated Ringer's (D5w And Lactated Ringers) 1,000 mls @ 50 mls/hr IV .Q20H [facility] Stop: 11/06/18 00:14 Last Admin: 10/07/18 00:21 Dose: 50 mls/hr Documented by: Ioversol (Optiray 320 125ml) 120 ml IV ONCE PRN PRN Reason: Interaction Checking Stop: 10/10/18 12:14 Last Admin: 10/06/18 12:24 Dose: 120 ml Documented by: Metoprolol Tartrate (Lopressor) 5 mg IV Q4 GARRY Stop: 11/03/18 15:59 Last Admin: 10/07/18 04:00 Dose: 5 mg Documented by: Miscellaneous (Check Scopolamine Patch Placement) 1 ea N/A QS [facility] Stop: 10/23/18 00:00 Last Admin: 10/06/18 23:59 Dose: 1 ea Documented by: Miscellaneous (Remove Transderm-Scop Patch) 1 ea N/A Q3D@0859 [facility] Stop: 10/27/18 12:58 Last Admin: 10/06/18 07:43 Dose: 1 ea Documented by: Miscellaneous Information (Pharmacy Tpn/Ppn Consult Active) 1 ea N/A UD PRN PRN Reason: Consult Stop: 10/24/18 15:56 Miscellaneous Information (Cefepime Consult Active) 1 ea N/A UD PRN PRN Reason: Consult Stop: 10/07/18 17:59 Morphine Sulfate (Morphine Sulfate) 2 mg IV Q2H PRN PRN Reason: Pain Stop: 10/10/18 11:31 Last Admin: 09/29/18 01:21 Dose: 2 mg Documented by: Morphine Sulfate (Morphine Sulfate) 1 mg IV Q2H PRN PRN Reason: Shortness Of Breath Stop: 10/19/18 18:12 Last Admin: 10/07/18 05:07 Dose: 1 mg Documented by: Doxepin 10mg/Ml Oral Soln - Patient's Own Med 1 ea PO TID [facility] Stop: 11/02/18 20:59 Last Admin: 10/06/18 20:52 Dose: Not Given Documented by: Nystatin (Mycostatin) 5 ml PO QID [facility] Stop: 10/09/18 12:59 Last Admin: 10/06/18 23:35 Dose: Not Given Documented by: Ondansetron HCl (Zofran) 4 mg IV Q6H PRN PRN Reason: Nausea Stop: 10/22/18 20:25 Last Admin: 10/04/18 03:18 Dose: 4 mg Documented by: Scopolamine (Transderm-Scop) 1.5 mg TD Q3D@0900 [facility] Stop: 10/27/18 12:59 Last Admin: 10/06/18 08:40 Dose: 1.5 mg Documented by: Resident Activity Tracking Resident Involvement: Resident Care Provided Care Provided: Adult Hospital Medicine (1) Neutropenia Neutropenia type: unspecified Qualified Code(s): D70.9 - Neutropenia, unspecified
[2018-10-07] MEDS: dexAMETHasone 2 MG in SYRINGE 0 ML IV SCH (08:57)
[2018-10-07] MEDS: NYSTATIN SUSP 500,000 U/5 ML UDC PO SCH ×4 (08:58→21:08)
[2018-10-07] MEDS: DOXEPIN 10 MG/ML PO SCH ×3 (09:03→21:08)
[2018-10-07] MEDS: CHECK SCOPOLAMINE PATCH PLACEMENT SCH ×3 (09:03→23:57)
[2018-10-07] MEDS: FILGRASTIM 300 MCG/ML VIAL SQ SCH (09:05)
[2018-10-07] MEDS: CASPOFUNGIN 70 MG in SODIUM CHLORIDE 0.9% 250 ML IV SCH (09:06)
[2018-10-07] MEDS: ALUMINUM/MAGNESIUM SUSP 50 ML, DiphenhydrAMINE Syrup 125 MG, LIDOCAINE HCL 2% VISCOUS 4... PO SCH ×3 (09:07→21:08)
[2018-10-07] MEDS ORDERED: VANCOMYCIN CONSULT ACTIVE PRN (15:21)
[2018-10-07] MEDS ORDERED: VANCOMYCIN TROUGH ONE (15:30)
--- NOTE | 2018-10-07 15:33 | Infectious Disease Progress Nt ---
Date of Service October 07, 2018 Assessment & Plan (1) Fungemia: 78-year-old male with profound neutropenia, now with positive blood cultures for yeast, likely infected central catheter, as well as probable right lower lobe pneumonia. As discussed, patient to be started on IV caspofungin, and would continue current antibiotics to cover pneumonia pending further culture results. Await culture from central line. Continue caspofungin. (2) Right lower lobe pneumonia: Subjective Patient non-verbal, resting with bipap in place Review of Systems Review of Systems: Unobtainable due to cognitive status Physical Exam Constitutional: + thin, + cachectic, comfortable and + lethargic; no acute distress Eyes: PERRL, conjunctivae normal, anicteric sclerae ENMT: Ears: no external ear abnormality Nose: no external nose abnormality Mouth: + oral mucosal abnormality (Mucositis and thrush) and + muffled voice Neck: trachea midline, no thyromegaly neck nontender Respiratory: normal respiratory effort, lungs clear to auscultation normal percussion; does not use accessory muscles Cardiovascular: Rate/Rhythm: regular rate and regular rhythm Heart Sounds: normal S1 and normal S2; no gallop, no murmur and no cardiac rub Vessels: normal peripheral pulses; no JVD Gastrointestinal (Abdomen): normal bowel sounds, soft, nontender, no hepatosplenomegaly Musculoskeletal: no cyanosis or clubbing, extremities motor strength 5/5 Spine: thoracic spine normal to inspection and lumbar spine normal to inspection; no cervical spinal tenderness Skin: no rashes, warm and dry normal turgor; no lesions Neurologic: moves all extremities; no focal motor deficits Lymphatic: no cervical or axillary lymphadenopathy no inguinal lymphadenopathy Results & Data Vital Signs (Past 12 Hours) Vital Signs Temp Pulse Pulse Resp BP BP Pulse Ox 10/07/18 14:19 98 H 14 93 10/07/18 13:50 112 H 154/92 H 10/07/18 11:19 36.6 C 97 H 17 154/92 H 100 10/07/18 08:55 100 H 127/78 10/07/18 07:41 98 H 16 100 10/07/18 06:58 36.5 C 99 H 16 127/78 100 10/07/18 04:25 36.5 C 110 H 16 136/84 100 Laboratory Results Short CBC 10/07/18 Range/Units 05:55 WBC 2.06 L (4.8-10.8) K/uL Hgb 10.7 L (14.0-18.0) g/dL Hct 30.9 L (42-52) % Plt Count 43 L (130-400) K/uL BMP 10/06/18 10/07/18 20:35 05:55 Sodium 141 145 Potassium 4.3 D 4.0 Chloride 109 H 111 H Carbon Dioxide 28 30 BUN 30 H 31 H Creatinine 0.80 0.79 Glucose 109 H 93 Calcium 8.6 8.8 Diagnostic Findings Microbiology 10/06/18 13:20 Catheter Tip, Picc Catheter Tip Culture - Preliminary No growth to date. 10/05/18 15:46 Blood Aerobic Blood Culture - Preliminary Yeast not Dea albicans 10/05/18 15:46 Blood Anaerobic Blood Culture - Preliminary No growth in Anaerobic bottle after 24 hours. 10/05/18 07:41 Urine,Indwelling Cath Urine Culture - Final No growth - less than 1,000 colonies/mL. 10/05/18 15:32 Blood Aerobic Blood Culture - Preliminary Yeast 10/05/18 15:32 Blood Anaerobic Blood Culture - Preliminary No growth in Anaerobic bottle after 24 hours. 10/05/18 05:45 Blood Aerobic Blood Culture - Preliminary Yeast 10/05/18 05:45 Blood Anaerobic Blood Culture - Preliminary No growth in Anaerobic bottle after 48 hours. 10/05/18 05:51 Blood Aerobic Blood Culture - Preliminary Yeast 10/05/18 05:51 Blood Anaerobic Blood Culture - Preliminary No growth in Anaerobic bottle after 48 hours. 10/04/18 15:10 Urine,Straight Cath Urine Culture - Final No growth - less than 1,000 colonies/mL. 09/22/18 15:36 Blood Blood Culture - Final No growth 09/22/18 15:36 Blood Blood Culture - Final No growth 09/22/18 22:45 Urine,Straight Cath Urine Culture - Final No growth - less than 1,000 colonies/mL.
[2018-10-07] MEDS ORDERED: VANCOMYCIN HCL 750 MG in SODIUM CHLORIDE 0.9% 250 ML IV ONE (16:30)
[2018-10-07] MEDS: LEVOFLOXACIN/D5W 750 MG/150 ML BAG IV SCH (16:35)
[2018-10-07] MEDS ORDERED: FIBERSOURCE HN 1.2 CAL 1000 ML BAG PO SCH (18:30)
[2018-10-07] MEDS ORDERED: CEFEPIME CONSULT ACTIVE PRN (19:35)
--- NOTE | 2018-10-07 19:38 | Pharmacy Report ---
Pharmacy Abx Dose Short Note - Date of Service October 07, 2018 - Assessment & Plan Assessment 78 year old M receiving vancomycin, cefepime and levaquin for treatment of right lower lobe pneumonia. Day # 3 of antimicrobial therapy. * Empiric therapy with cefepime and vancomycin continued with pulm indication by Dr. Valverde. Plan Vancomycin * Trough level of 6.5 mcg/mL is subtherapeutic. * Mr Perla was previously therapeutic on this regimen. Renal function unchanged. * Reason for subtherapeutic trough unclear. Will repeat level. * Ordered one time dose of 750 mg x 1 this evening. Ordered 750mg q 24 hours to start early tomorrow morning. * Goal trough level : 15 to 20 mcg/mL * Trough level ordered for: 10/09/18 @0530 Cefepime * Continue 2gm IV q12 hours Pt also on Levaquin 750mg iv q 48hours and Caspofungin 70mg iv q 24hours. Pharmacy will continue to follow and will adjust dose/frequency as necessary. Thank you.
[2018-10-08] MEDS: METOPROLOL TARTRATE 1 MG/ML VIAL IV SCH ×3 (04:30→12:06)
[2018-10-08 05:40] LABS: Mean Corpuscular Hgb Conc 33.3 g/dL (32-36)
[2018-10-08 05:56] LABS: Hematocrit (blood only) 30.9 % (42-52); Hemoglobin 10.3 g/dL (14.0-18.0); Mean Corpuscular Volume 90.6 fL (80-100); RDW Coefficient of Variation 16.8 % (11.5-14.5); RDW Standard Deviation 54.1 fL (36.4-46.3); Red Blood Count 3.41 M/uL (4.7-6.1); White Blood Count 2.86 K/uL (4.8-10.8)
[2018-10-08] MEDS ORDERED: VANCOMYCIN HCL 750 MG in SODIUM CHLORIDE 0.9% 250 ML IV SCH (06:00)
[2018-10-08] MEDS: CEFEPIME 2,000 MG in SYRINGE 7.5 ML IV SCH (06:01)
[2018-10-08 06:10] LABS: BUN Creatinine Ratio 44.6 (10-20); Calcium 8.8 mg/dl (8.5-10.1); Creatinine Clr Calc Pharmacy 46.2 ml/min; Est GFR (Non-African American) 86.3; Potassium 3.7 mmol/L (3.5-5.1)
[2018-10-08 06:28] LABS: Platelet Count 39 K/uL (130-400)
[2018-10-08 06:32] LABS: ALC (manual) 0.12 K/uL (1.2-3.4); Dohle Bodies 1+; Giant Platelets 1+; Lymphocytes # (manual) 0.12 K/uL (1.2-3.4); Lymphocytes % (manual) 4.3 %; Metamyelocytes # (manual) 0.07 K/uL (0-0); Metamyelocytes % (manual) 2.6 %; Monocytes # (manual) 0.03 K/uL (0.11-0.59); Monocytes % (manual) 0.9 %; Myelocytes # (manual) 0.03 K/uL (0-0); Myelocytes % (manual) 0.9 %; Neutrophils % (manual) 91.3 %; Toxic Granulation 2+
[2018-10-08 06:49] LABS: T4 Free Thyroxine 1.13 ng/dl (0.8-1.6)
[2018-10-08] MEDS: CHECK SCOPOLAMINE PATCH PLACEMENT SCH (08:11)
[2018-10-08] MEDS: NYSTATIN SUSP 500,000 U/5 ML UDC PO SCH ×2 (08:12→12:07)
[2018-10-08] MEDS: dexAMETHasone 2 MG in SYRINGE 0 ML IV SCH (08:13)
[2018-10-08] MEDS: ALUMINUM/MAGNESIUM SUSP 50 ML, DiphenhydrAMINE Syrup 125 MG, LIDOCAINE HCL 2% VISCOUS 4... PO SCH (08:19)
[2018-10-08] MEDS: DOXEPIN 10 MG/ML PO SCH (08:19)
[2018-10-08] MEDS: FILGRASTIM 300 MCG/ML VIAL SQ SCH (08:25)
--- NOTE | 2018-10-08 10:22 | Family Medicine Progress Note ---
Date of Service October 08, 2018 Assessment & Plan (1) Neutropenia: Patient this afternoon; likely mucous plugging leading to hypoxia. Code blue called, fulfilled patient wishes of full code, no intubation. Patient asystole and discussion was had with patient's son that he was not resp onding after several rounds of chemical interventions/CPR. After about 20 minutes of ACLS, decision was made to stop efforts. Mr. 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 intake for 1-2 weeks MBA INTERN. Was found to have neutropenic sepsis secondary to pneumonia versus mucositis. In addition, the patient was found to be in thyroid storm likely secondary to radiation of his neck and developed new onset Afib with RVR during this admission, which has been well controlled. Neutropenic Sepsis -Pt with increased oxygen demands, tachycardia, leukopenia, fever on 10/05. -Blood Cultures on admission negative. -1/ blood cx + for yeast; will start on caspofungin and consult ID, Hold tube feeds. -Culture of PICC tip shows no growth -Resumed broad abx (cefipime, vanc, levaquin) 10/05 -1mg IV morphine q2h prn for respiratory distress, hold parameters for BP. -CXR shows increased collection in R lung; suggestive of aspiration. Abx as above. CT confirms pneumonia on L as well. -VBG showing acidosis, hypercapnea. Bipap was started, tolerated well. See "hypercapnic respiratory drive for details" Restlessness/agitation -Appears to be related to hypercapnia. Calms down with Bipap. -Continue with bipap prn -Morphine 1 mg q2h prn Hypercapnic respiratory drive -Discussed wishes with family. Patient would NOT want intubation, artificial airway, etc. -Has been tolerating less and less. Off bipap sats drop to 88. Able to tolerate NC fairly well, but pulls it off at times. -Continue to monitor. Severe protein/calorie malnutrition -Secondary to above. No s/s refeeding syndrome -GI wth plan to place PEG, currently on hold considering sepsis, overall condition Hold TPN in light of fungemia -Discussed NGT placement. Will attempt today, will need to coordinate NGT/bipap, see if NGT even tolerated or if PEG is still best bet. -Started on D5LR at 50/hr in light of hypoglycemia off of TPN. Indicative of poor reserve. -Patient did not tolerate NGT attempts; will try again and consider re- consulting GI to discuss PEG. Anemia -Noted jump on 10/05, Hgb 9-->7. Repeat Hgb 7.0, Pt received 2U IrrPRBC 10/05/18, responded well. -Fibrinogen level 701, FDP 10-40 -Routine monitoring Confusion/delirium -waxing/waning here - reorient, supportive care. -Oriented to self only Dysphagia/painful to speak, 2/2 to Mucositis, thrush, radiation - Pain relief: IV tylenol and IV dexamethasone. - Sx relief: scopolamine patch for secretions, Magic swizzle gargle TID, nystatin swish and spit TID, doxepin swish and spit TID as tolerated -Speech consult appreciated, STRICT NPO. Neutropenia, Pancytopenia -On Neupogen since 10/01 (WBCs had trended downwards when this was DCd) -WBC recently consistently <1000. Continue to monitor. -Thrombocytopenia--Requires platelet level of >50 PRIOR TO PEG placement -> continue to monitor. -> No s/s bleeding. -> Cont to hold plavix, chemical ppx. -> Plt today of 39 Thyrotoxicosis - history of radiation therapy to the neck -tachycardic off and on throughout the day -suspect acute thyroid injury secondary to radiation treatment -Monitor TSH/T4 in outpatient setting -TSH was 0.205, and T4 was 1.63 on 10/05 -> improved from admission -Weaned dexamethasone from 2mg qid to 2mg BID to 2mg OD on 10/06 Atrial fibrillation, paroxysmal - Usually flips into this when agitated. Continue to monitor. VT prophylaxis Heparin being HELD as above. SCDs likely of little benefit and possibly dangerous in light of waxing/waning confusion. CODE STATUS FULL NO MECH VENT FEN/GI: on TPN (HELD ON 10/06 FOR FUNGEMIA), dextrose, n.p.o. due to pain/mucositis Dispo: lives with his son and caregiver Lev (phone #: [phone]) while undergoing treatment for cancer. . Referral placed to [facility] when pt ready for discharge. (2) Right lower lobe pneumonia: (3) Poor fluid intake: (4) Dehydration: (5) Squamous cell carcinoma of epiglottis: (6) Mass of middle lobe of right lung: (7) Thyrotoxicosis: (8) Hypernatremia: (9) Elevated troponin: (10) Hypokalemia: (11) Elevated serum creatinine: (12) Total bilirubin, elevated: Supervising Physician Co-Signing Physician Notes Paged due to CODE BLUE. Patient unresponsive and pulseless. CPR immediately started. Code ran with the assistance of ICU team, input greatly appreciated. Apparently patient had been coughing with some mucus and then immediately became profoundly hypoxic before becoming bradycardic before losing pulse. Vitals were pulseless. CPR efforts undertaken. After a prolonged period of resuscitative efforts, patient's son decided efforts should cease, which I offered supportive. Cardiac arrestappears to have been hypoxia most likely from mucous plugging, that quickly caused profound hypoxia leading to bradycardia leading to arrest. Unfortunately despite quick intervention and significant resuscitative efforts, the patient passed. Discussed with son that with his frailty and multiple acute and chronic comorbidities, hypoxia was able to lead to an arrest extremely quickly. Offered empathy and support Greater than 30 minutes Subjective Patient awake this am, able to verbalize. On NC. Patient asks about operation for PEG tube and indicates he still very much wants it performed. Review of Systems Review of Systems: All systems reviewed & are unremarkable except as noted in HPI & below Patient denies pain in chest, abdomen. States his throat is uncomfortable. Overall does not feel well. Falls asleep during interview but ab le to be awoken easily. Physical Exam Constitutional: + ill appearing, + thin and + cachectic Eyes: PERRL, conjunctivae normal, anicteric sclerae ENMT: external ear and nose normal, oropharynx normal Mouth: + oropharynx abnormality, + oral mucosal abnormality and + tongue abnormality Neck: trachea midline, no thyromegaly normal visual inspection and trachea midline Respiratory: + labored breathing and + uses accessory muscles; no retractions Auscultation: + diminished lung sounds, + crackles (LLL) and + rhonchi Cardiovascular: RRR, no murmur, no edema Rate/Rhythm: regular rhythm; + abnormal rate (tachycardic) Extremities: normal capillary refill; no pedal edema and no edema Gastrointestinal (Abdomen): normal bowel sounds, soft, nontender, no hepatosplenomegaly Musculoskeletal: no cyanosis or clubbing, extremities motor strength 5/5 Head/Neck/Chest: + limited ROM of neck Extremities: + abnormal strength and + muscle atrophy; no cyanosis Skin: no rashes, warm and dry normal turgor Neurologic: moves all extremities Speech / Cognition: + abnormal speech Psychiatric: Orientation: + not oriented x 3 Affect: + anxious affect Results & Data Vital Signs (Past 12 Hours) Vital Signs Temp Pulse Pulse Resp BP BP Pulse Ox 10/08/18 08:13 88 156/77 H 10/08/18 08:00 88 94 10/08/18 07:04 36.5 C 85 16 156/77 H 94 10/08/18 04:30 85 153/85 H 10/08/18 04:00 36.5 C 82 16 153/85 H 90 10/07/18 23:57 82 148/78 H 10/07/18 23:24 36.6 C 90 16 148/78 H 96 Laboratory Results 10/08/18 10/08/18 10/08/18 Range/Units 06:30 05:28 05:28 WBC 2.86 L (4.8-10.8) K/uL RBC 3.41 L (4.7-6.1) M/uL Hgb 10.3 L (14.0-18.0) g/dL Hct 30.9 L (42-52) % MCV 90.6 (80-100) fL MCH 30.2 (25-34) pg MCHC 33.3 (32-36) g/dL RDW Std Deviation 54.1 H (36.4-46.3) fL RDW Coeff of Daniel 16.8 H (11.5-14.5) % Plt Count 39 L (130-400) K/uL Neutrophils % (Manual) 91.3 % Lymphocytes % (Manual) 4.3 % Monocytes % (Manual) 0.9 % Metamyelocytes % (Man) 2.6 % Myelocytes % (Man) 0.9 % Neutrophils # (Manual) 2.61 (1.4-6.5) K/uL Total Absolute Neuts 2.61 (1.4-6.5) K/uL Lymphocytes # (Manual) 0.12 L (1.2-3.4) K/uL Total Abs Lymphocytes 0.12 L (1.2-3.4) K/uL Monocytes # (Manual) 0.03 L (0.11-0.59) K/uL Metamyelocytes # (Man) 0.07 H (0-0) K/uL Myelocytes # (Manual) 0.03 H (0-0) K/uL Toxic Granulation 2+ Dohle Bodies 1+ Giant Platelets 1+ Sodium 144 (136-145) mmol/L Potassium 3.7 (3.5-5.1) mmol/L Chloride 110 H (98-107) mmol/L Carbon Dioxide 31 (21-32) mmol/L Anion Gap 3.0 (3-11) BUN 34 H (7-18) mg/dl Creatinine 0.77 (0.6-1.4) mg/dl Est Cr Clr Drug Dosing 46.2 ml/min Est GFR ( Amer) 100.0 Est GFR (Non-Af Amer) 86.3 BUN/Creatinine Ratio 44.6 H (10-20) Glucose 119 H (70-99) mg/dl POC Glucose 121 H (70-99) Calcium 8.8 (8.5-10.1) mg/dl TSH 0.142 L (0.300-4.500) uIu/ml Free T4 1.13 (0.8-1.6) ng/dl Vancomycin Trough (See Comment) mcg/ml 05/15/19 05/15/19 05/15/19 Range/Units 23:31 17:52 15:28 WBC (4.8-10.8) K/uL RBC (4.7-6.1) M/uL Hgb (14.0-18.0) g/dL Hct (42-52) % MCV (80-100) fL MCH (25-34) pg MCHC (32-36) g/dL RDW Std Deviation (36.4-46.3) fL RDW Coeff of Daniel (11.5-14.5) % Plt Count (130-400) K/uL Neutrophils % (Manual) % Lymphocytes % (Manual) % Monocytes % (Manual) % Metamyelocytes % (Man) % Myelocytes % (Man) % Neutrophils # (Manual) (1.4-6.5) K/uL Total Absolute Neuts (1.4-6.5) K/uL Lymphocytes # (Manual) (1.2-3.4) K/uL Total Abs Lymphocytes (1.2-3.4) K/uL Monocytes # (Manual) (0.11-0.59) K/uL Metamyelocytes # (Man) (0-0) K/uL Myelocytes # (Manual) (0-0) K/uL Toxic Granulation Dohle Bodies Giant Platelets Sodium (136-145) mmol/L Potassium (3.5-5.1) mmol/L Chloride (98-107) mmol/L Carbon Dioxide (21-32) mmol/L Anion Gap (3-11) BUN (7-18) mg/dl Creatinine (0.6-1.4) mg/dl Est Cr Clr Drug Dosing ml/min Est GFR ( Amer) Est GFR (Non-Af Amer) BUN/Creatinine Ratio (10-20) Glucose (70-99) mg/dl POC Glucose 106 H 125 H (70-99) Calcium (8.5-10.1) mg/dl TSH (0.300-4.500) uIu/ml Free T4 (0.8-1.6) ng/dl Vancomycin Trough 6.5 (See Comment) mcg/ml 10/07/18 Range/Units 13:33 WBC (4.8-10.8) K/uL RBC (4.7-6.1) M/uL Hgb (14.0-18.0) g/dL Hct (42-52) % MCV (80-100) fL MCH (25-34) pg MCHC (32-36) g/dL RDW Std Deviation (36.4-46.3) fL RDW Coeff of Daniel (11.5-14.5) % Plt Count (130-400) K/uL Neutrophils % (Manual) % Lymphocytes % (Manual) % Monocytes % (Manual) % Metamyelocytes % (Man) % Myelocytes % (Man) % Neutrophils # (Manual) (1.4-6.5) K/uL Total Absolute Neuts (1.4-6.5) K/uL Lymphocytes # (Manual) (1.2-3.4) K/uL Total Abs Lymphocytes (1.2-3.4) K/uL Monocytes # (Manual) (0.11-0.59) K/uL Metamyelocytes # (Man) (0-0) K/uL Myelocytes # (Manual) (0-0) K/uL Toxic Granulation Dohle Bodies Giant Platelets Sodium (136-145) mmol/L Potassium (3.5-5.1) mmol/L Chloride (98-107) mmol/L Carbon Dioxide (21-32) mmol/L Anion Gap (3-11) BUN (7-18) mg/dl Creatinine (0.6-1.4) mg/dl Est Cr Clr Drug Dosing ml/min Est GFR ( Amer) Est GFR (Non-Af Amer) BUN/Creatinine Ratio (10-20) Glucose (70-99) mg/dl POC Glucose 108 H (70-99) Calcium (8.5-10.1) mg/dl TSH (0.300-4.500) uIu/ml Free T4 (0.8-1.6) ng/dl Vancomycin Trough (See Comment) mcg/ml Medications Administered Current Inpatient Medications Albuterol (Duoneb) 3 ml NEB Q4R PRN PRN Reason: Dyspnea Stop: 10/23/18 19:59 Last Admin: 10/05/18 15:29 Dose: 3 ml Documented by: Al Hydrox/Mg Hydrox/Simethicone 50 ml/Diphenhydramine HCl 125 mg/Lidocaine HCl 40 ml/Sucralfate 10,000 mg/ BARCODE IDENTIFIER 1 ea 0 ml PO TID GARRY Stop: 10/28/18 11:14 Last Admin: 10/08/18 08:19 Dose: Not Given Documented by: Dextrose (Dextrose 50%) 25 - 50 ml IV UD PRN; Protocol PRN Reason: Hypoglycemia Protocol Stop: 11/05/18 18:26 Enteral Nutritional Formula (Fibersource Hn 1.2 Jd Liquid) 10 ml PO UD GARRY; Protocol Stop: 11/06/18 18:29 Filgrastim (Neupogen) 300 mcg SQ DAILY GARRY Stop: 10/31/18 16:59 Last Admin: 10/08/18 08:25 Dose: 300 mcg Documented by: Glucagon (Glucagen) 1 mg SQ UD PRN; Protocol PRN Reason: Hypoglycemia Protocol Stop: 11/05/18 18:26 Heparin Sodium (Beef Lung) (Heparin Sod 10 Unit/Ml Flush) 5 ml FLUSH PRN PRN PRN Reason: Flush Stop: 10/26/18 00:59 Heparin Sodium (Porcine) (Heparin Sodium (Porcine)) 5,000 units SQ Q12 GARRY Stop: 10/24/18 20:59 Last Admin: 09/26/18 08:27 Dose: 5,000 units Documented by: Acetaminophen (Ofirmev) 1,000 mg in 100 mls @ 400 mls/hr IV Q8H PRN PRN Reason: Fever Stop: 10/23/18 22:00 Last Infusion: 10/07/18 00:17 Dose: Infused Documented by: Dextrose (D10w) 1,000 mls @ 0 mls/hr IV .Q0M GARRY Stop: 10/25/18 15:59 Cefepime HCl 2,000 mg/ Syringe 20 mls @ 5 mls/min IV Q12H GARRY; Protocol Stop: 10/12/18 17:59 Last Admin: 10/08/18 06:01 Dose: 5 mls/min Documented by: Levofloxacin/Dextrose (Levaquin/D5w) 750 mg in 150 mls @ 100 mls/hr IV Q48H GARRY; Protocol Stop: 10/12/18 15:59 Last Infusion: 10/07/18 18:05 Dose: Infused Documented by: Sodium Chloride (Nss) 250 mls @ 15 mls/hr IV .[id number] PRN PRN Reason: For Transfusion Stop: 11/04/18 22:01 Caspofungin 70 mg/ Sodium (Chloride) 260 mls @ 250 mls/hr IV Q24H [facility] Stop: 10/20/18 10:29 Last Infusion: 10/07/18 10:10 Dose: Infused Documented by: Dexamethasone 2 mg/ Syringe 0.5 mls @ 1 mls/min IV DAILY GARRY Stop: 11/06/18 08:59 Last Admin: 10/08/18 08:13 Dose: 1 mls/min Documented by: Dextrose/Lactated Ringer's (D5w And Lactated Ringers) 1,000 mls @ 50 mls/hr IV .Q20H [facility] Stop: 11/06/18 00:14 Last Admin: 10/07/18 21:09 Dose: 50 mls/hr Documented by: Vancomycin HCl 750 mg/ Sodium (Chloride) 265 mls @ 125 mls/hr IV Q24H [facility]; Protocol Stop: 10/12/18 05:59 Last Infusion: 10/08/18 09:06 Dose: Infused Documented by: Ioversol (Optiray 320 125ml) 120 ml IV ONCE PRN PRN Reason: Interaction Checking Stop: 10/10/18 12:14 Last Admin: 10/06/18 12:24 Dose: 120 ml Documented by: Metoprolol Tartrate (Lopressor) 5 mg IV Q4 [facility] Stop: 11/03/18 15:59 Last Admin: 10/08/18 08:13 Dose: 5 mg Documented by: Miscellaneous (Check Scopolamine Patch Placement) 1 ea N/A QS [facility] Stop: 10/23/18 00:00 Last Admin: 10/08/18 08:11 Dose: 1 ea Documented by: Miscellaneous (Remove Transderm-Scop Patch) 1 ea N/A Q3D@0859 [facility] Stop: 10/27/18 12:58 Last Admin: 10/06/18 07:43 Dose: 1 ea Documented by: Miscellaneous Information (Pharmacy Tpn/Ppn Consult Active) 1 ea N/A UD PRN PRN Reason: Consult Stop: 10/24/18 15:56 Miscellaneous Information (Consult) 1 ea N/A UD PRN PRN Reason: Consult Stop: 11/06/18 15:20 Miscellaneous Information (Cefepime Consult Active) 1 ea N/A UD PRN PRN Reason: Consult Stop: 11/06/18 19:34 Morphine Sulfate (Morphine Sulfate) 2 mg IV Q2H PRN PRN Reason: Pain Stop: 10/10/18 11:31 Last Admin: 09/29/18 01:21 Dose: 2 mg Documented by: Morphine Sulfate (Morphine Sulfate) 1 mg IV Q2H PRN PRN Reason: Shortness Of Breath Stop: 10/19/18 18:12 Last Admin: 10/07/18 21:08 Dose: 1 mg Documented by: Doxepin 10mg/Ml Oral Soln - Patient's Own Med 1 ea PO TID [facility] Stop: 11/02/18 20:59 Last Admin: 10/08/18 08:19 Dose: Not Given Documented by: Nystatin (Mycostatin) 5 ml PO QID [facility] Stop: 10/09/18 12:59 Last Admin: 10/08/18 08:12 Dose: Not Given Documented by: Ondansetron HCl (Zofran) 4 mg IV Q6H PRN PRN Reason: Nausea Stop: 10/22/18 20:25 Last Admin: 10/04/18 03:18 Dose: 4 mg Documented by: Scopolamine (Transderm-Scop) 1.5 mg TD Q3D@0900 [facility] Stop: 10/27/18 12:59 Last Admin: 10/06/18 08:40 Dose: 1.5 mg Documented by: Resident Activity Tracking Resident Involvement: Resident Care Provided Care Provided: Adult Hospital Medicine (1) Neutropenia Neutropenia type: unspecified Qualified Code(s): D70.9 - Neutropenia, unspecified
[2018-10-08] MEDS: CASPOFUNGIN 70 MG in SODIUM CHLORIDE 0.9% 250 ML IV SCH (10:32)
--- NOTE | 2018-10-08 15:00 | Death Summary ---
Date of Service October 08, 2018 Pronouncement Note Date and Time of Date of : 10/08/18 Time of : 13:40 PCOD Preliminary cause of : Hypoxia Contributing Factors (1) Neutropenia: (2) Right lower lobe pneumonia: (3) Poor fluid intake: (4) Dehydration: (5) Squamous cell carcinoma of epiglottis: (6) Mass of middle lobe of right lung: (7) Thyrotoxicosis: (8) Hypernatremia: (9) Elevated troponin: (10) Hypokalemia: (11) Elevated serum creatinine: (12) Total bilirubin, elevated: Additional Data Confirmation of : no pulse, no respirations, no heart sounds and pupils fixed and dilated Family: at bedside Attending/PCP notified?: Yes Attending physician: Brian Mackenzie, DO Was code activated?: Yes Supervising Physician Co-Signing Physician Notes I personally examined the patient and verified all kirk points of history and exam, discussed case, and agree with decision making with Dr Bell. Present throughout the entirety of [place], ICU assistance greatly appreciated. After Dr. Bell spoke with the patient's son I personally did as well, updating on the severity of his father situation and offering empathy and support after the son decided that resuscitation efforts should be ceased. certificate completed as well.
[2018-10-08] MEDS ORDERED: MAG SULFATE 50% 1GM/2ML VIAL IV ONE (15:02)
[2018-10-08] MEDS ORDERED: ATROPINE SULFATE 0.1 MG/ML 10ML SYR IV ONE (15:02)
[2018-10-08] MEDS ORDERED: SODIUM CHLORIDE 0.9% 10ML FLUSH IV ONE (15:02)
[2018-10-09] MEDS ORDERED: VANCOMYCIN TROUGH ONE (05:30)
== END 2018-10-08 15:03 | disposition expired | DRG 871 ==
LOC: ED 14:00 → SUATTDRO 18:13 → 2E 18:13 → 4E 09-30 14:50 → 2E 10-05 18:07